=== PATIENT | female | born 1960 | race Caucasian/White ===

== ENCOUNTER 2023-04-28 13:10 | Inpatient (IN) | payer MEDICARE, OTHER, SELFPAY ==
[2023-04-28] VITALS (32 sets, daily range): BP systolic 85–122; BP diastolic 48–75; PULSE 72–93; RESP 12–19; TEMP 36.4–37.2; O2SAT 92–99; BMI 38.7
--- NOTE | ~2023-04-28 | XR_ITS ---
EXAMINATION: XR chest 1V portable DATE: 05/03/2023 15:24 INDICATION: Hypoxia. TECHNIQUE: A single frontal view of the chest was obtained. COMPARISON: Chest single view 05/01/2023, CT abdomen and pelvis 04/28/2023 FINDINGS: There is mild atelectasis in right lower lung zone and left mid and lower lung zones. No pl eural effusion or pneumothorax. The heart size is normal. There are changes of anterior fusion proced ure and disc replacement in cervical spine. A right internal jugular central venous catheter is seen with tip in the superior vena cava. IMPRESSION: 1. Mild atelectasis in right lower lung zone and left mid and lower lung zones. Reviewed, dictated and finalized at location E. ER OPERATORS SUPERVISOR
--- NOTE | ~2023-04-28 | XR_ITS ---
XR fl guide central line place Indication: Duraflow catheter placement TECHNIQUE: Fluoroscopy used during Duraflow catheter placement performed by [Anthony Peguero MD ] on 05/11/2023. 1 minute 31 seconds with 2 fluoroscopic images captured. FINDINGS: Correlate with procedure note. IMPRESSION: Fluoroscopy used during Duraflow catheter placement. Reviewed, dictated and finalized at location A.
--- NOTE | ~2023-04-28 | XR_ITS ---
EXAMINATION: XR chest 1V portable INDICATION: Central line insertion TECHNIQUE: Portable AP chest at 1525 hours COMPARISON: 04/29/2023 FINDINGS: A right internal jugular central venous catheter ends with this tip in the distal superior vena cava. No pleural effusion or pneumothorax. There are minimal airspace opacities of the lung base s, improved on the right and worsening on the left. The cardiomediastinal silhouette is normal. Surgi miles changes are noted in the lower cervical spine. IMPRESSION: 1. Right internal jugular catheter insertion, no pneumothorax. 2. Bibasilar airspace opacities, consistent with atelectasis versus pneumonia. Reviewed, dictated and finalized at location B. PHONE OPERATOR CHIEF
--- NOTE | ~2023-04-28 | XR_ITS ---
EXAMINATION: XR chest 1V portable DATE: 04/29/2023 23:11 INDICATION: Acute kidney injury. Hypotension. TECHNIQUE: A single frontal view of the chest was obtained. COMPARISON: Chest 2 views 04/28/2023 FINDINGS: There are airspace opacities in the lower lung zones. No pleural effusion or pneumothorax. The heart size is normal. There are changes of anterior fusion procedure in cervical spine. IMPRESSION: 1. Worsened airspace opacities in the lower lung zones, consistent with atelectasis versus pneumonia. Reviewed, dictated and finalized at location A. ULATION TECHNICIAN IMPRESSION: 1. Worsened airspace opacities in the lower lung zones, consistent with atelect asis versus pneumonia.
--- NOTE | ~2023-04-28 | XR_ITS ---
Portable chest x-ray Comparison: 05/04/2023 Clinical History: Hypoxia Findings: Right IJ line is in place. There is minimal bibasilar haziness, right worse than left. Ca rdiomediastinal silhouette is stable. Bones and soft tissues are unremarkable. Impression: Stable mild bibasilar hazy airspace disease. Correlate for pulmonary edema/atelectasis versus pneumon ia. Stable support line. Reviewed, dictated and finalized at location . ICAL PROFESSOR Impression: Stable mild bibasilar hazy airspace disease. Correlate for pulmonary edema/atel ectasis versus pneumonia. Stable support line.
--- NOTE | ~2023-04-28 | XR_ITS ---
Portable chest x-ray Comparison: 05/03/2023 Clinical History: Hypoxia Findings: Right-sided central venous line is in satisfactory position. There are probable mild bibas ilar pulmonary edema/atelectatic change. Cardiomediastinal silhouette is stable. Bones and soft tiss ues are unremarkable. Impression: Probable mild bibasilar pulmonary edema/atelectatic change. Correlate clinically for pneumonia. Stable right IJ line. Reviewed, dictated and finalized at location . CIATE PROFESSOR OF LITERACY Impression: Probable mild bibasilar pulmonary edema/atelectatic change. Correlate clinicall y for pneumonia. Stable right IJ line.
--- NOTE | ~2023-04-28 | US_ITS ---
EXAMINATION: US renal BI DATE: 04/30/2023 11:46 INDICATION: Acute kidney injury. TECHNIQUE: Multiple ultrasound grayscale images of the kidneys were obtained. COMPARISON: CT abdomen and pelvis 04/28/2023 FINDINGS: The right kidney measures 9.5 x 4.7 x 4.8 cm. The left kidney measures 11.1 x 6.1 x 5.7 cm. The kidne ys demonstrate normal parenchymal echogenicity. There is no hydronephrosis. The bladder is decompress ed by a Squires catheter. IMPRESSION: 1. Normal kidneys. No hydronephrosis. Reviewed, dictated and finalized at location A. ER YARD WORKER
--- NOTE | ~2023-04-28 | CT_ITS ---
EXAMINATION: CT brain wo con INDICATION: Numbness and tingling of arms and legs COMPARISON: None TECHNIQUE: Standard unenhanced head CT. The dose-length product (DLP) was 681.00 mGy-cm. The mA was a djusted according to patient size. Iterative reconstruction technique was employed. FINDINGS: No intracranial hemorrhage, acute infarction, or abnormal mass lesion. There are old lacuna r infarcts of the right basal ganglia. The ventricles are normal. No abnormal mass effect or midline shift. The dewey-white matter differentiation is normal. The basal cisterns are patent. The orbits are normal. There is mild mucosal thickening of the paranasal sinuses. IMPRESSION: 1. Areas of prior infarction without acute intracranial abnormality. Reviewed, dictated and finalized at location F. EL TURNER
--- NOTE | ~2023-04-28 | CT_ITS ---
EXAMINATION: CT abdomen pelvis wo con DATE: 04/28/2023 15:11 INDICATION: Transaminitis TECHNIQUE: Computed tomography (CT) of the abdomen and pelvis was performed without intravenous contr ast. Automated exposure control and iterative reconstruction technique were employed. The dose-length product was 1323.72 mGy-cm. COMPARISON: 02/16/2012 FINDINGS: Multiple linear bands of discoid atelectasis/scarring at the bilateral lung bases. Heart size is norm al. No pericardial or pleural effusion. Small sliding-type hiatal hernia with postoperative change of prior Jennifer-en-Y gastric bypass procedure with antecolic Jennifer limb and jejunojejunal anastomosis in t he anterior left upper quadrant. Common bile duct is mildly dilated to 12 mm which is within normal l imits post cholecystectomy with surgical clips at the gallbladder fossa. There is suggestion of mild intrahepatic ductal or ductal dilation although assessment is somewhat limited by the absence of intr avenous contrast. No evident obstructing stones or masses identified pancreas, spleen, bilateral adre nal glands and kidneys are normal. Squires catheter in the bladder. The uterus is not identified and oleary s likely been surgically resected. No free intraperitoneal gas or fluid. No pathologically enlarged a bdominal or pelvic lymphadenopathy. Severe spondylosis at the lumbosacral junction and moderate lower thoracic and intervening mild lumbar spondylosis. IMPRESSION: 1. Mild intra and extra hepatic biliary ductal dilation which could be related to prior cholecystecto my with no evident obstructing stones or masses. Cholelithiasis can however be occult on CT and if cl inically indicated could consider MRCP for further evaluation. Reviewed, dictated and finalized at location B. ER POLICE IMPRESSION: 1. Mild intra and extra hepatic biliary ductal dilation which could be related to prior cholecystectomy with no evident obstructing stones or masses. Cholelit hiasis can however be occult on CT and if clinically indicated could consider M STATION COOK for further evaluation.
--- NOTE | ~2023-04-28 | XR_ITS ---
EXAMINATION: XR chest 2V DATE: 04/28/2023 15:17 INDICATION: Weakness TECHNIQUE: AP and lateral views of the chest are obtained. COMPARISON: 04/16/2012 FINDINGS: There is mild atelectasis of the lung bases. No pleural effusion or pneumothorax. The cardi omediastinal silhouette is normal. There is moderate thoracic spondylosis. Surgical clips are noted n ear the gastroesophageal junction. There are also surgical changes in the lower cervical spine. IMPRESSION: 1. Mild atelectasis of the lung bases. Reviewed, dictated and finalized at location F. MENTAL METAL WORKER
--- NOTE | ~2023-04-28 | MR_ITS ---
EXAMINATION: MR brain/brain stem wo con DATE: 04/29/2023 07:49 INDICATION: Left hemiparesis. TECHNIQUE: Magnetic resonance imaging (MRI) of the brain and brainstem was performed without intraven ous contrast. COMPARISON: Brain MRI 12/12/2008, head CT 04/28/2023 FINDINGS: There are scattered areas of nonspecific increased T2-weighted signal intensity in the cere bral white matter and irma, which is within normal limits for the patient's age. There is an old lacu josefina infarct in the right basal ganglia. There is no intracranial hemorrhage, acute infarction, or abn ormal intracranial mass lesion. The ventricles are normal in size. There is mild mucosal thickening i n the paranasal sinuses. The orbits are normal. There is a trace right mastoid effusion. IMPRESSION: 1. Old lacunar infarct in the right basal ganglia. Reviewed, dictated and finalized at location A. COMMUNICATIONS SPECIALIST
--- NOTE | ~2023-04-28 | XR_ITS ---
EXAMINATION: XR chest port-a-cath/central DATE: 05/11/2023 15:36 INDICATION: Central line placement. TECHNIQUE: A single frontal view of the chest was obtained. COMPARISON: Chest single view 05/05/2023, CT abdomen and pelvis 04/28/2023 FINDINGS: There is mild atelectasis in the lower lung zones. No pleural effusion or pneumothorax. The heart size is normal. There are changes of anterior fusion procedure and disc replacement in cervica l spine. A right internal jugular central venous catheter is seen with tip at the superior cava a chi ld junction. IMPRESSION: 1. Central line tip at the superior cavoatrial junction. 2. Mild atelectasis in the lower lung zones. Reviewed, dictated and finalized at location A.
--- NOTE | 2023-04-28 13:45 | ECG_ITS ---
Measurements Intervals [place] Rate: 74 P: 41 ME: 141 QRS: 42 QRSD: 92 T: 59 QT: 354 QTc: 394 Interpretive Statements SINUS RHYTHM WITH SINUS ARRHYTHMIA ST-T WAVE ABNORMALITY IN ANTEROLATERAL LEADS- CONSIDER ISCHEMIA BASELINE ARTIFACT- V3-V4 ABNORMAL ECG NO PREVIOUS ECG AVAILABLE FOR COMPARISON Electronically Signed On 04-28-2023 15:13:47 CHEMICAL ETCHING PROCESSOR by Damion Beltran D.O.
--- NOTE | 2023-04-28 14:07 | ED.NEUROSD ---
HPI - Neuro Symptoms/Deficit General Chief Complaint: Neuro Symptoms/Deficit Stated Complaint: Numbness in arm, tingling in leg Time Seen by Provider: 04/28/23 13:34 History of Present Illness HPI Narrative: Patient is a 62-year-old female who presents ER with reports of numbness to legs and arm. Reports that is her left arm bilateral legs. She reports Monday night she fell asleep while sitting on a commode. When she woke up the next day at 3:00 a.m. the legs are numb in her left arm was numb. She had use a walker to try to walk around. Reports numbness and strength has improved over last couple of days but is not back to normal. No history of stroke. Reports she has not urinated in 3 days. Reports normal oral intake of food water. No fevers chills or sweats. No cough. She thinks she was leaning to the right side when she is sleeping on the commode. She reports it did have arm supports that she could have been leaning on. She also rubbed a blister into her left lateral ankle. Related Data Allergies Allergy/AdvReac Type Severity Reaction Status Date / Time vancomycin Allergy Severe RASHAUN'S Verified 04/28/23 13:52 SYNDROME MADELYN Inhibitors Allergy Unknown RASH Verified 04/28/23 13:52 BEE STINGS Allergy Unknown SWELLING, Uncoded 12/27/17 11:40 DIFFICULTY BREATHING Review of Systems Review of Systems: All systems reviewed & are unremarkable except as noted in HPI and below Constitutional: Constitutional: Denies chills, Reports fatigue and Denies fever(s) ENT: Reports system reviewed and no additional complaints, except as documented Cardiovascular: Cardiovascular: Reports no additional cardiovascular complaints Respiratory: Respiratory: Reports no additional respiratory complaints Gastrointestinal: Gastrointestinal: Reports no additional gastrointestinal complaints Genitourinary: Genitourinary: Denies nocturia, Denies dysuria and Denies urinary incontinence Neurologic: Denies dizziness, Denies syncope, Denies headache(s), Reports focal weakness and Reports numbness PMFSH Past Medical History Medical History (Updated 04/28/23 @ 20:17 by Bello Mason MD) Anxiety Depression Fibromyalgia Hyperlipidemia Hypertension Surgical History Surgical History (Updated 04/28/23 @ 16:14 by Bello Mason MD) History of cholecystectomy History of gastric bypass Family History Family History (Updated 08/27/10 @ 10:30 by DOCTOR UNKNOWN) Other Carcinoma of colon Cerebrovascular accident Diabetes mellitus Family history of cardiovascular disease Family history of lung cancer Social History Social History Smoking end date: 02/27/03 Alcohol intake: current Exam Narrative: GENERAL: Fatigued-appearing, well-nourished, and in no acute distress. HEAD: Normocephalic, atraumatic. EYES: PERRL and EOMI. ENT: Mucous membranes moist. NECK: Supple. CHEST: Clear to auscultation. No respiratory distress. HEART: Regular rate and rhythm. Normal peripheral pulses. ABDOMEN: Soft, nontender, nondistended. EXTREMITIES: Normal range of motion. No edema. SKIN: Warm, dry, no rash. NEURO: patient with drift in the right lower extremity but not the left. No upper extremity drift. Decreased pinprick to arms and legs bilaterally, upper extremities or below the elbow. No facial droop or slurred speech. Alert and oriented x3. PSYCH: Normal mood and affect. Course Course Emergency Course: While in the ER patient's blood pressure is responding to IV fluid. She has significant elevation in her transaminases as well as her renal function though there is no compared to baseline, given the history that she has not been urinating it is believed that this is acute renal failure. I have been in contact with Dr. Hull with GI at [facility] in regards to the patients labwork and abnormal CT scan. he would recommend checking a CK level as he is seen this occur and it read my lysis and should be elev
[2023-04-28 14:12] LABS: Basophils Percent Auto 0.6 % (0.2-1.2); Eosinophils Absolute Auto 0.1 K/mm3 (0-0.3); Eosinophils Percent Auto 1.1 % (0-4.4); Hemoglobin 13.2 g/dL (12.0-15.0); Immature Granulocyte Absolute 0.03 K/mm3 (0.00-0.031); Immature Granulocyte Percent A 0.5 % (0-0.5); Lymphocytes Absolute Auto 1.35 K/mm3 (0.9-3.2); Lymphocytes Percent Auto 20.5 % (18.3-44.2); Mean Corpuscular HGB Conc 32.2 g/dl (32-36); Mean Corpuscular Hemoglobin 34.6 pg (26-34); Mean Corpuscular Volume 107.3 fl (80-100); Monocytes Absolute Auto 1.1 K/mm3 (0.1-0.6); Monocytes Percent Auto 16.5 % (2.6-8.5); Neutrophils Percent Auto 60.8 % (45.5-73.1); Platelet Count Result 188 k/mm3 (150-375); Red Blood Count 3.82 M/mm3 (4.2-5.4); Red Cell Distribution Width 15.6 % (11.5-14.5); White Blood Count 6.6 K/mm3 (4.5-10.0)
[2023-04-28 14:23] LABS: Partial Thromboplastin Time 29.6 SECONDS (22.3-36.8)
[2023-04-28 14:31] LABS: Alanine Aminotransferase 310 U/L (6-35); Albumin Level 4.2 g/dL (3.5-5.1); Alkaline Phosphatase 128 U/L (38-126); Blood Urea Nitrogen 37 mg/dL (7-17); Calcium 8.7 mg/dL (8.4-10.2); Carbon Dioxide 18 mmol/L (22-30); Chloride 97 mmol/L (98-107); Estimated CRCL calculation 13 ml/min; Estimated Glomerular Filt Rate 10; Glucose 114 mg/dL (65-110)
[2023-04-28 14:32] LABS: Anion Gap 13 mmol/L (8-16); Bilirubin,Total 0.9 mg/dL (0.2-1.3); Potassium 3.8 mmol/L (3.4-5.0); Sodium 128 mmol/L (137-145)
[2023-04-28 14:37] LABS: Troponin I 0.021 ng/mL (0.000-0.034)
[2023-04-28 14:40] LABS: Aspartate Amino Transferase 1363 U/L (14-36)
[2023-04-28 14:47] LABS: Platelet Estimate Adequate (Adequate)
[2023-04-28 14:48] LABS: Burr Cells 1+ (NORMAL); Schistocytes None Seen (NORMAL)
[2023-04-28 14:49] LABS: Anisocytosis 1+ (NORMAL)
[2023-04-28 14:51] LABS: Appearance Urine Cloudy (Clear); Bacteria Urine None Seen /hpf; Bilirubin Urine Negative (Negative); Blood Urine 3+ (Negative); Color Urine Dark Yellow (Yellow); Glucose Urine UA Negative (Negative); Ketones Urine Negative (Negative); Leukocyte Esterase Ur Trace LEU/UL (Negative); Nitrate Urine Negative (Negative); Non Pathogenic Casts 0-2; Protein Urine 2+ mg/dL (Negative); RBC Urine 0-2 /hpf (0-2); Specific Grav Ur 1.012 (1.001-1.035); Squamous Epithelial Cell Urine None seen /hpf (Few); Urobilinogen Urine 0.2 mg/dL (<2.0); WBC Urine 0-5 /hpf; pH Urine 5.5 (5.0-9.0)
[2023-04-28] MEDS: SODIUM CHLORIDE 0.9% IV 1,000 ML 999 ML IV CONT ×2 (14:52→17:54)
[2023-04-28 14:59] LABS: Lipase 142 U/L (23-300)
[2023-04-28 15:00] LABS: Add Urine Microscopic? YES
--- NOTE | 2023-04-28 19:04 | PC.NURSE ---
this rn assumed care of patient. this rn took patient report from HONORIO Quiroz.
[2023-04-28 19:15] LABS: Creatine Kinase > 16000 U/L (30-135)
[2023-04-28 21:42] LABS: Folic Acid > 20.0 ng/mL (2.76->20); Vitamin B12 > 1000.0 pg/mL (239-931)
--- NOTE | 2023-04-28 22:18 | ADMGEN ---
This patient, Shoshana Tierney, was admitted to Medical Room 252-. Patient/family oriented to hospital policies and general routines including ID bracelet, bed and alarms, visiting hours, pain management, procedures, bathroom and other care routines, personal items, smoking policy, room service/diet, and visiting hours. Information on how to activate the Rapid Response Team has been discussed. Patient/Family are encouraged to report perceived risks to care and to ask questions if they do not understand what they are told or what they should do.
[2023-04-28] MEDS: SODIUM CHLORIDE 0.9% IV 1,000 ML 200 ML IV CONT (22:27)
--- NOTE | 2023-04-28 22:58 | PM.IMHP ---
H&P: HPI History of Present Illness Date/Time: 04/28/23 22:58 Chief Complaint: Not urinating for 4 days, weakness Narrative: 62-year-old female with a past medical history of seizures, hypertension, hyperlipidemia, obstructive sleep apnea among other comorbidities who presented to the ER after she had not had any urine output for 4 days. Patient reports she fell asleep on the commode on the proximally around 22:00 and did not wake up into the next day at 05:00. She reports that she did not feel any preceding symptoms and does not think that she passed out. When she woke up her legs were numb and her left arm was numb. She reports that the commode had arm rest on it she thinks that her arm may have been pressed against the arm rest. She had to use a walker to get up and walk around. Her strength has improved but is not quite back to normal. She has not been able to urinate since later that day. She has only been able to produce a few drops of urine. She usually does have some stress urinary incontinence so not being able to urinated all has been a significant change. She denies any abdominal pain. She was only able to walk a couple of feet with maximal effort and the assistance of her walker and her . She denies any chest pain, shortness breast or palpitations. She has not had any fevers or chills. She does not have any new medications. She is supposed to start Cimzia for her ankylosing spondylolysis next week. She states she had a history of obstructive sleep apnea but it resolved after she had a weight loss surgery. But since she had surgery she has gained about half of her weight back. She has not had a repeat polysomnogram. She does still have chronic insomnia. She denies any recent NSAID use. She has been compliant with her other meds. The patient's called nursing staff to report that the patient usually drinks a bottle of wine a night. The patient tells me that she only drinks 2 glasses of wine a night and that she has not had any wine in 2 weeks. 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 She communicates by lip reading. Surprisingly, this did not limit the history taking process. Source of information majority of information came from patient who is a good historian. Other information obtained from ER records and archived medical records. Review of Systems Review of Systems: 12 systems were reviewed with pertinent positives and negatives per HPI. Except as documented in the HPI, all other systems were reviewed and are negative. [facility] Past Medical History Medical History (Updated 04/29/23 @ 00:56 by Kalina Ríos DO) Anxiety B12 deficiency CHF (congestive heart failure) Chronic lower back pain Depression Fibromyalgia Hemorrhoids Hyperlipidemia Hypertension Hypothyroidism Irritable bowel syndrome Obesity (BMI 30.0-34.9) Obstructive sleep apnea Seizure Surgical History Surgical History (Updated 04/29/23 @ 00:56 by Kalina Ríos DO) H/O cervical spine surgery X3 History of arthroscopy of both knees History of cholecystectomy History of gastric bypass (2003) History of tonsillectomy and adenoidectomy History of total hysterectomy with bilateral salpingo-oophorectomy (BSO) Family History Family History (Updated 04/29/23 @ 00:44 by Kalina Ríos DO) Mother Lung cancer, Onset Age: 66 Father Ruptured abdominal aortic aneurysm (AAA), Onset Age: 76 Other Carcinoma of colon Cerebrovascular accident Diabetes mellitus Social History Social History (Updated 04/29/23 @ 00:50 by Kalina Ríos DO) Social History: Patient lives with her current they have been together since approximately 2011. She raised 3 children she lost 1 child at due to in his twin transfusion. She drinks up to 1 bottle of wine a day. She briefly smoked cigarettes for a few months in the 1970s. She kitty
--- NOTE | 2023-04-28 23:13 | PC.NURSE ---
PT LIED ABOUT ALCOHOL CONSUMPTION DURING ADMISSION. CAME UP TO NURSES STATION BEFORE LEAVING AND INFORMED ME THAT HIS IS AN ALCOHOLIC AND HAS BEEN FOR YEARS. STATES SHE DRINKS AT LEAST 1 BOTTLE OF WINE A DAY AND WHEN SHE DOES NOT TO THAT SHE AT LEAST DRINKS A BEER TO CURB THE URGE . PT CURRENTLY SHOWING NO SIGNS OF ALCOHOL WITHDRAW.
[2023-04-29] VITALS (13 sets, daily range): BP systolic 80–114; BP diastolic 42–76; PULSE 71–110; RESP 14–16; TEMP 36.4–36.9; O2SAT 91–96
[2023-04-29] MEDS: rOPINIRole HCL 0.25 MG TABLET PO ×2 (00:15→20:22)
[2023-04-29] MEDS: GABAPENTIN 300 MG CAPSULE PO ×2 (00:15→20:22)
[2023-04-29] MEDS: TIZANIDINE HCL 4 MG TABLET PO ×2 (00:15→20:22)
[2023-04-29] MEDS: SODIUM CHLORIDE 0.9% IV 1,000 ML 200 ML IV CONT (03:42)
[2023-04-29 05:16] LABS: Basophils Percent Auto 0.4 % (0.2-1.2); Eosinophils Absolute Auto 0.1 K/mm3 (0-0.3); Hematocrit 33.9 % (37.0-47.0); Hemoglobin 10.9 g/dL (12.0-15.0); Immature Granulocyte Absolute 0.04 K/mm3 (0.00-0.031); Immature Granulocyte Percent A 0.6 % (0-0.5); Lymphocytes Absolute Auto 1.21 K/mm3 (0.9-3.2); Lymphocytes Percent Auto 17.1 % (18.3-44.2); Mean Corpuscular HGB Conc 32.2 g/dl (32-36); Mean Corpuscular Hemoglobin 34.6 pg (26-34); Mean Corpuscular Volume 107.6 fl (80-100); Mean Platelet Volume 11.4 fl (7.4-10.4); Monocytes Absolute Auto 1.2 K/mm3 (0.1-0.6); Monocytes Percent Auto 16.3 % (2.6-8.5); Neutrophils Absolute Auto 4.6 K/mm3 (1.3-6.7); Neutrophils Percent Auto 64.6 % (45.5-73.1); Platelet Count Result 150 k/mm3 (150-375); Red Blood Count 3.15 M/mm3 (4.2-5.4); Red Cell Distribution Width 15.1 % (11.5-14.5); White Blood Count 7.1 K/mm3 (4.5-10.0)
[2023-04-29 05:34] LABS: Alanine Aminotransferase 188 U/L (6-35); Albumin Level 3.1 g/dL (3.5-5.1); Alkaline Phosphatase 101 U/L (38-126); Anion Gap 9 mmol/L (8-16); Aspartate Amino Transferase 648 U/L (14-36); Bilirubin,Total 0.6 mg/dL (0.2-1.3); Blood Urea Nitrogen 40 mg/dL (7-17); Calcium 7.7 mg/dL (8.4-10.2); Carbon Dioxide 16 mmol/L (22-30); Chloride 102 mmol/L (98-107); Estimated CRCL calculation 11 ml/min; Estimated Glomerular Filt Rate 8; Glucose 109 mg/dL (65-110); Magnesium 2.2 mg/dL (1.6-2.3); Phosphorus 7.8 mg/dL (2.5-4.5); Potassium 4.2 mmol/L (3.4-5.0); Sodium 127 mmol/L (137-145)
[2023-04-29 06:06] LABS: Creatine Kinase > 1600 U/L (30-135)
[2023-04-29] MEDS: EZETIMIBE 10 MG TABLET PO (10:01)
[2023-04-29] MEDS: MONTELUKAST SODIUM 10 MG TABLET PO (10:01)
[2023-04-29] MEDS: HEPARIN SODIUM 5,000 UNITS/ML VIAL 5000 UNITS SUB-Q ×2 (10:01→20:59)
[2023-04-29] MEDS: FOLIC ACID 1 MG TABLET PO (10:01)
[2023-04-29] MEDS: PARoxetine 10 MG TABLET PO (10:01)
[2023-04-29] MEDS: dilTIAZem HCL CD 180 MG CAP.24HR PO (10:07)
--- NOTE | 2023-04-29 11:45 | PM.CNNEP ---
Assessment and Plan Assessment and plan (1) BREE (acute kidney injury): Code(s): N17.9 - Acute kidney failure, unspecified Status: Acute Assessment and Plan: unclear what baseline creatinine is but patient reports a GFR that runs somewhere between CKD stage 2 - stage 3 etiology of BREE/ARF multifactorial: #2 (CPK quite elevated) prerenal factors continued use of statin (crestor) DECONTAMINATOR ongoing use of HCTZ and ARB DECONTAMINATOR other evaluation to date: CT of abdomen without obstruction CPK > 16,000 (follow trend) UA with blood and protein will check urine studies and renal ultrasound hold ARB, HCTZ, statin, and methothrexate continue IVF resuscitation force diuresis if run into issues with fluid retention/volume overload consider switching to bicarb fluids for urine alkalinization given rhabdo follow repeat labs and UOP (2) Rhabdomyolysis: Qualifiers: Rhabdomyolysis type: non-traumatic Qualified Code(s): M62.82 - Rhabdomyolysis Code(s): M62.82 - Rhabdomyolysis Status: Acute Assessment and Plan: as noted by admission CPK presumably due to prolonged immobilization when on commode follow trend of CPK levels on IVFs (3) Metabolic acidosis: Code(s): E87.20 - Acidosis, unspecified Status: Acute Assessment and Plan: secondary to BREE/ARF follow trend of CO2 levels consider sodium bicarbonate (oral versus IV) depending on trend (4) Hyponatremia: Code(s): E87.1 - Hypo-osmolality and hyponatremia Status: Acute Assessment and Plan: due to BREE/ARF follow trend (5) Transaminitis: Code(s): R74.01 - Elevation of levels of liver transaminase levels Status: Acute Assessment and Plan: presumably secondary to rhabdomyolysis follow trend of LFTs Discussed case with JEAN PIERRE Olmedo. Long extensive discussion (> 20 minutes) with the patient regarding her severe renal dysfunction at this time in association with rhabdomyolysis, metabolic acidosis, and mild hyponatremia. I discussed my concerns with the patient that if her renal function continues to deteriorate or she runs into issues with worsening metabolic acidosis, critical electrolyte abnormalities (hyperkalemia, hypocalcemia, hyperphosphatemia...etc), or volume overload unresponsive to medical therapy, she may need renal replacement therapy/dialysis -- she appeared to voice understanding. I will continue follow the patient with you while she remains hospitalized and make further recommendations as deemed necessary. Thank you for allowing me to participate in the care of this patient. History of Present Illness Reason for Consult Consult date: 04/29/23 Reason for consult: acute renal failure and Other (rhabdomyolysis) Chief Complaint Chief complaint: Rhabdomyolysis,Transaminitis,Leg Weakness,BREE History of Present Illness Narrative: The patient is a 62-year-old female with a past medical history as outlined below who presented to [facility] Emergency Room after reportedly not having urine output for last 3-4 days. The patient reports that several days ago she fell asleep on the commode and apparently stayed there for almost 7 hours... she remembered sitting on the commode on 04/25 at around 10:00 p.m. and did not wake up till the next day and around 5:00 a.m. She does not report any symptoms prior to falling asleep and does not feel that she passed out or had a syncopal episode. When she woke up, she noticed that her legs were quite numb as was her left arm. She reports that the commode has an arm rest and she thinks that her left arm was pressed up against this during this time frame. Eventually, with the assistance of a walker she was able to get up and walk around and her strength slowly improved but it did not really improve back to its normal baseline. Since this occurrence, she reports that she is not urinated. She reports fe
--- NOTE | 2023-04-29 11:45 | P.CONNP_ITS ---
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 * ongoing use of HCTZ and ARB GLEASON OPERATOR * other * evaluation to date: * CT of abdomen without obstruction * CPK > 16,000 (follow trend) * UA with blood and protein * will check urine studies and renal ultrasound * hold ARB, HCTZ, statin, and methothrexate * continue IVF resuscitation * force diuresis if run into issues with fluid retention/volume overload * consider switching to bicarb fluids for urine alkalinization given rhabdo * follow repeat labs and UOP (2) Rhabdomyolysis: Qualifiers: Rhabdomyolysis type: non-traumatic Qualified Code(s): M62.82 - Rhabdomyolysis Code(s): M62.82 - Rhabdomyolysis Status: Acute Assessment and Plan: * as noted by admission CPK * presumably due to prolonged immobilization when on commode * follow trend of CPK levels * on IVFs (3) Metabolic acidosis: Code(s): E87.20 - Acidosis, unspecified Status: Acute Assessment and Plan: * secondary to BREE/ARF * follow trend of CO2 levels * consider sodium bicarbonate (oral versus IV) depending on trend (4) Hyponatremia: Code(s): E87.1 - Hypo-osmolality and hyponatremia Status: Acute Assessment and Plan: * due to BREE/ARF * follow trend (5) Transaminitis: Code(s): R74.01 - Elevation of levels of liver transaminase levels Status: Acute Assessment and Plan: * presumably secondary to rhabdomyolysis * follow trend of LFTs Discussed case with JEAN PIERRE Olmedo. Long extensive discussion (> 20 minutes) with the patient regarding her severe renal dysfunction at this time in association with rhabdomyolysis, metabolic acidosis, and mild hyponatremia. I discussed my concerns with the patient that if her renal function continues to deteriorate or she runs into issues with worsening metabolic acidosis, critical electrolyte abnormalities (hyperkalemia, hypocalcemia, hyperphosphatemia...etc), or volume overload unresponsive to medical therapy, she may need renal replacement therapy/dialysis -- she appeared to voice understanding. I will continue follow the patient with you while she remains hospitalized and make further recommendations as deemed necessary. Thank you for allowing me to participate in the care of this patient. History of Present Illness Reason for Consult Consult date: 04/29/23 Reason for consult: acute renal failure and Other (rhabdomyolysis) Chief Complaint Chief complaint: Rhabdomyolysis,Transaminitis,Leg Weakness,BREE History of Present Illness Narrative: The patient is a 62-year-old female with a past medical history as outlined below who presented to [facility] Emergency Room after reportedly not having urine output for last 3-4 days. The patient reports that several days ago she fell asleep on the commode and apparently stayed there for almost 7 hours... she remembered sitting on the commode on 04/25 at around 10:00 p.m. and did not wake up till the next day and around 5:00 a.m. She does not report any symptoms prior to falling asleep and does not feel that she passed out or had a syncopal episode. When she woke up, she noticed that her leg
[2023-04-29] MEDS: FUROSEMIDE INJ 40 MG/4 ML VIAL IV PUSH (13:55)
[2023-04-29] MEDS: SODIUM CHLORIDE 0.9% IV 1,000 ML 150 ML IV CONT ×2 (13:56→20:23)
--- NOTE | 2023-04-29 14:52 | PM.IMPN ---
Progress Note: A&P Assessment and Plan (1) Rhabdomyolysis: Qualifiers: Rhabdomyolysis type: non-traumatic Qualified Code(s): M62.82 - Rhabdomyolysis Code(s): M62.82 - Rhabdomyolysis Status: Acute Assessment and Plan: Patient has rhabdomyolysis likely from prolonged time on the commode several days ago. This is resulted in acute kidney injury, metabolic acidosis and transaminitis. Patient received 2 L of normal saline in the ER. She has been continued on aggressive IV fluid hydration at 200 mL an hour. Will need to watch patient's fluid status closely. Will monitor strict I&O's and daily weights. Fluid rate decreased to 150 cc/hr due to worsened kidney function. Patient states that she does have history of CKD but not sure what stage. No prior records at our facility Will hold the patient's home hydrochlorothiazide and losartan given setting of acute kidney injury. Will also hold methotrexate, sulfasalazine and statin. CK >16,000. Continue to trend. (2) BREE (acute kidney injury): Code(s): N17.9 - Acute kidney failure, unspecified Status: Acute Assessment and Plan: Acute on chronic kidney failure. (3) Transaminitis: Code(s): R74.01 - Elevation of levels of liver transaminase levels Status: Acute Assessment and Plan: Continue to trend. Likely due to rhabdomyolysis. (4) Metabolic acidosis: Code(s): E87.20 - Acidosis, unspecified Status: Acute Assessment and Plan: Due to rhabdomyolysis and acute on chronic kidney failure. (5) Acute hyponatremia: Code(s): E87.1 - Hypo-osmolality and hyponatremia Status: Acute Assessment and Plan: Likely due to kidney dysfunction. Nephrology consulted. (6) Obstructive sleep apnea: Code(s): G47.33 - Obstructive sleep apnea (adult) (pediatric) Status: Acute Assessment and Plan: Patient does have a distant history obstructive sleep apnea but does not uses CPAP at home anymore. Will check ApneaLink. (7) Left-sided weakness: Code(s): R53.1 - Weakness Status: Acute Assessment and Plan: Patient is having left-sided weakness along with paresthesias of the left arm and bilateral lower extremities. Bilateral lower extremity paresthesias could be due to her prolonged episode of sitting on toilet. MRI showed old lacunar infarct in the right basal ganglia. Weakness and paresthesias likely due to rhabdomyolysis and prolong sitting. (8) Alcohol abuse: Code(s): F10.10 - Alcohol abuse, uncomplicated Status: Acute Assessment and Plan: Patient's does report the patient has history of heavy alcohol use. Patient is not demonstrating symptoms of withdrawal and states she has not drink alcohol in 2 weeks. Will not or CIWA scores at this time but will keep this in mind and monitor the case the patient may be providing misleading information. Plan Will continue the patient's other antihypertensive medications, Neurontin, lorazepam, long-acting opiate and tramadol. Will continue Requip for patient's restless leg. Patient has been admitted as observation status. Subjective Date/time seen: 04/29/23 14:52 Interval history: Patient continues to have paresthesias. She also states that her bottom is sore from sitting on the commode for so long. Discussed her case with Nephrology. Continue IV fluids due to rhabdomyolysis. There is a chance that patient may need dialysis at some point. Patient denies chest pain, shortness a breath nausea vomiting. She does have history of CKD but is not sure what stage she is in. Her nephrotoxic medications have been held. Exam Narrative: GENERAL: Comfortable, no acute distress HENMT: moist mucous membranes EYES: EOM intact b/l NECK: no lymphadenopathy RESPIRATORY: clear to auscultation CARDIO:
[2023-04-29 17:43] LABS: Alanine Aminotransferase 165 U/L (6-35); Albumin Level 3.3 g/dL (3.5-5.1); Alkaline Phosphatase 99 U/L (38-126); Anion Gap 9 mmol/L (8-16); Aspartate Amino Transferase 598 U/L (14-36); Bilirubin,Total 0.6 mg/dL (0.2-1.3); Blood Urea Nitrogen 43 mg/dL (7-17); Calcium 7.5 mg/dL (8.4-10.2); Carbon Dioxide 15 mmol/L (22-30); Chloride 99 mmol/L (98-107); Estimated CRCL calculation 10 ml/min; Estimated Glomerular Filt Rate 7; Glucose 122 mg/dL (65-110); Potassium 4.2 mmol/L (3.4-5.0); Sodium 123 mmol/L (137-145)
[2023-04-29 18:53] LABS: Creatinine Urine 60.2 mg/dL; Total Protein Urine Random 100 mg/dL; Ur Ttl Prot Creatinine Ratio 1.66 mg/mg (0-0.20); Urea Random Urine 76 MG/DL
[2023-04-29 18:55] LABS: Eosinophil Urine None Seen % (None Seen); Urine Eos QC 2nd Tech Confirmed
[2023-04-29 19:02] LABS: Sodium Urine Random 69 meq/L
[2023-04-29] MEDS: MORPHINE SULFATE (*CRX) 15 MG TABCR PO (20:22)
[2023-04-29] MEDS: AMITRIPTYLINE HCL 25 MG TABLET PO (20:22)
[2023-04-29 21:49] LABS: Glucose Point of Care 98 mg/dl (65-105)
--- NOTE | 2023-04-29 21:56 | PM.EVENT ---
Event Note Event Note Event Note: Cross Coverage: Patient here with rhabdomyolysis. Patient fell asleep on toilet and remained there from 22:00-05:00. Unable to urinate since. Associated paresthesias. Currently undergoing aggressive IV hydration, current rate at 150 mL/hr. At 9:37 p.m., bedside RN reached out to covering provider, reporting increased somnolence and hypotension. Multiple manual blood pressures taken and pressure 80/50, MAP 66. POC glucose 98. Minimal urine output this evening. No bradypnea on exam. A/Ox4 and PERRLA @2-3 mm bilat. Awakens to voice, but quickly goes back to sleep once verbal or physical stimulation ceases. Review of I&Os shows current output as 500 mL with 4770 input. Reaching out to Nephrology for further recommendations. Reviewed labs: CK: >09856 -> >1600. Creatinine: 4.5 -> 5.5 -> 6.1. Calcium 7.5, however when corrected for hypoalbuminemia (3.3), calcium is 8.2. Ordered ABG, albumin 25 G q.6 x4, and calcium gluconate 1 g IVP. Recheck CMP 1-2 hours post-calcium admin. Start bicarb gtt if calcium (corrected) greater than 8.4. Recommended rate for gtt: 150 mEq in 1L of water or dextrose at initial rate of 200 mL/hr. Adjust rate based off urine pH, goal is >6.5. Plan communicated to bedside RN. Timed UA and CMP ordered. ABG results: pH 7.280, pCO2 29.0, pO2 81.4, HCO3 13.3, O2 sat 94.9% Critical Care Time: I personally spent 60 minutes of direct patient care including (but not limited to) the physical examination, decision-making, bedside evaluation, review of medical records, review of labs and imaging, discussion with nursing staff and other providers for collaborative, critical care management of this patient.
[2023-04-29 22:25] LABS: Alveolar/Arterial O2 Gradient 33.6 mmHg; Base Excess ABG -12.1 mEq/l (+/-2.0); Fractional Inspired Oxygen 21 %; HCO3 ABG 13.3 mEq/l (22.0-26.0); Oxygen Content ABG 13.6 %vol (16.0-22.0); Oxygen Saturation ABG 94.9 % (95.0-100.0); PO2 ABG 81.4 mmHg (80.0-100.0); PO2 FiO2 Ratio Arterial Blood 3.88 %; Total Hemoglobin 10.4 g/dL (12.0-18.0)
[2023-04-29 22:30] LABS: Device ROOM AIR; Modified Allen's Test Pass; Site Drawn RIGHT RADIAL
[2023-04-29] MEDS: CALCIUM GLUCONATE 1,000 MG/10 ML VIAL 1000 MG IV PUSH (23:11)
[2023-04-29] MEDS: ALBUMIN HUMAN 25% 25 GM/100 ML 100 ML IVPB (23:16)
[2023-04-30] VITALS (13 sets, daily range): BP systolic 82–141; BP diastolic 47–70; PULSE 60–96; RESP 12–18; TEMP 36.5–36.9; O2SAT 88–99
[2023-04-30 01:06] LABS: Alanine Aminotransferase 123 U/L (6-35); Albumin Level 2.9 g/dL (3.5-5.1); Alkaline Phosphatase 77 U/L (38-126); Anion Gap 10 mmol/L (8-16); Aspartate Amino Transferase 363 U/L (14-36); Bilirubin,Total 0.4 mg/dL (0.2-1.3); Blood Urea Nitrogen 46 mg/dL (7-17); Calcium 7.6 mg/dL (8.4-10.2); Carbon Dioxide 13 mmol/L (22-30); Chloride 99 mmol/L (98-107); Estimated CRCL calculation 10 ml/min; Estimated Glomerular Filt Rate 7; Glucose 104 mg/dL (65-110); Potassium 4.3 mmol/L (3.4-5.0); Sodium 122 mmol/L (137-145)
[2023-04-30] MEDS: SODIUM BICARBONATE 8.4% 100 MEQ in DEXTROSE 5% 1,000 ML 1,000 ML 50 MEQ IV CONT (01:38)
[2023-04-30 05:10] LABS: Hemoglobin 9.6 g/dL (12.0-15.0); Immature Platelet Fraction Pct 7.8 % (0.9-11.2); Mean Corpuscular Hemoglobin 33.9 pg (26-34); Platelet Count Result 142 k/mm3 (150-375); Red Blood Count 2.83 M/mm3 (4.2-5.4); Red Cell Distribution Width 14.8 % (11.5-14.5); White Blood Count 6.3 K/mm3 (4.5-10.0)
[2023-04-30 05:42] LABS: Anion Gap 11 mmol/L (8-16); Blood Urea Nitrogen 47 mg/dL (7-17); Carbon Dioxide 13 mmol/L (22-30); Chloride 99 mmol/L (98-107); Potassium 4.3 mmol/L (3.4-5.0); Sodium 123 mmol/L (137-145)
[2023-04-30 05:43] LABS: Alanine Aminotransferase 105 U/L (6-35); Albumin Level 2.8 g/dL (3.5-5.1); Alkaline Phosphatase 76 U/L (38-126); Aspartate Amino Transferase 329 U/L (14-36); Bilirubin,Total 0.4 mg/dL (0.2-1.3); Calcium 7.7 mg/dL (8.4-10.2); Creatine Kinase 14862 U/L (30-135); Estimated CRCL calculation 9 ml/min; Estimated Glomerular Filt Rate 6; Glucose 98 mg/dL (65-110)
[2023-04-30] MEDS: ALBUMIN HUMAN 25% 25 GM/100 ML 100 ML IVPB ×3 (05:50→16:53)
[2023-04-30 07:44] LABS: Appearance Urine Turbid (Clear); Bacteria Urine None Seen /hpf; Bilirubin Urine Negative (Negative); Blood Urine 3+ (Negative); Color Urine Yellow (Yellow); Glucose Urine UA Negative (Negative); Ketones Urine Negative (Negative); Leukocyte Esterase Ur 1+ LEU/UL (NEGATIVE); Need Manual Microscopic Reviewed; Nitrate Urine Negative (Negative); Non Pathogenic Casts 0-2; Protein Urine 2+ mg/dL (Negative); RBC Urine >100 /hpf (0-2); Specific Grav Ur 1.009 (1.001-1.035); Squamous Epithelial Cell Urine Occasional /hpf (Few); Urobilinogen Urine 0.2 mg/dL (<2.0)
[2023-04-30 07:46] LABS: Add Urine Microscopic? YES
[2023-04-30 07:50] LABS: Iron 30 ug/dL (37-170)
[2023-04-30 07:51] LABS: Lactate Dehydrogenase 422 U/L (120-246)
[2023-04-30 07:58] LABS: Transferrin 166 mg/dL (206-381)
[2023-04-30 08:00] LABS: Percent Iron Saturation 14 % (20-50)
[2023-04-30] MEDS: PARoxetine 10 MG TABLET PO (08:12)
[2023-04-30] MEDS: dilTIAZem HCL CD 180 MG CAP.24HR PO (08:12)
[2023-04-30] MEDS: HEPARIN SODIUM 5,000 UNITS/ML VIAL 5000 UNITS SUB-Q ×2 (08:12→20:31)
[2023-04-30] MEDS: FOLIC ACID 1 MG TABLET PO (08:12)
[2023-04-30] MEDS: MORPHINE SULFATE (*CRX) 15 MG TABCR PO ×2 (08:12→20:31)
[2023-04-30] MEDS: FERROUS GLUCONATE 324 MG TABLET PO (08:12)
[2023-04-30] MEDS: MONTELUKAST SODIUM 10 MG TABLET PO (08:12)
[2023-04-30] MEDS: EZETIMIBE 10 MG TABLET PO (08:12)
[2023-04-30] MEDS: CALCIUM GLUC 2,000 MG/NS 100ML 2,000 MG/100 ML BAG 100 MG IVPB (10:04)
[2023-04-30] MEDS: BUMETANIDE INJ 2.5 MG/10 ML VIAL 1.5 MG IV PUSH (10:04)
[2023-04-30] MEDS: SODIUM BICARBONATE 8.4% 150 MEQ in DEXTROSE 5% 1,000 ML 950 ML 65 MEQ IV CONT (10:04)
--- NOTE | 2023-04-30 10:38 | P.PNNP_ITS ---
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 * ongoing use of HCTZ and ARB OPERATIONS PROFESSIONAL * other * evaluation to date: * CT of abdomen without obstruction * CPK > 16,000 (follow trend) * UA with blood and protein * renal ultrasound pending * urine electrolytes non-prerenal (by FeNa) but prerenal by FeUrea * urine eosinophils negative * moderate proteinuria * hold ARB, HCTZ, statin, and methothrexate * continue IVF resuscitation * force diuresis if run into issues with fluid retention/volume overload (but limited response noted -- will try again today) * switched to bicarb fluids for urine alkalinization given rhabdo * follow repeat labs and UOP (2) Rhabdomyolysis: Qualifiers: Rhabdomyolysis type: non-traumatic Qualified Code(s): M62.82 - Rha bdomyolysis Code(s): M62.82 - Rhabdomyolysis Status: Acute Assessment and Plan: * as noted by admission CPK * presumably due to prolonged immobilization when on commode * follow trend of CPK levels * on IVFs (bicarb fluids) (3) Metabolic acidosis: Code(s): E87.20 - Acidosis, unspecified Status: Acute Assessment and Plan: * secondary to BREE/ARF * follow trend of CO2 levels * on bicarb fluids and added oral bicarbonate as well (4) Hyponatremia: Code(s): E87.1 - Hypo-osmolality and hyponatremia Status: Acute Assessment and Plan: * due to BREE/ARF * follow trend (5) Transaminitis: Code(s): R74.01 - Elevation of levels of liver transaminase levels Status: Acute Assessment and Plan: * presumably secondary to rhabdomyolysis * follow trend of LFTs Discussed case with JEAN PIERRE Olmedo. Long extensive discussion (> 20 minutes) with the patient once again regarding her severe renal dysfunction at this time in association with rhabdomyolysis, metabolic acidosis, and hyponatremia. She remains at significant risk for renal replacement therapy/dialysis although, surprisingly, she appears to be doing reasonably well at this time. Will continue to follow. Subjective Date/time seen: 04/30/23 10:38 Interval history: Follow-up for acute kidney injury/acute renal failure and rhabdomyolysis. Events noted overnight -- worsening urine output despite use of IV diuretics in association with hypotension; BP doing better s/p IV albumin and given worsening acidosis, started on bicarb gtt as well; bicarb gtt rate increased and oral sodium bicarbonate added as well; despite deteriorating renal function in association with hyponatremia and metabolic acidosis, the patient feels reaso nably well. Exam Narrative: General: WD/WN female in NAD Heart: normal S1 and S2; no rub Lungs: clear to auscultation Abdomen: soft, nontender, nondistended, positive bowel sounds Extremities: no cyanosis or clubbing; 1+ edema Skin: warm and dry Objective Data Vital Signs Vital Signs: Vital Signs Temp Pulse Resp BP Pulse Ox O2 Del Method O2 Flow Rate 04/30/23 10:13 76 1
--- NOTE | 2023-04-30 10:38 | PM.PNNEP ---
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 and ARB PLUG STITCHER other evaluation to date: CT of abdomen without obstruction CPK > 16,000 (follow trend) UA with blood and protein renal ultrasound pending urine electrolytes non-prerenal (by FeNa) but prerenal by FeUrea urine eosinophils negative moderate proteinuria hold ARB, HCTZ, statin, and methothrexate continue IVF resuscitation force diuresis if run into issues with fluid retention/volume overload (but limited response noted -- will try again today) switched to bicarb fluids for urine alkalinization given rhabdo follow repeat labs and UOP (2) Rhabdomyolysis: Qualifiers: Rhabdomyolysis type: non-traumatic Qualified Code(s): M62.82 - Rhabdomyolysis Code(s): M62.82 - Rhabdomyolysis Status: Acute Assessment and Plan: as noted by admission CPK presumably due to prolonged immobilization when on commode follow trend of CPK levels on IVFs (bicarb fluids) (3) Metabolic acidosis: Code(s): E87.20 - Acidosis, unspecified Status: Acute Assessment and Plan: secondary to BREE/ARF follow trend of CO2 levels on bicarb fluids and added oral bicarbonate as well (4) Hyponatremia: Code(s): E87.1 - Hypo-osmolality and hyponatremia Status: Acute Assessment and Plan: due to BREE/ARF follow trend (5) Transaminitis: Code(s): R74.01 - Elevation of levels of liver transaminase levels Status: Acute Assessment and Plan: presumably secondary to rhabdomyolysis follow trend of LFTs Discussed case with JEAN PIERRE Olmedo. Long extensive discussion (> 20 minutes) with the patient once again regarding her severe renal dysfunction at this time in association with rhabdomyolysis, metabolic acidosis, and hyponatremia. She remains at significant risk for renal replacement therapy/dialysis although, surprisingly, she appears to be doing reasonably well at this time. Will continue to follow. Subjective Date/time seen: 04/30/23 10:38 Interval history: Follow-up for acute kidney injury/acute renal failure and rhabdomyolysis. Events noted overnight -- worsening urine output despite use of IV diuretics in association with hypotension; BP doing better s/p IV albumin and given worsening acidosis, started on bicarb gtt as well; bicarb gtt rate increased and oral sodium bicarbonate added as well; despite deteriorating renal function in association with hyponatremia and metabolic acidosis, the patient feels reasonably well. Exam Narrative: General: WD/WN female in NAD Heart: normal S1 and S2; no rub Lungs: clear to auscultation Abdomen: soft, nontender, nondistended, positive bowel sounds Extremities: no cyanosis or clubbing; 1+ edema Skin: warm and dry Objective Data Vital Signs Vital Signs: Vital Signs Temp Pulse Resp BP Pulse Ox O2 Del Method O2 Flow Rate 04/30/23 10:13 76 115/55 L 04/30/23 08:00 97 Nasal Cannula 2 04/30/23 08:00 75 04/30/23 07:07 98.5 F 74 16 120/70 99 04/30/23 04:03 67 04/30/23 00:11 97.7 F 60 16 82/64 L 97 04/30/23 00:01 62 04/29/23 20:03 82 04/29/23 22:35 95 Nasal Cannula 2 04/29/23 21:28 97.6 F 71 16 80/60 L 93 04/29/23 20:30 93 14 96 Room Air Intake/Output Intake/Output: Intake & Output 04/27/23 04/28/23 04/29/23 04/30/23 23:59 23:59 23:59 23:59 Intake Total 1999 2032 1130 Output Total 0 500 50 Balance 1999 4579 8174 Meds/Results Medica
[2023-04-30] MEDS: SODIUM BICARBONATE TAB 650 MG TABLET 1300 MG PO ×3 (10:58→16:53)
--- NOTE | 2023-04-30 13:38 | P.PNIM_ITS ---
Progress Note: A&P Assessment and Plan (1) Rhabdomyolysis: Qualifiers: Rhabdomyolysis type: non-traumatic Qualified Code(s): M62.82 - Rhabdomyolysis Code(s): M62.82 - Rhabdomyolysis Status: Acute Assessment and Plan: Patient has rhabdomyolysis likely from prolonged time on the commode several day s ago. This is resulted in acute kidney injury, metabolic acidosis and transaminitis. Patient received 2 L of normal saline in the ER. * She has been continued on aggressive IV fluid hydration at 200 mL an hour. * Will need to watch patient's fluid status closely. Will monitor strict I&O's and daily weights. * Fluid rate decreased to 150 cc/hr due to worsened kidney function. * Patient states that she does have history of CKD but not sure what stage. No prior records at our facility * Will hold the patient's home hydrochlorothiazide and losartan given setting of acute kidney injury. Will also hold methotrexate, sulfasalazine and statin. * CK >16,000; 14,862 (2) BREE (acute kidney injury): Code(s): N17.9 - Acute kidney failure, unspecified Status: Acute Assessment and Plan: Acute on chronic kidney failure. * Nephrology consulted. * 3/1 BUN and creatinine of 37/4.5 * 3/2 BUN and creatinine of 40/5.5 * 3/3 BUN and creatinine of 47/6.9 * Patient will likely need dialysis. * Discussed with Nephrology today any states that he will try to get surgery to place line tomorrow. (3) Transaminitis: Code(s): R74.01 - Elevation of levels of liver transaminase levels Status: Acute Assessment and Plan: * Continue to trend. * Likely due to rhabdomyolysis. * LFTs trending down. (4) Metabolic acidosis: Code(s): E87.20 - Acidosis, unspecified Status: Acute Assessment and Plan: Due to rhabdomyolysis and acute on chronic kidney failure. * Patient's carbon dioxide level decreased from 18 to 13 in 2 days. * ABG on 04/29/2023 with a pH of 7.28, pCO2 29, bicarb 13.3 * Sodium bicarb in dextrose IV fluids at 70 mL/hour * Sodium bicarb tabs 1300 mg t.i.d. (5) Acute hyponatremia: Code(s): E87.1 - Hypo-osmolality and hyponatremia Status: Acute Assessment and Plan: * Likely due to kidney dysfunction. * Nephrology consulted. (6) Obstructive sleep apnea: Code(s): G47.33 - Obstructive sleep apnea (adult) (pediatric) Status: Acute Assessment and Plan: * Patient does have a distant history obstructive sleep apnea but does not uses CPAP at home anymore. (7) Left-sided weakness: Code(s): R53.1 - Weakness Status: Acute Assessment and Plan: Patient is having left-sided weakness along with paresthesias of the left arm and bilateral lower extremities. Bilateral lower extremity paresthesias could be due to her prolonged episode of sitting on toilet. * MRI showed old lacunar infarct in the right basal ganglia. * Weakness and paresthesias likely due to rhabdomyolysis and prolong sitting. (8) Alcohol abuse: Code(s): F10.10 - Alcohol abuse, uncomplicated Status: Acute Assessment and Plan: Patient's does report the patient has history of heavy alcohol use. Patient is not demonstrating symptoms of withdrawal and states she has not drink alcohol in 2 weeks. Will not or CIWA scores at this time but will keep this in mind and monitor the case the patient may be providing misleading inform
--- NOTE | 2023-04-30 13:38 | PM.IMPN ---
Progress Note: A&P Assessment and Plan (1) Rhabdomyolysis: Qualifiers: Rhabdomyolysis type: non-traumatic Qualified Code(s): M62.82 - Rhabdomyolysis Code(s): M62.82 - Rhabdomyolysis Status: Acute Assessment and Plan: Patient has rhabdomyolysis likely from prolonged time on the commode several days ago. This is resulted in acute kidney injury, metabolic acidosis and transaminitis. Patient received 2 L of normal saline in the ER. She has been continued on aggressive IV fluid hydration at 200 mL an hour. Will need to watch patient's fluid status closely. Will monitor strict I&O's and daily weights. Fluid rate decreased to 150 cc/hr due to worsened kidney function. Patient states that she does have history of CKD but not sure what stage. No prior records at our facility Will hold the patient's home hydrochlorothiazide and losartan given setting of acute kidney injury. Will also hold methotrexate, sulfasalazine and statin. CK >16,000; 14,862 (2) BREE (acute kidney injury): Code(s): N17.9 - Acute kidney failure, unspecified Status: Acute Assessment and Plan: Acute on chronic kidney failure. Nephrology consulted. 3/1 BUN and creatinine of 37/4.5 3/2 BUN and creatinine of 40/5.5 3/3 BUN and creatinine of 47/6.9 Patient will likely need dialysis. Discussed with Nephrology today any states that he will try to get surgery to place line tomorrow. (3) Transaminitis: Code(s): R74.01 - Elevation of levels of liver transaminase levels Status: Acute Assessment and Plan: Continue to trend. Likely due to rhabdomyolysis. LFTs trending down. (4) Metabolic acidosis: Code(s): E87.20 - Acidosis, unspecified Status: Acute Assessment and Plan: Due to rhabdomyolysis and acute on chronic kidney failure. Patient's carbon dioxide level decreased from 18 to 13 in 2 days. ABG on 04/29/2023 with a pH of 7.28, pCO2 29, bicarb 13.3 Sodium bicarb in dextrose IV fluids at 70 mL/hour Sodium bicarb tabs 1300 mg t.i.d. (5) Acute hyponatremia: Code(s): E87.1 - Hypo-osmolality and hyponatremia Status: Acute Assessment and Plan: Likely due to kidney dysfunction. Nephrology consulted. (6) Obstructive sleep apnea: Code(s): G47.33 - Obstructive sleep apnea (adult) (pediatric) Status: Acute Assessment and Plan: Patient does have a distant history obstructive sleep apnea but does not uses CPAP at home anymore. (7) Left-sided weakness: Code(s): R53.1 - Weakness Status: Acute Assessment and Plan: Patient is having left-sided weakness along with paresthesias of the left arm and bilateral lower extremities. Bilateral lower extremity paresthesias could be due to her prolonged episode of sitting on toilet. MRI showed old lacunar infarct in the right basal ganglia. Weakness and paresthesias likely due to rhabdomyolysis and prolong sitting. (8) Alcohol abuse: Code(s): F10.10 - Alcohol abuse, uncomplicated Status: Acute Assessment and Plan: Patient's does report the patient has history of heavy alcohol use. Patient is not demonstrating symptoms of withdrawal and states she has not drink alcohol in 2 weeks. Will not or CIWA scores at this time but will keep this in mind and monitor the case the patient may be providing misleading information. Subjective Date/time seen: 04/30/23 13:38 Interval history: Patient alert and oriented. at bedside. Patient still having some discomfort in the back of her legs and her bottom. She does not appear to be in any acute distress. Patient's hemoglobin has dropped from 13.2-9.6 in 2 days. This was discussed with Nephrology and he believes is due to patient being dry on initial presentation. Will continue to monitor this. Also discussed with Nephrolog
[2023-04-30 17:41] LABS: Hematocrit 33.1 % (37.0-47.0); Hemoglobin 10.5 g/dL (12.0-15.0); Mean Corpuscular HGB Conc 31.7 g/dl (32-36); Mean Corpuscular Hemoglobin 33.7 pg (26-34); Mean Corpuscular Volume 106.1 fl (80-100); Mean Platelet Volume 11.2 fl (7.4-10.4); Platelet Count Result 174 k/mm3 (150-375); Red Blood Count 3.12 M/mm3 (4.2-5.4); Red Cell Distribution Width 14.7 % (11.5-14.5); White Blood Count 6.8 K/mm3 (4.5-10.0)
[2023-04-30 17:58] LABS: Alanine Aminotransferase 103 U/L (6-35); Albumin Level 3.6 g/dL (3.5-5.1); Alkaline Phosphatase 72 U/L (38-126); Anion Gap 12 mmol/L (8-16); Aspartate Amino Transferase 240 U/L (14-36); Bilirubin,Total 0.6 mg/dL (0.2-1.3); Blood Urea Nitrogen 49 mg/dL (7-17); Calcium 8.1 mg/dL (8.4-10.2); Carbon Dioxide 16 mmol/L (22-30); Chloride 92 mmol/L (98-107); Estimated CRCL calculation 8 ml/min; Estimated Glomerular Filt Rate 6; Glucose 105 mg/dL (65-110); Potassium 4.5 mmol/L (3.4-5.0); Sodium 120 mmol/L (137-145)
[2023-04-30] MEDS: SODIUM CHLORIDE 1 GM TABLET PO (19:06)
[2023-04-30] MEDS: SODIUM CHLORIDE 500 MG TABLET PO (19:06)
[2023-04-30] MEDS: BUMETANIDE INJ 1 MG/4 ML VIAL 2 MG IV PUSH (19:06)
[2023-04-30] MEDS: GABAPENTIN 300 MG CAPSULE PO (20:31)
[2023-04-30] MEDS: rOPINIRole HCL 0.25 MG TABLET PO (20:31)
[2023-04-30] MEDS: TIZANIDINE HCL 4 MG TABLET PO (20:31)
[2023-04-30] MEDS: AMITRIPTYLINE HCL 25 MG TABLET PO (20:31)
--- NOTE | 2023-04-30 22:16 | PCRCNOTE ---
Patient refused apnea link stating she has been diagnosed with sleep apnea in which she has a cpap at home that does not get used.
[2023-05-01] VITALS (20 sets, daily range): BP systolic 96–129; BP diastolic 39–66; PULSE 77–122; RESP 18–20; TEMP 36.5–37.4; O2SAT 93–94; BMI 38.7
[2023-05-01 06:00] LABS: Alanine Aminotransferase 75 U/L (6-35); Albumin Level 3.3 g/dL (3.5-5.1); Alkaline Phosphatase 70 U/L (38-126); Anion Gap 13 mmol/L (8-16); Aspartate Amino Transferase 168 U/L (14-36); Bilirubin,Total 0.6 mg/dL (0.2-1.3); Blood Urea Nitrogen 57 mg/dL (7-17); Carbon Dioxide 14 mmol/L (22-30); Chloride 93 mmol/L (98-107); Estimated CRCL calculation 8 ml/min; Estimated Glomerular Filt Rate 5; Glucose 92 mg/dL (65-110); Potassium 4.4 mmol/L (3.4-5.0); Sodium 120 mmol/L (137-145)
[2023-05-01 06:56] LABS: Hepatitis B Surface Antigen Negative (Negative)
[2023-05-01 07:01] LABS: Creatine Kinase 7051 U/L (30-135)
[2023-05-01 07:16] LABS: Hepatitis B Surface Anti Res Positive
--- NOTE | 2023-05-01 11:57 | PM.IMPN ---
Progress Note: A&P Assessment and Plan (1) Rhabdomyolysis: Qualifiers: Rhabdomyolysis type: non-traumatic Qualified Code(s): M62.82 - Rhabdomyolysis Code(s): M62.82 - Rhabdomyolysis Status: Acute Assessment and Plan: Patient has rhabdomyolysis likely from prolonged time on the commode several days ago. This is resulted in acute kidney injury, metabolic acidosis and transaminitis. Patient received 2 L of normal saline in the ER. She has been continued on aggressive IV fluid hydration at 200 mL an hour. Will need to watch patient's fluid status closely. Will monitor strict I&O's and daily weights. Fluid rate decreased to 150 cc/hr due to worsened kidney function. Patient states that she does have history of CKD but not sure what stage. No prior records at our facility Will hold the patient's home hydrochlorothiazide and losartan given setting of acute kidney injury. Will also hold methotrexate, sulfasalazine and statin. CK >16,000; 14,862; 7,051 (2) BREE (acute kidney injury): Code(s): N17.9 - Acute kidney failure, unspecified Status: Acute Assessment and Plan: Acute on chronic kidney failure. Nephrology consulted. 3/1 BUN and creatinine of 37/4.5 3/2 BUN and creatinine of 40/5.5 3/3 BUN and creatinine of 47/6.9 3/4 BUN and creatinine of 57/ 7.8 Catheter being placed today by General surgery for dialysis (3) Transaminitis: Code(s): R74.01 - Elevation of levels of liver transaminase levels Status: Acute Assessment and Plan: Continue to trend. Likely due to rhabdomyolysis. LFTs trending down. (4) Metabolic acidosis: Code(s): E87.20 - Acidosis, unspecified Status: Acute Assessment and Plan: Due to rhabdomyolysis and acute on chronic kidney failure. Patient's carbon dioxide level decreased from 18 to 13 in 2 days. ABG on 04/29/2023 with a pH of 7.28, pCO2 29, bicarb 13.3 Sodium bicarb in dextrose IV fluids at 70 mL/hour Sodium bicarb tabs 1300 mg t.i.d. 3/4 CO2 14 today (5) Acute hyponatremia: Code(s): E87.1 - Hypo-osmolality and hyponatremia Status: Acute Assessment and Plan: Likely due to kidney dysfunction. Nephrology consulted. 3/ Sodium dropped from 128 to 124 (6) Obstructive sleep apnea: Code(s): G47.33 - Obstructive sleep apnea (adult) (pediatric) Status: Acute Assessment and Plan: Patient does have a distant history obstructive sleep apnea but does not uses CPAP at home anymore. (7) Left-sided weakness: Code(s): R53.1 - Weakness Status: Acute Assessment and Plan: Patient is having left-sided weakness along with paresthesias of the left arm and bilateral lower extremities. Bilateral lower extremity paresthesias could be due to her prolonged episode of sitting on toilet. MRI showed old lacunar infarct in the right basal ganglia. Weakness and paresthesias likely due to rhabdomyolysis and prolong sitting. (8) Alcohol abuse: Code(s): F10.10 - Alcohol abuse, uncomplicated Status: Acute Assessment and Plan: Patient's does report the patient has history of heavy alcohol use. Patient is not demonstrating symptoms of withdrawal and states she has not drink alcohol in 2 weeks. Will not or CIWA scores at this time but will keep this in mind and monitor the case the patient may be providing misleading information. Subjective Date/time seen: 05/01/23 11:57 Interval history: Patient with increased stress in his today. Plan to get it catheter placed by General surgery and possible dialysis today, if not today then tomorrow. Patient's kidney function continues to worsen as well as her electrolytes. She continues to work with PT and OT. I suspect the patient will need placement at discharge. This was discussed with care coordination team. Exam
--- NOTE | 2023-05-01 11:57 | P.PNIM_ITS ---
Progress Note: A&P Assessment and Plan (1) Rhabdomyolysis: Qualifiers: Rhabdomyolysis type: non-traumatic Qualified Code(s): M62.82 - Rhabdomyolysis Code(s): M62.82 - Rhabdomyolysis Status: Acute Assessment and Plan: Patient has rhabdomyolysis likely from prolonged time on the commode several day s ago. This is resulted in acute kidney injury, metabolic acidosis and transaminitis. Patient received 2 L of normal saline in the ER. * She has been continued on aggressive IV fluid hydration at 200 mL an hour. * Will need to watch patient's fluid status closely. Will monitor strict I&O's and daily weights. * Fluid rate decreased to 150 cc/hr due to worsened kidney function. * Patient states that she does have history of CKD but not sure what stage. No prior records at our facility * Will hold the patient's home hydrochlorothiazide and losartan given setting of acute kidney injury. Will also hold methotrexate, sulfasalazine and statin. * CK >16,000; 14,862; 7,051 (2) BREE (acute kidney injury): Code(s): N17.9 - Acute kidney failure, unspecified Status: Acute Assessment and Plan: Acute on chronic kidney failure. * Nephrology consulted. * 3/1 BUN and creatinine of 37/4.5 * 3/2 BUN and creatinine of 40/5.5 * 3/3 BUN and creatinine of 47/6.9 * 3/4 BUN and creatinine of 57/ 7.8 * Catheter being placed today by General surgery for dialysis (3) Transaminitis: Code(s): R74.01 - Elevation of levels of liver transaminase levels Status: Acute Assessment and Plan: * Continue to trend. * Likely due to rhabdomyolysis. * LFTs trending down. (4) Metabolic acidosis: Code(s): E87.20 - Acidosis, unspecified Status: Acute Assessment and Plan: Due to rhabdomyolysis and acute on chronic kidney failure. * Patient's carbon dioxide level decreased from 18 to 13 in 2 days. * ABG on 04/29/2023 with a pH of 7.28, pCO2 29, bicarb 13.3 * Sodium bicarb in dextrose IV fluids at 70 mL/hour * Sodium bicarb tabs 1300 mg t.i.d. * 3/4 CO2 14 today (5) Acute hyponatremia: Code(s): E87.1 - Hypo-osmolality and hyponatremia Status: Acute Assessment and Plan: * Likely due to kidney dysfunction. * Nephrology consulted. * 3/4 Sodium dropped from 128 to 124 (6) Obstructive sleep apnea: Code(s): G47.33 - Obstructive sleep apnea (adult) (pediatric) Status: Acute Assessment and Plan: * Patient does have a distant history obstructive sleep apnea but does not uses CPAP at home anymore. (7) Left-sided weakness: Code(s): R53.1 - Weakness Status: Acute Assessment and Plan: Patient is having left-sided weakness along with paresthesias of the left arm and bilateral lower extremities. Bilateral lower extremity paresthesias could be due to her prolonged episode of sitting on toilet. * MRI showed old lacunar infarct in the right basal ganglia. * Weakness and paresthesias likely due to rhabdomyolysis and prolong sitting. (8) Alcohol abuse: Code(s): F10.10 - Alcohol abuse, uncomplicated Status: Acute Assessment and Plan: Patient's does report the patient has history of heavy alcohol use. Patient is not demonstrating symptoms of withdrawal and states she has not drink alcohol in 2 weeks. Will not or CIWA scores at this time but will keep this in mind and monitor the case the patient may be p
--- NOTE | 2023-05-01 14:14 | PM.CNGS ---
Assessment and Plan Assessment and plan (1) BREE (acute kidney injury): Code(s): N17.9 - Acute kidney failure, unspecified Status: Acute Assessment and Plan: Patient presented with BREE and rhabdomyolysis. She continues to have deterioration of her renal function and Nephrology has requested placement of a temporary hemodialysis catheter. Description of the procedure, risks, benefits, alternatives, and expected outcomes were discussed with the patient in detail. She agrees to proceed. Dr. Peguero will plan to place the temporary hemodialysis catheter at the bedside today. Okay to resume her diet. (2) Rhabdomyolysis: Qualifiers: Rhabdomyolysis type: non-traumatic Qualified Code(s): M62.82 - Rhabdomyolysis Code(s): M62.82 - Rhabdomyolysis Status: Acute (3) Acute hyponatremia: Code(s): E87.1 - Hypo-osmolality and hyponatremia Status: Acute (4) Metabolic acidosis: Code(s): E87.20 - Acidosis, unspecified Status: Acute (5) Obstructive sleep apnea: Code(s): G47.33 - Obstructive sleep apnea (adult) (pediatric) Status: Acute (6) Transaminitis: Code(s): R74.01 - Elevation of levels of liver transaminase levels Status: Acute Plan I have discussed the patient's case and plan of care with Dr. Peguero. History of Present Illness Consult details Consult date: 05/01/23 Reason for consult: other (Temporary dialysis catheter) Requesting physician: Brisa Abreu MD Narrative: This is a 62-year-old woman with past medical history of seizures, hypertension, hyperlipidemia, obstructive sleep apnea, chronic severe hearing loss, and other comorbidities, who we have been asked to see in surgical consultation for placement of a temporary dialysis catheter. She presented to the ER three days ago after she had not had any urine output for a few days.?She apparently fell asleep on the commode on the and did not wake up for over 5 hours. When she woke up her legs were numb and her left arm was numb. She had to use a walker to get up and walk around.?She presented to the ER on 04/28/23. She was admitted for rhabdomyolysis, acute kidney injury, metabolic acidosis, and transaminitis. Nephrology was consulted and has been managing the patient. She is still making some urine, but urine output is low. BUN has gone from 37 up to 57 and creatinine from 4.5 up to 7.8 since admission. Nephrology is now requesting placement of a temporary dialysis catheter to initiate hemodialysis. Review of Systems Review of Systems: All systems reviewed & are unremarkable except as noted in HPI and below PMFSH Past Medical History Medical History Anxiety B12 deficiency CHF (congestive heart failure) Chronic lower back pain Depression Fibromyalgia Hemorrhoids Hyperlipidemia Hypertension Hypothyroidism Irritable bowel syndrome Obesity (BMI 30.0-34.9) Obstructive sleep apnea Seizure Surgical History Surgical History H/O cervical spine surgery X3 History of arthroscopy of both knees History of cholecystectomy History of gastric bypass (2003) History of tonsillectomy and adenoidectomy History of total hysterectomy with bilateral salpingo-oophorectomy (BSO) Family History Family History Mother Lung cancer, Onset Age: 66 Father Ruptured abdominal aortic aneurysm (AAA), Onset Age: 76 Other Carcinoma of colon Cerebrovascular accident Diabetes mellitus Social History Social History Social History: Patient lives with her current they have been together since approximately 2011. She raised 3 children she lost 1 child at due to in his twin transfusion. She drinks up to 1 bottle of wine a day. She briefly smoked cigar
--- NOTE | 2023-05-01 15:14 | P.OP_ITS ---
Procedure Note - Detailed Date of Procedure 05/01/23 Pre-op Diagnosis Acute kidney injury, rhabdomyolysis Post-op Diagnosis Same Procedure Performed Placement under ultrasound guidance right internal jugular central venous catheter for dialysis Surgeon Anthony Peguero MD Security Flex Officer Elli HEADLEY Anesthesia Local (1% xylocaine plain) Indications Patient has acute kidney injury and rhabdomyolysis. Her quarter seamer would like her to proceed with dialysis and we were asked to place a temporary central venous catheter for this purpose. Findings Ultrasound showed right internal jugular placement of the needle. Portable chest x-ray is pending. Description of Procedure Patient was in her hospital bed for the procedure. We gradually reduced her elevated head of bed to nearly supine without her becoming dyspneic. Full sterile precautions were taken. The right neck was prepped with ChloraPrep and adequate time allowed for this to dry. Full draping and sterile precautions were then used for placement. We had an ultrasound available and the sterile sleeve was carefully placed over the probe. The right neck was then reviewed with ultrasound. The internal jugular vein was fairly collapsed especially in a case where the patient will be needing dialysis. I was able to place the probe over the area where the internal jugular vein was most dilated. This was a little higher in the neck than is usual. Local anesthetic was infiltrated above this point. Needle puncture was then performed and the ultrasound probe was moved distally on the neck to keep track of the end of the needle. Eventually we did puncture the internal jugular vein and had good aspiration of venous blood. The guidewire passed easily. Additional local was infiltrated at the entry point of the guidewire. The skin opening was made larger with a scalpel. I was then able to pass serial dilators over the guidewire into the superior vena cava. The 16 cm dual lumen central venous catheter was 1st flushed with saline. I then passed the catheter over the guidewire and positioned it fully into the distal SVC. The catheter was placed down to its hub, it could not be positioned any further distal in the SVC. Once positioned, the side arm and both of the dialysis ports were checked. Both dialysis ports flushed easily and were able to rapidly aspirate blood. This appeared to be adequate for the needs of dialysis. The side port was able to aspirate blood and flush with saline as well. Caps were placed on all 3 of the ports once they were adequately flushed. Additional local was placed where the catheter was to be sutured to the skin. 3-0 nylon suture was then used to secure the catheter to the skin. A sterile sandwich type dressing was then placed over the catheter. Patient tolerated this procedure well. No complications were noted. Estimated Blood Loss -2 Drains No Packing No Pathology None sent Complications No immediate complications Condition Stable Disposition No change [facility] Billing Surgery - Charge Forward: Surgery Billing (Ultrasound-guided placement right internal jugular central venous catheter for dialysis.)
[2023-05-01] MEDS: LIDOCAINE HCL 1% LOCAL INJ 10 ML VIAL (15:30)
[2023-05-01] MEDS: SODIUM BICARBONATE TAB 650 MG TABLET 1300 MG PO (15:39)
[2023-05-01] MEDS: traMADol HCL (*CRX) 50 MG TABLET PO (15:39)
--- NOTE | 2023-05-01 17:03 | PM.PNNEP ---
Progress Note: A&P Assessment and Plan (1) BREE (acute kidney injury): Code(s): N17.9 - Acute kidney failure, unspecified Status: Acute Assessment and Plan: unclear what baseline creatinine is but patient reports a GFR that runs somewhere between CKD stage 2 - stage 3 etiology of BREE/ARF multifactorial: #2 (CPK quite elevated) prerenal factors continued use of statin (crestor) SURVEY AND MAPPING TECHNICIAN ongoing use of HCTZ and ARB SURVEY AND MAPPING TECHNICIAN other evaluation to date: CT of abdomen without obstruction CPK > 16,000 (follow trend) UA with blood and protein renal ultrasound pending urine electrolytes non-prerenal (by FeNa) but prerenal by FeUrea urine eosinophils negative moderate proteinuria holding ARB, HCTZ, statin, and methothrexate due worsening labs/electrolytes, initiated on hemodialysis today likely plan HD tomorrow as well follow repeat labs and UOP for potential renal recovery (2) Rhabdomyolysis: Qualifiers: Rhabdomyolysis type: non-traumatic Qualified Code(s): M62.82 - Rhabdomyolysis Code(s): M62.82 - Rhabdomyolysis Status: Acute Assessment and Plan: as noted by admission CPK presumably due to prolonged immobilization when on commode follow trend of CPK levels (which are downtrending) (3) Metabolic acidosis: Code(s): E87.20 - Acidosis, unspecified Status: Acute Assessment and Plan: secondary to BREE/ARF follow trend of CO2 levels dialysis should help compensate (4) Hyponatremia: Code(s): E87.1 - Hypo-osmolality and hyponatremia Status: Acute Assessment and Plan: due to BREE/ARF follow trend should improve with dialysis (5) Transaminitis: Code(s): R74.01 - Elevation of levels of liver transaminase levels Status: Acute Assessment and Plan: presumably secondary to rhabdomyolysis follow trend of LFTs Will continue to follow. Subjective Date/time seen: 05/01/23 17:03 Interval history: Follow-up for acute kidney injury/acute renal failure and rhabdomyolysis. Tolerating dialysis treatment at the time of my visit (see on HD at 4:48PM); s/p temporary HD catheter placement earlier this afternoon and tolerated this procedure reasonably well; no apparent distress noted; no acute issues/events overnight or earlier this morning. Exam Narrative: General: WD/WN female in NAD Heart: normal S1 and S2; no rub Lungs: clear to auscultation Abdomen: soft, nontender, nondistended, positive bowel sounds Extremities: no cyanosis or clubbing; 1+ edema Skin: warm and intact Objective Data Vital Signs Vital Signs: Vital Signs Temp Pulse Resp BP Pulse Ox O2 Del Method O2 Flow Rate 05/01/23 16:10 0 05/01/23 12:00 122 H 05/01/23 08:10 94 Nasal Cannula 2 05/01/23 08:10 91 05/01/23 08:17 94 Nasal Cannula 2 05/01/23 06:00 98.0 F 84 20 104/48 L 93 05/01/23 04:00 83 05/01/23 00:00 86 04/30/23 20:30 92 Nasal Cannula 2 04/30/23 20:00 96 04/30/23 20:07 98.4 F 95 18 106/47 L 88 L Intake/Output Intake/Output: Intake & Output 04/28/23 04/29/23 04/30/23 05/01/23 23:59 23:59 23:59 23:59 Intake Total 1999 4770 1250 550 Output Total 0 500 250 100 Balance 1999 4270 1000 450 Meds/Results Medications: Active Medications Generic Name Dose Route Start Last Admin Trade Name Freq PRN Reason Stop Dose Admin Amitriptyline HCl 25 mg 04/29/23 21:00 04/30/23 20:31 Amitriptyline Hcl 25 Mg Tablet PO 25 mg HS CORA Administration Diltiazem HCl 180 mg 04/29/23 09:00 05/01/23 13:04 Diltiazem Hcl Cd 180 Mg Cap.24hr PO Not Given DAILY [facility] Ezetimibe 10 mg 04/29/23 09:00 05/01/23 13:04 Ezetimibe 10 Mg Tablet PO Not Given DAILY [facility] Ferrous Gluconate 324 mg 04/30/23 08:05 05/01/23 13:04 Ferrous Gluconate 324 Mg Tablet PO Not Given DAILY@0800 [facility] Folic
--- NOTE | 2023-05-01 17:03 | P.PNNP_ITS ---
Progress Note: A&P Assessment and Plan (1) BREE (acute kidney injury): Code(s): N17.9 - Acute kidney failure, unspecified Status: Acute Assessment and Plan: * unclear what baseline creatinine is but patient reports a GFR that runs somewhere between CKD stage 2 - stage 3 * etiology of BREE/ARF multifactorial: * #2 (CPK quite elevated) * prerenal factors * continued use of statin (crestor) ESTHETICS INSTRUCTOR * ongoing use of HCTZ and ARB ESTHETICS INSTRUCTOR * other * evaluation to date: * CT of abdomen without obstruction * CPK > 16,000 (follow trend) * UA with blood and protein * renal ultrasound pending * urine electrolytes non-prerenal (by FeNa) but prerenal by FeUrea * urine eosinophils negative * moderate proteinuria * holding ARB, HCTZ, statin, and methothrexate * due worsening labs/electrolytes, initiated on hemodialysis today * likely plan HD tomorrow as well * follow repeat labs and UOP for potential renal recovery (2) Rhabdomyolysis: Qualifiers: Rhabdomyolysis type: non-traumatic Qualified Code(s): M62.82 - Rhabdomyolysis Code(s): M62.82 - Rhabdomyolysis Status: Acute Assessment and Plan: * as noted by admission CPK * presumably due to prolonged immobilization when on commode * follow trend of CPK levels (which are downtrending) (3) Metabolic acidosis: Code(s): E87.20 - Acidosis, unspecified Status: Acute Assessment and Plan: * secondary to BREE/ARF * follow trend of CO2 levels * dialysis should help compensate (4) Hyponatremia: Code(s): E87.1 - Hypo-osmolality and hyponatremia Status: Acute Assessment and Plan: * due to BREE/ARF * follow trend * should improve with dialysis (5) Transaminitis: Code(s): R74.01 - Elevation of levels of liver transaminase levels Status: Acute Assessment and Plan: * presumably secondary to rhabdomyolysis * follow trend of LFTs Will continue to follow. Subjective Date/time seen: 05/01/23 17:03 Interval history: Follow-up for acute kidney injury/acute renal failure and rhabdomyolysis. Tolerating dialysis treatment at the time of my visit (see on HD at 4:48PM); s/p temporary HD catheter placement earlier this afternoon and tolerated this procedure reasonably well; no apparent distress noted; no acute issues/events overnight or earlier this morning. Exam Narrative: General: WD/WN female in NAD Heart: normal S1 and S2; no rub Lungs: clear to auscultation Abdomen: soft, nontender, nondistended, positive bowel sounds Extremities: no cyanosis or clubbing; 1+ edema Skin: warm and intact Objective Data Vital Signs Vital Signs: Vital Signs Temp Pulse Resp BP Pulse Ox O2 Del Method O2 Flow Rate 05/01/23 16:10 0 05/01/23 12:00 122 H 05/01/23 08:10 94 Nasal Cannula 2 05/01/23 08:10 91 05/01/23 08:17 94 Nasal Cannula 2 05/01/23 06:00 98.0 F 84 20 104/48 L 93 05/01/23 04:00 83 05/01/23 00:00 86 04/30/23 20:30 92 Nasal Cannula 2 04/30/23 20:00 96 04/30/23 20:07 98.4 F 95 18 106/47 L 88 L Intake/Output Intake/Output: Intake & Output 04/28/23 04/29/23 04/30/23 05/01/23
[2023-05-01] MEDS: HEPARIN SODIUM 5,000 UNITS/ML VIAL 5000 UNITS SUB-Q (20:41)
[2023-05-01] MEDS: GABAPENTIN 300 MG CAPSULE PO (20:41)
[2023-05-01] MEDS: MORPHINE SULFATE (*CRX) 15 MG TABCR PO (20:41)
[2023-05-01] MEDS: rOPINIRole HCL 0.25 MG TABLET PO (20:41)
[2023-05-01] MEDS: AMITRIPTYLINE HCL 25 MG TABLET PO (20:41)
[2023-05-01] MEDS: TIZANIDINE HCL 4 MG TABLET PO (20:41)
[2023-05-02] VITALS (27 sets, daily range): BP systolic 92–148; BP diastolic 43–77; PULSE 65–150; RESP 16–20; TEMP 36.4–37; O2SAT 93–98
--- NOTE | 2023-05-02 | ECHO_ITS ---
Patient Info Name: Shoshana Tierney Age: 62 years : 1960 Gender: Female Ht: 64 in Wt: 215 lbs BSA: 2.14 m2 HR: 91 bpm BP: 132 / 62 mmHg Heart Rhythm: Indeterminant Technical Quality: Poor Exam Date: 05/02/2023 1:48 PM Exam Location: Echo Lab Patient Status: Inpatient Admit Date: 04/28/2023 Staff Ordering Physician: Meli Villatoro PA-C Vocational Education Teacher: Laci Guerrero RDCS Attending Provider: Kalina Ríos DO Referring Physician: Irving SCHOFIELD; Exam Type: CA echo dop color flow w con Study Info Indications - new a fib Complete two-dimensional, color flow and Doppler transthoracic echocardiogram is performed with contrast to opacify the left ventricle and to improve the deliniation of the left ventricle endocardial borders. Contrast/Agitated Saline Contrast/Ag. Saline: Definity Amount: 3.00 ml Reason for Poor Study: poor echocardiographic windows Summary 1. Left ventricular chamber dimension is normal. 2. Left ventricular systolic function is normal, estimated at 65-70%. 3. There is mildly increased left ventricular wall thickness. 4. The left ventricular diastolic function is grade I diastolic dysfunction. 5. Left atrial chamber dimension is mildly enlarged. 6. The mitral valve annulus is mildly calcified. 7. There is mild tricuspid valve regurgitation. 8. Mild pulmonary hypertension, estimated pulmonary arterial systolic pressure is 38 mmHg. Left Ventricle Left ventricular chamber dimension is normal. Left ventricular systolic function is normal, estimated at 65-70%. There is mildly increased left ventricular wall thickness. The left ventricular diastolic function is grade I diastolic dysfunction. Right Ventricle Right ventricular chamber dimension is normal. Right ventricular systolic function is normal. Left Atria Left atrial chamber dimension is mildly enlarged. Right Atria Right atrial chamber dimension is normal. Atrial Septum Intact interatrial septum visualized by color flow imaging. Aortic Valve The aortic valve is trileaflet. There is mild aortic valve sclerosis. There is no aortic valve stenosis. There is trace aortic valve regurgitation. Pulmonic Valve The pulmonic valve is normal. There is no pulmonic valve stenosis. There is trace pulmonic regurgitation. Mitral Valve There is no mitral valve stenosis. There is trace mitral valve regurgitation. The mitral valve annulus is mildly calcified. Tricuspid Valve The tricuspid valve leaflets are normal. There is no significant tricuspid valve stenosis. There is mild tricuspid valve regurgitation. Mild pulmonary hypertension, estimated pulmonary arterial systolic pressure is 38 mmHg. Pericardium/Pleural The pericardium appears normal. There is trivial pericardial effusion. Inferior Vena Cava Normal inferior vena cava with >50% collapse upon inspiration consistent with normal right atrial pressure, 10 mmHg. Aorta The aortic root size at the sinus of Valsalva is normal. Left Ventricular Outflow Tract Name Value Normal LVOT 2D LVOT Diameter 1.87 cm LVOT Doppler LVOT Peak Gradient 8 mmHg LVOT Mean Gradient
--- NOTE | 2023-05-02 04:18 | ECG_ITS ---
Measurements Intervals [place] Rate: 145 P: MS: 0 QRS: 37 QRSD: 91 T: 221 QT: 271 QTc: 421 Interpretive Statements ATRIAL FIBRILLATION WITH RAPID VENTRICULAR RESPONSE ST-T WAVE ABNORMALITY IN DIFFUSE LEADS- CONSIDER ISCHEMIA BASELINE ARTIFACT- I, II, III, AVR, AVL, AVF ABNORMAL ECG COMPARED TO ECG 04/28/2023 14:32:49 ATRIAL FIBRILLATION NOW PRESENT Electronically Signed On 05-02-2023 6:50:59 PARTS BACK COUNTER MAN by Damion Beltran D.O.
--- NOTE | 2023-05-02 04:58 | PM.EVENT ---
Event Note Event Note Event Note: Approximately 4:00 a.m. notified by nurse the patient had tachycardia to 140s. Patient blood pressure is 92/60 although she has been running low nearly this entire admission. The patient asymptomatic. EKG obtained demonstrating new onset atrial fibrillation with rapid ventricular response. Shortly thereafter patient spontaneous convert to normal sinus rhythm. Will defer further management to morning team.
--- NOTE | 2023-05-02 05:01 | ECG_ITS ---
Measurements Intervals [place] Rate: 85 P: 45 [place]: 145 QRS: 27 QRSD: 95 T: 53 QT: 351 QTc: 419 Interpretive Statements SINUS RHYTHM POSSIBLE LEFT ATRIAL ENLARGEMENT NONSPECIFIC ST-T WAVE ABNORMALITY- ANTEROLAT/HIGH LAT LEADS BORDERLINE ECG COMPARED TO ECG 05/02/2023 04:33:52 SINUS RHYTHM NOW PRESENT Electronically Signed On 05-02-2023 6:54:12 [employer] by Damion Beltran D.O.
[2023-05-02 06:05] LABS: Hematocrit 30.1 % (37.0-47.0); Hemoglobin 9.9 g/dL (12.0-15.0); Mean Corpuscular HGB Conc 32.9 g/dl (32-36); Mean Corpuscular Volume 103.4 fl (80-100); Mean Platelet Volume 10.8 fl (7.4-10.4); Platelet Count Result 197 k/mm3 (150-375); Red Blood Count 2.91 M/mm3 (4.2-5.4); Red Cell Distribution Width 14.4 % (11.5-14.5); White Blood Count 5.6 K/mm3 (4.5-10.0)
[2023-05-02 06:31] LABS: Alanine Aminotransferase 61 U/L (6-35); Albumin Level 2.9 g/dL (3.5-5.1); Alkaline Phosphatase 71 U/L (38-126); Anion Gap 11 mmol/L (8-16); Aspartate Amino Transferase 129 U/L (14-36); Bilirubin,Total 0.6 mg/dL (0.2-1.3); Blood Urea Nitrogen 48 mg/dL (7-17); Calcium 8.1 mg/dL (8.4-10.2); Carbon Dioxide 20 mmol/L (22-30); Chloride 90 mmol/L (98-107); Estimated CRCL calculation 8 ml/min; Estimated Glomerular Filt Rate 5; Glucose 106 mg/dL (65-110); Potassium 4.3 mmol/L (3.4-5.0); Sodium 121 mmol/L (137-145)
[2023-05-02 06:37] LABS: Phosphorus 8.5 mg/dL (2.5-4.5)
[2023-05-02 07:00] LABS: Creatine Kinase 4386 U/L (30-135)
[2023-05-02] MEDS: PARoxetine 10 MG TABLET PO (09:32)
[2023-05-02] MEDS: dilTIAZem HCL CD 180 MG CAP.24HR PO (09:32)
[2023-05-02] MEDS: EZETIMIBE 10 MG TABLET PO (09:32)
[2023-05-02] MEDS: FOLIC ACID 1 MG TABLET PO (09:32)
[2023-05-02] MEDS: MORPHINE SULFATE (*CRX) 15 MG TABCR PO ×2 (09:33→23:50)
[2023-05-02] MEDS: MONTELUKAST SODIUM 10 MG TABLET PO (09:33)
[2023-05-02] MEDS: FERROUS GLUCONATE 324 MG TABLET PO (09:33)
[2023-05-02] MEDS: HEPARIN SODIUM 5,000 UNITS/ML VIAL 5000 UNITS SUB-Q ×2 (09:34→23:50)
--- NOTE | 2023-05-02 10:26 | P.PNNP_ITS ---
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 (crestor) ACCESS TECH * ongoing use of HCTZ and ARB ACCESS TECH * other * evaluation to date: * CT of abdomen without obstruction * CPK > 16,000 (follow trend) * UA with blood and protein * renal ultrasound pending * urine electrolytes non-prerenal (by FeNa) but prerenal by FeUrea * urine eosinophils negative * moderate proteinuria * holding ARB, HCTZ, statin, and methothrexate * due worsening labs/electrolytes, initiated on hemodialysis on 05/01/23 * HD today * follow repeat labs and UOP for potential renal recovery (2) Rhabdomyolysis: Qualifiers: Rhabdomyolysis type: non-traumatic Qualified Code(s): M62.82 - Rhabdomyolysis Code(s): M62.82 - Rhabdomyolysis Status: Acute Assessment and Plan: * as noted by admission CPK * presumably due to prolonged immobilization when on commode * follow trend of CPK levels (which are downtrending) (3) Metabolic acidosis: Code(s): E87.20 - Acidosis, unspecified Status: Acute Assessment and Plan: * secondary to BREE/ARF * follow trend of CO2 levels * dialysis should help compensate (4) Hyponatremia: Code(s): E87.1 - Hypo-osmolality and hyponatremia Status: Acute Assessment and Plan: * presumably due to BREE/ARF * however, she reports issues with this in the past * follow trend * should improve with dialysis (with use of sodium bath) (5) Anemia: Code(s): D64.9 - Anemia, unspecified Status: Acute Assessment and Plan: * likely due to BREE/ARF and acute illness * Epogen with HD * follow trend of H/H (6) Transaminitis: Code(s): R74.01 - Elevation of levels of liver transaminase levels Status: Acute Assessment and Plan: * presumably secondary to rhabdomyolysis * follow trend of LFTs Will continue to follow. Subjective Date/time seen: 05/02/23 10:26 Interval history: Follow-up for acute kidney injury/acute renal failure and rhabdomyolysis. Tolerated dialysis treatment yesterday and states she feels a bit better following this intervention; still not making much urine at this time; plan another dialysis treatment today for further clearance and optimization of electrolytes and metabolic acidosis; noted afib with RVR overnight. Exam Narrative: General: WD/WN female in NAD Heart: normal S1 and S2; no rub Lungs: clear to auscultation Abdomen: soft, nontender, nondistended, positive bowel sounds Extremities: no cyanosis or clubbing; 1+ edema Skin: no rash Objective Data Vital Signs Vital Signs: Vital Signs Temp Pulse Resp BP Pulse Ox O2 Del Method O2 Flow Rate 05/02/23 10:00 113 H 05/02/23 08:00 88 05/02/23 09:30 98 Nasal Cannula 2 05/02/23 09:30 91 132/62 98 05/02/23 09:08 97 Room Air 05/02/23 04:00 75 05/02/23 04:21 98.1 F 150 H 16 92/60 L 93
--- NOTE | 2023-05-02 10:26 | PM.PNNEP ---
Progress Note: A&P Assessment and Plan (1) BREE (acute kidney injury): Code(s): N17.9 - Acute kidney failure, unspecified Status: Acute Assessment and Plan: unclear what baseline creatinine is but patient reports a GFR that runs somewhere between CKD stage 2 - stage 3 records have been requested etiology of BREE/ARF multifactorial: #2 (CPK quite elevated) prerenal factors continued use of statin (crestor) [employer] ongoing use of HCTZ and ARB [employer] other evaluation to date: CT of abdomen without obstruction CPK > 16,000 (follow trend) UA with blood and protein renal ultrasound pending urine electrolytes non-prerenal (by FeNa) but prerenal by FeUrea urine eosinophils negative moderate proteinuria holding ARB, HCTZ, statin, and methothrexate due worsening labs/electrolytes, initiated on hemodialysis on 05/01/23 HD today follow repeat labs and UOP for potential renal recovery (2) Rhabdomyolysis: Qualifiers: Rhabdomyolysis type: non-traumatic Qualified Code(s): M62.82 - Rhabdomyolysis Code(s): M62.82 - Rhabdomyolysis Status: Acute Assessment and Plan: as noted by admission CPK presumably due to prolonged immobilization when on commode follow trend of CPK levels (which are downtrending) (3) Metabolic acidosis: Code(s): E87.20 - Acidosis, unspecified Status: Acute Assessment and Plan: secondary to BREE/ARF follow trend of CO2 levels dialysis should help compensate (4) Hyponatremia: Code(s): E87.1 - Hypo-osmolality and hyponatremia Status: Acute Assessment and Plan: presumably due to BREE/ARF however, she reports issues with this in the past follow trend should improve with dialysis (with use of sodium bath) (5) Anemia: Code(s): D64.9 - Anemia, unspecified Status: Acute Assessment and Plan: likely due to BREE/ARF and acute illness Epogen with HD follow trend of H/H (6) Transaminitis: Code(s): R74.01 - Elevation of levels of liver transaminase levels Status: Acute Assessment and Plan: presumably secondary to rhabdomyolysis follow trend of LFTs Will continue to follow. Subjective Date/time seen: 05/02/23 10:26 Interval history: Follow-up for acute kidney injury/acute renal failure and rhabdomyolysis. Tolerated dialysis treatment yesterday and states she feels a bit better following this intervention; still not making much urine at this time; plan another dialysis treatment today for further clearance and optimization of electrolytes and metabolic acidosis; noted afib with RVR overnight. Exam Narrative: General: WD/WN female in NAD Heart: normal S1 and S2; no rub Lungs: clear to auscultation Abdomen: soft, nontender, nondistended, positive bowel sounds Extremities: no cyanosis or clubbing; 1+ edema Skin: no rash Objective Data Vital Signs Vital Signs: Vital Signs Temp Pulse Resp BP Pulse Ox O2 Del Method O2 Flow Rate 05/02/23 10:00 113 H 05/02/23 08:00 88 05/02/23 09:30 98 Nasal Cannula 2 05/02/23 09:30 91 132/62 98 05/02/23 09:08 97 Room Air 05/02/23 04:00 75 05/02/23 04:21 98.1 F 150 H 16 92/60 L 93 05/02/23 00:00 72 05/01/23 20:00 101 H 05/01/23 19:49 98.1 F 98 20 96/52 L 93 05/01/23 18:34 90 115/56 L Intake/Output Intake/Output: Intake & Output 04/29/23 04/30/23 05/01/23 05/02/23 23:59 23:59 23:59 23:59 Intake Total 4770 1882 008 2454 Output Total 982 047 9400 400 Balance 4270 1000 -522 1810 Meds/Results Medications: Active Medications Generic Name Dose Route Start Last Admin Trade Name Freq PRN Reason Stop Dose Admin Amitriptyline HCl 25 mg 04/29/23 21:00 05/01/23 20:41 Amitriptyline Hcl 25 Mg Tablet PO 25 mg HS CORA Administration Diltiazem HCl 180 mg 04/29/23 09:00 05/02/23 09
--- NOTE | 2023-05-02 11:21 | P.PNIM_ITS ---
Progress Note: A&P Assessment and Plan (1) Rhabdomyolysis: Qualifiers: Rhabdomyolysis type: non-traumatic Qualified Code(s): M62.82 - Rhabdomyolysis Code(s): M62.82 - Rhabdomyolysis Status: Acute Assessment and Plan: Patient has rhabdomyolysis likely from prolonged time on the commode several day s ago. This is resulted in acute kidney injury, metabolic acidosis and transaminitis. Patient received 2 L of normal saline in the ER. * She has been continued on aggressive IV fluid hydration at 200 mL an hour. * Will need to watch patient's fluid status closely. Will monitor strict I&O's and daily weights. * Patient states that she does have history of CKD but not sure what stage. No prior records at our facility * Will hold the patient's home hydrochlorothiazide and losartan given setting of acute kidney injury. Will also hold methotrexate, sulfasalazine and statin. * Fluids have been discontinue due to worsening kidney function * CK >16,000; 14,862; 7,051; 4,386 (2) BREE (acute kidney injury): Code(s): N17.9 - Acute kidney failure, unspecified Status: Acute Assessment and Plan: Acute on chronic kidney failure. * Nephrology consulted. * 3/1 BUN and creatinine of 37/4.5 * 3/2 BUN and creatinine of 40/5.5 * 3/3 BUN and creatinine of 47/6.9 * 3/4 BUN and creatinine of 57/7.8 * Catheter being placed by General surgery for dialysis. * Dialysis completed with success on 3/ * 3/5 BUN and creatinine of 48/7.5 (3) Transaminitis: Code(s): R74.01 - Elevation of levels of liver transaminase levels Status: Acute Assessment and Plan: * Continue to trend. * Likely due to rhabdomyolysis. * LFTs trending down. (4) Metabolic acidosis: Code(s): E87.20 - Acidosis, unspecified Status: Acute Assessment and Plan: Due to rhabdomyolysis and acute on chronic kidney failure. * Patient's carbon dioxide level decreased from 18 to 13 in 2 days. * ABG on 04/29/2023 with a pH of 7.28, pCO2 29, bicarb 13.3 * 3/4 CO2 14 today * 3/5 CO2 improved post dialysis to 20 * Sodium bicarb tabs and sodium bicarb IV discontinued (5) Paroxysmal A-fib: Code(s): I48.0 - Paroxysmal atrial fibrillation Status: Acute Assessment and Plan: 05/02/23 overnight patient had was noticed to have AFib/ a flutter. Patient does not have any history of AFib. Patient converted on her own and did not require injury any intervention. * Thomas Vasc score of 4 which is moderate to high risk and recommendation was for anticoagulation. * Consult care coordination for Eliquis. * Echocardiogram ordered * Continue telemetry monitoring * Transition from heparin to Eliquis at discharge. (6) Alcohol abuse: Code(s): F10.10 - Alcohol abuse, uncomplicated Status: Acute Assessment and Plan: Patient's does report the patient has history of heavy alcohol use. Patient is not demonstrating symptoms of withdrawal and states she has not drink alcohol in 2 weeks. Will not or CIWA scores at this time but will keep this in mind and monitor the case the patient may be providing misleading information. (7) Acute hyponatremia: Code(s): E87.1 - Hypo-osmolality and hyponatremia Status: Acute Assessment and Plan: * Likely due to kidney dysfunction. * Nephrology consulted. * On admission pt sodium of 128. Today sodium is 120. * Nephrology be
--- NOTE | 2023-05-02 11:21 | PM.IMPN ---
Progress Note: A&P Assessment and Plan (1) Rhabdomyolysis: Qualifiers: Rhabdomyolysis type: non-traumatic Qualified Code(s): M62.82 - Rhabdomyolysis Code(s): M62.82 - Rhabdomyolysis Status: Acute Assessment and Plan: Patient has rhabdomyolysis likely from prolonged time on the commode several days ago. This is resulted in acute kidney injury, metabolic acidosis and transaminitis. Patient received 2 L of normal saline in the ER. She has been continued on aggressive IV fluid hydration at 200 mL an hour. Will need to watch patient's fluid status closely. Will monitor strict I&O's and daily weights. Patient states that she does have history of CKD but not sure what stage. No prior records at our facility Will hold the patient's home hydrochlorothiazide and losartan given setting of acute kidney injury. Will also hold methotrexate, sulfasalazine and statin. Fluids have been discontinue due to worsening kidney function CK >16,000; 14,862; 7,051; 4,386 (2) BREE (acute kidney injury): Code(s): N17.9 - Acute kidney failure, unspecified Status: Acute Assessment and Plan: Acute on chronic kidney failure. Nephrology consulted. 3/1 BUN and creatinine of 37/4.5 3/2 BUN and creatinine of 40/5.5 3/3 BUN and creatinine of 47/6.9 3/4 BUN and creatinine of 57/7.8 Catheter being placed by General surgery for dialysis. Dialysis completed with success on 04/30 3/ BUN and creatinine of 48/7.5 (3) Transaminitis: Code(s): R74.01 - Elevation of levels of liver transaminase levels Status: Acute Assessment and Plan: Continue to trend. Likely due to rhabdomyolysis. LFTs trending down. (4) Metabolic acidosis: Code(s): E87.20 - Acidosis, unspecified Status: Acute Assessment and Plan: Due to rhabdomyolysis and acute on chronic kidney failure. Patient's carbon dioxide level decreased from 18 to 13 in 2 days. ABG on 04/29/2023 with a pH of 7.28, pCO2 29, bicarb 13.3 3/4 CO2 14 today 3/5 CO2 improved post dialysis to 20 Sodium bicarb tabs and sodium bicarb IV discontinued (5) Paroxysmal A-fib: Code(s): I48.0 - Paroxysmal atrial fibrillation Status: Acute Assessment and Plan: 05/02/23 overnight patient had was noticed to have AFib/ a flutter. Patient does not have any history of AFib. Patient converted on her own and did not require injury any intervention. Thomas Vasc score of 4 which is moderate to high risk and recommendation was for anticoagulation. Consult care coordination for Eliquis. Echocardiogram ordered Continue telemetry monitoring Transition from heparin to Eliquis at discharge. (6) Alcohol abuse: Code(s): F10.10 - Alcohol abuse, uncomplicated Status: Acute Assessment and Plan: Patient's does report the patient has history of heavy alcohol use. Patient is not demonstrating symptoms of withdrawal and states she has not drink alcohol in 2 weeks. Will not or CIWA scores at this time but will keep this in mind and monitor the case the patient may be providing misleading information. (7) Acute hyponatremia: Code(s): E87.1 - Hypo-osmolality and hyponatremia Status: Acute Assessment and Plan: Likely due to kidney dysfunction. Nephrology consulted. On admission pt sodium of 128. Today sodium is 120. Nephrology believes sodium with resolved with dialysis treatments. (8) Obstructive sleep apnea: Code(s): G47.33 - Obstructive sleep apnea (adult) (pediatric) Status: Chronic Assessment and Plan: Patient does have a distant history obstructive sleep apnea but does not uses CPAP at home anymore. (9) Left-sided weakness: Code(s): R53.1 - Weakness Status: Resolved Assessment and Plan: Patient is having left-sided weakness along with parest
[2023-05-02] MEDS: PERFLUTREN LIPID MICROSPHERES 1.5 ML VIAL DILUTED TO 10 ML TOTAL VOLUME IV PUSH (14:45)
--- NOTE | 2023-05-02 15:43 | IVDEFINITY ---
Prior to administration of IV Definity the patient was educated on the risks and benefits of the imaging enhancing agent including potential adverse side effects. The patient verbalized understanding. Allergies were verified. No exclusion criteria were identified and at least one of the following inclusion criteria were met: 1) physician request, 2) patient technically difficult to image (per the [place] [employer] guidelines of two or more segments not discernable within the apical view), or 3) questionable left ventricular function. ?
[2023-05-02] MEDS: SODIUM CHLORIDE 0.9% IV 1,000 ML 999 ML IV CONT (20:00)
[2023-05-02] MEDS: TIZANIDINE HCL 4 MG TABLET PO (23:50)
[2023-05-02] MEDS: GABAPENTIN 300 MG CAPSULE PO (23:50)
[2023-05-02] MEDS: guaiFENesin 600 MG/DEXTROMETHORPHAN 30 MG SR TAB 12 HR 1 TAB PO (23:50)
[2023-05-02] MEDS: AMITRIPTYLINE HCL 25 MG TABLET PO (23:50)
[2023-05-02] MEDS: rOPINIRole HCL 0.25 MG TABLET PO (23:50)
[2023-05-03] VITALS (27 sets, daily range): BP systolic 80–150; BP diastolic 39–71; PULSE 75–126; RESP 12–18; TEMP 36.4–37.5; O2SAT 91–95
[2023-05-03 03:42] LABS: Glucose Point of Care 115 mg/dl (65-105)
[2023-05-03] MEDS: SODIUM CHLORIDE 0.9% IV 1,000 ML 999 ML IV CONT ×2 (04:20→11:11)
[2023-05-03 05:20] LABS: Alanine Aminotransferase 53 U/L (6-35); Albumin Level 2.6 g/dL (3.5-5.1); Alkaline Phosphatase 64 U/L (38-126); Anion Gap 5 mmol/L (8-16); Aspartate Amino Transferase 102 U/L (14-36); Bilirubin,Total 0.6 mg/dL (0.2-1.3); Blood Urea Nitrogen 35 mg/dL (7-17); Calcium 7.4 mg/dL (8.4-10.2); Carbon Dioxide 25 mmol/L (22-30); Chloride 89 mmol/L (98-107); Creatine Kinase > 1600 U/L (30-135); Estimated CRCL calculation 12 ml/min; Estimated Glomerular Filt Rate 8; Glucose 105 mg/dL (65-110); Potassium 3.9 mmol/L (3.4-5.0); Sodium 119 mmol/L (137-145)
[2023-05-03 07:07] LABS: Anion Gap 7 mmol/L (8-16); Blood Urea Nitrogen 36 mg/dL (7-17); Calcium 7.5 mg/dL (8.4-10.2); Carbon Dioxide 24 mmol/L (22-30); Chloride 90 mmol/L (98-107); Estimated CRCL calculation 11 ml/min; Estimated Glomerular Filt Rate 7; Glucose 98 mg/dL (65-110); Sodium 121 mmol/L (137-145)
[2023-05-03 08:33] LABS: Hematocrit 26.9 % (37.0-47.0); Mean Corpuscular HGB Conc 33.5 g/dl (32-36); Mean Corpuscular Hemoglobin 33.8 pg (26-34); Mean Corpuscular Volume 101.1 fl (80-100); Platelet Count Result 206 k/mm3 (150-375); Red Blood Count 2.66 M/mm3 (4.2-5.4); Red Cell Distribution Width 14.3 % (11.5-14.5); White Blood Count 4.8 K/mm3 (4.5-10.0)
[2023-05-03 09:13] LABS: Magnesium 1.8 mg/dL (1.6-2.3)
[2023-05-03 09:27] LABS: Phosphorus 6.3 mg/dL (2.5-4.5)
[2023-05-03 09:38] LABS: Albumin Level 2.7 g/dL (3.5-5.1)
[2023-05-03 09:49] LABS: Anion Gap 7 mmol/L (8-16); Blood Urea Nitrogen 34 mg/dL (7-17); Calcium 6.9 mg/dL (8.4-10.2); Carbon Dioxide 21 mmol/L (22-30); Chloride 93 mmol/L (98-107); Estimated CRCL calculation 12 ml/min; Estimated Glomerular Filt Rate 8; Glucose 121 mg/dL (65-110); Potassium 3.5 mmol/L (3.4-5.0); Sodium 121 mmol/L (137-145)
--- NOTE | 2023-05-03 10:48 | PCPTNOTE ---
attempted PT treatment, pt is at at dialysis and per RN pt has low BP today (80/40)
[2023-05-03] MEDS: EPOETIN ALFA-EPBX 10,000 UNITS/ML VIAL 10000 UNITS IV PUSH (11:10)
--- NOTE | 2023-05-03 11:11 | P.PNNP_ITS ---
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 (crestor) [employer] * ongoing use of HCTZ and ARB [employer] * other * evaluation to date: * CT of abdomen without obstruction * CPK > 16,000 (follow trend) * UA with blood and protein * renal ultrasound pending * urine electrolytes non-prerenal (by FeNa) but prerenal by FeUrea * urine eosinophils negative * moderate proteinuria * holding ARB, HCTZ, statin, and methothrexate * due worsening labs/electrolytes, initiated on hemodialysis on 05/01/23 * HD today * follow repeat labs and UOP for potential renal recovery (2) Rhabdomyolysis: Qualifiers: Rhabdomyolysis type: non-traumatic Qualified Code(s): M62.82 - Rhabdomyolysis Code(s): M62.82 - Rhabdomyolysis Status: Acute Assessment and Plan: * as noted by admission CPK * presumably due to prolonged immobilization when on commode * follow trend of CPK levels (which are downtrending) (3) Metabolic acidosis: Code(s): E87.20 - Acidosis, unspecified Status: Acute Assessment and Plan: * secondary to BREE/ARF * follow trend of CO2 levels * dialysis should help compensate (4) Hyponatremia: Code(s): E87.1 - Hypo-osmolality and hyponatremia Status: Acute Assessment and Plan: * presumably due to BREE/ARF * however, she reports issues with this in the past * would have expected some improvement with dialysis (sine dialysis has a sodium bath) but this has been limited * will recheck TSH and check cortisol as well as SPEP/UPEP * will try to adjust sodium bath with HD to further compensate today (5) Anemia: Code(s): D64.9 - Anemia, unspecified Status: Acute Assessment and Plan: * likely due to BREE/ARF and acute illness * Epogen with HD * follow trend of H/H (6) Transaminitis: Code(s): R74.01 - Elevation of levels of liver transaminase levels Status: Acute Assessment and Plan: * presumably secondary to rhabdomyolysis * follow trend of LFTs Will continue to follow. Subjective Date/time seen: 05/03/23 11:11 Interval history: Follow-up for acute kidney injury/acute renal failure and rhabdomyolysis. Tolerated dialysis treatment yesterday evening without any issue or problems; BUN, creatinine, and acidosis slowly improving yet sodium still remains low despite dialytic intervention to date; tolerating dialysis session at the time of my visit (seen on HD at 11:00AM); no apparent distress voiced; no new issues overnight or earlier today. Exam Narrative: General: WD/WN female in NAD Heart: normal S1 and S2; no rub Lungs: clear to auscultation Abdomen: soft, nontender, nondistended, positive bowel sounds Extremities: no cyanosis or clubbing; trace edema Skin: no nodules Objective Data Vital Signs Vital Signs: Vital Signs Temp Pulse Resp BP Pulse Ox O2 Del Method O2 Flow Rate 05/03/23 11:00 77 05/03/23 09:06 98.8 F 80 16
--- NOTE | 2023-05-03 11:11 | PM.PNNEP ---
Progress Note: A&P Assessment and Plan (1) BREE (acute kidney injury): Code(s): N17.9 - Acute kidney failure, unspecified Status: Acute Assessment and Plan: unclear what baseline creatinine is but patient reports a GFR that runs somewhere between CKD stage 2 - stage 3 records have been requested etiology of BREE/ARF multifactorial: #2 (CPK quite elevated) prerenal factors continued use of statin (crestor) [employer] ongoing use of HCTZ and ARB [employer] other evaluation to date: CT of abdomen without obstruction CPK > 16,000 (follow trend) UA with blood and protein renal ultrasound pending urine electrolytes non-prerenal (by FeNa) but prerenal by FeUrea urine eosinophils negative moderate proteinuria holding ARB, HCTZ, statin, and methothrexate due worsening labs/electrolytes, initiated on hemodialysis on 05/01/23 HD today follow repeat labs and UOP for potential renal recovery (2) Rhabdomyolysis: Qualifiers: Rhabdomyolysis type: non-traumatic Qualified Code(s): M62.82 - Rhabdomyolysis Code(s): M62.82 - Rhabdomyolysis Status: Acute Assessment and Plan: as noted by admission CPK presumably due to prolonged immobilization when on commode follow trend of CPK levels (which are downtrending) (3) Metabolic acidosis: Code(s): E87.20 - Acidosis, unspecified Status: Acute Assessment and Plan: secondary to BREE/ARF follow trend of CO2 levels dialysis should help compensate (4) Hyponatremia: Code(s): E87.1 - Hypo-osmolality and hyponatremia Status: Acute Assessment and Plan: presumably due to BREE/ARF however, she reports issues with this in the past would have expected some improvement with dialysis (sine dialysis has a sodium bath) but this has been limited will recheck TSH and check cortisol as well as SPEP/UPEP will try to adjust sodium bath with HD to further compensate today (5) Anemia: Code(s): D64.9 - Anemia, unspecified Status: Acute Assessment and Plan: likely due to BREE/ARF and acute illness Epogen with HD follow trend of H/H (6) Transaminitis: Code(s): R74.01 - Elevation of levels of liver transaminase levels Status: Acute Assessment and Plan: presumably secondary to rhabdomyolysis follow trend of LFTs Will continue to follow. Subjective Date/time seen: 05/03/23 11:11 Interval history: Follow-up for acute kidney injury/acute renal failure and rhabdomyolysis. Tolerated dialysis treatment yesterday evening without any issue or problems; BUN, creatinine, and acidosis slowly improving yet sodium still remains low despite dialytic intervention to date; tolerating dialysis session at the time of my visit (seen on HD at 11:00AM); no apparent distress voiced; no new issues overnight or earlier today. Exam Narrative: General: WD/WN female in NAD Heart: normal S1 and S2; no rub Lungs: clear to auscultation Abdomen: soft, nontender, nondistended, positive bowel sounds Extremities: no cyanosis or clubbing; trace edema Skin: no nodules Objective Data Vital Signs Vital Signs: Vital Signs Temp Pulse Resp BP Pulse Ox O2 Del Method O2 Flow Rate 05/03/23 11:00 77 05/03/23 09:06 98.8 F 80 16 116/63 91 05/03/23 09:06 2 05/03/23 07:56 98.4 F 79 12 87/48 L 95 05/03/23 05:20 79 80/44 L 05/03/23 04:00 84 05/03/23 00:00 102 H 05/02/23 20:00 104 H 05/03/23 03:15 97.6 F 83 18 82/44 L 93 05/02/23 23:15 77 125/43 L 05/02/23 23:00 101 H 132/68 05/02/23 23:20 98.2 F 95 18 120/56 L 05/02/23 22:45 65 105/65 05/02/23 22:30 90 111/60 05/02/23 22:15 94 146/72 H 05/02/23 22:00 100 123/72 05/02/23 21:45 86 139/73 05/02/23 21:30 87 133/62 05/02/23 21:15 87 135/74 05/02/23 21:00 87 146
[2023-05-03] MEDS: dilTIAZem HCL CD 180 MG CAP.24HR PO (13:38)
[2023-05-03] MEDS: FOLIC ACID 1 MG TABLET PO (13:38)
[2023-05-03] MEDS: PARoxetine 10 MG TABLET PO (13:38)
[2023-05-03] MEDS: FERROUS GLUCONATE 324 MG TABLET PO (13:38)
[2023-05-03] MEDS: EZETIMIBE 10 MG TABLET PO (13:38)
[2023-05-03] MEDS: PANTOPRAZOLE 40 MG TABLET PO (13:39)
[2023-05-03] MEDS: MONTELUKAST SODIUM 10 MG TABLET PO (13:39)
--- NOTE | 2023-05-03 16:05 | P.PNIM_ITS ---
Progress Note: A&P Assessment and Plan (1) Rhabdomyolysis: Qualifiers: Rhabdomyolysis type: non-traumatic Qualified Code(s): M62.82 - Rhabdomyolysis Code(s): M62.82 - Rhabdomyolysis Status: Acute Assessment and Plan: Patient has rhabdomyolysis likely from prolonged time on the commode several da ys ago. This is resulted in acute kidney injury, metabolic acidosis and transaminitis. Patient received 2 L of normal saline in the ER. * She has been continued on aggressive IV fluid hydration at 200 mL an hour. * Will need to watch patient's fluid status closely. Will monitor strict I&O's and daily weights. * Patient states that she does have history of CKD but not sure what stage. No prior records at our facility * Will hold the patient's home hydrochlorothiazide and losartan given setting of acute kidney injury. Will also hold methotrexate, sulfasalazine and statin. * Fluids have been discontinue due to worsening kidney function/Fluid restriction * CK >16,000; 14,862; 7,051; 4,386, >1600 * Temporary HD (2) BREE (acute kidney injury): Code(s): N17.9 - Acute kidney failure, unspecified Status: Acute Assessment and Plan: Acute on chronic renal failure-Slowly improving * Previous stage 3 * Nephrology following * Secondary to rhabdo/dehydration * CR 7.8 trending down slowly * Fluid restriction * temporary HD catheter right IJ * temporary HD * Avoid nephrotoxic drugs. * Monitor antihypertensive drug therapy. (BP Soft) * Avoid NSAIDs. * Routine CMP monitoring GFR. * Monitor electrolytes especially potassium. * Routine follow-up with Nephrology as an outpatient. (3) Transaminitis: Code(s): R74.01 - Elevation of levels of liver transaminase levels Status: Acute Assessment and Plan: * Improving * Continue to trend. * Likely due to rhabdomyolysis. * LFTs trending down. (4) Metabolic acidosis: Code(s): E87.20 - Acidosis, unspecified Status: Acute Assessment and Plan: Due to rhabdomyolysis and acute on chronic kidney failure. Trending flat in the 20's * Patient's carbon dioxide level decreased from 18 to 13 in 2 days. * ABG on 04/29/2023 with a pH of 7.28, pCO2 29, bicarb 13.3 * 3/4 CO2 14 today * 3/5 CO2 improved post dialysis to 20 * Sodium bicarb tabs and sodium bicarb IV discontinued (5) Paroxysmal A-fib: Code(s): I48.0 - Paroxysmal atrial fibrillation Status: Acute Assessment and Plan: 05/02/23 overnight patient had was noticed to have AFib/ a flutter. Patient does not have any history of AFib. Patient converted on her own and did not require any intervention. * Thomas Vasc score of 4 which is moderate to high risk and recommendation was for anticoagulation. * Consult care coordination for Eliquis. * Echocardiogram ordered * Continue telemetry monitoring * Transition from heparin to Eliquis at discharge. (6) Alcohol abuse: Code(s): F10.10 - Alcohol abuse, uncomplicated Status: Acute Assessment and Plan: Patient's does report the patient has history of heavy alcohol use. Patient is not demonstrating symptoms of withdrawal and states she has not drink alcohol in 2 weeks. Will not or CIWA scores at this time but will keep this in mind and monitor the case the patient may be providing misleading information. * Could also be secondary cause of patient hyponatremia
--- NOTE | 2023-05-03 16:05 | PM.IMPN ---
Progress Note: A&P Assessment and Plan (1) Rhabdomyolysis: Qualifiers: Rhabdomyolysis type: non-traumatic Qualified Code(s): M62.82 - Rhabdomyolysis Code(s): M62.82 - Rhabdomyolysis Status: Acute Assessment and Plan: Patient has rhabdomyolysis likely from prolonged time on the commode several days ago. This is resulted in acute kidney injury, metabolic acidosis and transaminitis. Patient received 2 L of normal saline in the ER. She has been continued on aggressive IV fluid hydration at 200 mL an hour. Will need to watch patient's fluid status closely. Will monitor strict I&O's and daily weights. Patient states that she does have history of CKD but not sure what stage. No prior records at our facility Will hold the patient's home hydrochlorothiazide and losartan given setting of acute kidney injury. Will also hold methotrexate, sulfasalazine and statin. Fluids have been discontinue due to worsening kidney function/Fluid restriction CK >16,000; 14,862; 7,051; 4,386, >1600 Temporary HD (2) BREE (acute kidney injury): Code(s): N17.9 - Acute kidney failure, unspecified Status: Acute Assessment and Plan: Acute on chronic renal failure-Slowly improving Previous stage 3 Nephrology following Secondary to rhabdo/dehydration CR 7.8 trending down slowly Fluid restriction temporary HD catheter right IJ temporary HD Avoid nephrotoxic drugs. Monitor antihypertensive drug therapy. (BP Soft) Avoid NSAIDs. Routine CMP monitoring GFR. Monitor electrolytes especially potassium. Routine follow-up with Nephrology as an outpatient. (3) Transaminitis: Code(s): R74.01 - Elevation of levels of liver transaminase levels Status: Acute Assessment and Plan: Improving Continue to trend. Likely due to rhabdomyolysis. LFTs trending down. (4) Metabolic acidosis: Code(s): E87.20 - Acidosis, unspecified Status: Acute Assessment and Plan: Due to rhabdomyolysis and acute on chronic kidney failure. Trending flat in the 's Patient's carbon dioxide level decreased from 18 to 13 in 2 days. ABG on 04/29/2023 with a pH of 7.28, pCO2 29, bicarb 13.3 3/4 CO2 14 today 3/5 CO2 improved post dialysis to 20 Sodium bicarb tabs and sodium bicarb IV discontinued (5) Paroxysmal A-fib: Code(s): I48.0 - Paroxysmal atrial fibrillation Status: Acute Assessment and Plan: 05/02/23 overnight patient had was noticed to have AFib/ a flutter. Patient does not have any history of AFib. Patient converted on her own and did not require any intervention. Thomas Vasc score of 4 which is moderate to high risk and recommendation was for anticoagulation. Consult care coordination for Eliquis. Echocardiogram ordered Continue telemetry monitoring Transition from heparin to Eliquis at discharge. (6) Alcohol abuse: Code(s): F10.10 - Alcohol abuse, uncomplicated Status: Acute Assessment and Plan: Patient's does report the patient has history of heavy alcohol use. Patient is not demonstrating symptoms of withdrawal and states she has not drink alcohol in 2 weeks. Will not or CIWA scores at this time but will keep this in mind and monitor the case the patient may be providing misleading information. Could also be secondary cause of patient hyponatremia (7) Acute hyponatremia: Code(s): E87.1 - Hypo-osmolality and hyponatremia Status: Acute Assessment and Plan: Likely due to kidney dysfunction. Nephrology consulted. On admission pt sodium of 128. Today sodium is 120. Nephrology believes sodium with resolved with dialysis treatments. NA still 121 PER Nephrology presumably due to BREE/ARF however, she reports issues with this in the past would have expected some improvement with dialysis (sine dialysis oleary
[2023-05-03] MEDS: MORPHINE SULFATE (*CRX) 15 MG TABCR PO (20:39)
[2023-05-03] MEDS: guaiFENesin 600 MG/DEXTROMETHORPHAN 30 MG SR TAB 12 HR 1 TAB PO (20:39)
[2023-05-03] MEDS: rOPINIRole HCL 0.25 MG TABLET PO (20:39)
[2023-05-03] MEDS: TIZANIDINE HCL 4 MG TABLET PO (20:39)
[2023-05-03] MEDS: AMITRIPTYLINE HCL 25 MG TABLET PO (20:39)
[2023-05-03] MEDS: HEPARIN SODIUM 5,000 UNITS/ML VIAL 5000 UNITS SUB-Q (20:44)
[2023-05-04] VITALS (33 sets, daily range): BP systolic 92–144; BP diastolic 48–72; PULSE 69–160; RESP 12–18; TEMP 36.4–37.6; O2SAT 93–97
[2023-05-04 03:27] LABS: Hepatitis B Core Ab Total Nonreactive (Nonreactive)
[2023-05-04 05:53] LABS: Hematocrit 27.8 % (37.0-47.0); Hemoglobin 8.9 g/dL (12.0-15.0); Mean Corpuscular Hemoglobin 33.3 pg (26-34); Mean Corpuscular Volume 104.1 fl (80-100); Mean Platelet Volume 10.2 fl (7.4-10.4); Platelet Count Result 229 k/mm3 (150-375); Red Blood Count 2.67 M/mm3 (4.2-5.4); White Blood Count 4.8 K/mm3 (4.5-10.0)
[2023-05-04 06:04] LABS: Alanine Aminotransferase 47 U/L (6-35); Albumin Level 2.6 g/dL (3.5-5.1); Alkaline Phosphatase 61 U/L (38-126); Anion Gap 3 mmol/L (8-16); Aspartate Amino Transferase 88 U/L (14-36); Bilirubin,Total 0.6 mg/dL (0.2-1.3); Blood Urea Nitrogen 26 mg/dL (7-17); Carbon Dioxide 27 mmol/L (22-30); Chloride 94 mmol/L (98-107); Creatine Kinase 1299 U/L (30-135); Estimated CRCL calculation 15 ml/min; Estimated Glomerular Filt Rate 10; Glucose 93 mg/dL (65-110); Magnesium 1.9 mg/dL (1.6-2.3); Potassium 3.9 mmol/L (3.4-5.0); Sodium 124 mmol/L (137-145)
[2023-05-04 06:34] LABS: Cortisol Random 4.32 ug/dL
--- NOTE | 2023-05-04 07:28 | P.PNIM_ITS ---
Progress Note: A&P Assessment and Plan (1) Rhabdomyolysis: Qualifiers: Rhabdomyolysis type: non-traumatic Qualified Code(s): M62.82 - Rhabdomyolysis Code(s): M62.82 - Rhabdomyolysis Status: Acute Assessment and Plan: Patient has rhabdomyolysis likely from prolonged time on the commode several da ys ago. This is resulted in acute kidney injury, metabolic acidosis and transaminitis. Patient received 2 L of normal saline in the ER. * She has been continued on aggressive IV fluid hydration at 200 mL an hour. * Will need to watch patient's fluid status closely. Will monitor strict I&O's and daily weights. * Patient states that she does have history of CKD but not sure what stage. No prior records at our facility * Will hold the patient's home hydrochlorothiazide and losartan given setting of acute kidney injury. Will also hold methotrexate, sulfasalazine and statin. * Fluid restriction post IV hydration on admit * CK >16,000; 14,862; 7,051; 4,386, >1600, 1299 * Temporary HD (2) BREE (acute kidney injury): Code(s): N17.9 - Acute kidney failure, unspecified Status: Acute Assessment and Plan: Acute on chronic renal failure-Slowly improving * Previous stage 3 * Nephrology following * Secondary to rhabdo/dehydration * CR 7.8 trending down slowly 4.4 05/03 * Fluid restriction * temporary HD catheter right IJ * temporary HD * Avoid nephrotoxic drugs. * Monitor antihypertensive drug therapy. (BP Soft) * Avoid NSAIDs. * Routine CMP monitoring GFR. * Monitor electrolytes especially potassium. * Routine follow-up with Nephrology as an outpatient. (3) Transaminitis: Code(s): R74.01 - Elevation of levels of liver transaminase levels Status: Acute Assessment and Plan: * Improving * Continue to trend. * Likely due to rhabdomyolysis. * LFTs trending down. (4) Metabolic acidosis: Code(s): E87.20 - Acidosis, unspecified Status: Acute Assessment and Plan: Due to rhabdomyolysis and acute on chronic kidney failure. Trending flat in the 20's/RESOLVED * Patient's carbon dioxide level decreased from 18 to 13 in 2 days. * ABG on 04/29/2023 with a pH of 7.28, pCO2 29, bicarb 13.3 * 3/4 CO2 14 today * 3/5 CO2 improved post dialysis to 20 * Sodium bicarb tabs and sodium bicarb IV discontinued (5) Paroxysmal A-fib: Code(s): I48.0 - Paroxysmal atrial fibrillation Status: Acute Assessment and Plan: 05/02/23 overnight patient had was noticed to have AFib/ a flutter. Patient does not have any history of AFib. Patient converted on her own and did not require any intervention. * Thomas Vasc score of 4 which is moderate to high risk and recommendation was for anticoagulation. * Consult care coordination for Eliquis. * Echocardiogram ordered * Continue telemetry monitoring * Transition from heparin to Eliquis at discharge. (6) Alcohol abuse: Code(s): F10.10 - Alcohol abuse, uncomplicated Status: Acute Assessment and Plan: Patient's does report the patient has history of heavy alcohol use. Patient is not demonstrating symptoms of withdrawal and states she has not drink alcohol in 2 weeks. Will not or CIWA scores at this time but will keep this in mind and monitor the case the patient may be providing misleading information. * Could also be secondary cause of patient hyponatremia
--- NOTE | 2023-05-04 07:28 | PM.IMPN ---
Progress Note: A&P Assessment and Plan (1) Rhabdomyolysis: Qualifiers: Rhabdomyolysis type: non-traumatic Qualified Code(s): M62.82 - Rhabdomyolysis Code(s): M62.82 - Rhabdomyolysis Status: Acute Assessment and Plan: Patient has rhabdomyolysis likely from prolonged time on the commode several days ago. This is resulted in acute kidney injury, metabolic acidosis and transaminitis. Patient received 2 L of normal saline in the ER. She has been continued on aggressive IV fluid hydration at 200 mL an hour. Will need to watch patient's fluid status closely. Will monitor strict I&O's and daily weights. Patient states that she does have history of CKD but not sure what stage. No prior records at our facility Will hold the patient's home hydrochlorothiazide and losartan given setting of acute kidney injury. Will also hold methotrexate, sulfasalazine and statin. Fluid restriction post IV hydration on admit CK >16,000; 14,862; 7,051; 4,386, >1600, 1299 Temporary HD (2) BREE (acute kidney injury): Code(s): N17.9 - Acute kidney failure, unspecified Status: Acute Assessment and Plan: Acute on chronic renal failure-Slowly improving Previous stage 3 Nephrology following Secondary to rhabdo/dehydration CR 7.8 trending down slowly 4.4 3/7 Fluid restriction temporary HD catheter right IJ temporary HD Avoid nephrotoxic drugs. Monitor antihypertensive drug therapy. (BP Soft) Avoid NSAIDs. Routine CMP monitoring GFR. Monitor electrolytes especially potassium. Routine follow-up with Nephrology as an outpatient. (3) Transaminitis: Code(s): R74.01 - Elevation of levels of liver transaminase levels Status: Acute Assessment and Plan: Improving Continue to trend. Likely due to rhabdomyolysis. LFTs trending down. (4) Metabolic acidosis: Code(s): E87.20 - Acidosis, unspecified Status: Acute Assessment and Plan: Due to rhabdomyolysis and acute on chronic kidney failure. Trending flat in the 20's/RESOLVED Patient's carbon dioxide level decreased from 18 to 13 in 2 days. ABG on 04/29/2023 with a pH of 7.28, pCO2 29, bicarb 13.3 3/4 CO2 14 today 3/5 CO2 improved post dialysis to 20 Sodium bicarb tabs and sodium bicarb IV discontinued (5) Paroxysmal A-fib: Code(s): I48.0 - Paroxysmal atrial fibrillation Status: Acute Assessment and Plan: 05/02/23 overnight patient had was noticed to have AFib/ a flutter. Patient does not have any history of AFib. Patient converted on her own and did not require any intervention. Thomas Vasc score of 4 which is moderate to high risk and recommendation was for anticoagulation. Consult care coordination for Eliquis. Echocardiogram ordered Continue telemetry monitoring Transition from heparin to Eliquis at discharge. (6) Alcohol abuse: Code(s): F10.10 - Alcohol abuse, uncomplicated Status: Acute Assessment and Plan: Patient's does report the patient has history of heavy alcohol use. Patient is not demonstrating symptoms of withdrawal and states she has not drink alcohol in 2 weeks. Will not or CIWA scores at this time but will keep this in mind and monitor the case the patient may be providing misleading information. Could also be secondary cause of patient hyponatremia (7) Acute hyponatremia: Code(s): E87.1 - Hypo-osmolality and hyponatremia Status: Acute Assessment and Plan: Likely due to kidney dysfunction. Nephrology consulted. On admission pt sodium of 128. Today sodium is 120. Nephrology believes sodium with resolved with dialysis treatments. NA still 121 PER Nephrology presumably due to BREE/ARF however, she reports issues with this in the past would have expected some improvement with dialysis (sine dialysis has a sodium b
[2023-05-04 07:48] LABS: Free T4 Free Thyroxine Reflex 0.95 ng/dL (0.78-2.19)
[2023-05-04 08:36] LABS: Total Triiodothyronine (T3) 0.73 NG/ML (0.97-1.69)
[2023-05-04] MEDS: guaiFENesin 600 MG/DEXTROMETHORPHAN 30 MG SR TAB 12 HR 1 TAB PO ×2 (08:37→21:24)
[2023-05-04] MEDS: PARoxetine 10 MG TABLET PO (08:37)
[2023-05-04] MEDS: MONTELUKAST SODIUM 10 MG TABLET PO (08:37)
[2023-05-04] MEDS: MORPHINE SULFATE (*CRX) 15 MG TABCR PO ×2 (08:37→21:24)
[2023-05-04] MEDS: PANTOPRAZOLE 40 MG TABLET PO (08:37)
[2023-05-04] MEDS: FOLIC ACID 1 MG TABLET PO (08:38)
[2023-05-04] MEDS: FERROUS GLUCONATE 324 MG TABLET PO (08:38)
[2023-05-04] MEDS: EZETIMIBE 10 MG TABLET PO (08:38)
--- NOTE | 2023-05-04 08:39 | PC.NURSE ---
Report called to [facility] [employer] RN.
--- NOTE | 2023-05-04 09:00 | PC.NURSE ---
To Dialysis via bed.
[2023-05-04] MEDS: SODIUM CHLORIDE 0.9% IV 1,000 ML 999 ML IV CONT (09:07)
--- NOTE | 2023-05-04 09:30 | P.PNNP_ITS ---
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 (crestor) COMPLIANCE TESTER * ongoing use of HCTZ and ARB COMPLIANCE TESTER * other * evaluation to date: * CT of abdomen without obstruction * CPK > 16,000 but now downtrending * UA with blood and protein * renal ultrasound pending * urine electrolytes non-prerenal (by FeNa) but prerenal by FeUrea * urine eosinophils negative * moderate proteinuria * holding ARB, HCTZ, statin, and methothrexate * due worsening labs/electrolytes, initiated on hemodialysis on 05/01/23 * HD today and likely tomorrow * follow repeat labs and UOP for potential renal recovery (2) Rhabdomyolysis: Qualifiers: Rhabdomyolysis type: non-traumatic Qualified Code(s): M62.82 - Rhabdomyolysis Code(s): M62.82 - Rhabdomyolysis Status: Acute Assessment and Plan: * as noted by admission CPK * presumably due to prolonged immobilization when on commode * follow trend of CPK levels (which are downtrending) (3) Metabolic acidosis: Code(s): E87.20 - Acidosis, unspecified Status: Acute Assessment and Plan: * secondary to BREE/ARF * follow trend of CO2 levels * dialysis should help compensate (4) Hyponatremia: Code(s): E87.1 - Hypo-osmolality and hyponatremia Status: Acute Assessment and Plan: * presumably due to BREE/ARF * however, she reports issues with this in the past * would have expected more improvement with dialysis (sine dialysis has a sodium bath) but this has been limited * TSH elevated and T3 low * cortisol on the lower side as well - check stim test * follow trend (5) Anemia: Code(s): D64.9 - Anemia, unspecified Status: Acute Assessment and Plan: * likely due to BREE/ARF and acute illness * Epogen with HD * follow trend of H/H (6) Transaminitis: Code(s): R74.01 - Elevation of levels of liver transaminase levels Status: Acute Assessment and Plan: * presumably secondary to rhabdomyolysis * follow trend of LFTs Will continue to follow. Subjective Date/time seen: 05/04/23 09:30 Interval history: Follow-up for acute kidney injury/acute renal failure and rhabdomyolysis. Tolerating dialysis treatment today at the time of my visit (seen on HD at 9: 20AM); no apparent distress voiced; breathing/respiratory status stable; CPK trending down; making some urine (in comparison to anuria on admission); no other issues/events to report. Exam Narrative: General: WD/WN female in NAD Heart: normal S1 and S2; no rub Lungs: clear to auscultation Abdomen: soft, nontender, nondistended, positive bowel sounds Extremities: no cyanosis or clubbing; trace edema Skin: no nodules Objective Data Vital Signs Vital Signs: Vital Signs Temp Pulse Resp BP Pulse Ox O2 Del Method O2 Flow Rate 05/04/23 09:30 78 108/53 L 05/04/23 09:16 81 113/55 L 05/04/23 09:07 97.9 F 83 18 108/56 L 03/0
--- NOTE | 2023-05-04 09:30 | PM.PNNEP ---
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 other evaluation to date: CT of abdomen without obstruction CPK > 16,000 but now downtrending UA with blood and protein renal ultrasound pending urine electrolytes non-prerenal (by FeNa) but prerenal by FeUrea urine eosinophils negative moderate proteinuria holding ARB, HCTZ, statin, and methothrexate due worsening labs/electrolytes, initiated on hemodialysis on 05/01/23 HD today and likely tomorrow follow repeat labs and UOP for potential renal recovery (2) Rhabdomyolysis: Qualifiers: Rhabdomyolysis type: non-traumatic Qualified Code(s): M62.82 - Rhabdomyolysis Code(s): M62.82 - Rhabdomyolysis Status: Acute Assessment and Plan: as noted by admission CPK presumably due to prolonged immobilization when on commode follow trend of CPK levels (which are downtrending) (3) Metabolic acidosis: Code(s): E87.20 - Acidosis, unspecified Status: Acute Assessment and Plan: secondary to BREE/ARF follow trend of CO2 levels dialysis should help compensate (4) Hyponatremia: Code(s): E87.1 - Hypo-osmolality and hyponatremia Status: Acute Assessment and Plan: presumably due to BREE/ARF however, she reports issues with this in the past would have expected more improvement with dialysis (sine dialysis has a sodium bath) but this has been limited TSH elevated and T3 low cortisol on the lower side as well - check stim test follow trend (5) Anemia: Code(s): D64.9 - Anemia, unspecified Status: Acute Assessment and Plan: likely due to BREE/ARF and acute illness Epogen with HD follow trend of H/H (6) Transaminitis: Code(s): R74.01 - Elevation of levels of liver transaminase levels Status: Acute Assessment and Plan: presumably secondary to rhabdomyolysis follow trend of LFTs Will continue to follow. Subjective Date/time seen: 05/04/23 09:30 Interval history: Follow-up for acute kidney injury/acute renal failure and rhabdomyolysis. Tolerating dialysis treatment today at the time of my visit (seen on HD at 9:20AM); no apparent distress voiced; breathing/respiratory status stable; CPK trending down; making some urine (in comparison to anuria on admission); no other issues/events to report. Exam Narrative: General: WD/WN female in NAD Heart: normal S1 and S2; no rub Lungs: clear to auscultation Abdomen: soft, nontender, nondistended, positive bowel sounds Extremities: no cyanosis or clubbing; trace edema Skin: no nodules Objective Data Vital Signs Vital Signs: Vital Signs Temp Pulse Resp BP Pulse Ox O2 Del Method O2 Flow Rate 05/04/23 09:30 78 108/53 L 05/04/23 09:16 81 113/55 L 05/04/23 09:07 97.9 F 83 18 108/56 L 05/04/23 09:07 2 05/04/23 06:00 97.5 F L 71 18 92/48 L 95 05/04/23 04:00 71 05/04/23 00:00 72 05/03/23 20:00 126 H 05/03/23 20:00 95 Nasal Cannula 2 05/03/23 20:37 99.4 F 100 18 92/39 L 95 05/03/23 16:00 119 H 05/03/23 13:03 92 150/65 H 05/03/23 12:45 85 136/71 05/03/23 12:30 90 133/59 L 05/03/23 12:15 84 140/68 05/03/23 12:00 87 143/63 H 05/03/23 11:45 81 138/68 05/03/23 11:30 81 119/60 05/03/23 11:15 76 122/63 05/03/23 11:00 78 120/55 L 05/03/23 10:45 75 105/52 L 05/03/23 10:30 75 109/54 L
[2023-05-04] MEDS: EPOETIN ALFA-EPBX 10,000 UNITS/ML VIAL 10000 UNITS IV PUSH (11:24)
--- NOTE | 2023-05-04 11:35 | PCPTNOTE ---
Attempted to see patient for PT, however patient was out of the room for dialysis.
[2023-05-04] MEDS: HEPARIN SODIUM 1,000 UNITS/ML VIAL 3000 UNITS (13:18)
--- NOTE | 2023-05-04 14:00 | PC.NURSE ---
Return from dialysis via bed.
[2023-05-04] MEDS: dilTIAZem HCL CD 180 MG CAP.24HR PO (14:06)
[2023-05-04 14:59] LABS: IFOB Positive Control Positive; Immunochemical Fecal Occult Bl Negative (N)
[2023-05-04] MEDS: HEPARIN SODIUM 5,000 UNITS/ML VIAL 5000 UNITS SUB-Q (21:24)
[2023-05-04] MEDS: rOPINIRole HCL 0.25 MG TABLET PO (21:24)
[2023-05-04] MEDS: AMITRIPTYLINE HCL 25 MG TABLET PO (21:24)
[2023-05-04] MEDS: TIZANIDINE HCL 4 MG TABLET PO (21:24)
[2023-05-05] VITALS (25 sets, daily range): BP systolic 99–151; BP diastolic 42–76; PULSE 68–120; RESP 14–18; TEMP 36.4–37.4; O2SAT 92–96
[2023-05-05 05:28] LABS: Hematocrit 28.2 % (37.0-47.0); Hemoglobin 9.1 g/dL (12.0-15.0); Mean Corpuscular HGB Conc 32.3 g/dl (32-36); Mean Corpuscular Hemoglobin 33.7 pg (26-34); Mean Corpuscular Volume 104.4 fl (80-100); Mean Platelet Volume 10.2 fl (7.4-10.4); Platelet Count Result 250 k/mm3 (150-375); Red Cell Distribution Width 14.3 % (11.5-14.5); White Blood Count 6.2 K/mm3 (4.5-10.0)
[2023-05-05 05:35] LABS: Alanine Aminotransferase 44 U/L (6-35); Albumin Level 2.5 g/dL (3.5-5.1); Alkaline Phosphatase 63 U/L (38-126); Anion Gap 4 mmol/L (8-16); Aspartate Amino Transferase 79 U/L (14-36); Bilirubin,Total 0.7 mg/dL (0.2-1.3); Blood Urea Nitrogen 17 mg/dL (7-17); Calcium 8.1 mg/dL (8.4-10.2); Carbon Dioxide 29 mmol/L (22-30); Chloride 97 mmol/L (98-107); Creatine Kinase 893 U/L (30-135); Estimated CRCL calculation 18 ml/min; Estimated Glomerular Filt Rate 12; Glucose 88 mg/dL (65-110); Magnesium 1.9 mg/dL (1.6-2.3); Potassium 3.4 mmol/L (3.4-5.0); Sodium 130 mmol/L (137-145)
--- NOTE | 2023-05-05 07:21 | P.PNIM_ITS ---
Progress Note: A&P Assessment and Plan (1) Rhabdomyolysis: Qualifiers: Rhabdomyolysis type: non-traumatic Qualified Code(s): M62.82 - Rhabdomyolysis Code(s): M62.82 - Rhabdomyolysis Status: Acute Assessment and Plan: Patient has rhabdomyolysis likely from prolonged time on the commode several da ys ago. This is resulted in acute kidney injury, metabolic acidosis and transaminitis. Patient received 2 L of normal saline in the ER. * She has been continued on aggressive IV fluid hydration at 200 mL an hour. * Will need to watch patient's fluid status closely. Will monitor strict I&O's and daily weights. * Patient states that she does have history of CKD but not sure what stage. No prior records at our facility * Will hold the patient's home hydrochlorothiazide and losartan given setting of acute kidney injury. Will also hold methotrexate, sulfasalazine and statin. * Fluid restriction post IV hydration on admit * CK >16,000; 14,862; 7,051; 4,386, >1600, 1299, 893 * Temporary HD (2) BREE (acute kidney injury): Code(s): N17.9 - Acute kidney failure, unspecified Status: Acute Assessment and Plan: Acute on chronic renal failure-Slowly improving * Previous stage 3 * Nephrology following * Secondary to rhabdo/dehydration * CR 7.8 trending down slowly 4.4 7/3.7 (05/04) * Fluid restriction * temporary HD catheter right IJ * temporary HD * Avoid nephrotoxic drugs. * Monitor antihypertensive drug therapy. (BP Soft) * Avoid NSAIDs. * Routine CMP monitoring GFR. * Monitor electrolytes especially potassium. * Routine follow-up with Nephrology as an outpatient. (3) Transaminitis: Code(s): R74.01 - Elevation of levels of liver transaminase levels Status: Acute Assessment and Plan: * Improving * Continue to trend. * Likely due to rhabdomyolysis. * LFTs trending down. (4) Metabolic acidosis: Code(s): E87.20 - Acidosis, unspecified Status: Resolved Assessment and Plan: Due to rhabdomyolysis and acute on chronic kidney failure. RESOLVED * Patient's carbon dioxide level decreased from 18 to 13 in 2 days. * ABG on 04/29/2023 with a pH of 7.28, pCO2 29, bicarb 13.3 * 3/ CO2 14 today * 3/ CO2 improved post dialysis to 20 * Sodium bicarb tabs and sodium bicarb IV discontinued (5) Paroxysmal A-fib: Code(s): I48.0 - Paroxysmal atrial fibrillation Status: Acute Assessment and Plan: 05/02/23 overnight patient had was noticed to have AFib/ a flutter. Patient does not have any history of AFib. Patient converted on her own and did not require any intervention. * Thomas Vasc score of 4 which is moderate to high risk and recommendation was for anticoagulation. * Consult care coordination for Eliquis. * Echocardiogram ordered * Continue telemetry monitoring * No further episodes at this time will hold off on AC (6) Alcohol abuse: Code(s): F10.10 - Alcohol abuse, uncomplicated Status: Acute Assessment and Plan: Patient's does report the patient has history of heavy alcohol use. Patient is not demonstrating symptoms of withdrawal and states she has not drink alcohol in 2 weeks. Will not or CIWA scores at this time but will keep this in mind and monitor the case the patient may be providing misleading information. * Could also be secondary cause of patient hyponatremia
--- NOTE | 2023-05-05 07:21 | PM.IMPN ---
Progress Note: A&P Assessment and Plan (1) Rhabdomyolysis: Qualifiers: Rhabdomyolysis type: non-traumatic Qualified Code(s): M62.82 - Rhabdomyolysis Code(s): M62.82 - Rhabdomyolysis Status: Acute Assessment and Plan: Patient has rhabdomyolysis likely from prolonged time on the commode several days ago. This is resulted in acute kidney injury, metabolic acidosis and transaminitis. Patient received 2 L of normal saline in the ER. She has been continued on aggressive IV fluid hydration at 200 mL an hour. Will need to watch patient's fluid status closely. Will monitor strict I&O's and daily weights. Patient states that she does have history of CKD but not sure what stage. No prior records at our facility Will hold the patient's home hydrochlorothiazide and losartan given setting of acute kidney injury. Will also hold methotrexate, sulfasalazine and statin. Fluid restriction post IV hydration on admit CK >16,000; 14,862; 7,051; 4,386, >1600, 1299, 893 Temporary HD (2) BREE (acute kidney injury): Code(s): N17.9 - Acute kidney failure, unspecified Status: Acute Assessment and Plan: Acute on chronic renal failure-Slowly improving Previous stage 3 Nephrology following Secondary to rhabdo/dehydration CR 7.8 trending down slowly 4.4 3/7/3.7 (3) Fluid restriction temporary HD catheter right IJ temporary HD Avoid nephrotoxic drugs. Monitor antihypertensive drug therapy. (BP Soft) Avoid NSAIDs. Routine CMP monitoring GFR. Monitor electrolytes especially potassium. Routine follow-up with Nephrology as an outpatient. (3) Transaminitis: Code(s): R74.01 - Elevation of levels of liver transaminase levels Status: Acute Assessment and Plan: Improving Continue to trend. Likely due to rhabdomyolysis. LFTs trending down. (4) Metabolic acidosis: Code(s): E87.20 - Acidosis, unspecified Status: Resolved Assessment and Plan: Due to rhabdomyolysis and acute on chronic kidney failure. RESOLVED Patient's carbon dioxide level decreased from 18 to 13 in 2 days. ABG on 04/29/2023 with a pH of 7.28, pCO2 29, bicarb 13.3 3/4 CO2 14 today 3/5 CO2 improved post dialysis to 20 Sodium bicarb tabs and sodium bicarb IV discontinued (5) Paroxysmal A-fib: Code(s): I48.0 - Paroxysmal atrial fibrillation Status: Acute Assessment and Plan: 05/02/23 overnight patient had was noticed to have AFib/ a flutter. Patient does not have any history of AFib. Patient converted on her own and did not require any intervention. Thmoas Vasc score of 4 which is moderate to high risk and recommendation was for anticoagulation. Consult care coordination for Eliquis. Echocardiogram ordered Continue telemetry monitoring No further episodes at this time will hold off on AC (6) Alcohol abuse: Code(s): F10.10 - Alcohol abuse, uncomplicated Status: Acute Assessment and Plan: Patient's does report the patient has history of heavy alcohol use. Patient is not demonstrating symptoms of withdrawal and states she has not drink alcohol in 2 weeks. Will not or CIWA scores at this time but will keep this in mind and monitor the case the patient may be providing misleading information. Could also be secondary cause of patient hyponatremia (7) Acute hyponatremia: Code(s): E87.1 - Hypo-osmolality and hyponatremia Status: Acute Assessment and Plan: Likely due to kidney dysfunction. Nephrology consulted. On admission pt sodium of 128. Nephrology believes sodium with resolved with dialysis treatments. NA still 121 PER Nephrology presumably due to BREE/ARF however, she reports issues with this in the past would have expected some improvement with dialysis (sine dialysis has a sodium bath) but this has bee
--- NOTE | 2023-05-05 08:10 | PCPTNOTE ---
Attempted to see patient for PT, however patient was out of the room.
--- NOTE | 2023-05-05 08:15 | PC.NURSE ---
Patient off unit via bed to dialysis.
--- NOTE | 2023-05-05 09:50 | P.PNNP_ITS ---
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 * ongoing use of HCTZ and ARB GRINDER SET UP OPERATOR SURFACE * other * evaluation to date: * CT of abdomen without obstruction * CPK > 16,000 but now downtrending * UA with blood and protein * renal ultrasound normal * urine electrolytes non-prerenal (by FeNa) but prerenal by FeUrea * urine eosinophils negative * moderate proteinuria * holding ARB, HCTZ, statin, and methotrexate * due worsening labs/electrolytes, initiated on hemodialysis on 05/01/23 * HD today * plan to hold HD over the weekend for now * follow repeat labs and UOP for potential renal recovery (2) Stage 3a chronic kidney disease: Code(s): N18.31 - Chronic kidney disease, stage 3a Status: Chronic Assessment and Plan: * creatinine 1.29mg/dl in Mar 2023 * presumably due to HTN and age-related change * however, medication effect is also possible since she is normally on methotrexate (3) Rhabdomyolysis: Qualifiers: Rhabdomyolysis type: non-traumatic Qualified Code(s): M62.82 - Rhabdomyolysis Code(s): M62.82 - Rhabdomyolysis Status: Acute Assessment and Plan: * as noted by admission CPK * presumably due to prolonged immobilization when on commode * follow trend of CPK levels (which are downtrending) (4) Metabolic acidosis: Code(s): E87.20 - Acidosis, unspecified Status: Resolved Assessment and Plan: * secondary to BREE/ARF * corrected with dialysis (5) Hyponatremia: Code(s): E87.1 - Hypo-osmolality and hyponatremia Status: Acute Assessment and Plan: * presumably due to BREE/ARF * however, she reports issues with this in the past * would have expected more improvement with dialysis (sine dialysis has a sodium bath) but this has been limited * TSH elevated and T3 low * cortisol on the lower side as well - check stim test * follow trend (6) Anemia: Code(s): D64.9 - Anemia, unspecified Status: Acute Assessment and Plan: * likely due to BREE/ARF and acute illness * Epogen with HD * follow trend of H/H (7) Transaminitis: Code(s): R74.01 - Elevation of levels of liver transaminase levels Status: Acute Assessment and Plan: * presumably secondary to rhabdomyolysis * follow trend of LFTs Will continue to follow. Subjective Date/time seen: 05/05/23 09:50 Interval history: Follow-up for acute kidney injury/acute renal failure and rhabdomyolysis. Tolerated dialysis yesterday and at this time without any issue or problems; no apparent distress noted; tired of being in the hospital; feels reasonably well; some urine output noted in the last 24 - 48 hours. Exam Narrative: General: WD/WN female in NAD Heart: normal S1 and S2; no rub Lungs: clear to auscultation Abdomen: soft, nontender, nondistended, positive bowel sounds Extremities: no cyanosis or clubbing; trace edema Skin: warm and dry Objective Data Vital Signs Vital Signs:
--- NOTE | 2023-05-05 09:50 | PM.PNNEP ---
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 other evaluation to date: CT of abdomen without obstruction CPK > 16,000 but now downtrending UA with blood and protein renal ultrasound normal urine electrolytes non-prerenal (by FeNa) but prerenal by FeUrea urine eosinophils negative moderate proteinuria holding ARB, HCTZ, statin, and methotrexate due worsening labs/electrolytes, initiated on hemodialysis on 05/01/23 HD today plan to hold HD over the weekend for now follow repeat labs and UOP for potential renal recovery (2) Stage 3a chronic kidney disease: Code(s): N18.31 - Chronic kidney disease, stage 3a Status: Chronic Assessment and Plan: creatinine 1.29mg/dl in Mar 2023 presumably due to HTN and age-related change however, medication effect is also possible since she is normally on methotrexate (3) Rhabdomyolysis: Qualifiers: Rhabdomyolysis type: non-traumatic Qualified Code(s): M62.82 - Rhabdomyolysis Code(s): M62.82 - Rhabdomyolysis Status: Acute Assessment and Plan: as noted by admission CPK presumably due to prolonged immobilization when on commode follow trend of CPK levels (which are downtrending) (4) Metabolic acidosis: Code(s): E87.20 - Acidosis, unspecified Status: Resolved Assessment and Plan: secondary to BREE/ARF corrected with dialysis (5) Hyponatremia: Code(s): E87.1 - Hypo-osmolality and hyponatremia Status: Acute Assessment and Plan: presumably due to BREE/ARF however, she reports issues with this in the past would have expected more improvement with dialysis (sine dialysis has a sodium bath) but this has been limited TSH elevated and T3 low cortisol on the lower side as well - check stim test follow trend (6) Anemia: Code(s): D64.9 - Anemia, unspecified Status: Acute Assessment and Plan: likely due to BREE/ARF and acute illness Epogen with HD follow trend of H/H (7) Transaminitis: Code(s): R74.01 - Elevation of levels of liver transaminase levels Status: Acute Assessment and Plan: presumably secondary to rhabdomyolysis follow trend of LFTs Will continue to follow. Subjective Date/time seen: 05/05/23 09:50 Interval history: Follow-up for acute kidney injury/acute renal failure and rhabdomyolysis. Tolerated dialysis yesterday and at this time without any issue or problems; no apparent distress noted; tired of being in the hospital; feels reasonably well; some urine output noted in the last 24 - 48 hours. Exam Narrative: General: WD/WN female in NAD Heart: normal S1 and S2; no rub Lungs: clear to auscultation Abdomen: soft, nontender, nondistended, positive bowel sounds Extremities: no cyanosis or clubbing; trace edema Skin: warm and dry Objective Data Vital Signs Vital Signs: Vital Signs Temp Pulse Resp BP Pulse Ox O2 Del Method O2 Flow Rate 05/05/23 09:45 74 128/64 05/05/23 09:30 76 135/76 05/05/23 09:15 75 118/68 05/05/23 09:00 77 138/70 05/05/23 08:45 74 133/74 05/05/23 08:30 69 124/68 05/05/23 08:20 68 130/68 05/05/23 08:12 97.7 F 73 16 134/70 05/05/23 06:00 98.6 F 74 18 99/48 L 92 05/04/23 23:58 93 Room Air 05/05/23 04:00 74 05/05/23 00:00 80 05/04/23 20:00 95 05/04/23 20:07 98.5 F 84 18 117/56 L 94 05/04/23 16:00 96 05/04/23
--- NOTE | 2023-05-05 11:56 | PC.NURSE ---
Patient returned from dialysis via bed.
[2023-05-05] MEDS: dilTIAZem HCL CD 180 MG CAP.24HR PO (12:18)
[2023-05-05] MEDS: PANTOPRAZOLE 40 MG TABLET PO (12:18)
[2023-05-05] MEDS: guaiFENesin 600 MG/DEXTROMETHORPHAN 30 MG SR TAB 12 HR 1 TAB PO ×2 (12:18→20:14)
[2023-05-05] MEDS: FOLIC ACID 1 MG TABLET PO (12:18)
[2023-05-05] MEDS: MORPHINE SULFATE (*CRX) 15 MG TABCR PO ×2 (12:18→20:14)
[2023-05-05] MEDS: EZETIMIBE 10 MG TABLET PO (12:19)
[2023-05-05] MEDS: PARoxetine 10 MG TABLET PO (12:19)
[2023-05-05] MEDS: FERROUS GLUCONATE 324 MG TABLET PO (12:19)
[2023-05-05] MEDS: MONTELUKAST SODIUM 10 MG TABLET PO (12:19)
--- NOTE | 2023-05-05 14:10 | PCOTNOTE ---
Patient refused to participate in therapy services this afternoon. Patient states she is supposed to be discharged and just waiting to get her discharge papers.
[2023-05-05] MEDS: TIZANIDINE HCL 4 MG TABLET PO (20:14)
[2023-05-05] MEDS: rOPINIRole HCL 0.25 MG TABLET PO (20:14)
[2023-05-05] MEDS: AMITRIPTYLINE HCL 25 MG TABLET PO (20:14)
[2023-05-05] MEDS: HEPARIN SODIUM 5,000 UNITS/ML VIAL 5000 UNITS SUB-Q (20:18)
[2023-05-06] VITALS (9 sets, daily range): BP systolic 105–110; BP diastolic 45–50; PULSE 76–105; RESP 12–18; TEMP 36.8–37.6; O2SAT 93–95
[2023-05-06 05:32] LABS: Hematocrit 28.7 % (37.0-47.0); Hemoglobin 9.3 g/dL (12.0-15.0); Mean Corpuscular HGB Conc 32.4 g/dl (32-36); Mean Corpuscular Hemoglobin 34.4 pg (26-34); Mean Corpuscular Volume 106.3 fl (80-100); Mean Platelet Volume 10.1 fl (7.4-10.4); Platelet Count Result 260 k/mm3 (150-375); Red Cell Distribution Width 14.7 % (11.5-14.5); White Blood Count 7.6 K/mm3 (4.5-10.0)
[2023-05-06 05:41] LABS: Alanine Aminotransferase 40 U/L (6-35); Albumin Level 2.5 g/dL (3.5-5.1); Alkaline Phosphatase 54 U/L (38-126); Anion Gap 3 mmol/L (8-16); Aspartate Amino Transferase 72 U/L (14-36); Bilirubin,Total 0.9 mg/dL (0.2-1.3); Blood Urea Nitrogen 14 mg/dL (7-17); Carbon Dioxide 30 mmol/L (22-30); Chloride 98 mmol/L (98-107); Creatine Kinase 536 U/L (30-135); Estimated CRCL calculation 19 ml/min; Estimated Glomerular Filt Rate 14; Glucose 91 mg/dL (65-110); Magnesium 1.9 mg/dL (1.6-2.3); Potassium 3.9 mmol/L (3.4-5.0); Sodium 131 mmol/L (137-145)
[2023-05-06] MEDS: MONTELUKAST SODIUM 10 MG TABLET PO (08:31)
[2023-05-06] MEDS: dilTIAZem HCL CD 180 MG CAP.24HR PO (08:31)
[2023-05-06] MEDS: guaiFENesin 600 MG/DEXTROMETHORPHAN 30 MG SR TAB 12 HR 1 TAB PO ×2 (08:31→22:21)
[2023-05-06] MEDS: HEPARIN SODIUM 5,000 UNITS/ML VIAL 5000 UNITS SUB-Q (08:31)
[2023-05-06] MEDS: PANTOPRAZOLE 40 MG TABLET PO (08:32)
[2023-05-06] MEDS: EZETIMIBE 10 MG TABLET PO (08:32)
[2023-05-06] MEDS: FERROUS GLUCONATE 324 MG TABLET PO (08:32)
[2023-05-06] MEDS: FOLIC ACID 1 MG TABLET PO (08:32)
[2023-05-06] MEDS: PARoxetine 10 MG TABLET PO (08:32)
--- NOTE | 2023-05-06 09:56 | P.PNNP_ITS ---
Progress Note: A&P Assessment and Plan (1) BREE (acute kidney injury): Code(s): N17.9 - Acute kidney failure, unspecified Status: Acute Assessment and Plan: * unclear what baseline creatinine is. * Her creatinine was 1.0 a few years ago. * Creatinine was 1.29 earlier this year. 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 * No acute indication for hemodialysis today. * Will follow numbers over the weekend. * follow repeat labs and UOP for potential renal recovery (2) Stage 3a chronic kidney disease: Code(s): N18.31 - Chronic kidney disease, stage 3a Status: Chronic Assessment and Plan: * creatinine 1.29mg/dl in Mar 2023 * presumably due to HTN and age-related change * however, medication effect is also possible since she is normally on methotrexate (3) Rhabdomyolysis: Qualifiers: Rhabdomyolysis type: non-traumatic Qualified Code(s): M62.82 - Rhabdomyolysis Code(s): M62.82 - Rhabdomyolysis Status: Acute Assessment and Plan: * as noted by admission CPK * presumably due to prolonged immobilization when on commode * CK now down to 536. (4) Metabolic acidosis: Code(s): E87.20 - Acidosis, unspecified Status: Resolved Assessment and Plan: * Resolved * she is not getting sodium bicarbonate tablets. (5) Hyponatremia: Code(s): E87.1 - Hypo-osmolality and hyponatremia Status: Acute Assessment and Plan: * presumably due to BREE/ARF * however, she reports issues with this in the past * would have expected more improvement with dialysis (sine dialysis has a sodium bath) but this has been limited * TSH elevated and T3 low * cortisol on the lower side as well * Check Cortrosyn stim test * sodium level is gradually improving (6) Anemia: Code(s): D64.9 - Anemia, unspecified Status: Acute Assessment and Plan: * likely due to BREE/ARF and acute illness * Epogen with HD * hemoglobin is ranging around 9. * TSAT only 14. * Will stop ferrous gluconate and use IV iron (7) Transaminitis: Code(s): R74.01 - Elevation of levels of liver transaminase levels Status: Acute Assessment and Plan: * presumably secondary to rhabdomyolysis * improved Will continue to follow. Subjective Date/time seen: 05/06/23 09:56 Interval history: Patient is feeling better. No chest pain or shortness of breath. Exam Narrative: General: WD/WN female in NAD Heart: normal S1 and S2; no rub or gallop Lungs: clear to auscultation Abdomen: soft, nontender, nondistended, positive bowel sounds Extremities: no cyanosis or clubbing; trace edema Skin: no rash Objective Data Vital Signs Vital Signs: Vital Signs - 24 hr 05/05/23 10:0
--- NOTE | 2023-05-06 09:56 | PM.PNNEP ---
Progress Note: A&P Assessment and Plan (1) BREE (acute kidney injury): Code(s): N17.9 - Acute kidney failure, unspecified Status: Acute Assessment and Plan: unclear what baseline creatinine is. Her creatinine was 1.0 a few years ago. Creatinine was 1.29 earlier this year. 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 No acute indication for hemodialysis today. Will follow numbers over the weekend. follow repeat labs and UOP for potential renal recovery (2) Stage 3a chronic kidney disease: Code(s): N18.31 - Chronic kidney disease, stage 3a Status: Chronic Assessment and Plan: creatinine 1.29mg/dl in Mar 2023 presumably due to HTN and age-related change however, medication effect is also possible since she is normally on methotrexate (3) Rhabdomyolysis: Qualifiers: Rhabdomyolysis type: non-traumatic Qualified Code(s): M62.82 - Rhabdomyolysis Code(s): M62.82 - Rhabdomyolysis Status: Acute Assessment and Plan: as noted by admission CPK presumably due to prolonged immobilization when on commode CK now down to 536. (4) Metabolic acidosis: Code(s): E87.20 - Acidosis, unspecified Status: Resolved Assessment and Plan: Resolved she is not getting sodium bicarbonate tablets. (5) Hyponatremia: Code(s): E87.1 - Hypo-osmolality and hyponatremia Status: Acute Assessment and Plan: presumably due to BREE/ARF however, she reports issues with this in the past would have expected more improvement with dialysis (sine dialysis has a sodium bath) but this has been limited TSH elevated and T3 low cortisol on the lower side as well Check Cortrosyn stim test sodium level is gradually improving (6) Anemia: Code(s): D64.9 - Anemia, unspecified Status: Acute Assessment and Plan: likely due to BREE/ARF and acute illness Epogen with HD hemoglobin is ranging around 9. TSAT only 14. Will stop ferrous gluconate and use IV iron (7) Transaminitis: Code(s): R74.01 - Elevation of levels of liver transaminase levels Status: Acute Assessment and Plan: presumably secondary to rhabdomyolysis improved Will continue to follow. Subjective Date/time seen: 05/06/23 09:56 Interval history: Patient is feeling better. No chest pain or shortness of breath. Exam Narrative: General: WD/WN female in NAD Heart: normal S1 and S2; no rub or gallop Lungs: clear to auscultation Abdomen: soft, nontender, nondistended, positive bowel sounds Extremities: no cyanosis or clubbing; trace edema Skin: no rash Objective Data Vital Signs Vital Signs: Vital Signs - 24 hr 05/05/23 10:00 05/05/23 10:15 05/05/23 10:45 Temperature Pulse Rate 73 75 72 Respiratory Rate Blood Pressure 120/71 151/76 H 131/74 Pulse Oximetry Oxygen Delivery 05/05/23 10:30 05/05/23 11:00 05/05/23 11:25 Temperature 97.7 F Pulse Rate 76 76 78 Respiratory Rate 18 Blood Pressure 133/72 119/42 L 132/66 Pulse Oximetry Oxygen Delivery 05/05/23 11:15 05/05/23 11:20 05/05/23 12:00 Temperature Pulse Rate 79 76 87 Respiratory Rate Blood Pressure 134/72 141/73 H Pulse Oximetry Oxygen Delivery 05/05/23 14:55 05/05/23 16:00 05/05/23 20:11 Temperature 98.3 F 99.3 F Pulse Rat
[2023-05-06] MEDS: COSYNTROPIN 0.25 MG/ML VIAL IV PUSH (10:35)
--- NOTE | 2023-05-06 11:41 | P.PNIM_ITS ---
Progress Note: A&P Assessment and Plan (1) Rhabdomyolysis: Qualifiers: Rhabdomyolysis type: non-traumatic Qualified Code(s): M62.82 - Rhabdomyolysis Code(s): M62.82 - Rhabdomyolysis Status: Acute Assessment and Plan: Patient has rhabdomyolysis likely from prolonged time on the commode several da ys ago. This is resulted in acute kidney injury, metabolic acidosis and transaminitis. Patient received 2 L of normal saline in the ER. * She has been continued on aggressive IV fluid hydration at 200 mL an hour. * Will need to watch patient's fluid status closely. Will monitor strict I&O's and daily weights. * Patient states that she does have history of CKD but not sure what stage. No prior records at our facility * Will hold the patient's home hydrochlorothiazide and losartan given setting of acute kidney injury. Will also hold methotrexate, sulfasalazine and statin. * Fluid restriction post IV hydration on admit * CK >16,000; 14,862; 7,051; 4,386, >1600, 1299, 893, 536 * Temporary HD (2) BREE (acute kidney injury): Code(s): N17.9 - Acute kidney failure, unspecified Status: Acute Assessment and Plan: Acute on chronic renal failure-Slowly improving * Previous stage 3 * Nephrology following * Secondary to rhabdo/dehydration * CR 7.8 trending down slowly 4.4 05/03/3.7 (05/04)/3.4 (05/05) * Fluid restriction * temporary HD catheter right IJ * temporary HD * Avoid nephrotoxic drugs. * Monitor antihypertensive drug therapy. (BP Soft) * Avoid NSAIDs. * Routine CMP monitoring GFR. * Monitor electrolytes especially potassium. * Routine follow-up with Nephrology as an outpatient. 05/05: * Holding HD x days * monitor renal function and electrolytes (3) Transaminitis: Code(s): R74.01 - Elevation of levels of liver transaminase levels Status: Acute Assessment and Plan: * Improving * Continue to trend. * Likely due to rhabdomyolysis. * LFTs trending down. (4) Metabolic acidosis: Code(s): E87.20 - Acidosis, unspecified Status: Resolved Assessment and Plan: Due to rhabdomyolysis and acute on chronic kidney failure. RESOLVED * Patient's carbon dioxide level decreased from 18 to 13 in 2 days. * ABG on 04/29/2023 with a pH of 7.28, pCO2 29, bicarb 13.3 * 3/4 CO2 14 today * 3/5 CO2 improved post dialysis to 20 * Sodium bicarb tabs and sodium bicarb IV discontinued (5) Paroxysmal A-fib: Code(s): I48.0 - Paroxysmal atrial fibrillation Status: Acute Assessment and Plan: 05/02/23 overnight patient had was noticed to have AFib/ a flutter. Patient does not have any history of AFib. Patient converted on her own and did not require any intervention. * Thomas Vasc score of 4 which is moderate to high risk and recommendation was for anticoagulation. * Consult care coordination for Eliquis. * Echocardiogram ordered * Continue telemetry monitoring * No further episodes at this time will hold off on AC (6) Alcohol abuse: Code(s): F10.10 - Alcohol abuse, uncomplicated Status: Acute Assessment and Plan: Patient's does report the patient has history of heavy alcohol use. Patient is not demonstrating symptoms of withdrawal and states she has not drink alcohol in 2 weeks. Will not or CIWA scores at this time but will keep this in mind and monitor the case the patient may be providing misleading inf
--- NOTE | 2023-05-06 11:41 | PM.IMPN ---
Progress Note: A&P Assessment and Plan (1) Rhabdomyolysis: Qualifiers: Rhabdomyolysis type: non-traumatic Qualified Code(s): M62.82 - Rhabdomyolysis Code(s): M62.82 - Rhabdomyolysis Status: Acute Assessment and Plan: Patient has rhabdomyolysis likely from prolonged time on the commode several days ago. This is resulted in acute kidney injury, metabolic acidosis and transaminitis. Patient received 2 L of normal saline in the ER. She has been continued on aggressive IV fluid hydration at 200 mL an hour. Will need to watch patient's fluid status closely. Will monitor strict I&O's and daily weights. Patient states that she does have history of CKD but not sure what stage. No prior records at our facility Will hold the patient's home hydrochlorothiazide and losartan given setting of acute kidney injury. Will also hold methotrexate, sulfasalazine and statin. Fluid restriction post IV hydration on admit CK >16,000; 14,862; 7,051; 4,386, >1600, 1299, 893, 536 Temporary HD (2) BREE (acute kidney injury): Code(s): N17.9 - Acute kidney failure, unspecified Status: Acute Assessment and Plan: Acute on chronic renal failure-Slowly improving Previous stage 3 Nephrology following Secondary to rhabdo/dehydration CR 7.8 trending down slowly 4.4 05/03/3.7 (05/04)/3.4 (05/05) Fluid restriction temporary HD catheter right IJ temporary HD Avoid nephrotoxic drugs. Monitor antihypertensive drug therapy. (BP Soft) Avoid NSAIDs. Routine CMP monitoring GFR. Monitor electrolytes especially potassium. Routine follow-up with Nephrology as an outpatient. 05/05: Holding HD x days monitor renal function and electrolytes (3) Transaminitis: Code(s): R74.01 - Elevation of levels of liver transaminase levels Status: Acute Assessment and Plan: Improving Continue to trend. Likely due to rhabdomyolysis. LFTs trending down. (4) Metabolic acidosis: Code(s): E87.20 - Acidosis, unspecified Status: Resolved Assessment and Plan: Due to rhabdomyolysis and acute on chronic kidney failure. RESOLVED Patient's carbon dioxide level decreased from 18 to 13 in 2 days. ABG on 04/29/2023 with a pH of 7.28, pCO2 29, bicarb 13.3 3/4 CO2 14 today 3/5 CO2 improved post dialysis to 20 Sodium bicarb tabs and sodium bicarb IV discontinued (5) Paroxysmal A-fib: Code(s): I48.0 - Paroxysmal atrial fibrillation Status: Acute Assessment and Plan: 05/02/23 overnight patient had was noticed to have AFib/ a flutter. Patient does not have any history of AFib. Patient converted on her own and did not require any intervention. Thomas Vasc score of 4 which is moderate to high risk and recommendation was for anticoagulation. Consult care coordination for Eliquis. Echocardiogram ordered Continue telemetry monitoring No further episodes at this time will hold off on AC (6) Alcohol abuse: Code(s): F10.10 - Alcohol abuse, uncomplicated Status: Acute Assessment and Plan: Patient's does report the patient has history of heavy alcohol use. Patient is not demonstrating symptoms of withdrawal and states she has not drink alcohol in 2 weeks. Will not or CIWA scores at this time but will keep this in mind and monitor the case the patient may be providing misleading information. Could also be secondary cause of patient hyponatremia (7) Acute hyponatremia: Code(s): E87.1 - Hypo-osmolality and hyponatremia Status: Acute Assessment and Plan: Likely due to kidney dysfunction. Nephrology consulted. On admission pt sodium of 128. Nephrology believes sodium with resolved with dialysis treatments. NA still 121 PER Nephrology presumably due to BREE/ARF however, she reports issues with this in the past would have expecte
--- NOTE | 2023-05-06 15:18 | PC.NURSE ---
Patient resting in bed. [employer] but very cooperative. Trio rounds with MD. Patient able to walk very well with therapy. Creatinine trending down. No HD over the weekend, monitor labs.
[2023-05-06] MEDS: TIZANIDINE HCL 4 MG TABLET PO (22:21)
[2023-05-06] MEDS: MORPHINE SULFATE (*CRX) 15 MG TABCR PO (22:21)
[2023-05-06] MEDS: rOPINIRole HCL 0.25 MG TABLET PO (22:21)
[2023-05-06] MEDS: AMITRIPTYLINE HCL 25 MG TABLET PO (22:21)
[2023-05-07] VITALS: PULSE 76
--- NOTE | 2023-05-07 03:06 | PC.NURSE ---
Daylight Savings Time For Daylight Savings Time Ending in the Fall - Clocks are moved back. For Daylight Savings Time Beginning in the Spring - Clocks are moved ahead. For [facility], the time of change occurs at 0200 hrs. Time is taken from the dining room server. This entry on the patient's chart recognizes the change in time reflected during documentation. Example: 2 entries for vital signs may be charted for 0200 hrs.
[2023-05-07 04:00] VITALS: PULSE 69
[2023-05-07 04:06] VITALS: BP 110/52; PULSE 66; RESP 18; TEMP 36.9; O2SAT 91
[2023-05-07 05:10] LABS: Hematocrit 26.9 % (37.0-47.0); Hemoglobin 8.6 g/dL (12.0-15.0); Mean Corpuscular Hemoglobin 33.9 pg (26-34); Mean Corpuscular Volume 105.9 fl (80-100); Mean Platelet Volume 10.1 fl (7.4-10.4); Platelet Count Result 258 k/mm3 (150-375); Red Blood Count 2.54 M/mm3 (4.2-5.4); Red Cell Distribution Width 14.8 % (11.5-14.5); White Blood Count 8.7 K/mm3 (4.5-10.0)
[2023-05-07 05:15] LABS: Alanine Aminotransferase 34 U/L (6-35); Albumin Level 2.4 g/dL (3.5-5.1); Alkaline Phosphatase 58 U/L (38-126); Anion Gap 1 mmol/L (8-16); Aspartate Amino Transferase 54 U/L (14-36); Bilirubin,Total 0.9 mg/dL (0.2-1.3); Blood Urea Nitrogen 17 mg/dL (7-17); Carbon Dioxide 29 mmol/L (22-30); Chloride 99 mmol/L (98-107); Creatine Kinase 388 U/L (30-135); Estimated CRCL calculation 14 ml/min; Estimated Glomerular Filt Rate 9; Glucose 93 mg/dL (65-110); Magnesium 1.9 mg/dL (1.6-2.3); Potassium 3.4 mmol/L (3.4-5.0); Sodium 129 mmol/L (137-145)
--- NOTE | 2023-05-07 08:01 | P.PNIM_ITS ---
Progress Note: A&P Assessment and Plan (1) Rhabdomyolysis: Qualifiers: Rhabdomyolysis type: non-traumatic Qualified Code(s): M62.82 - Rhabdomyolysis Code(s): M62.82 - Rhabdomyolysis Status: Acute Assessment and Plan: Patient has rhabdomyolysis likely from prolonged time on the commode several da ys ago. This is resulted in acute kidney injury, metabolic acidosis and transaminitis. Patient received 2 L of normal saline in the ER. IMPROVING * She has been continued on aggressive IV fluid hydration at 200 mL an hour. * Will need to watch patient's fluid status closely. Will monitor strict I&O's and daily weights. * Patient states that she does have history of CKD but not sure what stage. No prior records at our facility * Will hold the patient's home hydrochlorothiazide and losartan given setting of acute kidney injury. Will also hold methotrexate, sulfasalazine and statin. * Fluid restriction post IV hydration on admit * CK >16,000; 14,862; 7,051; 4,386, >1600, 1299, 893, 536 * Temporary HD (2) BREE (acute kidney injury): Code(s): N17.9 - Acute kidney failure, unspecified Status: Acute Assessment and Plan: Acute on chronic renal failure- * Previous stage 3 * Nephrology following * Secondary to rhabdo/dehydration * CR 7.8 trending down slowly 4.4 05/03/3.7 (05/04)/3.4 (05/05) * Fluid restriction * temporary HD catheter right IJ * temporary HD * Avoid nephrotoxic drugs. * Monitor antihypertensive drug therapy. (BP Soft) * Avoid NSAIDs. * Routine CMP monitoring GFR. * Monitor electrolytes especially potassium. * Routine follow-up with Nephrology as an outpatient. 05/05: * Holding HD x days * monitor renal function and electrolytes 05/06: * Cr upward trend to 4.7 without HD yesterday * likely HD Monday * Nephrology checking Cortrosyn stim test (3) Transaminitis: Code(s): R74.01 - Elevation of levels of liver transaminase levels Status: Acute Assessment and Plan: * Improving * Continue to trend. * Likely due to rhabdomyolysis. * LFTs trending down. (4) Metabolic acidosis: Code(s): E87.20 - Acidosis, unspecified Status: Resolved Assessment and Plan: Due to rhabdomyolysis and acute on chronic kidney failure. RESOLVED * Patient's carbon dioxide level decreased from 18 to 13 in 2 days. * ABG on 04/29/2023 with a pH of 7.28, pCO2 29, bicarb 13.3 * 3/4 CO2 14 today * / CO2 improved post dialysis to 20 * Sodium bicarb tabs and sodium bicarb IV discontinued (5) Paroxysmal A-fib: Code(s): I48.0 - Paroxysmal atrial fibrillation Status: Acute Assessment and Plan: 05/02/23 overnight patient had was noticed to have AFib/ a flutter. Patient does not have any history of AFib. Patient converted on her own and did not require any intervention. RESOLVED * Thomas Vasc score of 4 which is moderate to high risk and recommendation was for anticoagulation. * Consult care coordination for Eliquis. * Echocardiogram ordered * Continue telemetry monitoring * No further episodes at this time will hold off on AC (6) Alcohol abuse: Code(s): F10.10 - Alcohol abuse, uncomplicated Status: Acute Assessment and Plan: Patient's does report the patient has history of heavy alcohol use. Patient is not demonstrating symptoms of withdrawal and states she has not drink alcohol in 2 weeks
--- NOTE | 2023-05-07 08:01 | PM.IMPN ---
Progress Note: A&P Assessment and Plan (1) Rhabdomyolysis: Qualifiers: Rhabdomyolysis type: non-traumatic Qualified Code(s): M62.82 - Rhabdomyolysis Code(s): M62.82 - Rhabdomyolysis Status: Acute Assessment and Plan: Patient has rhabdomyolysis likely from prolonged time on the commode several days ago. This is resulted in acute kidney injury, metabolic acidosis and transaminitis. Patient received 2 L of normal saline in the ER. IMPROVING She has been continued on aggressive IV fluid hydration at 200 mL an hour. Will need to watch patient's fluid status closely. Will monitor strict I&O's and daily weights. Patient states that she does have history of CKD but not sure what stage. No prior records at our facility Will hold the patient's home hydrochlorothiazide and losartan given setting of acute kidney injury. Will also hold methotrexate, sulfasalazine and statin. Fluid restriction post IV hydration on admit CK >16,000; 14,862; 7,051; 4,386, >1600, 1299, 893, 536 Temporary HD (2) BREE (acute kidney injury): Code(s): N17.9 - Acute kidney failure, unspecified Status: Acute Assessment and Plan: Acute on chronic renal failure- Previous stage 3 Nephrology following Secondary to rhabdo/dehydration CR 7.8 trending down slowly 4.4 05/03/3.7 (05/04)/3.4 (05/05) Fluid restriction temporary HD catheter right IJ temporary HD Avoid nephrotoxic drugs. Monitor antihypertensive drug therapy. (BP Soft) Avoid NSAIDs. Routine CMP monitoring GFR. Monitor electrolytes especially potassium. Routine follow-up with Nephrology as an outpatient. 05/05: Holding HD x days monitor renal function and electrolytes 05/06: Cr upward trend to 4.7 without HD yesterday likely HD Monday Nephrology checking Cortrosyn stim test (3) Transaminitis: Code(s): R74.01 - Elevation of levels of liver transaminase levels Status: Acute Assessment and Plan: Improving Continue to trend. Likely due to rhabdomyolysis. LFTs trending down. (4) Metabolic acidosis: Code(s): E87.20 - Acidosis, unspecified Status: Resolved Assessment and Plan: Due to rhabdomyolysis and acute on chronic kidney failure. RESOLVED Patient's carbon dioxide level decreased from 18 to 13 in 2 days. ABG on 04/29/2023 with a pH of 7.28, pCO2 29, bicarb 13.3 04/30 CO2 14 today 05/01 CO2 improved post dialysis to 20 Sodium bicarb tabs and sodium bicarb IV discontinued (5) Paroxysmal A-fib: Code(s): I48.0 - Paroxysmal atrial fibrillation Status: Acute Assessment and Plan: 05/02/23 overnight patient had was noticed to have AFib/ a flutter. Patient does not have any history of AFib. Patient converted on her own and did not require any intervention. RESOLVED Thomas Vasc score of 4 which is moderate to high risk and recommendation was for anticoagulation. Consult care coordination for Eliquis. Echocardiogram ordered Continue telemetry monitoring No further episodes at this time will hold off on AC (6) Alcohol abuse: Code(s): F10.10 - Alcohol abuse, uncomplicated Status: Acute Assessment and Plan: Patient's does report the patient has history of heavy alcohol use. Patient is not demonstrating symptoms of withdrawal and states she has not drink alcohol in 2 weeks. Will not or CIWA scores at this time but will keep this in mind and monitor the case the patient may be providing misleading information. Could also be secondary cause of patient hyponatremia (7) Acute hyponatremia: Code(s): E87.1 - Hypo-osmolality and hyponatremia Status: Acute Assessment and Plan: Likely due to kidney dysfunction. Nephrology consulted. On admission pt sodium of 128. Nephrology believes sodium with resolved with dialysis treatments. NA still 121
--- NOTE | 2023-05-07 08:10 | P.PNNP_ITS ---
Progress Note: A&P Assessment and Plan (1) BREE (acute kidney injury): Code(s): N17.9 - Acute kidney failure, unspecified Status: Acute Assessment and Plan: * The patient has acute kidney injury. * Creatinine was 1.0 a few years ago and 1.29 earlier this year. * etiology of BREE/ARF multifactorial: * due to rhabdomyolysis * prerenal factors * continued use of statin (crestor) ZIGZAG STITCHER * ongoing use of HCTZ and ARB ZIGZAG STITCHER * other * evaluation to date: * CT of abdomen without obstruction * CPK > 16,000 but now almost normal * UA with blood and protein * renal ultrasound normal * urine electrolytes non-prerenal (by FeNa and on diuretics on admission) but prerenal by FeUrea * urine eosinophils negative * moderate proteinuria * holding ARB, HCTZ, statin, and methotrexate * the patient had dialysis on Monday. * She is making urine but her creatinine kishore between yesterday and today. If this happens again tomorrow we will do another treatment. (2) Stage 3a chronic kidney disease: Code(s): N18.31 - Chronic kidney disease, stage 3a Status: Chronic Assessment and Plan: * creatinine 1.29mg/dl in Mar 2023 * presumably due to HTN and age-related change * however, medication effect is also possible since she is normally on methotrexate (3) Rhabdomyolysis: Qualifiers: Rhabdomyolysis type: non-traumatic Qualified Code(s): M62.82 - Rhabdomyolysis Code(s): M62.82 - Rhabdomyolysis Status: Acute Assessment and Plan: * as noted by admission CPK * presumably due to prolonged immobilization when on commode * CK now down to 388 (4) Metabolic acidosis: Code(s): E87.20 - Acidosis, unspecified Status: Resolved Assessment and Plan: * Resolved (5) Hyponatremia: Code(s): E87.1 - Hypo-osmolality and hyponatremia Status: Acute Assessment and Plan: * presumably due to BREE/ARF * however, she reports issues with this in the past * would have expected more improvement with dialysis (sine dialysis has a sodium bath) but this has been limited * TSH mildly elevated elevated and T3 low * Cortrosyn stim test was normal * sodium level is gradually improving (6) Anemia: Code(s): D64.9 - Anemia, unspecified Status: Acute Assessment and Plan: * likely due to BREE/ARF and acute illness * Epogen with HD * hemoglobin is ranging around 9. * TSAT only 14. * on venofer (7) Transaminitis: Code(s): R74.01 - Elevation of levels of liver transaminase levels Status: Acute Assessment and Plan: * presumably secondary to rhabdomyolysis * improved and almost normal Subjective Date/time seen: 05/07/23 08:10 Interval history: Patient feels okay. No chest pain or shortness of breath patient made 600cc of urine yesterday. Exam Narrative: General: WD/WN female in NAD Heart: normal S1 and S2; no rub or gallop Lungs: clear to auscultation Abdomen: soft, nontender, nondistended, positive bowel sounds Extremities: no cyanosis or clubbing; trace edema Skin: no rash Objective Data Vital Signs Vital Signs: Vital Signs - 24 hr 05/06/23 08:31 05/06/23 13:57 05/06/23 12:00 Temperature 99.6 F Pulse Rate 81 80 90 Respiratory Rate 12 Blood
--- NOTE | 2023-05-07 08:10 | PM.PNNEP ---
Progress Note: A&P Assessment and Plan (1) BREE (acute kidney injury): Code(s): N17.9 - Acute kidney failure, unspecified Status: Acute Assessment and Plan: The patient has acute kidney injury. Creatinine was 1.0 a few years ago and 1.29 earlier this year. etiology of BREE/ARF multifactorial: due to rhabdomyolysis prerenal factors continued use of statin (crestor) DWARF TREE GROWER ongoing use of HCTZ and ARB DWARF TREE GROWER other evaluation to date: CT of abdomen without obstruction CPK > 16,000 but now almost normal UA with blood and protein renal ultrasound normal urine electrolytes non-prerenal (by FeNa and on diuretics on admission) but prerenal by FeUrea urine eosinophils negative moderate proteinuria holding ARB, HCTZ, statin, and methotrexate the patient had dialysis on Monday. She is making urine but her creatinine kishore between yesterday and today. If this happens again tomorrow we will do another treatment. (2) Stage 3a chronic kidney disease: Code(s): N18.31 - Chronic kidney disease, stage 3a Status: Chronic Assessment and Plan: creatinine 1.29mg/dl in Mar 2023 presumably due to HTN and age-related change however, medication effect is also possible since she is normally on methotrexate (3) Rhabdomyolysis: Qualifiers: Rhabdomyolysis type: non-traumatic Qualified Code(s): M62.82 - Rhabdomyolysis Code(s): M62.82 - Rhabdomyolysis Status: Acute Assessment and Plan: as noted by admission CPK presumably due to prolonged immobilization when on commode CK now down to 388 (4) Metabolic acidosis: Code(s): E87.20 - Acidosis, unspecified Status: Resolved Assessment and Plan: Resolved (5) Hyponatremia: Code(s): E87.1 - Hypo-osmolality and hyponatremia Status: Acute Assessment and Plan: presumably due to BREE/ARF however, she reports issues with this in the past would have expected more improvement with dialysis (sine dialysis has a sodium bath) but this has been limited TSH mildly elevated elevated and T3 low Cortrosyn stim test was normal sodium level is gradually improving (6) Anemia: Code(s): D64.9 - Anemia, unspecified Status: Acute Assessment and Plan: likely due to BREE/ARF and acute illness Epogen with HD hemoglobin is ranging around 9. TSAT only 14. on venofer (7) Transaminitis: Code(s): R74.01 - Elevation of levels of liver transaminase levels Status: Acute Assessment and Plan: presumably secondary to rhabdomyolysis improved and almost normal Subjective Date/time seen: 05/07/23 08:10 Interval history: Patient feels okay. No chest pain or shortness of breath patient made 600cc of urine yesterday. Exam Narrative: General: WD/WN female in NAD Heart: normal S1 and S2; no rub or gallop Lungs: clear to auscultation Abdomen: soft, nontender, nondistended, positive bowel sounds Extremities: no cyanosis or clubbing; trace edema Skin: no rash Objective Data Vital Signs Vital Signs: Vital Signs - 24 hr 05/06/23 08:31 05/06/23 13:57 05/06/23 12:00 Temperature 99.6 F Pulse Rate 81 80 90 Respiratory Rate 12 Blood Pressure 110/47 L Pulse Oximetry 95 Oxygen Delivery 05/06/23 16:00 05/06/23 19:29 05/06/23 20:00 Temperature 99.6 F Pulse Rate 82 79 84 Respiratory Rate 16 Blood Pressure 108/50 L Pulse Oximetry 93 Oxygen Delivery 05/06/23 20:00 05/07/23 00:00 05/07/23 04:06 Temperature 98.5 F Pulse Rate 76 66 Respiratory Rate 18 Blood Pressure 110/52 L Pulse Oximetry 91 Oxygen Delivery Room Air 05/07/23 04:00 Temperature Pulse Rate 69 Respiratory Rate Blood Pressure Pulse Oximetry Oxygen Delivery Intake/Output Intake/Output: Intake & Output 05/04/23 05/05/23 05/06/23 05/08/23 23:59 23:59 23:
[2023-05-07] MEDS: dilTIAZem HCL CD 180 MG CAP.24HR PO (09:13)
[2023-05-07] MEDS: guaiFENesin 600 MG/DEXTROMETHORPHAN 30 MG SR TAB 12 HR 1 TAB PO ×2 (09:13→21:07)
[2023-05-07] MEDS: HEPARIN SODIUM 5,000 UNITS/ML VIAL 5000 UNITS SUB-Q ×2 (09:13→21:07)
[2023-05-07] MEDS: MONTELUKAST SODIUM 10 MG TABLET PO (09:13)
[2023-05-07] MEDS: PANTOPRAZOLE 40 MG TABLET PO (09:13)
[2023-05-07] MEDS: EZETIMIBE 10 MG TABLET PO (09:13)
[2023-05-07] MEDS: FOLIC ACID 1 MG TABLET PO (09:13)
[2023-05-07] MEDS: PARoxetine 10 MG TABLET PO (09:13)
[2023-05-07] MEDS: MORPHINE SULFATE (*CRX) 15 MG TABCR PO ×2 (09:13→21:07)
[2023-05-07] MEDS: IRON SUCROSE COMPLEX 200 MG in SODIUM CHLORIDE 0.9% IV 100 ML 220 MG IVPB (10:40)
[2023-05-07] MEDS: CENTRAL LINE FLUSH 10 ML IV PUSH ×2 (13:44→21:07)
[2023-05-07 14:00] VITALS: BP 119/58; PULSE 75; RESP 18; TEMP 36.2; O2SAT 90
[2023-05-07 14:13] LABS: Albumin 2.3 g/dL (3.8-4.8); Alpha 1 Globulin 0.4 g/dL (0.2-0.3); Alpha 2 Globulin 0.6 g/dL (0.5-0.9); Beta 1 Globulin 0.3 g/dL (0.4-0.6); Gamma Globulin 0.3 g/dL (0.8-1.7); Protein, Total 4.2 g/dL (6.1-8.1)
[2023-05-07 16:00] VITALS: PULSE 75
[2023-05-07 20:45] VITALS: BP 120/58; PULSE 79; RESP 18; TEMP 36.7; O2SAT 91
[2023-05-07] MEDS: TIZANIDINE HCL 4 MG TABLET PO (21:07)
[2023-05-07] MEDS: rOPINIRole HCL 0.25 MG TABLET PO (21:07)
[2023-05-07] MEDS: AMITRIPTYLINE HCL 25 MG TABLET PO (21:07)
[2023-05-08] VITALS (23 sets, daily range): BP systolic 116–171; BP diastolic 40–87; PULSE 69–105; RESP 16–20; TEMP 36.1–37; O2SAT 93–94
[2023-05-08 05:18] LABS: Hematocrit 29.2 % (37.0-47.0); Hemoglobin 9.3 g/dL (12.0-15.0); Mean Corpuscular HGB Conc 31.8 g/dl (32-36); Mean Corpuscular Hemoglobin 33.8 pg (26-34); Mean Corpuscular Volume 106.2 fl (80-100); Mean Platelet Volume 10.2 fl (7.4-10.4); Platelet Count Result 278 k/mm3 (150-375); Red Blood Count 2.75 M/mm3 (4.2-5.4); Red Cell Distribution Width 15.4 % (11.5-14.5); White Blood Count 9.6 K/mm3 (4.5-10.0)
[2023-05-08 05:32] LABS: Alanine Aminotransferase 32 U/L (6-35); Albumin Level 2.7 g/dL (3.5-5.1); Alkaline Phosphatase 64 U/L (38-126); Anion Gap 5 mmol/L (8-16); Aspartate Amino Transferase 44 U/L (14-36); Blood Urea Nitrogen 23 mg/dL (7-17); Calcium 8.2 mg/dL (8.4-10.2); Carbon Dioxide 27 mmol/L (22-30); Chloride 98 mmol/L (98-107); Creatine Kinase 295 U/L (30-135); Estimated CRCL calculation 11 ml/min; Estimated Glomerular Filt Rate 7; Glucose 89 mg/dL (65-110); Potassium 3.2 mmol/L (3.4-5.0); Sodium 130 mmol/L (137-145)
[2023-05-08] MEDS: CENTRAL LINE FLUSH 10 ML IV PUSH ×3 (06:52→20:22)
--- NOTE | 2023-05-08 10:11 | PCPTNOTE ---
The patient treatment was not able to be completed on 05/08/2023 due to patient out of the room for dialysis. Will plan to continue treatment per plan of care.
--- NOTE | 2023-05-08 10:44 | P.PNNP_ITS ---
Progress Note: A&P Assessment and Plan (1) BREE (acute kidney injury): Code(s): N17.9 - Acute kidney failure, unspecified Status: Acute Assessment and Plan: * The patient has acute kidney injury. * Creatinine was 1.0 a few years ago and 1.29 earlier this year. * etiology of BREE/ARF multifactorial: * due to rhabdomyolysis * prerenal factors * continued use of statin (crestor) [employer] * ongoing use of HCTZ and ARB [employer] * other * evaluation to date: * CT of abdomen without obstruction * CPK > 16,000 but now almost normal * UA with blood and protein * renal ultrasound normal * urine electrolytes non-prerenal (by FeNa and on diuretics on admission) but prerenal by FeUrea * urine eosinophils negative * moderate proteinuria * holding ARB, HCTZ, statin, and methotrexate * HD again today as the creatinine has been rising * still making urine. * follow creatinine values. hopefully will improve soon (2) Stage 3a chronic kidney disease: Code(s): N18.31 - Chronic kidney disease, stage 3a Status: Chronic Assessment and Plan: * creatinine 1.29mg/dl in Mar 2023 * presumably due to HTN and age-related change * however, medication effect is also possible since she is normally on methotrexate (3) Rhabdomyolysis: Qualifiers: Rhabdomyolysis type: non-traumatic Qualified Code(s): M62.82 - Rhabdomyolysis Code(s): M62.82 - Rhabdomyolysis Status: Acute Assessment and Plan: * as noted by admission CPK * presumably due to prolonged immobilization when on commode * CK now down to 295 (4) Metabolic acidosis: Code(s): E87.20 - Acidosis, unspecified Status: Resolved Assessment and Plan: * Resolved (5) Hyponatremia: Code(s): E87.1 - Hypo-osmolality and hyponatremia Status: Acute Assessment and Plan: * presumably due to BREE/ARF * however, she reports issues with this in the past * sodium stable around 130 (6) Anemia: Code(s): D64.9 - Anemia, unspecified Status: Acute Assessment and Plan: * likely due to BREE/ARF and acute illness * on venofer daily and gets Epogen with HD * hemoglobin is ranging around 9. (7) Transaminitis: Code(s): R74.01 - Elevation of levels of liver transaminase levels Status: Acute Assessment and Plan: * presumably secondary to rhabdomyolysis * improved and almost normal Subjective Date/time seen: 05/08/23 10:44 Interval history: alert. feels okay On HD mono it well. bp is good. 2L being removed. seen at 9:15am Exam Narrative: General: WD/WN female in NAD Heart: normal S1 and S2; no rub or gallop Lungs: clear to auscultation Abdomen: BS+ nontender Extremities: 1+ edema Skin: no rash or sq nodules Objective Data Vital Signs Vital Signs: Vital Signs - 24 hr 05/07/23 14:00 05/07/23 16:00 05/07/23 20:45 Temperature 97.1 F L 98.1 F Pulse Rate 75 75 79 Respiratory Rate 18 18 Blood Pressure 119/58 L 120/58 L Pulse Oximetry 90 91 Oxygen Delivery 05/07/23 20:00 05/08/23 03:59 Temperature 97.6 F Pulse Rate 71 Respiratory Rate 18 Blood Pressure 116/59 L Pulse Oximetry 93 Oxygen Delivery Room Air
--- NOTE | 2023-05-08 10:44 | PM.PNNEP ---
Progress Note: A&P Assessment and Plan (1) BREE (acute kidney injury): Code(s): N17.9 - Acute kidney failure, unspecified Status: Acute Assessment and Plan: The patient has acute kidney injury. Creatinine was 1.0 a few years ago and 1.29 earlier this year. 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 follow creatinine values. hopefully will improve soon (2) Stage 3a chronic kidney disease: Code(s): N18.31 - Chronic kidney disease, stage 3a Status: Chronic Assessment and Plan: creatinine 1.29mg/dl in Mar 2023 presumably due to HTN and age-related change however, medication effect is also possible since she is normally on methotrexate (3) Rhabdomyolysis: Qualifiers: Rhabdomyolysis type: non-traumatic Qualified Code(s): M62.82 - Rhabdomyolysis Code(s): M62.82 - Rhabdomyolysis Status: Acute Assessment and Plan: as noted by admission CPK presumably due to prolonged immobilization when on commode CK now down to 295 (4) Metabolic acidosis: Code(s): E87.20 - Acidosis, unspecified Status: Resolved Assessment and Plan: Resolved (5) Hyponatremia: Code(s): E87.1 - Hypo-osmolality and hyponatremia Status: Acute Assessment and Plan: presumably due to BREE/ARF however, she reports issues with this in the past sodium stable around 130 (6) Anemia: Code(s): D64.9 - Anemia, unspecified Status: Acute Assessment and Plan: likely due to BREE/ARF and acute illness on venofer daily and gets Epogen with HD hemoglobin is ranging around 9. (7) Transaminitis: Code(s): R74.01 - Elevation of levels of liver transaminase levels Status: Acute Assessment and Plan: presumably secondary to rhabdomyolysis improved and almost normal Subjective Date/time seen: 05/08/23 10:44 Interval history: alert. feels okay On HD mono it well. bp is good. 2L being removed. seen at 9:15am Exam Narrative: General: WD/WN female in NAD Heart: normal S1 and S2; no rub or gallop Lungs: clear to auscultation Abdomen: BS+ nontender Extremities: 1+ edema Skin: no rash or sq nodules Objective Data Vital Signs Vital Signs: Vital Signs - 24 hr 05/07/23 14:00 05/07/23 16:00 05/07/23 20:45 Temperature 97.1 F L 98.1 F Pulse Rate 75 75 79 Respiratory Rate 18 18 Blood Pressure 119/58 L 120/58 L Pulse Oximetry 90 91 Oxygen Delivery 05/07/23 20:00 05/08/23 03:59 Temperature 97.6 F Pulse Rate 71 Respiratory Rate 18 Blood Pressure 116/59 L Pulse Oximetry 93 Oxygen Delivery Room Air Intake/Output Intake/Output: Intake & Output 05/05/23 05/06/23 05/07/23 05/08/23 22:59 22:59 23:59 23:59 Intake Total 390 Output Total 650 Balance -260 Meds/Results Medications: Active Medications Generic Name Dose Route Start Last Admin Trade Name Freq PRN Reason Stop Dose Admin Amitriptyline HCl 25 mg 04/29/23 21:00 05/07/23 21:07 Amitriptyline Hcl 25 Mg Tablet PO 25 mg HS CORA Administration Diltiazem HCl 180 mg 04/29/23 09:00 05/07/23 09:13 Diltiazem Hcl Cd 180 Mg Cap.24hr PO 180 mg DAILY CORA Administration Ezetimibe 10 mg 04/29/23 09:00 05/07/23 09:13 Ezetimibe 10 Mg Tablet PO 10 mg DAILY CORA Administration Folic Acid 1 mg 04/29/23 09:00 05/07/23 09
--- NOTE | 2023-05-08 11:09 | PCNFU ---
Nutrition Follow-Up Complete: Potential for inadequate oral intake related to chronic loss of appetite as evidenced by MST 2 goal: Adequate PO intake at least 75% meals and supplements Patient is progressing towards goal. No new goal. Pt current nutrition is Renal/Dialysis with 1500 ml Fluid Restriction. Last recorded weight is 114.9 kg, up from 102.3 kg on admit. Dialysis patient. Bowel Motility:+BM reported / Labs Reviewed:Cr 5.8,BUN 23, GFR 7, NA 130, Alb 2.7,Hct 29.2,Hgb 9.3 Meds Noted: Protonix, Heparin, Folic Acid Skin: WNL Additional Notes: Patient has advanced to a renal dialysis diet with 1500 ml Fluid Restriction. Tolerating meals. Patient in dialysis today, removing 2L of fluid. Diet supplements have been ordered of Nepro BID providing an additional 420 kcals and 19 gms protein. Agree with diet orders. Monitoring intakes, weights, labs, plan of care Follow up in 7 days
[2023-05-08] MEDS: EPOETIN ALFA-EPBX 10,000 UNITS/ML VIAL 10000 UNITS IV PUSH (11:15)
[2023-05-08] MEDS: HEPARIN SODIUM 1,000 UNITS/ML VIAL 1000 UNITS IV PUSH (11:16)
--- NOTE | 2023-05-08 11:30 | P.PNIM_ITS ---
Progress Note: A&P Assessment and Plan (1) Rhabdomyolysis: Qualifiers: Rhabdomyolysis type: non-traumatic Qualified Code(s): M62.82 - Rhabdomyolysis Code(s): M62.82 - Rhabdomyolysis Status: Acute Assessment and Plan: Patient has rhabdomyolysis likely from prolonged time on the commode several da ys ago. This is resulted in acute kidney injury, metabolic acidosis and transaminitis. Patient received 2 L of normal saline in the ER. IMPROVING * She has been continued on aggressive IV fluid hydration at 200 mL an hour. * Will need to watch patient's fluid status closely. Will monitor strict I&O's and daily weights. * Patient states that she does have history of CKD but not sure what stage. No prior records at our facility * Will hold the patient's home hydrochlorothiazide and losartan given setting of acute kidney injury. Will also hold methotrexate, sulfasalazine and statin. * Fluid restriction post IV hydration on admit * CK >16,000; 14,862; 7,051; 4,386, >1600, 1299, 893, 536 * Temporary HD (2) BREE (acute kidney injury): Code(s): N17.9 - Acute kidney failure, unspecified Status: Acute Assessment and Plan: Acute on chronic renal failure- * Previous stage 3 * Nephrology following * Secondary to rhabdo/dehydration * CR 7.8 trending down slowly 4.4 05/03/3.7 (05/04)/3.4 (05/05) * Fluid restriction * temporary HD catheter right IJ * temporary HD * Avoid nephrotoxic drugs. * Monitor antihypertensive drug therapy. (BP Soft) * Avoid NSAIDs. * Routine CMP monitoring GFR. * Monitor electrolytes especially potassium. * Routine follow-up with Nephrology as an outpatient. 05/05: * Holding HD x days * monitor renal function and electrolytes 05/06: * Cr upward trend to 4.7 without HD yesterday * likely HD Monday * Nephrology checking Cortrosyn stim test 05/07 * Cr worsened with no HD 5.8 * HD today * awaiting on renal improvement (3) Transaminitis: Code(s): R74.01 - Elevation of levels of liver transaminase levels Status: Acute Assessment and Plan: * Improving * Continue to trend. * Likely due to rhabdomyolysis. * LFTs trending down. (4) Metabolic acidosis: Code(s): E87.20 - Acidosis, unspecified Status: Resolved Assessment and Plan: Due to rhabdomyolysis and acute on chronic kidney failure. RESOLVED * Patient's carbon dioxide level decreased from 18 to 13 in 2 days. * ABG on 04/29/2023 with a pH of 7.28, pCO2 29, bicarb 13.3 * 3/4 CO2 14 today * 3/5 CO2 improved post dialysis to 20 * Sodium bicarb tabs and sodium bicarb IV discontinued (5) Paroxysmal A-fib: Code(s): I48.0 - Paroxysmal atrial fibrillation Status: Acute Assessment and Plan: 05/02/23 overnight patient had was noticed to have AFib/ a flutter. Patient does not have any history of AFib. Patient converted on her own and did not require any intervention. RESOLVED * Thomas Vasc score of 4 which is moderate to high risk and recommendation was for anticoagulation. * Consult care coordination for Eliquis. * Echocardiogram ordered * Continue telemetry monitoring * No further episodes at this time will hold off on AC (6) Alcohol abuse: Code(s): F10.10 - Alcohol abuse, uncomplicated Status: Acute Assessment and Plan: Patient's does report the patient has history of heavy alcohol use. Pat
--- NOTE | 2023-05-08 11:30 | PM.IMPN ---
Progress Note: A&P Assessment and Plan (1) Rhabdomyolysis: Qualifiers: Rhabdomyolysis type: non-traumatic Qualified Code(s): M62.82 - Rhabdomyolysis Code(s): M62.82 - Rhabdomyolysis Status: Acute Assessment and Plan: Patient has rhabdomyolysis likely from prolonged time on the commode several days ago. This is resulted in acute kidney injury, metabolic acidosis and transaminitis. Patient received 2 L of normal saline in the ER. IMPROVING She has been continued on aggressive IV fluid hydration at 200 mL an hour. Will need to watch patient's fluid status closely. Will monitor strict I&O's and daily weights. Patient states that she does have history of CKD but not sure what stage. No prior records at our facility Will hold the patient's home hydrochlorothiazide and losartan given setting of acute kidney injury. Will also hold methotrexate, sulfasalazine and statin. Fluid restriction post IV hydration on admit CK >16,000; 14,862; 7,051; 4,386, >1600, 1299, 893, 536 Temporary HD (2) BREE (acute kidney injury): Code(s): N17.9 - Acute kidney failure, unspecified Status: Acute Assessment and Plan: Acute on chronic renal failure- Previous stage 3 Nephrology following Secondary to rhabdo/dehydration CR 7.8 trending down slowly 4.4 05/03/3.7 (05/04)/3.4 (05/05) Fluid restriction temporary HD catheter right IJ temporary HD Avoid nephrotoxic drugs. Monitor antihypertensive drug therapy. (BP Soft) Avoid NSAIDs. Routine CMP monitoring GFR. Monitor electrolytes especially potassium. Routine follow-up with Nephrology as an outpatient. 05/05: Holding HD x days monitor renal function and electrolytes 05/06: Cr upward trend to 4.7 without HD yesterday likely HD Monday Nephrology checking Cortrosyn stim test 05/07 Cr worsened with no HD 5.8 HD today awaiting on renal improvement (3) Transaminitis: Code(s): R74.01 - Elevation of levels of liver transaminase levels Status: Acute Assessment and Plan: Improving Continue to trend. Likely due to rhabdomyolysis. LFTs trending down. (4) Metabolic acidosis: Code(s): E87.20 - Acidosis, unspecified Status: Resolved Assessment and Plan: Due to rhabdomyolysis and acute on chronic kidney failure. RESOLVED Patient's carbon dioxide level decreased from 18 to 13 in 2 days. ABG on 04/29/2023 with a pH of 7.28, pCO2 29, bicarb 13.3 3/ CO2 14 today 05/01 CO2 improved post dialysis to 20 Sodium bicarb tabs and sodium bicarb IV discontinued (5) Paroxysmal A-fib: Code(s): I48.0 - Paroxysmal atrial fibrillation Status: Acute Assessment and Plan: 05/02/23 overnight patient had was noticed to have AFib/ a flutter. Patient does not have any history of AFib. Patient converted on her own and did not require any intervention. RESOLVED Thomas Vasc score of 4 which is moderate to high risk and recommendation was for anticoagulation. Consult care coordination for Eliquis. Echocardiogram ordered Continue telemetry monitoring No further episodes at this time will hold off on AC (6) Alcohol abuse: Code(s): F10.10 - Alcohol abuse, uncomplicated Status: Acute Assessment and Plan: Patient's does report the patient has history of heavy alcohol use. Patient is not demonstrating symptoms of withdrawal and states she has not drink alcohol in 2 weeks. Will not or CIWA scores at this time but will keep this in mind and monitor the case the patient may be providing misleading information. Could also be secondary cause of patient hyponatremia (7) Acute hyponatremia: Code(s): E87.1 - Hypo-osmolality and hyponatremia Status: Acute Assessment and Plan: Likely due to kidney dysfunction. Nephrology consulted. On admission pt sodium of 128. Neph
[2023-05-08] MEDS: HEPARIN SODIUM 1,000 UNITS/ML VIAL 500 UNITS IV PUSH (12:36)
--- NOTE | 2023-05-08 13:55 | PCOTNOTE ---
Patient out of the room at this time. Patient is off the floor at dialysis this P.M. per RN.
[2023-05-08] MEDS: PARoxetine 10 MG TABLET PO (14:48)
[2023-05-08] MEDS: MONTELUKAST SODIUM 10 MG TABLET PO (14:48)
[2023-05-08] MEDS: EZETIMIBE 10 MG TABLET PO (14:49)
[2023-05-08] MEDS: guaiFENesin 600 MG/DEXTROMETHORPHAN 30 MG SR TAB 12 HR 1 TAB PO ×2 (14:49→20:22)
[2023-05-08] MEDS: dilTIAZem HCL CD 180 MG CAP.24HR PO (14:49)
[2023-05-08] MEDS: FOLIC ACID 1 MG TABLET PO (14:49)
[2023-05-08] MEDS: PANTOPRAZOLE 40 MG TABLET PO (14:50)
[2023-05-08] MEDS: IRON SUCROSE COMPLEX 200 MG in SODIUM CHLORIDE 0.9% IV 100 ML 220 MG IVPB (14:51)
[2023-05-08 15:23] LABS: Albumin 2.4 g/dL (3.8-4.8); Alpha 1 Globulin 0.4 g/dL (0.2-0.3); Alpha 2 Globulin 0.6 g/dL (0.5-0.9); Beta 1 Globulin 0.3 g/dL (0.4-0.6); Gamma Globulin 0.4 g/dL (0.8-1.7); Protein, Total 4.4 g/dL (6.1-8.1)
[2023-05-08] MEDS: HEPARIN SODIUM 5,000 UNITS/ML VIAL 5000 UNITS SUB-Q (20:21)
[2023-05-08] MEDS: MORPHINE SULFATE (*CRX) 15 MG TABCR PO (20:22)
[2023-05-08] MEDS: TIZANIDINE HCL 4 MG TABLET PO (20:22)
[2023-05-08] MEDS: AMITRIPTYLINE HCL 25 MG TABLET PO (20:22)
[2023-05-08] MEDS: BISACODYL 10 MG SUPPOSITORY RECTAL (20:22)
[2023-05-08] MEDS: rOPINIRole HCL 0.25 MG TABLET PO (20:22)
[2023-05-09] VITALS (11 sets, daily range): BP systolic 105–150; BP diastolic 50–69; PULSE 65–92; RESP 16–20; TEMP 36.1–36.6; O2SAT 92–98
[2023-05-09 05:34] LABS: Hematocrit 28.6 % (37.0-47.0); Hemoglobin 9.1 g/dL (12.0-15.0); Mean Corpuscular HGB Conc 31.8 g/dl (32-36); Mean Corpuscular Hemoglobin 34.3 pg (26-34); Mean Corpuscular Volume 107.9 fl (80-100); Mean Platelet Volume 10.6 fl (7.4-10.4); Platelet Count Result 233 k/mm3 (150-375); Red Blood Count 2.65 M/mm3 (4.2-5.4); Red Cell Distribution Width 15.7 % (11.5-14.5); White Blood Count 9.7 K/mm3 (4.5-10.0)
[2023-05-09 05:47] LABS: Alanine Aminotransferase 27 U/L (6-35); Albumin Level 2.6 g/dL (3.5-5.1); Alkaline Phosphatase 59 U/L (38-126); Anion Gap 6 mmol/L (8-16); Aspartate Amino Transferase 34 U/L (14-36); Bilirubin,Total 0.9 mg/dL (0.2-1.3); Blood Urea Nitrogen 17 mg/dL (7-17); Calcium 7.9 mg/dL (8.4-10.2); Carbon Dioxide 25 mmol/L (22-30); Chloride 101 mmol/L (98-107); Creatine Kinase 178 U/L (30-135); Estimated CRCL calculation 15 ml/min; Estimated Glomerular Filt Rate 10; Glucose 88 mg/dL (65-110); Phosphorus 3.6 mg/dL (2.5-4.5); Potassium 3.6 mmol/L (3.4-5.0); Sodium 132 mmol/L (137-145)
[2023-05-09] MEDS: CENTRAL LINE FLUSH 10 ML IV PUSH ×3 (06:09→20:49)
[2023-05-09] MEDS: MONTELUKAST SODIUM 10 MG TABLET PO (08:57)
[2023-05-09] MEDS: guaiFENesin 600 MG/DEXTROMETHORPHAN 30 MG SR TAB 12 HR 1 TAB PO ×2 (08:57→20:48)
[2023-05-09] MEDS: PANTOPRAZOLE 40 MG TABLET PO (08:57)
[2023-05-09] MEDS: dilTIAZem HCL CD 180 MG CAP.24HR PO (08:57)
[2023-05-09] MEDS: EZETIMIBE 10 MG TABLET PO (08:57)
[2023-05-09] MEDS: PARoxetine 10 MG TABLET PO (08:57)
[2023-05-09] MEDS: FOLIC ACID 1 MG TABLET PO (08:57)
[2023-05-09] MEDS: HEPARIN SODIUM 5,000 UNITS/ML VIAL 5000 UNITS SUB-Q ×2 (09:28→20:48)
[2023-05-09] MEDS: IRON SUCROSE COMPLEX 200 MG in SODIUM CHLORIDE 0.9% IV 100 ML 220 MG IVPB (09:28)
--- NOTE | 2023-05-09 11:57 | P.PNIM_ITS ---
Progress Note: A&P Assessment and Plan (1) BREE (acute kidney injury): Code(s): N17.9 - Acute kidney failure, unspecified Status: Acute Assessment and Plan: Acute on chronic renal failure- * Previous stage 3 * Nephrology following * Secondary to rhabdo/dehydration * CR 7.8 trending down slowly 4.4 05/03/3.7 (05/04)/3.4 (05/05) * Fluid restriction * temporary HD catheter right IJ * temporary HD * Avoid nephrotoxic drugs. * Monitor antihypertensive drug therapy. (BP Soft) * Avoid NSAIDs. * Routine CMP monitoring GFR. * Monitor electrolytes especially potassium. * Routine follow-up with Nephrology as an outpatient. 05/05: * Holding HD x days * monitor renal function and electrolytes 05/06: * Cr upward trend to 4.7 without HD yesterday * likely HD Monday * Nephrology checking Cortrosyn stim test 05/07 * Cr worsened with no HD 5.8 * HD today * awaiting on renal improvement 05/08 * Likely going to need O/P dialysis CC consulted for referral (2) Transaminitis: Code(s): R74.01 - Elevation of levels of liver transaminase levels Status: Acute Assessment and Plan: * Improving * Continue to trend. * Likely due to rhabdomyolysis. * LFTs trending down. (3) Metabolic acidosis: Code(s): E87.20 - Acidosis, unspecified Status: Resolved Assessment and Plan: Due to rhabdomyolysis and acute on chronic kidney failure. RESOLVED * Patient's carbon dioxide level decreased from 18 to 13 in 2 days. * ABG on 04/29/2023 with a pH of 7.28, pCO2 29, bicarb 13.3 * 3/4 CO2 14 today * 3/5 CO2 improved post dialysis to 20 * Sodium bicarb tabs and sodium bicarb IV discontinued (4) Paroxysmal A-fib: Code(s): I48.0 - Paroxysmal atrial fibrillation Status: Acute Assessment and Plan: 05/02/23 overnight patient had was noticed to have AFib/ a flutter. Patient does not have any history of AFib. Patient converted on her own and did not require any intervention. RESOLVED * Thomas Vasc score of 4 which is moderate to high risk and recommendation was for anticoagulation. * Consult care coordination for Eliquis. * Echocardiogram ordered * Continue telemetry monitoring * No further episodes at this time will hold off on AC (5) Alcohol abuse: Code(s): F10.10 - Alcohol abuse, uncomplicated Status: Acute Assessment and Plan: Patient's does report the patient has history of heavy alcohol use. Patient is not demonstrating symptoms of withdrawal and states she has not drink alcohol in 2 weeks. Will not or CIWA scores at this time but will keep this in mind and monitor the case the patient may be providing misleading information. * Could also be secondary cause of patient hyponatremia (6) Acute hyponatremia: Code(s): E87.1 - Hypo-osmolality and hyponatremia Status: Acute Assessment and Plan: * Likely due to kidney dysfunction. * Nephrology consulted. * On admission pt sodium of 128. * Nephrology believes sodium with resolved with dialysis treatments. * NA still 121 PER Nephrology * presumably due to BREE/ARF * however, she reports issues with this in the past * would have expected some improvement with dialysis (sine dialysis has a sodium bath) but this has been limited * will recheck TSH and check cortisol as well as SPEP/UPEP * will try to adjust sodium bath with HD to further compensate toda
--- NOTE | 2023-05-09 11:57 | PM.IMPN ---
Progress Note: A&P Assessment and Plan (1) BREE (acute kidney injury): Code(s): N17.9 - Acute kidney failure, unspecified Status: Acute Assessment and Plan: Acute on chronic renal failure- Previous stage 3 Nephrology following Secondary to rhabdo/dehydration CR 7.8 trending down slowly 4.4 05/03/3.7 (05/04)/3.4 (05/05) Fluid restriction temporary HD catheter right IJ temporary HD Avoid nephrotoxic drugs. Monitor antihypertensive drug therapy. (BP Soft) Avoid NSAIDs. Routine CMP monitoring GFR. Monitor electrolytes especially potassium. Routine follow-up with Nephrology as an outpatient. 05/05: Holding HD x days monitor renal function and electrolytes 05/06: Cr upward trend to 4.7 without HD yesterday likely HD Monday Nephrology checking Cortrosyn stim test 05/07 Cr worsened with no HD 5.8 HD today awaiting on renal improvement 05/08 Likely going to need O/P dialysis CC consulted for referral (2) Transaminitis: Code(s): R74.01 - Elevation of levels of liver transaminase levels Status: Acute Assessment and Plan: Improving Continue to trend. Likely due to rhabdomyolysis. LFTs trending down. (3) Metabolic acidosis: Code(s): E87.20 - Acidosis, unspecified Status: Resolved Assessment and Plan: Due to rhabdomyolysis and acute on chronic kidney failure. RESOLVED Patient's carbon dioxide level decreased from 18 to 13 in 2 days. ABG on 04/29/2023 with a pH of 7.28, pCO2 29, bicarb 13.3 / CO2 14 today 05/01 CO2 improved post dialysis to 20 Sodium bicarb tabs and sodium bicarb IV discontinued (4) Paroxysmal A-fib: Code(s): I48.0 - Paroxysmal atrial fibrillation Status: Acute Assessment and Plan: 05/02/23 overnight patient had was noticed to have AFib/ a flutter. Patient does not have any history of AFib. Patient converted on her own and did not require any intervention. RESOLVED Thomas Vasc score of 4 which is moderate to high risk and recommendation was for anticoagulation. Consult care coordination for Eliquis. Echocardiogram ordered Continue telemetry monitoring No further episodes at this time will hold off on AC (5) Alcohol abuse: Code(s): F10.10 - Alcohol abuse, uncomplicated Status: Acute Assessment and Plan: Patient's does report the patient has history of heavy alcohol use. Patient is not demonstrating symptoms of withdrawal and states she has not drink alcohol in 2 weeks. Will not or CIWA scores at this time but will keep this in mind and monitor the case the patient may be providing misleading information. Could also be secondary cause of patient hyponatremia (6) Acute hyponatremia: Code(s): E87.1 - Hypo-osmolality and hyponatremia Status: Acute Assessment and Plan: Likely due to kidney dysfunction. Nephrology consulted. On admission pt sodium of 128. Nephrology believes sodium with resolved with dialysis treatments. NA still 121 PER Nephrology presumably due to BREE/ARF however, she reports issues with this in the past would have expected some improvement with dialysis (sine dialysis has a sodium bath) but this has been limited will recheck TSH and check cortisol as well as SPEP/UPEP will try to adjust sodium bath with HD to further compensate today 05/04: NA 130 continue with HD and Fluid restriction 05/05: NA 131 HD on hold x 2 days 05/06 NA 129 continue fluid restriction (7) Obstructive sleep apnea: Code(s): G47.33 - Obstructive sleep apnea (adult) (pediatric) Status: Chronic Assessment and Plan: Patient does have a distant history obstructive sleep apnea but does not uses CPAP at home anymore. Oxygen PRN (8) Left-sided weakness: Code(s): R53.1 - Weakness Status: Resolved Assessment and P
[2023-05-09] MEDS: MORPHINE SULFATE (*CRX) 15 MG TABCR PO ×2 (12:34→20:48)
--- NOTE | 2023-05-09 13:19 | P.PNNP_ITS ---
Progress Note: A&P Assessment and Plan (1) BREE (acute kidney injury): Code(s): N17.9 - Acute kidney failure, unspecified Status: Acute Assessment and Plan: * The patient has acute kidney injury. * Creatinine was 1.0 a few years ago and 1.29 earlier this year. * etiology of BREE/ARF multifactorial: * due to rhabdomyolysis * prerenal factors * continued use of statin (crestor) DISPOSAL MAN * ongoing use of HCTZ and ARB DISPOSAL MAN * other * evaluation to date: * CT of abdomen without obstruction * CPK > 16,000 but now almost normal * UA with blood and protein * renal ultrasound normal * urine electrolytes non-prerenal (by FeNa and on diuretics on admission) but prerenal by FeUrea * urine eosinophils negative * moderate proteinuria * holding ARB, HCTZ, statin, and methotrexate * HD went well yesterday. * Still making urine. She made 11 * Will check another creatinine tomorrow. * follow creatinine values. hopefully will improve soon * We discussed at length. It may take a while longer for renal function to imp rove enough to get off of dialysis. Will go ahead and arrange for outpatient dialysis. I will ask surgery to place a tunneled dialysis catheter as well. Discussed at length with patient and with bottle caser. (2) Stage 3a chronic kidney disease: Code(s): N18.31 - Chronic kidney disease, stage 3a Status: Chronic Assessment and Plan: * creatinine 1.29mg/dl in Mar 2023 * presumably due to HTN and age-related change * however, medication effect is also possible since she is normally on methotrexate (3) Rhabdomyolysis: Qualifiers: Rhabdomyolysis type: non-traumatic Qualified Code(s): M62.82 - Rhabdomyolysis Code(s): M62.82 - Rhabdomyolysis Status: Acute Assessment and Plan: * as noted by admission CPK * presumably due to prolonged immobilization when on commode * CK now down to 178 (4) Metabolic acidosis: Code(s): E87.20 - Acidosis, unspecified Status: Resolved Assessment and Plan: * Resolved (5) Hyponatremia: Code(s): E87.1 - Hypo-osmolality and hyponatremia Status: Acute Assessment and Plan: * presumably due to BREE/ARF * however, she reports issues with this in the past * sodium up to 132 (6) Anemia: Code(s): D64.9 - Anemia, unspecified Status: Acute Assessment and Plan: * likely due to BREE/ARF and acute illness * on venofer daily and gets Epogen with HD * hemoglobin is ranging around 9. (7) Transaminitis: Code(s): R74.01 - Elevation of levels of liver transaminase levels Status: Acute Assessment and Plan: * presumably secondary to rhabdomyolysis * improved and almost normal Subjective Date/time seen: 05/09/23 13:19 Interval history: Patient is alert. No chest pain or shortness of breath Still made lots of urine yesterday and also over 1L last night. Creatinine still rises between treatments. Exam Narrative: General: WD/WN female in NAD Heart: normal S1 and S2; no rub or gallop Lungs: clear Abdomen: BS+ soft and nontender Extremities: 1+ edema Skin: no rash Objective Data Vital Signs Vital Signs: Vital Signs - 24 hr 05/08/23 13:28 05/08/23 14:15 05/08/23 16:00 Temperature 97 F L 97.7 F Pulse Ra
--- NOTE | 2023-05-09 13:19 | PM.PNNEP ---
Progress Note: A&P Assessment and Plan (1) BREE (acute kidney injury): Code(s): N17.9 - Acute kidney failure, unspecified Status: Acute Assessment and Plan: The patient has acute kidney injury. Creatinine was 1.0 a few years ago and 1.29 earlier this year. 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 Still making urine. She made Will check another creatinine tomorrow. follow creatinine values. hopefully will improve soon We discussed at length. It may take a while longer for renal function to improve enough to get off of dialysis. Will go ahead and arrange for outpatient dialysis. I will ask surgery to place a tunneled dialysis catheter as well. Discussed at length with patient and with case assembler. (2) Stage 3a chronic kidney disease: Code(s): N18.31 - Chronic kidney disease, stage 3a Status: Chronic Assessment and Plan: creatinine 1.29mg/dl in Mar 2023 presumably due to HTN and age-related change however, medication effect is also possible since she is normally on methotrexate (3) Rhabdomyolysis: Qualifiers: Rhabdomyolysis type: non-traumatic Qualified Code(s): M62.82 - Rhabdomyolysis Code(s): M62.82 - Rhabdomyolysis Status: Acute Assessment and Plan: as noted by admission CPK presumably due to prolonged immobilization when on commode CK now down to 178 (4) Metabolic acidosis: Code(s): E87.20 - Acidosis, unspecified Status: Resolved Assessment and Plan: Resolved (5) Hyponatremia: Code(s): E87.1 - Hypo-osmolality and hyponatremia Status: Acute Assessment and Plan: presumably due to BREE/ARF however, she reports issues with this in the past sodium up to 132 (6) Anemia: Code(s): D64.9 - Anemia, unspecified Status: Acute Assessment and Plan: likely due to BREE/ARF and acute illness on venofer daily and gets Epogen with HD hemoglobin is ranging around 9. (7) Transaminitis: Code(s): R74.01 - Elevation of levels of liver transaminase levels Status: Acute Assessment and Plan: presumably secondary to rhabdomyolysis improved and almost normal Subjective Date/time seen: 05/09/23 13:19 Interval history: Patient is alert. No chest pain or shortness of breath Still made lots of urine yesterday and also over 1L last night. Creatinine still rises between treatments. Exam Narrative: General: WD/WN female in NAD Heart: normal S1 and S2; no rub or gallop Lungs: clear Abdomen: BS+ soft and nontender Extremities: 1+ edema Skin: no rash Objective Data Vital Signs Vital Signs: Vital Signs - 24 hr 05/08/23 13:28 05/08/23 14:15 05/08/23 16:00 Temperature 97 F L 97.7 F Pulse Rate 78 74 105 H Respiratory Rate 16 18 Blood Pressure 126/58 L 118/60 Pulse Oximetry 94 94 Oxygen Delivery 05/08/23 20:02 05/08/23 20:00 05/09/23 03:36 Temperature 98.5 F 97.3 F L Pulse Rate 81 68 Respiratory Rate 20 20 Blood Pressure 117/62 150/59 H Pulse Oximetry 93 93 Oxygen Delivery Room Air 05/09/23 03:33 05/08/23 20:00 05/09/23 00:00 Temperature 97.3 F L Pulse Rate 68 84 68 Respiratory Rate 20 Blood Pressure 105/59 L Pulse Oximetry 93 Oxygen Delivery 05/09/23 04:00 05/09/23 08:00 05/09/23 07:39 Temperature 97.7 F Pulse Rate 73 88 83 Respiratory Rate 17 Blood Pressure 1
--- NOTE | 2023-05-09 14:25 | PM.PNGS ---
Progress Note: A&P Assessment and Plan (1) Encounter for insertion of tunneled central venous catheter (CVC) with port: Code(s): Z45.2 - Encounter for adjustment and management of vascular access device Status: Acute Assessment and Plan: Planned to proceed with placement tunneled dura flow central venous catheter using ultrasound and under fluoroscopy in the operating room on April, at 2:30 p.m.. (2) BREE (acute kidney injury): Code(s): N17.9 - Acute kidney failure, unspecified Status: Acute Assessment and Plan: Not responding as quickly as hoped. Subjective Subjective Date/Time Seen: 05/09/23 14:25 Patient reports: other (Needs tunneled central venous catheter for longer-term dialysis including outpatient) Interval history: Patient is a 62-year-old woman who fell asleep on the commode for about 7 hours. She suffered acute on chronic renal failure due to hypovolemia but also rhabdomyolysis. On 05/01/2023, I placed a temporary, non tunneled, central venous catheter for dialysis. This has worked well but her renal function is not improving as well as hoped. I was asked at this time to proceed with placement of a tunneled central venous catheter so that the patient can be discharged and proceed with outpatient hemodialysis. Review of Systems Review of Systems: All systems reviewed & are unremarkable except as noted in HPI and below (HPI) Exam Const: General: comfortable, alert and awake Neck: Neck: no lymphadenopathy, trachea midline, supple and other (Right internal jugular central venous catheter) Thyroid: thyroid normal Chest: Chest palpation & inspection: normal inspection of the chest, no crepitus, no masses and No rash Objective Data Vital Signs Vital Signs: Vital Signs - 24 hr 05/08/23 16:00 05/08/23 20:02 05/08/23 20:00 Temperature 36.9 C Pulse Rate 105 H 81 Respiratory Rate 20 Blood Pressure 117/62 Pulse Oximetry 93 Oxygen Delivery Room Air 05/09/23 03:36 05/09/23 03:33 05/08/23 20:00 Temperature 36.3 C L 36.3 C L Pulse Rate 68 68 84 Respiratory Rate 20 20 Blood Pressure 150/59 H 105/59 L Pulse Oximetry 93 93 Oxygen Delivery 05/09/23 00:00 05/09/23 04:00 05/09/23 08:00 Temperature Pulse Rate 68 73 88 Respiratory Rate Blood Pressure Pulse Oximetry Oxygen Delivery 05/09/23 07:39 05/09/23 08:55 05/09/23 11:47 Temperature 36.5 C 36.6 C Pulse Rate 83 92 Respiratory Rate 17 20 Blood Pressure 128/69 138/64 Pulse Oximetry 92 97 Oxygen Delivery Room Air 05/09/23 14:12 Temperature 36.1 C L Pulse Rate 77 Respiratory Rate 18 Blood Pressure 115/59 L Pulse Oximetry 96 Oxygen Delivery Intake/Output Intake/Output: Intake & Output 05/06/23 05/07/23 05/08/23 05/09/23 22:59 23:59 23:59 23:59 Intake Total 918 570 Output Total 3653 0040 Balance -5672 -627 Meds/Results Medications: Active Medications Generic Name Dose Route Start Last Admin Trade Name Freq PRN Reason Stop Dose Admin Amitriptyline HCl 25 mg 04/29/23 21:00 05/08/23 20:22 Amitriptyline Hcl 25 Mg Tablet PO 25 mg HS CORA Administration Diltiazem HCl 180 mg 04/29/23 09:00 05/09/23 08:57 Diltiazem Hcl Cd 180 Mg Cap.24hr PO 180 mg DAILY CORA Administration Ezetimibe 10 mg 04/29/23 09:00 05/09/23 08:57 Ezetimibe 10 Mg Tablet PO 10 mg DAILY CORA Administration Epoetin Jimbo-epbx 10,000 units 05/10/23 09:00 Epoetin Jimbo-Epbx 10,000 Units/Ml Vial IV PUSH MOWEFR@09 [facility] Folic Acid 1 mg 04/29/23 09:00 05/09/23 08:57 Folic Acid 1 Mg Tablet PO 1 mg DAILY CORA Administration Guaifenesin/Dextromethorphan 1 tab 05/02/23 21:00 05/09/23 08:57 Guaifenesin 600 Mg/Dextromethorphan 30 Mg Sr Tab 12 Hr PO 1 tab Q12HR CORA Administration Heparin Sodium (Porcine) 5,000 units 04/29/23 09:00 05/09/23 09:28 Heparin Sodium 5,000 Units/Ml Vial SUB-Q 5,000 units
[2023-05-09] MEDS: TIZANIDINE HCL 4 MG TABLET PO (20:48)
[2023-05-09] MEDS: rOPINIRole HCL 0.25 MG TABLET PO (20:48)
[2023-05-09] MEDS: AMITRIPTYLINE HCL 25 MG TABLET PO (20:48)
[2023-05-09] MEDS: MELATONIN 5 MG TABLET PO (20:49)
[2023-05-09 21:23] LABS: Creatinine, Random Urine 48 mg/dL (20-275); Total Protein/Creatinine Ratio 1604 mg/g creat (24-184)
[2023-05-10] VITALS (22 sets, daily range): BP systolic 113–160; BP diastolic 58–84; PULSE 62–764; RESP 16–18; TEMP 36.2–37.5; O2SAT 93–97
[2023-05-10] MEDS: CENTRAL LINE FLUSH 10 ML IV PUSH ×2 (06:25→14:24)
[2023-05-10 06:33] LABS: Mean Corpuscular Hemoglobin 33.7 pg (26-34); Mean Corpuscular Volume 108.6 fl (80-100); Mean Platelet Volume 10.6 fl (7.4-10.4); Platelet Count Result 262 k/mm3 (150-375); Red Blood Count 2.67 M/mm3 (4.2-5.4); Red Cell Distribution Width 16.2 % (11.5-14.5); White Blood Count 9.1 K/mm3 (4.5-10.0)
[2023-05-10 06:41] LABS: Alanine Aminotransferase 23 U/L (6-35); Albumin Level 2.5 g/dL (3.5-5.1); Alkaline Phosphatase 63 U/L (38-126); Anion Gap 5 mmol/L (8-16); Aspartate Amino Transferase 29 U/L (14-36); Bilirubin,Total 0.9 mg/dL (0.2-1.3); Blood Urea Nitrogen 20 mg/dL (7-17); Carbon Dioxide 28 mmol/L (22-30); Chloride 102 mmol/L (98-107); Creatine Kinase 118 U/L (30-135); Estimated CRCL calculation 12 ml/min; Estimated Glomerular Filt Rate 8; Glucose 88 mg/dL (65-110); Potassium 3.4 mmol/L (3.4-5.0); Sodium 135 mmol/L (137-145)
--- NOTE | 2023-05-10 08:15 | PC.NURSE ---
Patient off floor to dialysis unit via bed.
--- NOTE | 2023-05-10 08:50 | PCPTNOTE ---
Attempted to see patient for PT, however patient was out of the room for dialysis.
[2023-05-10] MEDS: EPOETIN ALFA-EPBX 10,000 UNITS/ML VIAL 10000 UNITS IV PUSH (10:35)
[2023-05-10] MEDS: SODIUM CHLORIDE 0.9% IV 1,000 ML 999 ML IV CONT (11:08)
[2023-05-10] MEDS: HEPARIN SODIUM 1,000 UNITS/ML VIAL 4000 UNITS (11:09)
--- NOTE | 2023-05-10 11:16 | PCOTNOTE ---
The patient treatment was not able to be completed. Patient was out of the room. Will plan to continue treatment per plan of care.
--- NOTE | 2023-05-10 11:40 | PC.NURSE ---
Patient returned to floor via bed.
--- NOTE | 2023-05-10 11:40 | PC.NURSE ---
Patient returned to room 253 from dialysis via bed.
[2023-05-10] MEDS: PANTOPRAZOLE 40 MG TABLET PO (11:41)
[2023-05-10] MEDS: guaiFENesin 600 MG/DEXTROMETHORPHAN 30 MG SR TAB 12 HR 1 TAB PO ×2 (11:41→20:39)
[2023-05-10] MEDS: MORPHINE SULFATE (*CRX) 15 MG TABCR PO ×2 (11:41→20:39)
[2023-05-10] MEDS: MONTELUKAST SODIUM 10 MG TABLET PO (11:41)
[2023-05-10] MEDS: PARoxetine 10 MG TABLET PO (11:41)
[2023-05-10] MEDS: FOLIC ACID 1 MG TABLET PO (11:42)
[2023-05-10] MEDS: EZETIMIBE 10 MG TABLET PO (11:42)
[2023-05-10] MEDS: IRON SUCROSE COMPLEX 200 MG in SODIUM CHLORIDE 0.9% IV 100 ML 220 MG IVPB (11:42)
[2023-05-10] MEDS: dilTIAZem HCL CD 180 MG CAP.24HR PO (11:42)
[2023-05-10] MEDS: HEPARIN SODIUM 5,000 UNITS/ML VIAL 5000 UNITS SUB-Q ×2 (11:42→20:44)
--- NOTE | 2023-05-10 13:25 | P.PNNP_ITS ---
Progress Note: A&P Assessment and Plan (1) BREE (acute kidney injury): Code(s): N17.9 - Acute kidney failure, unspecified Status: Acute Assessment and Plan: * The patient has acute kidney injury. * Creatinine was 1.0 a few years ago and 1.29 earlier this year. 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 * Still making urine. She made 1150 yesterday * creatinine today was a little higher. * Tunneled cath tomorrow * HD monday either here or as an outpt if all set up (2) Stage 3a chronic kidney disease: Code(s): N18.31 - Chronic kidney disease, stage 3a Status: Chronic Assessment and Plan: * creatinine 1.29mg/dl in Mar 2023 * presumably due to HTN and age-related change * however, medication effect is also possible since she is normally on methotrexate (3) Rhabdomyolysis: Qualifiers: Rhabdomyolysis type: non-traumatic Qualified Code(s): M62.82 - Rhabdomyolysis Code(s): M62.82 - Rhabdomyolysis Status: Acute Assessment and Plan: * as noted by admission CPK * presumably due to prolonged immobilization when on commode * CK improved (4) Metabolic acidosis: Code(s): E87.20 - Acidosis, unspecified Status: Resolved Assessment and Plan: * Resolved (5) Hyponatremia: Code(s): E87.1 - Hypo-osmolality and hyponatremia Status: Acute Assessment and Plan: * presumably due to BREE/ARF * however, she reports issues with this in the past * sodium up to 135 today (6) Anemia: Code(s): D64.9 - Anemia, unspecified Status: Acute Assessment and Plan: * likely due to BREE/ARF and acute illness * on venofer daily and gets Epogen with HD * hemoglobin is ranging around 9. (7) Transaminitis: Code(s): R74.01 - Elevation of levels of liver transaminase levels Status: Acute Assessment and Plan: * presumably secondary to rhabdomyolysis * improved and almost normal Subjective Date/time seen: 05/10/23 13:25 Interval history: pt is just finishing dialysis. no cp or sob. still making some urine Exam Narrative: General: WD/WN female in NAD Heart: normal S1 and S2; no rub or gallop Lungs: clear bilaterally Abdomen: BS+ soft and nontender Extremities: 1+ edema Skin: no rash or sq nodules Objective Data Vital Signs Vital Signs: Vital Signs - 24 hr 05/09/23 14:12 05/09/23 16:00 05/09/23 20:00 Temperature 96.9 F L Pulse Rate 77 75 78 Respiratory Rate 18 18 Blood Pressure 115/59 L Pulse Oximetry 96 94 Oxygen Delivery Room Air Fraction of Inspired Oxygen 0 05/09/23 22:34 05/09/23 20:00 05/10/23 00:00 Temperature 97.8 F Pulse Rate 65 84 62 Re
--- NOTE | 2023-05-10 13:25 | PM.PNNEP ---
Progress Note: A&P Assessment and Plan (1) BREE (acute kidney injury): Code(s): N17.9 - Acute kidney failure, unspecified Status: Acute Assessment and Plan: The patient has acute kidney injury. Creatinine was 1.0 a few years ago and 1.29 earlier this year. 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 Still making urine. She made 1150 yesterday creatinine today was a little higher. Tunneled cath tomorrow HD monday either here or as an outpt if all set up (2) Stage 3a chronic kidney disease: Code(s): N18.31 - Chronic kidney disease, stage 3a Status: Chronic Assessment and Plan: creatinine 1.29mg/dl in Mar 2023 presumably due to HTN and age-related change however, medication effect is also possible since she is normally on methotrexate (3) Rhabdomyolysis: Qualifiers: Rhabdomyolysis type: non-traumatic Qualified Code(s): M62.82 - Rhabdomyolysis Code(s): M62.82 - Rhabdomyolysis Status: Acute Assessment and Plan: as noted by admission CPK presumably due to prolonged immobilization when on commode CK improved (4) Metabolic acidosis: Code(s): E87.20 - Acidosis, unspecified Status: Resolved Assessment and Plan: Resolved (5) Hyponatremia: Code(s): E87.1 - Hypo-osmolality and hyponatremia Status: Acute Assessment and Plan: presumably due to BREE/ARF however, she reports issues with this in the past sodium up to 135 today (6) Anemia: Code(s): D64.9 - Anemia, unspecified Status: Acute Assessment and Plan: likely due to BREE/ARF and acute illness on venofer daily and gets Epogen with HD hemoglobin is ranging around 9. (7) Transaminitis: Code(s): R74.01 - Elevation of levels of liver transaminase levels Status: Acute Assessment and Plan: presumably secondary to rhabdomyolysis improved and almost normal Subjective Date/time seen: 05/10/23 13:25 Interval history: pt is just finishing dialysis. no cp or sob. still making some urine Exam Narrative: General: WD/WN female in NAD Heart: normal S1 and S2; no rub or gallop Lungs: clear bilaterally Abdomen: BS+ soft and nontender Extremities: 1+ edema Skin: no rash or sq nodules Objective Data Vital Signs Vital Signs: Vital Signs - 24 hr 05/09/23 14:12 05/09/23 16:00 05/09/23 20:00 Temperature 96.9 F L Pulse Rate 77 75 78 Respiratory Rate 18 18 Blood Pressure 115/59 L Pulse Oximetry 96 94 Oxygen Delivery Room Air Fraction of Inspired Oxygen 0 05/09/23 22:34 05/09/23 20:00 05/10/23 00:00 Temperature 97.8 F Pulse Rate 65 84 62 Respiratory Rate 16 Blood Pressure 108/50 L Pulse Oximetry 98 Oxygen Delivery Fraction of Inspired Oxygen 05/10/23 04:00 05/10/23 06:00 05/10/23 08:14 Temperature 97.8 F 97.7 F Pulse Rate 70 75 75 Respiratory Rate 16 18 Blood Pressure 114/58 L 115/62 Pulse Oximetry 97 Oxygen Delivery Fraction of Inspired Oxygen 05/10/23 08:21 05/10/23 08:30 05/10/23 08:45 Temperature Pulse Rate 70 85 73 Respiratory Rate Blood Pressure 126/68 134/84 145/76 H Pulse Oximetry Oxygen Delivery Fraction of Inspired Oxygen 05/10/23 09:00 05/10/23 09:15 05/10/23 09:30 Temperature Pulse Rate 75 764 H 72 Respiratory Rate Blood Pressure 160/82 H 146/81 H 133/75 Pulse Oximetry Oxygen
--- NOTE | 2023-05-10 13:27 | PCPTNOTE ---
Attempted to see patient for PT, however patient declined due to wanting to rest at this time from dialysis.
[2023-05-10] MEDS: MAGNESIUM HYDROXIDE SUSP 30 ML UDC PO (14:24)
--- NOTE | 2023-05-10 14:58 | P.PNIM_ITS ---
Progress Note: A&P Assessment and Plan (1) BREE (acute kidney injury): Code(s): N17.9 - Acute kidney failure, unspecified Status: Acute Assessment and Plan: Acute on chronic renal failure- * Previous stage 3 * Nephrology following * Secondary to rhabdo/dehydration * CR today 5.5 * Fluid restriction of 1500 mL * Avoid nephrotoxic drugs. * Monitor antihypertensive drug therapy * Avoid NSAIDs. * Routine CMP monitoring GFR. * Monitor electrolytes especially potassium. * Routine follow-up with Nephrology as an outpatient. * temporary HD catheter right IJ * 05/09 plan for tunnel cath tomorrow. * CC consulted for outpatient HD referral (2) Transaminitis: Code(s): R74.01 - Elevation of levels of liver transaminase levels Status: Acute Assessment and Plan: * Continue to trend. * Likely due to rhabdomyolysis. Resolved (3) Metabolic acidosis: Code(s): E87.20 - Acidosis, unspecified Status: Resolved Assessment and Plan: Due to rhabdomyolysis and acute on chronic kidney failure. * Patient's carbon dioxide level decreased from 18 to 13 in 2 days. * ABG on 04/29/2023 with a pH of 7.28, pCO2 29, bicarb 13.3 * 3/4 CO2 14 * 3/5 CO2 improved post dialysis to 20 * Sodium bicarb tabs discontinued. RESOLVED (4) Paroxysmal A-fib: Code(s): I48.0 - Paroxysmal atrial fibrillation Status: Acute Assessment and Plan: 05/02/23 overnight patient had was noticed to have AFib/ a flutter. Patient does not have any history of AFib. Patient converted on her own and did not require any intervention. * Thomas Vasc score of 4 which is moderate to high risk and recommendation was for anticoagulation. * Consult care coordination for Eliquis. * Echocardiogram with an EF of 65 70%, grade 1 diastolic dysfunction and mild pulmonary hypertension at 38 mm Hg * Continue telemetry monitoring * No further episodes at this time will hold off on AC RESOLVED (5) Alcohol abuse: Code(s): F10.10 - Alcohol abuse, uncomplicated Status: Acute Assessment and Plan: Patient's does report the patient has history of heavy alcohol use. Patient is not demonstrating symptoms of withdrawal and states she has not drink alcohol in 2 weeks. Will not or CIWA scores at this time but will keep this in mind and monitor the case the patient may be providing misleading information. * Could also be secondary cause of patient hyponatremia (6) Acute hyponatremia: Code(s): E87.1 - Hypo-osmolality and hyponatremia Status: Acute Assessment and Plan: * Likely due to kidney dysfunction. * Nephrology consulted. * On admission pt sodium of 128. * Nephrology believes sodium with resolved with dialysis treatments. * NA today 135 * continue fluid restriction Resolved. (7) Obstructive sleep apnea: Code(s): G47.33 - Obstructive sleep apnea (adult) (pediatric) Status: Chronic Assessment and Plan: * Patient does have a distant history obstructive sleep apnea but does not uses CPAP at home anymore. * Oxygen PRN (8) Left-sided weakness: Code(s): R53.1 - Weakness Status: Resolved Assessment and Plan: Patient is having left-sided weakness along with paresthesias of the left arm and bilateral lower extremities. Bilateral lower extremity paresthesias could
--- NOTE | 2023-05-10 14:58 | PM.IMPN ---
Progress Note: A&P Assessment and Plan (1) BREE (acute kidney injury): Code(s): N17.9 - Acute kidney failure, unspecified Status: Acute Assessment and Plan: Acute on chronic renal failure- Previous stage 3 Nephrology following Secondary to rhabdo/dehydration CR today 5.5 Fluid restriction of 1500 mL Avoid nephrotoxic drugs. Monitor antihypertensive drug therapy Avoid NSAIDs. Routine CMP monitoring GFR. Monitor electrolytes especially potassium. Routine follow-up with Nephrology as an outpatient. temporary HD catheter right IJ 05/09 plan for tunnel cath tomorrow. CC consulted for outpatient HD referral (2) Transaminitis: Code(s): R74.01 - Elevation of levels of liver transaminase levels Status: Acute Assessment and Plan: Continue to trend. Likely due to rhabdomyolysis. Resolved (3) Metabolic acidosis: Code(s): E87.20 - Acidosis, unspecified Status: Resolved Assessment and Plan: Due to rhabdomyolysis and acute on chronic kidney failure. Patient's carbon dioxide level decreased from 18 to 13 in 2 days. ABG on 04/29/2023 with a pH of 7.28, pCO2 29, bicarb 13.3 3/ CO2 14 3/5 CO2 improved post dialysis to 20 Sodium bicarb tabs discontinued. RESOLVED (4) Paroxysmal A-fib: Code(s): I48.0 - Paroxysmal atrial fibrillation Status: Acute Assessment and Plan: 05/02/23 overnight patient had was noticed to have AFib/ a flutter. Patient does not have any history of AFib. Patient converted on her own and did not require any intervention. Thomas Vasc score of 4 which is moderate to high risk and recommendation was for anticoagulation. Consult care coordination for Darrell. Echocardiogram with an EF of 65 70%, grade 1 diastolic dysfunction and mild pulmonary hypertension at 38 mm Hg Continue telemetry monitoring No further episodes at this time will hold off on AC RESOLVED (5) Alcohol abuse: Code(s): F10.10 - Alcohol abuse, uncomplicated Status: Acute Assessment and Plan: Patient's does report the patient has history of heavy alcohol use. Patient is not demonstrating symptoms of withdrawal and states she has not drink alcohol in 2 weeks. Will not or CIWA scores at this time but will keep this in mind and monitor the case the patient may be providing misleading information. Could also be secondary cause of patient hyponatremia (6) Acute hyponatremia: Code(s): E87.1 - Hypo-osmolality and hyponatremia Status: Acute Assessment and Plan: Likely due to kidney dysfunction. Nephrology consulted. On admission pt sodium of 128. Nephrology believes sodium with resolved with dialysis treatments. NA today 135 continue fluid restriction Resolved. (7) Obstructive sleep apnea: Code(s): G47.33 - Obstructive sleep apnea (adult) (pediatric) Status: Chronic Assessment and Plan: Patient does have a distant history obstructive sleep apnea but does not uses CPAP at home anymore. Oxygen PRN (8) Left-sided weakness: Code(s): R53.1 - Weakness Status: Resolved Assessment and Plan: Patient is having left-sided weakness along with paresthesias of the left arm and bilateral lower extremities. Bilateral lower extremity paresthesias could be due to her prolonged episode of sitting on toilet. MRI showed old lacunar infarct in the right basal ganglia. Weakness and paresthesias likely due to rhabdomyolysis and prolong sitting. 05/04: Overall improved and is ambulating on own (9) Anemia: Code(s): D64.9 - Anemia, unspecified Status: Acute Assessment and Plan: secondary to BREE/LAURI epogen with HD Trend H&H transfuse PRBC <7.0 HGB Subjective Date/time seen: 05/10/23 14:58 Interval history: patient doing well today with no new complaints
--- NOTE | 2023-05-10 15:01 | PCPTNOTE ---
Patient refused treatment this session due to wanting to rest at this time. Patient reported she was worn out from dialysis earlier this morning.
[2023-05-10] MEDS: AMITRIPTYLINE HCL 25 MG TABLET PO (20:38)
[2023-05-10] MEDS: TIZANIDINE HCL 4 MG TABLET PO (20:39)
[2023-05-10] MEDS: rOPINIRole HCL 0.25 MG TABLET PO (20:39)
[2023-05-10] MEDS: MELATONIN 5 MG TABLET PO (20:39)
[2023-05-11] VITALS (17 sets, daily range): BP systolic 115–133; BP diastolic 54–63; PULSE 53–91; RESP 12–19; TEMP 36.3–37.1; O2SAT 90–100
[2023-05-11] MEDS: CENTRAL LINE FLUSH 10 ML IV PUSH ×2 (01:03→05:42)
[2023-05-11 06:05] LABS: Alanine Aminotransferase 22 U/L (6-35); Albumin Level 2.6 g/dL (3.5-5.1); Alkaline Phosphatase 70 U/L (38-126); Anion Gap 1 mmol/L (8-16); Aspartate Amino Transferase 27 U/L (14-36); Blood Urea Nitrogen 16 mg/dL (7-17); Carbon Dioxide 31 mmol/L (22-30); Chloride 103 mmol/L (98-107); Estimated CRCL calculation 14 ml/min; Estimated Glomerular Filt Rate 10; Glucose 90 mg/dL (65-110); Potassium 3.3 mmol/L (3.4-5.0); Sodium 135 mmol/L (137-145)
--- NOTE | 2023-05-11 10:47 | PCPTNOTE ---
Attempted to see patient for PT, however patient refused. Patient reported she plans on walking more once she gets home later this afternoon. Patient reported she is planning on discharging home today.
[2023-05-11] MEDS: IRON SUCROSE COMPLEX 200 MG in SODIUM CHLORIDE 0.9% IV 100 ML 220 MG IVPB (11:27)
--- NOTE | 2023-05-11 11:45 | WPDHPUPDATE1 ---
History and Physical Update Update Date/Time: 05/11/23 11:45 History and Physical has been reviewed, including an updated exam of the patient. There are NO changes in the patient's condition. Risks, benefits, and alternatives have been discussed and questions answered. Patient agrees to proceed with procedure.
--- NOTE | 2023-05-11 13:31 | PC.NURSE ---
Patient off floor to OR for procedure.
[2023-05-11] MEDS: SODIUM CHLORIDE 0.9% IV 500 ML 30 ML IV CONT (13:35)
--- NOTE | 2023-05-11 13:39 | P.PNNP_ITS ---
Progress Note: A&P Assessment and Plan (1) BREE (acute kidney injury): Code(s): N17.9 - Acute kidney failure, unspecified Status: Acute Assessment and Plan: * The patient has acute kidney injury. * Creatinine was 1.0 a few years ago and 1.29 earlier this year. 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 * check labs in am * will get another tx tomorrow. (2) Stage 3a chronic kidney disease: Code(s): N18.31 - Chronic kidney disease, stage 3a Status: Chronic Assessment and Plan: * creatinine 1.29mg/dl in Mar 2023 * presumably due to HTN and age-related change * however, medication effect is also possible since she is normally on methotrexate (3) Rhabdomyolysis: Qualifiers: Rhabdomyolysis type: non-traumatic Qualified Code(s): M62.82 - Rhabdomyolysis Code(s): M62.82 - Rhabdomyolysis Status: Acute Assessment and Plan: * as noted by admission CPK * presumably due to prolonged immobilization when on commode * CK improved (4) Metabolic acidosis: Code(s): E87.20 - Acidosis, unspecified Status: Resolved Assessment and Plan: * Resolved (5) Hyponatremia: Code(s): E87.1 - Hypo-osmolality and hyponatremia Status: Acute Assessment and Plan: * presumably due to BERE/ARF * however, she reports issues with this in the past * sodium up to 135 today (6) Anemia: Code(s): D64.9 - Anemia, unspecified Status: Acute Assessment and Plan: * likely due to BREE/ARF and acute illness * on venofer daily and gets Epogen with HD * hemoglobin is ranging around 9. (7) Transaminitis: Code(s): R74.01 - Elevation of levels of liver transaminase levels Status: Acute Assessment and Plan: * presumably secondary to rhabdomyolysis * improved and almost normal Subjective Date/time seen: 05/11/23 13:39 Interval history: feels okay. n o complaints. Exam Narrative: General: WD/WN female in NAD Heart: normal S1 and S2; no rub or gallop Lungs: clear Abdomen: BS+ soft and nontender Extremities: 1+ edema and no cyanosis Skin: no rash or sq nodules Objective Data Vital Signs Vital Signs: Vital Signs - 24 hr 05/10/23 14:49 05/10/23 16:00 05/10/23 21:18 Temperature 98.4 F 99.5 F Pulse Rate 86 74 69 Respiratory Rate 16 18 Blood Pressure 113/66 114/59 L Pulse Oximetry 94 93 Oxygen Delivery 05/10/23 20:00 05/11/23 00:00 05/11/23 04:00 Temperature Pulse Rate 73 61 71 Respiratory Rate Blood Pressure Pulse Oximetry Oxygen Delivery 05/11/23 05:49 05/11/23 08:33 05/11/23 08:00 Temperature 98.7 F
--- NOTE | 2023-05-11 13:39 | PM.PNNEP ---
Progress Note: A&P Assessment and Plan (1) BREE (acute kidney injury): Code(s): N17.9 - Acute kidney failure, unspecified Status: Acute Assessment and Plan: The patient has acute kidney injury. Creatinine was 1.0 a few years ago and 1.29 earlier this year. 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 check labs in am will get another tx tomorrow. (2) Stage 3a chronic kidney disease: Code(s): N18.31 - Chronic kidney disease, stage 3a Status: Chronic Assessment and Plan: creatinine 1.29mg/dl in Mar 2023 presumably due to HTN and age-related change however, medication effect is also possible since she is normally on methotrexate (3) Rhabdomyolysis: Qualifiers: Rhabdomyolysis type: non-traumatic Qualified Code(s): M62.82 - Rhabdomyolysis Code(s): M62.82 - Rhabdomyolysis Status: Acute Assessment and Plan: as noted by admission CPK presumably due to prolonged immobilization when on commode CK improved (4) Metabolic acidosis: Code(s): E87.20 - Acidosis, unspecified Status: Resolved Assessment and Plan: Resolved (5) Hyponatremia: Code(s): E87.1 - Hypo-osmolality and hyponatremia Status: Acute Assessment and Plan: presumably due to BREE/ARF however, she reports issues with this in the past sodium up to 135 today (6) Anemia: Code(s): D64.9 - Anemia, unspecified Status: Acute Assessment and Plan: likely due to BREE/ARF and acute illness on venofer daily and gets Epogen with HD hemoglobin is ranging around 9. (7) Transaminitis: Code(s): R74.01 - Elevation of levels of liver transaminase levels Status: Acute Assessment and Plan: presumably secondary to rhabdomyolysis improved and almost normal Subjective Date/time seen: 05/11/23 13:39 Interval history: feels okay. n o complaints. Exam Narrative: General: WD/WN female in NAD Heart: normal S1 and S2; no rub or gallop Lungs: clear Abdomen: BS+ soft and nontender Extremities: 1+ edema and no cyanosis Skin: no rash or sq nodules Objective Data Vital Signs Vital Signs: Vital Signs - 24 hr 05/10/23 14:49 05/10/23 16:00 05/10/23 21:18 Temperature 98.4 F 99.5 F Pulse Rate 86 74 69 Respiratory Rate 16 18 Blood Pressure 113/66 114/59 L Pulse Oximetry 94 93 Oxygen Delivery 05/10/23 20:00 05/11/23 00:00 05/11/23 04:00 Temperature Pulse Rate 73 61 71 Respiratory Rate Blood Pressure Pulse Oximetry Oxygen Delivery 05/11/23 05:49 05/11/23 08:33 05/11/23 08:00 Temperature 98.7 F Pulse Rate 82 77 Respiratory Rate 19 Blood Pressure 117/58 L Pulse Oximetry 90 Oxygen Delivery Room Air 05/11/23 12:00 Temperature Pulse Rate 71 Respiratory Rate Blood Pressure Pulse Oximetry Oxygen Delivery Intake/Output Intake/Output: Intake & Output 05/08/23 05/09/23 05/10/23 05/11/23 23:59 23:59 23:59 23:59 Intake Total 918 1280 1570 Output Total 3650 1150 4590 1200 [facility] -6095 130 -2700 -1200 Meds/Results Medications: Active Medications Generic Name Dose Route Start Last Admin Trade Name Freq PRN Reason Stop Dose Admin Amitriptyline HCl 25 mg 04/29/23 21:00 05/10/23 20:38 Amitriptyline Hcl 25 Mg Tablet PO 25 mg HS CORA Administration Diltiazem HCl 180 mg 04/29/23 09:00 05/11/23 11:13 Diltiazem H
--- NOTE | 2023-05-11 13:49 | WPDANESEPPF ---
Anes - Initial Pre Proc Eval Procedure: Operation Date: 05/11/23 14:30 Proposed Procedures p Placement Tunnelled Duraflow Catheter Under Fluoroscopy - Anthony Peguero MD Date/Time: 05/11/23 13:49 Surgeon: Kalina Ríos DO Pre Op Diagnosis: Rhabdomyolysis,Transaminitis,Leg Weakness,BREE Patient Data Age: 62 Gender: F Height: 1.63 m Weight: 110.1 kg Last Vital Signs Temp 37.1 C 05/11/23 05:49 Pulse 71 05/11/23 12:00 Resp 19 05/11/23 05:49 BP 117/58 L 05/11/23 05:49 Pulse Ox 90 05/11/23 05:49 O2 Del Method Room Air 05/11/23 08:33 O2 Flow Rate 0 05/08/23 09:25 FiO2 0 05/09/23 20:00 Allergies Allergy/AdvReac Type Severity Reaction Status Date / Time bee venom protein (honey bee) Allergy Severe Difficulty Verified 05/11/23 14:00 Breathing, SWELLING MADELYN Inhibitors Allergy Unknown RASH Verified 04/28/23 13:52 vancomycin AdvReac Severe RASHAUN'S Verified 05/06/23 10:06 SYNDROME Home Medications Medication Instructions Recorded Confirmed Type amitriptyline 25 mg tablet 25 mg PO HS 04/28/23 04/28/23 History diltiazem HCl 180 mg 180 mg PO DAILY 04/28/23 04/28/23 History tablet,extended release 24 hr eszopiclone 3 mg tablet (Lunesta) 10 mg PO HS 04/28/23 04/28/23 History ezetimibe 10 mg tablet 10 mg PO DAILY 04/28/23 04/28/23 History folic acid 1 mg tablet 1 mg PO DAILY 04/28/23 04/28/23 History gabapentin 300 mg capsule 300 mg PO HS 04/28/23 04/28/23 History hydrochlorothiazide 12.5 mg tablet 12.5 mg PO DAILY 04/28/23 04/28/23 History lorazepam 1 mg tablet 1 mg PO HS PRN Anxiety 04/28/23 04/28/23 History losartan 100 mg tablet 100 mg PO DAILY 04/28/23 04/28/23 History methotrexate sodium 2.5 mg tablet 12.5 mg PO WEEKLY 04/28/23 04/28/23 History montelukast 10 mg tablet 10 mg PO DAILY 04/28/23 04/28/23 History (Singulair) morphine 15 mg tablet,extended 15 mg PO BID 04/28/23 04/28/23 History release paroxetine HCl 20 mg tablet (Paxil) 10 mg PO DAILY 04/28/23 04/28/23 History ropinirole 0.25 mg tablet 0.25 mg PO HS 04/28/23 04/28/23 History rosuvastatin 5 mg tablet 5 mg PO DAILY 04/28/23 04/30/23 History sulfasalazine 500 mg 500 mg PO BID 04/28/23 04/28/23 History tablet,delayed release tizanidine 4 mg tablet 4 mg PO HS 04/28/23 04/28/23 History tramadol 50 mg tablet 50 mg PO Q8H PRN Breakthrough Pain 04/28/23 04/28/23 History Laboratory Tests 05/11/23 05:44 Sodium 135 L mmol/L (137-145) Potassium 3.3 L mmol/L (3.4-5.0) Chloride 103 mmol/L (98-107) Carbon Dioxide 31 H mmol/L (22-30) Anion Gap 1 L mmol/L (8-16) BUN 16 mg/dL (7-17) Creatinine 4.60 H mg/dL (0.7-1.0) Estim Creat Clear Calc 14 ml/min Estimated GFR 10 L (59 - ) Glucose 90 mg/dL (65-110) Calcium 8.0 L mg/dL (8.4-10.2) Total Bilirubin 1.0 mg/dL (0.2-1.3) AST 27 U/L (14-36) ALT 22 U/L (6-35) Alkaline Phosphatase 70 U/L (38-126) Total Protein 5.0 L g/dL (6.3-8.2) Albumin 2.6 L g/dL (3.5-5.1) Patient hx anesthesia problems: none Family hx anesthesia problems: none Results Review: All pre-operative results and documents have been reviewed as part of the pre-operative evaluation. [facility] Past Medical History Medical History (Updated 05/09/23 @ 14:31 by Anthony Peguero MD) Anxiety B12 deficiency CHF (congestive heart failure) Chronic lower back pain Depression Fibromyalgia Hemorrhoids Hyperlipidemia Hypertension Hypothyroidism Irritable bowel syndrome Obesity (BMI 30.0-34.9) Obstructive sleep apnea Seizure Surgical History Surgical History H/O cervical spine surgery X3 History of arthroscopy of both knees History of cholecystectomy History of gastric bypass (2003) History of tonsillectomy and adenoidectomy History of total hysterectomy with bilateral salpingo-oophorectomy (BSO) Family History Family History (R
--- NOTE | 2023-05-11 14:29 | P.PNIM_ITS ---
Progress Note: A&P Assessment and Plan (1) BREE (acute kidney injury): Code(s): N17.9 - Acute kidney failure, unspecified Status: Acute Assessment and Plan: * Previous stage 3 * Nephrology consulted and appreciate recommendations * Secondary to rhabdo/dehydration * CR today 4.6 * Fluid restriction of 1500 mL * Avoid nephrotoxic drugs. * Monitor antihypertensive drug therapy * Avoid NSAIDs. * Routine CMP monitoring GFR. * Monitor electrolytes especially potassium. * Routine follow-up with Nephrology as an outpatient. * temporary HD catheter right IJ * tunnel cath placed 05/11/23. * CC consulted for outpatient HD referral. (2) Transaminitis: Code(s): R74.01 - Elevation of levels of liver transaminase levels Status: Acute Assessment and Plan: * Continue to trend. * Likely due to rhabdomyolysis. Resolved (3) Metabolic acidosis: Code(s): E87.20 - Acidosis, unspecified Status: Resolved Assessment and Plan: Due to rhabdomyolysis and acute on chronic kidney failure. * Patient's carbon dioxide level decreased from 18 to 13 in 2 days. * ABG on 04/29/2023 with a pH of 7.28, pCO2 29, bicarb 13.3 * 3/4 CO2 14 * 3/5 CO2 improved post dialysis to 20 * Sodium bicarb tabs discontinued. RESOLVED (4) Paroxysmal A-fib: Code(s): I48.0 - Paroxysmal atrial fibrillation Status: Resolved Assessment and Plan: 05/02/23 overnight patient had was noticed to have AFib/ a flutter. Patient does not have any history of AFib. Patient converted on her own and did not require any intervention. * Thomas Vasc score of 4 which is moderate to high risk and recommendation was for anticoagulation. * Consult care coordination for Eliquis. * Echocardiogram with an EF of 65 70%, grade 1 diastolic dysfunction and mild pulmonary hypertension at 38 mm Hg * Continue telemetry monitoring * No further episodes at this time will hold off on AC RESOLVED (5) Alcohol abuse: Code(s): F10.10 - Alcohol abuse, uncomplicated Status: Chronic Assessment and Plan: Patient's does report the patient has history of heavy alcohol use. Patient is not demonstrating symptoms of withdrawal and states she has not drink alcohol in 2 weeks. Will not or CIWA scores at this time but will keep this in mind and monitor the case the patient may be providing misleading information. * Could also be secondary cause of patient hyponatremia (6) Acute hyponatremia: Code(s): E87.1 - Hypo-osmolality and hyponatremia Status: Resolved Assessment and Plan: * Likely due to kidney dysfunction. * Nephrology consulted. * On admission pt sodium of 128. * Nephrology believes sodium with resolved with dialysis treatments. * NA today 135 * continue fluid restriction Resolved. (7) Obstructive sleep apnea: Code(s): G47.33 - Obstructive sleep apnea (adult) (pediatric) Status: Chronic Assessment and Plan: * Patient does have a distant history obstructive sleep apnea but does not uses CPAP at home anymore. * Oxygen PRN (8) Left-sided weakness: Code(s): R53.1 - Weakness Status: Resolved Assessment and Plan: Patient is having left-sided weakness along with paresthesias of the left arm and bilateral lower extremities. Bilateral lower extremity paresthesias could be due to her pro
--- NOTE | 2023-05-11 14:29 | PM.IMPN ---
Progress Note: A&P Assessment and Plan (1) BREE (acute kidney injury): Code(s): N17.9 - Acute kidney failure, unspecified Status: Acute Assessment and Plan: Previous stage 3 Nephrology consulted and appreciate recommendations Secondary to rhabdo/dehydration CR today 4.6 Fluid restriction of 1500 mL Avoid nephrotoxic drugs. Monitor antihypertensive drug therapy Avoid NSAIDs. Routine CMP monitoring GFR. Monitor electrolytes especially potassium. Routine follow-up with Nephrology as an outpatient. temporary HD catheter right IJ tunnel cath placed 05/11/23. CC consulted for outpatient HD referral. (2) Transaminitis: Code(s): R74.01 - Elevation of levels of liver transaminase levels Status: Acute Assessment and Plan: Continue to trend. Likely due to rhabdomyolysis. Resolved (3) Metabolic acidosis: Code(s): E87.20 - Acidosis, unspecified Status: Resolved Assessment and Plan: Due to rhabdomyolysis and acute on chronic kidney failure. Patient's carbon dioxide level decreased from 18 to 13 in 2 days. ABG on 04/29/2023 with a pH of 7.28, pCO2 29, bicarb 13.3 3/4 CO2 14 3/5 CO2 improved post dialysis to 20 Sodium bicarb tabs discontinued. RESOLVED (4) Paroxysmal A-fib: Code(s): I48.0 - Paroxysmal atrial fibrillation Status: Resolved Assessment and Plan: 05/02/23 overnight patient had was noticed to have AFib/ a flutter. Patient does not have any history of AFib. Patient converted on her own and did not require any intervention. Thomas Vasc score of 4 which is moderate to high risk and recommendation was for anticoagulation. Consult care coordination for Darrell. Echocardiogram with an EF of 65 70%, grade 1 diastolic dysfunction and mild pulmonary hypertension at 38 mm Hg Continue telemetry monitoring No further episodes at this time will hold off on AC RESOLVED (5) Alcohol abuse: Code(s): F10.10 - Alcohol abuse, uncomplicated Status: Chronic Assessment and Plan: Patient's does report the patient has history of heavy alcohol use. Patient is not demonstrating symptoms of withdrawal and states she has not drink alcohol in 2 weeks. Will not or CIWA scores at this time but will keep this in mind and monitor the case the patient may be providing misleading information. Could also be secondary cause of patient hyponatremia (6) Acute hyponatremia: Code(s): E87.1 - Hypo-osmolality and hyponatremia Status: Resolved Assessment and Plan: Likely due to kidney dysfunction. Nephrology consulted. On admission pt sodium of 128. Nephrology believes sodium with resolved with dialysis treatments. NA today 135 continue fluid restriction Resolved. (7) Obstructive sleep apnea: Code(s): G47.33 - Obstructive sleep apnea (adult) (pediatric) Status: Chronic Assessment and Plan: Patient does have a distant history obstructive sleep apnea but does not uses CPAP at home anymore. Oxygen PRN (8) Left-sided weakness: Code(s): R53.1 - Weakness Status: Resolved Assessment and Plan: Patient is having left-sided weakness along with paresthesias of the left arm and bilateral lower extremities. Bilateral lower extremity paresthesias could be due to her prolonged episode of sitting on toilet. MRI showed old lacunar infarct in the right basal ganglia. Weakness and paresthesias likely due to rhabdomyolysis and prolong sitting. With PT and OT patient weakness resolved. Resolved. (9) Anemia: Code(s): D64.9 - Anemia, unspecified Status: Acute Assessment and Plan: secondary to BREE/LAURI epogen with HD Trend H&H transfuse PRBC <7.0 HGB Subjective Date/time seen: 05/11/23 14:29 Interval history: Patient doing good today. Plan for HD tunn
[2023-05-11] MEDS: LIDO 1%/EPINEPHRINE 1:100,000 50 ML VIAL INFILTRATE (14:52)
[2023-05-11] MEDS: HEPARIN SODIUM 5,000 UNITS/ML VIAL 5000 UNITS SUB-Q (15:00)
--- NOTE | 2023-05-11 15:12 | W.PM.PROC2 ---
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 It turns out that she is going to need dialysis longer than initially expected. I was asked to place a tunneled central venous catheter for dialysis so that patient could go home and continue with outpatient hemodialysis. Findings Tip of the 32 cm tunneled dura flow catheter was in the distal SVC right atrial junction. There were no kinks in the catheter along its course. Both ports aspirated blood easily and flushed readily with heparin Description of Procedure Patient was taken to surgery and anesthesia was introduced. The head was turned slightly to the right. Sutures were removed from the previous temporary catheter and all the tape was removed. We then cleaned the catheter and sprayed that area of the neck with Betadine. The rest of the neck and upper chest were prepped with ChloraPrep. The guidewire for the dura flow tunneled catheter was then brought into the field. I removed the cap to the brown port and prepped the end of the brown port with Betadine. I then passed the guidewire the brown port and into the superior vena cava the and inferior vena cava. This was verified by C-arm fluoroscopy per. I then removed the old temporary central venous catheter leaving the guidewire in place. I again cleaned the exit site of the guidewire as well as the guidewire itself with Betadine. A 32 cm catheter was brought into the field. Using fluoroscopy I mapped out the general pathway guidewire would take such that the tip would end up in the appropriate location near the right atrium. I marked counter incisions along the path. Local was infiltrated into the counter incisions. Incision was made at each of these and the exit site of the guidewire was opened a bit further. I then tunneled the dura flow catheter retrograde from just below the right clavicle up through the various counter incisions until and ultimately came out the incision where the guidewire also exited. Again using fluoroscopy, I then passed serial dilators down the guidewire. I then used the large dilator and sheath and passed this down the guidewire into the superior vena cava under fluoroscopy. I then removed the introducer or dilator as well as the guidewire. The into the dura flow catheter was then passed through the sheath and into the distal SVC. We then carefully removed the sheath. I used fluoroscopy to fine tune the exact end of the tunneled dura flow catheter. I checked the course of the catheter and appeared to have no kinks whatsoever. I then tested each of the ports. Both were easily able to aspirate blood and flushed easily with heparin. Final flush was placed in each port and caps were placed. I sutured with the counter incisions with subcuticular 4-0 Vicryl suture to close each of these incisions including the incision associated with the exit site of the guidewire. We placed an and a microbial disc around the hub of the dura flow catheter. Local was infiltrated and the catheter was then sutured to the skin with 3-0 nylon. The counter incisions were dressed with Exofin surgical adhesive. A sterile transparent dressing was placed over the exit site of the dura flow catheter. The patient was then awakened and taken to recovery in good condition. Sponge and needle counts were correct x2. Implants 32 cm dura flow tunneled central venous catheter Estimated Blood Loss -5 Drains No Packing No Pathology None sent Complications No immedi
[2023-05-11] MEDS: ceFAZolin 2 GM/D5W 50 ML 2 GM/50 ML BAG IVPB (15:15)
[2023-05-11] MEDS: HEPARIN SODIUM, PORCINE 10,000 UNITS/10 ML VIAL 2400 UNITS IV PUSH (15:24)
--- NOTE | 2023-05-11 16:40 | PC.NURSE ---
Patient returned to floor from PACU via bed.
[2023-05-11] MEDS: POTASSIUM CHLORIDE 20 MEQ PACKET (FOR LIQUID) 40 MEQ PO (17:14)
[2023-05-11] MEDS: AMITRIPTYLINE HCL 25 MG TABLET PO (20:12)
[2023-05-11] MEDS: MELATONIN 5 MG TABLET PO (20:12)
[2023-05-11] MEDS: MORPHINE SULFATE (*CRX) 15 MG TABCR PO (20:12)
[2023-05-11] MEDS: guaiFENesin 600 MG/DEXTROMETHORPHAN 30 MG SR TAB 12 HR 1 TAB PO (20:12)
[2023-05-11] MEDS: rOPINIRole HCL 0.25 MG TABLET PO (20:12)
[2023-05-11] MEDS: TIZANIDINE HCL 4 MG TABLET PO (20:12)
[2023-05-12] VITALS (24 sets, daily range): BP systolic 118–168; BP diastolic 43–73; PULSE 64–91; RESP 16–18; TEMP 36.3–37; O2SAT 91–97
[2023-05-12] MEDS: traMADol HCL (*CRX) 50 MG TABLET PO (00:01)
[2023-05-12 06:08] LABS: Hematocrit 30.6 % (37.0-47.0); Hemoglobin 9.4 g/dL (12.0-15.0); Mean Corpuscular HGB Conc 30.7 g/dl (32-36); Mean Corpuscular Hemoglobin 33.7 pg (26-34); Mean Corpuscular Volume 109.7 fl (80-100); Mean Platelet Volume 10.5 fl (7.4-10.4); Platelet Count Result 283 k/mm3 (150-375); Red Blood Count 2.79 M/mm3 (4.2-5.4); Red Cell Distribution Width 16.3 % (11.5-14.5); White Blood Count 8.3 K/mm3 (4.5-10.0)
[2023-05-12 06:20] LABS: Anion Gap 3 mmol/L (8-16); Blood Urea Nitrogen 20 mg/dL (7-17); Calcium 8.1 mg/dL (8.4-10.2); Carbon Dioxide 31 mmol/L (22-30); Chloride 104 mmol/L (98-107); Estimated CRCL calculation 12 ml/min; Estimated Glomerular Filt Rate 8; Glucose 84 mg/dL (65-110); Potassium 3.7 mmol/L (3.4-5.0); Sodium 138 mmol/L (137-145)
--- NOTE | 2023-05-12 08:48 | PCOTNOTE ---
Patient out od the room at this time. Patient is in dialysis. Will check back at a later time.
--- NOTE | 2023-05-12 08:59 | P.PNNP_ITS ---
Progress Note: A&P Assessment and Plan (1) BREE (acute kidney injury): Code(s): N17.9 - Acute kidney failure, unspecified Status: Acute Assessment and Plan: * The patient has acute kidney injury. * Creatinine was 1.0 a few years ago and 1.29 earlier this year. * etiology of BREE/ARF multifactorial: * due to rhabdomyolysis * prerenal factors * continued use of statin (crestor) REFRIGERATION LEAD * ongoing use of HCTZ and ARB REFRIGERATION LEAD * other * evaluation to date: * CT of abdomen without obstruction * CPK > 16,000 but now almost normal * UA with blood and protein * renal ultrasound normal * urine electrolytes non-prerenal (by FeNa and on diuretics on admission) but prerenal by FeUrea * urine eosinophils negative * moderate proteinuria * holding ARB, HCTZ, statin, and methotrexate * Blood pressure still okay. Will continue holding the medicines. She is back on diltiazem. * Patient can follow-up with Rheumatology about what to do replace the methotrexate. We can not really use this in dialysis patients. * HD due today * Discharge any time okay with me she will follow-up with Dr. Andrews on go at the dialysis seen (2) Stage 3a chronic kidney disease: Code(s): N18.31 - Chronic kidney disease, stage 3a Status: Chronic Assessment and Plan: * creatinine 1.29mg/dl in Mar 2023 * presumably due to HTN and age-related change * however, medication effect is also possible since she is normally on methotrexate (3) Rhabdomyolysis: Qualifiers: Rhabdomyolysis type: non-traumatic Qualified Code(s): M62.82 - Rhabdomyolysis Code(s): M62.82 - Rhabdomyolysis Status: Acute Assessment and Plan: * as noted by admission CPK * CK improved (4) Metabolic acidosis: Code(s): E87.20 - Acidosis, unspecified Status: Resolved Assessment and Plan: * Resolved (5) Hyponatremia: Code(s): E87.1 - Hypo-osmolality and hyponatremia Status: Acute Assessment and Plan: * presumably due to BREE/ARF * however, she reports issues with this in the past * sodium up to normal now (6) Anemia: Code(s): D64.9 - Anemia, unspecified Status: Acute Assessment and Plan: * likely due to BREE/ARF and acute illness * on venofer daily and gets Epogen with HD * hemoglobin is ranging around 9. (7) Transaminitis: Code(s): R74.01 - Elevation of levels of liver transaminase levels Status: Acute Assessment and Plan: * presumably secondary to rhabdomyolysis * improved and almost normal Subjective Date/time seen: 05/12/23 08:59 Interval history: Patient feels okay. Tunneled catheter placed yesterday. Due for dialysis today Exam Narrative: General: WD/WN female in NAD Heart: normal S1 and S2; no rub or gallop Lungs: clear bilaterally Abdomen: BS+ soft and nontender Extremities: 1+ edema and no cyanosis Skin: no rash Objective Data Vital Signs Vital Signs: Vital Signs - 24 hr 05/11/23 12:00 05/11/23 13:30 05/11/23 15:15 Temperature 98.2 F 97.3 F L Pulse Rate 71 81 82 Respiratory Rate 18 18 Blood Pressure 124/55 L 115/54 L Pulse Oximetry 96 94 Oxygen Delivery Nasal Cannula Nasal Cannula Oxygen Flow Rate 2 4
--- NOTE | 2023-05-12 08:59 | PM.PNNEP ---
Progress Note: A&P Assessment and Plan (1) BREE (acute kidney injury): Code(s): N17.9 - Acute kidney failure, unspecified Status: Acute Assessment and Plan: The patient has acute kidney injury. Creatinine was 1.0 a few years ago and 1.29 earlier this year. 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 Will continue holding the medicines. She is back on diltiazem. Patient can follow-up with Rheumatology about what to do replace the methotrexate. We can not really use this in dialysis patients. HD due today Discharge any time okay with me she will follow-up with Dr. Andrews on go at the dialysis seen (2) Stage 3a chronic kidney disease: Code(s): N18.31 - Chronic kidney disease, stage 3a Status: Chronic Assessment and Plan: creatinine 1.29mg/dl in Mar 2023 presumably due to HTN and age-related change however, medication effect is also possible since she is normally on methotrexate (3) Rhabdomyolysis: Qualifiers: Rhabdomyolysis type: non-traumatic Qualified Code(s): M62.82 - Rhabdomyolysis Code(s): M62.82 - Rhabdomyolysis Status: Acute Assessment and Plan: as noted by admission CPK CK improved (4) Metabolic acidosis: Code(s): E87.20 - Acidosis, unspecified Status: Resolved Assessment and Plan: Resolved (5) Hyponatremia: Code(s): E87.1 - Hypo-osmolality and hyponatremia Status: Acute Assessment and Plan: presumably due to BREE/ARF however, she reports issues with this in the past sodium up to normal now (6) Anemia: Code(s): D64.9 - Anemia, unspecified Status: Acute Assessment and Plan: likely due to BREE/ARF and acute illness on venofer daily and gets Epogen with HD hemoglobin is ranging around 9. (7) Transaminitis: Code(s): R74.01 - Elevation of levels of liver transaminase levels Status: Acute Assessment and Plan: presumably secondary to rhabdomyolysis improved and almost normal Subjective Date/time seen: 05/12/23 08:59 Interval history: Patient feels okay. Tunneled catheter placed yesterday. Due for dialysis today Exam Narrative: General: WD/WN female in NAD Heart: normal S1 and S2; no rub or gallop Lungs: clear bilaterally Abdomen: BS+ soft and nontender Extremities: 1+ edema and no cyanosis Skin: no rash Objective Data Vital Signs Vital Signs: Vital Signs - 24 hr 05/11/23 12:00 05/11/23 13:30 05/11/23 15:15 Temperature 98.2 F 97.3 F L Pulse Rate 71 81 82 Respiratory Rate 18 18 Blood Pressure 124/55 L 115/54 L Pulse Oximetry 96 94 Oxygen Delivery Nasal Cannula Nasal Cannula Oxygen Flow Rate 2 4 05/11/23 15:30 05/11/23 15:45 05/11/23 16:00 Temperature Pulse Rate 76 74 70 Respiratory Rate 12 12 12 Blood Pressure 118/59 L 119/57 L 121/61 Pulse Oximetry 98 99 98 Oxygen Delivery Nasal Cannula Nasal Cannula Nasal Cannula Oxygen Flow Rate 4 2 2 05/11/23 16:15 05/11/23 16:50 05/11/23 17:05 Temperature 97.6 F 97.6 F Pulse Rate 74 71 66 Respiratory Rate 15 15 16 Blood Pressure 120/56 L 119/60 Pulse Oximetry 92 99 98 Oxygen Delivery Room Air Oxygen Flow Rate 05/11/23 17:35 05/11/23 18:35 05/11/23 20:00 Temperature 97.6 F 97.6 F Pulse Rate 84 82 91 Respiratory Rate 16 16 Blood Pressure 133/63 128/62 Pulse Oximetry 100 100 Oxygen Delivery Oxygen Flow Rate
--- NOTE | 2023-05-12 10:19 | PCPTNOTE ---
The patient treatment was not able to be completed this AM on 05/12/2023 due to patient out of the room for dialysis. Will plan to continue treatment per plan of care.
[2023-05-12] MEDS: EPOETIN ALFA-EPBX 10,000 UNITS/ML VIAL 10000 UNITS IV PUSH (11:22)
--- NOTE | 2023-05-12 11:41 | P.DS_ITS ---
DS: Admitting Diagnosis Discharge Date 05/12/23 Admitting Diagnosis Rhabdomyolysis, BREE on CKD DS: Discharge Diagnosis Discharge Diagnosis (1) BREE (acute kidney injury): Code(s): N17.9 - Acute kidney failure, unspecified Status: Acute Assessment and Plan: * Previous stage 3 * Nephrology consulted and appreciate recommendations * Secondary to rhabdo/dehydration * Fluid restriction of 1500 mL * Avoid nephrotoxic drugs. * Monitor antihypertensive drug therapy * Avoid NSAIDs. * Routine CMP monitoring GFR. * Monitor electrolytes especially potassium. * Routine follow-up with Nephrology as an outpatient. * tunnel cath placed 05/11/23. * CC consulted for outpatient HD referral. (2) Transaminitis: Code(s): R74.01 - Elevation of levels of liver transaminase levels Status: Acute Assessment and Plan: * Continue to trend. * Likely due to rhabdomyolysis. Resolved (3) Metabolic acidosis: Code(s): E87.20 - Acidosis, unspecified Status: Resolved Assessment and Plan: Due to rhabdomyolysis and acute on chronic kidney failure. * Patient's carbon dioxide level decreased from 18 to 13 in 2 days. * ABG on 04/29/2023 with a pH of 7.28, pCO2 29, bicarb 13.3 * 3/4 CO2 14 * 3/5 CO2 improved post dialysis to 20 * Sodium bicarb tabs discontinued. RESOLVED (4) Paroxysmal A-fib: Code(s): I48.0 - Paroxysmal atrial fibrillation Status: Resolved Assessment and Plan: 05/02/23 overnight patient had was noticed to have AFib/ a flutter. Patient does not have any history of AFib. Patient converted on her own and did not require any intervention. * Thomas Vasc score of 4 which is moderate to high risk and recommendation was for anticoagulation. * Consult care coordination for Eliquis. * Echocardiogram with an EF of 65 70%, grade 1 diastolic dysfunction and mild pulmonary hypertension at 38 mm Hg * Continue telemetry monitoring * No further episodes at this time will hold off on AC RESOLVED (5) Alcohol abuse: Code(s): F10.10 - Alcohol abuse, uncomplicated Status: Chronic Assessment and Plan: Patient's does report the patient has history of heavy alcohol use. Patient is not demonstrating symptoms of withdrawal and states she has not drink alcohol in 2 weeks. Will not or CIWA scores at this time but will keep this in mind and monitor the case the patient may be providing misleading information. * Could also be secondary cause of patient hyponatremia (6) Acute hyponatremia: Code(s): E87.1 - Hypo-osmolality and hyponatremia Status: Resolved Assessment and Plan: * Likely due to kidney dysfunction. * Nephrology consulted. * On admission pt sodium of 128. * Nephrology believes sodium with resolved with dialysis treatments. * NA today 135 * continue fluid restriction Resolved. (7) Obstructive sleep apnea: Code(s): G47.33 - Obstructive sleep apnea (adult) (pediatric) Status: Chronic Assessment and Plan: * Patient does have a distant history obstructive sleep apnea but does not uses CPAP at home anymore. * Oxygen PRN (8) Left-sided weakness: Code(s): R53.1 - Weakness Status: Resolved Assessment and Plan: Patient is having left-sided weakness along with paresthesias of the left arm and bilateral lower extrem
--- NOTE | 2023-05-12 11:41 | PM.DS ---
DS: Admitting Diagnosis Discharge Date 05/12/23 Admitting Diagnosis Rhabdomyolysis, BREE on CKD DS: Discharge Diagnosis Discharge Diagnosis (1) BREE (acute kidney injury): Code(s): N17.9 - Acute kidney failure, unspecified Status: Acute Assessment and Plan: Previous stage 3 Nephrology consulted and appreciate recommendations Secondary to rhabdo/dehydration Fluid restriction of 1500 mL Avoid nephrotoxic drugs. Monitor antihypertensive drug therapy Avoid NSAIDs. Routine CMP monitoring GFR. Monitor electrolytes especially potassium. Routine follow-up with Nephrology as an outpatient. tunnel cath placed 05/11/23. CC consulted for outpatient HD referral. (2) Transaminitis: Code(s): R74.01 - Elevation of levels of liver transaminase levels Status: Acute Assessment and Plan: Continue to trend. Likely due to rhabdomyolysis. Resolved (3) Metabolic acidosis: Code(s): E87.20 - Acidosis, unspecified Status: Resolved Assessment and Plan: Due to rhabdomyolysis and acute on chronic kidney failure. Patient's carbon dioxide level decreased from 18 to 13 in 2 days. ABG on 04/29/2023 with a pH of 7.28, pCO2 29, bicarb 13.3 3/4 CO2 14 /5 CO2 improved post dialysis to 20 Sodium bicarb tabs discontinued. RESOLVED (4) Paroxysmal A-fib: Code(s): I48.0 - Paroxysmal atrial fibrillation Status: Resolved Assessment and Plan: 05/02/23 overnight patient had was noticed to have AFib/ a flutter. Patient does not have any history of AFib. Patient converted on her own and did not require any intervention. Thomas Vasc score of 4 which is moderate to high risk and recommendation was for anticoagulation. Consult care coordination for Eliquis. Echocardiogram with an EF of 65 70%, grade 1 diastolic dysfunction and mild pulmonary hypertension at 38 mm Hg Continue telemetry monitoring No further episodes at this time will hold off on AC RESOLVED (5) Alcohol abuse: Code(s): F10.10 - Alcohol abuse, uncomplicated Status: Chronic Assessment and Plan: Patient's does report the patient has history of heavy alcohol use. Patient is not demonstrating symptoms of withdrawal and states she has not drink alcohol in 2 weeks. Will not or CIWA scores at this time but will keep this in mind and monitor the case the patient may be providing misleading information. Could also be secondary cause of patient hyponatremia (6) Acute hyponatremia: Code(s): E87.1 - Hypo-osmolality and hyponatremia Status: Resolved Assessment and Plan: Likely due to kidney dysfunction. Nephrology consulted. On admission pt sodium of 128. Nephrology believes sodium with resolved with dialysis treatments. NA today 135 continue fluid restriction Resolved. (7) Obstructive sleep apnea: Code(s): G47.33 - Obstructive sleep apnea (adult) (pediatric) Status: Chronic Assessment and Plan: Patient does have a distant history obstructive sleep apnea but does not uses CPAP at home anymore. Oxygen PRN (8) Left-sided weakness: Code(s): R53.1 - Weakness Status: Resolved Assessment and Plan: Patient is having left-sided weakness along with paresthesias of the left arm and bilateral lower extremities. Bilateral lower extremity paresthesias could be due to her prolonged episode of sitting on toilet. MRI showed old lacunar infarct in the right basal ganglia. Weakness and paresthesias likely due to rhabdomyolysis and prolong sitting. With PT and OT patient weakness resolved. Resolved. (9) Anemia: Code(s): D64.9 - Anemia, unspecified Status: Acute Assessment and Plan: secondary to BREE/LAURI epogen with HD Trend H&H transfuse PRBC <7.0 HGB DS: Summary Hospital Course Hospital Course: 62-
--- NOTE | 2023-05-12 14:26 | PCPTNOTE ---
Attempted to see patient for PT, however patient refused due to anticipated discharge.
[2023-05-12] MEDS: PANTOPRAZOLE 40 MG TABLET PO (14:56)
[2023-05-12] MEDS: EZETIMIBE 10 MG TABLET PO (14:56)
[2023-05-12] MEDS: dilTIAZem HCL CD 180 MG CAP.24HR PO (14:56)
[2023-05-12] MEDS: PARoxetine 10 MG TABLET PO (14:56)
[2023-05-12] MEDS: MONTELUKAST SODIUM 10 MG TABLET PO (14:56)
[2023-05-12] MEDS: FOLIC ACID 1 MG TABLET PO (14:56)
[2023-05-12] MEDS: CENTRAL LINE FLUSH 10 ML IV PUSH (14:57)
--- NOTE | 2023-05-15 12:26 | WPDHPUPDATE1 ---
History and Physical Update Update Date/Time: 05/11/23 14:06 History and Physical has been reviewed, including an updated exam of the patient. There are NO changes in the patient's condition. Risks, benefits, and alternatives have been discussed and questions answered. Patient agrees to proceed with procedure.
== END 2023-05-12 16:20 | disposition home or self-care (01) | DRG 674 ==
LOC: ANHED 20:17 → ANH2MED 21:27
PROVIDERS: Internal Medicine Nephrology; Nurse Practitioner Family; Student in an Organized Health Care Education/Training Program; Surgery; Admitting Provider Internal Medicine; Emergency Provider Emergency Medicine; PCP Physician Assistant; Visit Provider Internal Medicine Critical Care Medicine
PROC: 0JH63XZ Insertion of Tunneled Vascular Access Device into Chest Subcutaneous Tissue and Fascia, Percutaneous Approach (ICD-10-PCS; CPT 36908; principal; 2023-05-11 14:30)
DX: N17.9 Acute kidney failure, unspecified (principal); E87.1 Hypo-osmolality and hyponatremia; M62.82 Rhabdomyolysis; I13.0 Hypertensive heart and chronic kidney disease with heart failure and stage 1 through stage 4 chronic kidney disease, or unspecified chronic kidney disease; E87.21 Acute metabolic acidosis; I50.9 Heart failure, unspecified; N18.31 Chronic kidney disease, stage 3a; E78.5 Hyperlipidemia, unspecified; G47.33 Obstructive sleep apnea (adult) (pediatric); E86.1 Hypovolemia; E03.9 Hypothyroidism, unspecified; F10.10 Alcohol abuse, uncomplicated; G25.81 Restless legs syndrome; R32 Unspecified urinary incontinence; D64.9 Anemia, unspecified; I48.0 Paroxysmal atrial fibrillation; R00.0 Tachycardia, unspecified; Z90.49 Acquired absence of other specified parts of digestive tract; Z98.84 Bariatric surgery status; Z90.710 Acquired absence of both cervix and uterus; Z90.722 Acquired absence of ovaries, bilateral; Z87.891 Personal history of nicotine dependence; Z99.2 Dependence on renal dialysis
CPT/HCPCS: 36415; 36600; 70450; 70551; 71045; 71046; 74176; 76775; 77001; 80048; 80053; 81001; 81050; 82040; 82248; 82274; 82533; 82550; 82570; 82607; 82728; 82746; 82805; 82948; 83540; 83550; 83615; 83690; 83735; 83874; 84100; 84155; 84156; 84165; 84166; 84300; 84439; 84443; 84466; 84480; 84484; 84540; 85025; 85027; 85055; 85610; 85730; 85999; 86704; 86706; 86850; 86900; 86901; 87340; 93005; 96361; 96374; 97110; 97116; 97161; 97165; 97530; 97535; 99285; A9270; C1750; C1752; C8929; G0257; J0612; J0613; J0690; J0834; J1644; J1756; J1939; J1940; J2250; J3010; J7030; J7040; J7070; P9047; Q5105; Q9957

== ENCOUNTER 2023-05-14 23:03 | Observation (INO) | payer MEDICARE, OTHER, SELFPAY ==
--- NOTE | ~2023-05-14 | CT_ITS ---
Non-contrast Head CT History: Altered mental status COMPARISON: 04/28/2023 Technique: Axial non-contrast imaging of the brain was performed. Dose reduction technique was used on this scan by utilizing automated exposure control and iterative reconstruction technique. The dose -length product (DLP) was 681.00 mGy-cm. Findings: There is no evidence of intracranial hemorrhage, mass lesion, or acute infarct. Stable chr onic lacunar infarcts in the right basal ganglia. The ventricles and subarachnoid spaces are normal in size. The calvarium appears normal. The visualized paranasal sinuses and mastoid air cells are c lear. Impression: No acute abnormality seen. Stable chronic infarcts in the right basal ganglia. Reviewed, dictated and finalized at location . Impression: No acute abnormality seen. Stable chronic infarcts in the right basal ganglia.
--- NOTE | ~2023-05-14 | XR_ITS ---
Portable chest x-ray Comparison: 05/11/2023 Clinical History: Weakness Findings: Stable right-sided central venous line. There is mild bibasilar pulmonary edema pattern. N o pleural effusion or pneumothorax. Cardiomediastinal silhouette is stable. Bones and soft tissues a re unremarkable. Impression: Stable mild bibasilar pulmonary edema pattern. Stable support line. Reviewed, dictated and finalized at location . Impression: Stable mild bibasilar pulmonary edema pattern. Stable support line.
[2023-05-14 23:02] VITALS: BP 90/61; PULSE 57; RESP 18; TEMP 36.5; O2SAT 93
--- NOTE | 2023-05-14 23:34 | ECG_ITS ---
Measurements Intervals [place] Rate: 54 P: 30 IN: 148 QRS: 44 QRSD: 92 T: 29 QT: 436 QTc: 417 Interpretive Statements SINUS BRADYCARDIA NONSPECIFIC ST-T WAVE ABNORMALITY- ANT/INF LEADS BASELINE ARTIFACT- I, II, AVR, AVL BORDERLINE ECG COMPARED TO ECG 05/02/2023 05:13:08 SINUS BRADYCARDIA NOW PRESENT Electronically Signed On 05-15-2023 6:30:51 CDT by Damion Beltran D.O.
[2023-05-14 23:56] VITALS: BP 94/58; PULSE 54; O2SAT 93
[2023-05-15] VITALS (13 sets, daily range): BP systolic 91–145; BP diastolic 51–83; PULSE 47–115; RESP 13–26; TEMP 37–37.2; O2SAT 91–99
[2023-05-15 00:03] LABS: Alveolar/Arterial O2 Gradient 39.3 mmHg; Base Excess ABG -0.4 mEq/l (+/-2.0); Fractional Inspired Oxygen 21 %; HCO3 ABG 23.9 mEq/l (22.0-26.0); Oxygen Content ABG 12.3 %vol (16.0-22.0); Oxygen Saturation ABG 93.2 % (95.0-100.0); Oxyhemoglobin 89.6 % THb (90.0-100.0); PCO2 ABG 37.9 mmHg (35.0-45.0); Total Hemoglobin 9.7 g/dL (12.0-18.0); pH ABG 7.418 (7.350-7.450)
[2023-05-15 00:04] LABS: Device ROOM AIR; Modified Allen's Test Pass; Site Drawn RIGHT RADIAL
[2023-05-15] MEDS: SODIUM CHLORIDE 0.9% IV 250 ML BAG 500 ML IVPB (00:12)
[2023-05-15 00:18] LABS: Basophils Absolute Auto 0.1 K/mm3 (0.0-0.1); Basophils Percent Auto 1.3 % (0.2-1.2); Eosinophils Absolute Auto 0.2 K/mm3 (0-0.3); Eosinophils Percent Auto 2.4 % (0-4.4); Hematocrit 32.7 % (37.0-47.0); Hemoglobin 10.1 g/dL (12.0-15.0); Immature Granulocyte Percent A 1.2 % (0-0.5); Lymphocytes Percent Auto 24.2 % (18.3-44.2); Mean Corpuscular HGB Conc 30.9 g/dl (32-36); Mean Corpuscular Hemoglobin 33.6 pg (26-34); Mean Corpuscular Volume 108.6 fl (80-100); Mean Platelet Volume 10.3 fl (7.4-10.4); Monocytes Absolute Auto 1.1 K/mm3 (0.1-0.6); Monocytes Percent Auto 12.2 % (2.6-8.5); Neutrophils Absolute Auto 5.1 K/mm3 (1.3-6.7); Neutrophils Percent Auto 58.7 % (45.5-73.1); Platelet Count Result 318 k/mm3 (150-375); Red Blood Count 3.01 M/mm3 (4.2-5.4); Red Cell Distribution Width 15.8 % (11.5-14.5); White Blood Count 8.7 K/mm3 (4.5-10.0)
[2023-05-15 00:29] LABS: INR 1.1; Prothrombin Time 14.3 Seconds (11.1-14.7)
[2023-05-15 00:30] LABS: Partial Thromboplastin Time 35.9 Seconds (22.3-36.8)
[2023-05-15 00:30] LABS: Influenza A QL RT-PCR Negative (Negative); Influenza B QL RT-PCR Negative (Negative); RSV RNA, RT-PCR Negative (Negative); SARS-CoV-2 RNA PCR Negative (Negative)
[2023-05-15 00:31] LABS: Appearance Urine Clear (Clear); Bacteria Urine None Seen /hpf; Bilirubin Urine Negative (Negative); Blood Urine Negative (Negative); Color Urine Yellow (Yellow); Glucose Urine UA Negative (Negative); Ketones Urine Negative (Negative); Leukocyte Esterase Ur Trace LEU/UL (Negative); Nitrate Urine Negative (Negative); Non Pathogenic Casts 0-2; Protein Urine 1+ mg/dL (Negative); RBC Urine 0-2 /hpf (0-2); Specific Grav Ur 1.005 (1.001-1.035); Squamous Epithelial Cell Urine None Seen /hpf (Few); WBC Urine 0-5 /hpf (0-3)
[2023-05-15 00:32] LABS: Ethanol < 10 mg/dL (<10); Lactic Acid Reflex 1.8 mmol/L (0.7-2.0)
[2023-05-15 00:33] LABS: Alanine Aminotransferase 12 U/L (6-35); Albumin Level 3.2 g/dL (3.5-5.1); Alkaline Phosphatase 79 U/L (38-126); Anion Gap 7 mmol/L (8-16); Aspartate Amino Transferase 29 U/L (14-36); Bilirubin,Total 0.6 mg/dL (0.2-1.3); Blood Urea Nitrogen 19 mg/dL (7-17); Calcium 8.3 mg/dL (8.4-10.2); Carbon Dioxide 27 mmol/L (22-30); Chloride 102 mmol/L (98-107); Estimated CRCL calculation 15 ml/min; Estimated Glomerular Filt Rate 11; Glucose 115 mg/dL (65-110); Magnesium 2.2 mg/dL (1.6-2.3); Potassium 3.2 mmol/L (3.4-5.0); Sodium 136 mmol/L (137-145)
[2023-05-15 00:39] LABS: Anisocytosis 1+; Platelet Estimate Adequate (Adequate); Schistocytes Rare; Tear Drop Cells 1+
[2023-05-15 00:42] LABS: Add Urine Microscopic? YES
[2023-05-15 00:43] LABS: Troponin I < 0.012 ng/mL (0.000-0.034)
[2023-05-15 00:44] LABS: Amphetamine Screen Urine Negative (Negative); Barbiturate Screen Urine Negative (Negative); Benzodiazepines Screen Urine Negative (Negative); Cannabinoid Screen Urine Negative (Negative); Cocaine Screen Urine Negative (Negative); Methadone Screen Urine Negative (Negative); Opiate Screen Urine Positive (Negative); Phencyclidine Screen Urine Negative (Negative)
[2023-05-15 01:01] LABS: Procalcitonin 0.3 ng/mL
--- NOTE | 2023-05-15 01:25 | ED.GENADULT ---
HPI - General Adult General Chief complaint: Syncope Stated complaint: SYNCOPE Time Seen by Provider: 05/14/23 23:10 History of Present Illness HPI narrative: Patient 62-year-old female who presents emergency department with chief complaint of altered mental status. Patient was found sitting on the toilet for several hours asleep the patient has been prescribed multiple different medications including oral morphine today as a teen and multiple other medications that can be sedating. The patient is recently started on dialysis in the family has noticed that she is extremely drowsy. The patient denies any suicidal or homicidal ideation and awakes and is able answer some questions to vigorous stimulation Related Data Home Medications Medication Instructions Recorded Confirmed amitriptyline 25 mg tablet 25 mg PO HS 04/28/23 04/28/23 diltiazem HCl 180 mg 180 mg PO DAILY 04/28/23 04/28/23 tablet,extended release 24 hr eszopiclone 3 mg tablet (Lunesta) 10 mg PO HS 04/28/23 04/28/23 ezetimibe 10 mg tablet 10 mg PO DAILY 04/28/23 04/28/23 folic acid 1 mg tablet 1 mg PO DAILY 04/28/23 04/28/23 gabapentin 300 mg capsule 300 mg PO HS 04/28/23 04/28/23 lorazepam 1 mg tablet 1 mg PO HS PRN Anxiety 04/28/23 04/28/23 methotrexate sodium 2.5 mg tablet 12.5 mg PO WEEKLY 04/28/23 04/28/23 montelukast 10 mg tablet 10 mg PO DAILY 04/28/23 04/28/23 (Singulair) morphine 15 mg tablet,extended 15 mg PO BID 04/28/23 04/28/23 release paroxetine HCl 20 mg tablet (Paxil) 10 mg PO DAILY 04/28/23 04/28/23 ropinirole 0.25 mg tablet 0.25 mg PO HS 04/28/23 04/28/23 rosuvastatin 5 mg tablet 5 mg PO DAILY 04/28/23 04/30/23 sulfasalazine 500 mg 500 mg PO BID 04/28/23 04/28/23 tablet,delayed release tizanidine 4 mg tablet 4 mg PO HS 04/28/23 04/28/23 tramadol 50 mg tablet 50 mg PO Q8H PRN Breakthrough Pain 04/28/23 04/28/23 Allergies Allergy/AdvReac Type Severity Reaction Status Date / Time bee venom protein (honey bee) Allergy Severe Difficulty Verified 05/11/23 14:00 Breathing, SWELLING MADELYN Inhibitors Allergy Unknown RASH Verified 04/28/23 13:52 vancomycin AdvReac Severe RASHAUN'S Verified 05/06/23 10:06 SYNDROME Review of Systems Review of Systems: A 10 system review of systems was completed on the patient and is negative except for what is stated in the HPI. Nursing and ancillary documentation was reviewed. [facility] Past Medical History Medical History Anxiety B12 deficiency CHF (congestive heart failure) Chronic lower back pain Depression Fibromyalgia Hemorrhoids Hyperlipidemia Hypertension Hypothyroidism Irritable bowel syndrome Obesity (BMI 30.0-34.9) Obstructive sleep apnea Seizure Surgical History Surgical History H/O cervical spine surgery X3 History of arthroscopy of both knees History of cholecystectomy History of gastric bypass (2003) History of tonsillectomy and adenoidectomy History of total hysterectomy with bilateral salpingo-oophorectomy (BSO) Family History Family History Mother Lung cancer, Onset Age: 66 Father Ruptured abdominal aortic aneurysm (AAA), Onset Age: 76 Other Carcinoma of colon Cerebrovascular accident Diabetes mellitus Social History Social History Social History: Patient lives with her current they have been together since approximately 2011. She raised 3 children she lost 1 child at due to in his twin transfusion. She drinks up to 1 bottle of wine a day. She briefly smoked cigarettes for a few months in the 1970s. She denies any illicit substance use. She has 5 dogs at home 1 is a pit bull, 1 chihuahua and 3 miniature Demetrice. 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 [employer]
--- NOTE | 2023-05-15 01:47 | PC.NURSE ---
Pt O2 dropped to 86% while sleeping. Pt was repositioned to sit up and placed on 2L of O2. Pt is at 96% now.
[2023-05-15 03:21] LABS: Troponin I < 0.012 ng/mL (0.000-0.034)
--- NOTE | 2023-05-15 04:27 | ADMGEN ---
This patient, Shoshana Tierney, was admitted to Medical Room 349-01. Patient/family oriented to hospital policies and general routines including ID bracelet, bed and alarms, visiting hours, pain management, procedures, bathroom and other care routines, personal items, smoking policy, room service/diet, and visiting hours. Information on how to activate the Rapid Response Team has been discussed. Patient/Family are encouraged to report perceived risks to care and to ask questions if they do not understand what they are told or what they should do.
--- NOTE | 2023-05-15 08:05 | PM.IMHP ---
H&P: HPI History of Present Illness Date/Time: 05/15/23 08:05 Chief Complaint: Altered mental status, increased drowsiness, Narrative: This is a 62-year-old patient with a past medical history of seizures, hypertension, hyperlipidemia, obstructive sleep apnea among other comorbidities who presented to the ER? after being found sitting on the toilet for several hours of sleep. Patient's tried to arouse the patient multiple times and also shook her shoulders and she was too lethargic to respond. At that time he called the ambulance. While in the ED patient was extremely drowsy and had to have vigorous stimulation to get her to answer questions. The concern is patient being on multiple sedating medications with recent initiation of dialysis. She denies any suicidal or homicidal ideations. This is similar to her most recent admission in which she had a 14 day stay at [facility]. She was hospitalized due to severe rhabdomyolysis after falling asleep on the commode for 9 hours. She had a severe kidney injury resulting in dialysis initiation. She had a tunnel catheter placed on 05/11/2023 and was able to discharge and continue outpatient dialysis on Saturdays. Patient recently had echocardiogram which did not have any significant findings. Labs in the ED: CBC with a white count of 8.7 hemoglobin was 10.1 ABG was obtained which showed a pH is 7.418 pCO2 of 37.9 the patient had a PO2 of 65 and a saturation of 93.2% electrolytes showed a potassium of 3.2 creatinine was 4.1 this is around where the patient has been glucose is 115 lactate was 1.8 magnesium was 2.2 liver enzymes are normal troponin was negative Rocaltrol is 0.3 urinalysis showed no evidence UTI the patient is positive for opiates on her drug screen ETOH was negative COVID flu and RSV are negative. Chest x-ray no acute cardiopulmonary process, head CT no acute findings. COUNTS INCLUDE 234 BEDS AT THE [facility] Past Medical History Medical History Ankylosing spondylitis Anxiety B12 deficiency CHF (congestive heart failure) Chronic lower back pain Depression Fibromyalgia Hemorrhoids Hyperlipidemia Hypertension Hypothyroidism Irritable bowel syndrome Obesity (BMI 30.0-34.9) Obstructive sleep apnea Seizure Surgical History Surgical History (Updated 05/15/23 @ 08:24 by Meli Villatoro PA-C) H/O cervical spine surgery X3 History of arthroscopy of both knees History of cholecystectomy History of gastric bypass (2003) History of insertion of tunneled central venous catheter (CVC) with port History of tonsillectomy and adenoidectomy History of total hysterectomy with bilateral salpingo-oophorectomy (BSO) Family History Family History Mother Lung cancer, Onset Age: 66 Father Ruptured abdominal aortic aneurysm (AAA), Onset Age: 76 Other Carcinoma of colon Cerebrovascular accident Diabetes mellitus Social History Social History Social History: Patient lives with her current they have been together since approximately 2011. She raised 3 children she lost 1 child at due to in his twin transfusion. She drinks up to 1 bottle of wine a day. She briefly smoked cigarettes for a few months in the 1970s. She denies any illicit substance use. She has 5 dogs at home 1 is a pit bull, 1 chihuahua and 3 miniature Demetrice. 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 However patient would be willing to have central line, pressors, dialysis and noninvasive ventilator support if need. Surrogate decision maker: Smoking status: Former smoker Smoking end date: 02/27/03 Alcohol intake: former Drinks per week: 0 Substance use: never Do You Feel Safe in your Home?: Yes Lack of Transportation: No Lack of
[2023-05-15] MEDS: GABAPENTIN 300 MG CAPSULE PO ×2 (14:17→17:32)
--- NOTE | 2023-05-15 14:47 | PM.CNNEP ---
Assessment and Plan Assessment and plan (1) BREE (acute kidney injury): Code(s): N17.9 - Acute kidney failure, unspecified Status: Acute Assessment and Plan: etiology of BREE/ARF multifactorial: ?due to rhabdomyolysis prerenal factors continued use of statin (crestor) prior to last hospital admission ongoing use of HCTZ and ARB prior to last hospital admission other? evaluation noted on previous hospitalization: CT of abdomen without obstruction CPK > 16,000 on admission UA with blood and protein renal ultrasound normal urine electrolytes non-prerenal (by FeNa and on diuretics on admission) but prerenal by FeUrea urine eosinophils negative moderate proteinuria creatinine remains elevated similar to last hospitalization plan HD tomorrow and continue outpatient schedule of T/T/S continue to follow labs and UOP to assess for potential renal recovery (2) Stage 3a chronic kidney disease: Code(s): N18.31 - Chronic kidney disease, stage 3a Status: Chronic Assessment and Plan: creatinine normal a few years ago creatinine 1.29mg/dl in Mar 2023 presumably due to HTN and age-related change (3) Altered mental status: Code(s): R41.82 - Altered mental status, unspecified Status: Acute Assessment and Plan: felt to be secondary to sedating medications (requip, gabapentin, lorazepam, and tramadol) in the context of renal failure these medications have already been adjusted follow for signs of withdrawal follow mentation (4) Anemia: Code(s): D64.9 - Anemia, unspecified Status: Acute Assessment and Plan: secondary to BREE/ARF Epogen with HD follow trend of H/H (5) Hypertension: Qualifiers: Hypertension type: primary hypertension Qualified Code(s): I10 - Essential (primary) hypertension Code(s): I10 - Essential (primary) hypertension Status: Chronic Assessment and Plan: relative hypotension on admission however, more recent readings closer to baseline resume BP medications with parameters follow trend of hemodynamics I will continue to follow the patient with you while she remains hospitalized and make further recommendations as deemed necessary. Thank you for allowing me to participate in the care of this patient. 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 The patient's tried to arouse the patient multiple times but she would not really wake up as she was quite lethargic. Given this change in her status, he called 911/EMS And she was subsequently transferred to the ER for further assessment. Upon arrival to the emergency room, the patient remained quite drowsy and lethargic and required vigorous stimulation an effort to get the patient to wake up just answer simple questions. Her presentation was somewhat similar to her last hospitalization. However, that hospitalization was complicated by severe rhabdomyolysis and associated acute kidney injury that required initiation of renal replacement therapy/dialysis. Subsequent laboratory testing in the ER on this admission demonstrated relative anemia with a normal white blood cell count and a chemistry that was consistent with her known history of acute kidney injury/acute renal failure requiring dialysis. Liver function tests were normal as was her additional troponin and a urinalysis demonstrated no evidence of urinary tract infection. Her urine drug screen was positive for opioids but negative for alcohol. Viral testing wi
--- NOTE | 2023-05-15 14:47 | P.CONNP_ITS ---
Assessment and Plan Assessment and plan (1) BREE (acute kidney injury): Code(s): N17.9 - Acute kidney failure, unspecified Status: Acute Assessment and Plan: * etiology of BREE/ARF multifactorial: * ?due to rhabdomyolysis * prerenal factors * continued use of statin (crestor) prior to last hospital admission * ongoing use of HCTZ and ARB prior to last hospital admission * other? * evaluation noted on previous hospitalization: * CT of abdomen without obstruction * CPK > 16,000 on admission * UA with blood and protein * renal ultrasound normal * urine electrolytes non-prerenal (by FeNa and on diuretics on admission) but prerenal by FeUrea * urine eosinophils negative * moderate proteinuria * creatinine remains elevated similar to last hospitalization * plan HD tomorrow and continue outpatient schedule of T/T/S * continue to follow labs and UOP to assess for potential renal recovery (2) Stage 3a chronic kidney disease: Code(s): N18.31 - Chronic kidney disease, stage 3a Status: Chronic Assessment and Plan: * creatinine normal a few years ago * creatinine 1.29mg/dl in Mar 2023 * presumably due to HTN and age-related change (3) Altered mental status: Code(s): R41.82 - Altered mental status, unspecified Status: Acute Assessment and Plan: * felt to be secondary to sedating medications (requip, gabapentin, lorazepam, and tramadol) in the context of renal failure * these medications have already been adjusted * follow for signs of withdrawal * follow mentation (4) Anemia: Code(s): D64.9 - Anemia, unspecified Status: Acute Assessment and Plan: * secondary to BREE/ARF * Epogen with HD * follow trend of H/H (5) Hypertension: Qualifiers: Hypertension type: primary hypertension Qualified Code(s): I10 - Essential (primary) hypertension Code(s): I10 - Essential (primary) hypertension Status: Chronic Assessment and Plan: * relative hypotension on admission * however, more recent readings closer to baseline * resume BP medications with parameters * follow trend of hemodynamics I will continue to follow the patient with you while she remains hospitalized and make further recommendations as deemed necessary. Thank you for allowing me to participate in the care of this patient. 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 The patient's tried to arouse the patient multiple times but she would not really wake up as she was quite lethargic. Given this change in her status, he called 911/EMS And she was subsequently transferred to the ER for further assessment. Upon arrival to the emergency room, the patient remained quite drowsy and lethargic and required vigorous stimulation an effort to get the patient to wake up just answer simple questions. Her presentation was somewhat similar to her last hospitalization. However, that hospitalization was complicated by severe rhabdomyolysis and associated acute kidney injury that required initiation of renal replacement therapy/dialysis. Subsequent laboratory testing in th
[2023-05-15 15:29] LABS: MRSA (PCR) NOT DETECTED (NOT DETECTE)
[2023-05-15] MEDS: AMITRIPTYLINE HCL 25 MG TABLET PO (20:23)
[2023-05-15] MEDS: MORPHINE SULFATE (*CRX) 15 MG TABCR PO (20:23)
[2023-05-16] VITALS (20 sets, daily range): BP systolic 116–157; BP diastolic 56–86; PULSE 71–96; RESP 16–18; TEMP 36.6–37; O2SAT 91–100
[2023-05-16 06:18] LABS: Hematocrit 29.8 % (37.0-47.0); Mean Corpuscular HGB Conc 30.2 g/dl (32-36); Mean Corpuscular Hemoglobin 32.8 pg (26-34); Mean Corpuscular Volume 108.8 fl (80-100); Mean Platelet Volume 10.9 fl (7.4-10.4); Platelet Count Result 324 k/mm3 (150-375); Red Blood Count 2.74 M/mm3 (4.2-5.4); Red Cell Distribution Width 15.6 % (11.5-14.5); White Blood Count 7.7 K/mm3 (4.5-10.0)
[2023-05-16 06:31] LABS: Anion Gap 7 mmol/L (8-16); Blood Urea Nitrogen 26 mg/dL (7-17); Calcium 7.9 mg/dL (8.4-10.2); Carbon Dioxide 25 mmol/L (22-30); Chloride 110 mmol/L (98-107); Estimated CRCL calculation 16 ml/min; Estimated Glomerular Filt Rate 12; Glucose 80 mg/dL (65-110); Sodium 142 mmol/L (137-145)
--- NOTE | 2023-05-16 08:25 | PC.NURSE ---
Patient off of unit to dialysis
--- NOTE | 2023-05-16 09:45 | P.PNNP_ITS ---
Progress Note: A&P Assessment and Plan (1) BREE (acute kidney injury): Code(s): N17.9 - Acute kidney failure, unspecified Status: Acute Assessment and Plan: * etiology of BREE/ARF multifactorial: * ?due to rhabdomyolysis * prerenal factors * continued use of statin (crestor) prior to last hospital admission * ongoing use of HCTZ and ARB prior to last hospital admission * other? * evaluation noted on previous hospitalization: * CT of abdomen without obstruction * CPK > 16,000 on admission * UA with blood and protein * renal ultrasound normal * urine electrolytes non-prerenal (by FeNa and on diuretics on admission) but prerenal by FeUrea * urine eosinophils negative * moderate proteinuria * creatinine remains elevated similar to last hospitalization * HD today and continue outpatient schedule of T/T/S * continue to follow labs and UOP to assess for potential renal recovery * UOP not fully documented but creatinine improving since last HD on 05/12/23.... (2) Stage 3a chronic kidney disease: Code(s): N18.31 - Chronic kidney disease, stage 3a Status: Chronic Assessment and Plan: * creatinine normal a few years ago * creatinine 1.29mg/dl in Mar 2023 * presumably due to HTN and age-related change (3) Altered mental status: Code(s): R41.82 - Altered mental status, unspecified Status: Acute Assessment and Plan: * improving * felt to be secondary to sedating medications (requip, gabapentin, lorazepam, and tramadol) in the context of renal failure * these medications have already been adjusted * follow for signs of withdrawal * follow mentation (4) Anemia: Code(s): D64.9 - Anemia, unspecified Status: Acute Assessment and Plan: * secondary to BREE/ARF * Epogen with HD * follow trend of H/H (5) Hypertension: Qualifiers: Hypertension type: primary hypertension Qualified Code(s): I10 - Essential (primary) hypertension Code(s): I10 - Essential (primary) hypertension Status: Chronic Assessment and Plan: * reasonable control * resume BP medications with parameters * follow trend of hemodynamics Will continue to follow. 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 Tolerating dialysis treatment at the time of my visit (seen on HD at 9:35AM); HD nursing having some issues with HD catheter currently; otherwise, mentation seems to be doing better; no apparent distress noted; no issues/events overnight or earlier this morning. Exam Narrative: General: WD/WN female in NAD Heart: normal S1 and S2; no rub Lungs: clear to auscultation Abdomen: soft, nontender, nondistended, positive bowel sounds Extremities: no cyanosis or clubbing; trace edema Skin: warm and dry Objective Data Vital Signs Vital Signs: Vital Signs Temp Pulse Resp BP Pulse Ox O2 Del Method O2 Flow Rate 05/16/23 08:51 98.4 F 83 16 97 05/16/23 08:51 1 05/16/23 08:39 94 Nasal Cannula 1.5 05/16/23 08:39 72 05/16/23 05:12 97.9 F 96 18 143/61 H 91 05/16/23 04:00 83 05/16/23 00:00 81 05/15/23 22:00 98.9 F 93 18 119/51 L 91 05/15/23 2
--- NOTE | 2023-05-16 09:45 | PM.PNNEP ---
Progress Note: A&P Assessment and Plan (1) BREE (acute kidney injury): Code(s): N17.9 - Acute kidney failure, unspecified Status: Acute Assessment and Plan: etiology of BREE/ARF multifactorial: ?due to rhabdomyolysis prerenal factors continued use of statin (crestor) prior to last hospital admission ongoing use of HCTZ and ARB prior to last hospital admission other? evaluation noted on previous hospitalization: CT of abdomen without obstruction CPK > 16,000 on admission UA with blood and protein renal ultrasound normal urine electrolytes non-prerenal (by FeNa and on diuretics on admission) but prerenal by FeUrea urine eosinophils negative moderate proteinuria creatinine remains elevated similar to last hospitalization HD today and continue outpatient schedule of T/T/S continue to follow labs and UOP to assess for potential renal recovery UOP not fully documented but creatinine improving since last HD on 05/12/23.... (2) Stage 3a chronic kidney disease: Code(s): N18.31 - Chronic kidney disease, stage 3a Status: Chronic Assessment and Plan: creatinine normal a few years ago creatinine 1.29mg/dl in Mar 2023 presumably due to HTN and age-related change (3) Altered mental status: Code(s): R41.82 - Altered mental status, unspecified Status: Acute Assessment and Plan: improving felt to be secondary to sedating medications (requip, gabapentin, lorazepam, and tramadol) in the context of renal failure these medications have already been adjusted follow for signs of withdrawal follow mentation (4) Anemia: Code(s): D64.9 - Anemia, unspecified Status: Acute Assessment and Plan: secondary to BREE/ARF Epogen with HD follow trend of H/H (5) Hypertension: Qualifiers: Hypertension type: primary hypertension Qualified Code(s): I10 - Essential (primary) hypertension Code(s): I10 - Essential (primary) hypertension Status: Chronic Assessment and Plan: reasonable control resume BP medications with parameters follow trend of hemodynamics Will continue to follow. 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 Tolerating dialysis treatment at the time of my visit (seen on HD at 9:35AM); HD nursing having some issues with HD catheter currently; otherwise, mentation seems to be doing better; no apparent distress noted; no issues/events overnight or earlier this morning. Exam Narrative: General: WD/WN female in NAD Heart: normal S1 and S2; no rub Lungs: clear to auscultation Abdomen: soft, nontender, nondistended, positive bowel sounds Extremities: no cyanosis or clubbing; trace edema Skin: warm and dry Objective Data Vital Signs Vital Signs: Vital Signs Temp Pulse Resp BP Pulse Ox O2 Del Method O2 Flow Rate 05/16/23 08:51 98.4 F 83 16 97 05/16/23 08:51 1 05/16/23 08:39 94 Nasal Cannula 1.5 05/16/23 08:39 72 05/16/23 05:12 97.9 F 96 18 143/61 H 91 05/16/23 04:00 83 05/16/23 00:00 81 05/15/23 22:00 98.9 F 93 18 119/51 L 91 05/15/23 20:00 96 Nasal Cannula 2 05/15/23 20:00 94 05/15/23 16:00 94 05/15/23 14:00 98.9 F 115 H 18 145/83 H 92 Intake/Output Intake/Output: Intake & Output 05/13/23 05/14/23 05/15/23 05/16/23 23:59 23:59 23:59 23:59 Intake Total 500 2030 Output Total 0 Balance 500 2030 Meds/Results Medications: Active Medications Generic Name Dose Route Start Last Admin Trade Name Freq PRN Reason Stop Dose Admin Amitriptyline HCl 25 mg 05/15/23 21:00 05/15/23 20:23 Amitriptyline Hcl 25 Mg Tablet PO 25 mg HS CORA Administration Bisacodyl 5 mg 05/15/23 07:57 Bisacodyl 5 Mg Tablet Ec PO DAILY PRN Co
[2023-05-16] MEDS: EPOETIN ALFA-EPBX 10,000 UNITS/ML VIAL 10000 UNITS IV PUSH (10:48)
[2023-05-16] MEDS: HEPARIN SODIUM 1,000 UNITS/ML VIAL 5000 UNITS (10:51)
[2023-05-16] MEDS: SODIUM CHLORIDE 0.9% IV 1,000 ML 999 ML IV CONT (10:52)
--- NOTE | 2023-05-16 12:50 | PC.NURSE ---
Patient returned to unit from dialysis
[2023-05-16] MEDS: POTASSIUM CHLORIDE 20 MEQ PACKET (FOR LIQUID) 40 MEQ PO (13:34)
[2023-05-16] MEDS: GABAPENTIN 300 MG CAPSULE PO (13:34)
--- NOTE | 2023-05-16 14:41 | PM.DS ---
DS: Admitting Diagnosis Discharge Date 05/16/23 Admitting Diagnosis AMS DS: Discharge Diagnosis Discharge Diagnosis (1) Acute alteration in mental status: Code(s): R41.82 - Altered mental status, unspecified Status: Acute (2) ESRD on dialysis: Code(s): N18.6 - End stage renal disease; Z99.2 - Dependence on renal dialysis Status: Acute (3) Alcohol abuse: Code(s): F10.10 - Alcohol abuse, uncomplicated Status: Chronic (4) Hypertension: Qualifiers: Hypertension type: primary hypertension Qualified Code(s): I10 - Essential (primary) hypertension Code(s): I10 - Essential (primary) hypertension Status: Chronic (5) Ankylosing spondylitis: Qualifiers: Ankylosing spondylitis location: unspecified site of spine Qualified Code(s): M45.9 - Ankylosing spondylitis of unspecified sites in spine Code(s): M45.9 - Ankylosing spondylitis of unspecified sites in spine Status: Acute DS: Summary Hospital Course Hospital Course: This is a 62-year-old patient with a past medical history of seizures, hypertension, hyperlipidemia, obstructive sleep apnea among other comorbidities who presented to the ER? after being found sitting on the toilet for several hours of sleep. ? Patient's tried to arouse the patient multiple times and also shook her shoulders and she was too lethargic to respond.? At that time he called the ambulance.? While in the ED patient was extremely drowsy and had to have? vigorous stimulation to get her to answer questions. The concern is patient being on multiple sedating medications with recent initiation of dialysis.? She denies any suicidal or homicidal ideations.? This is similar to her most recent admission in which she had a 14 day stay at [facility].? She was hospitalized due to severe rhabdomyolysis after falling asleep on the commode for 9 hours.? She had a severe kidney injury resulting in dialysis initiation.? She had a tunnel catheter placed on 05/11/2023 and was able to discharge and continue outpatient dialysis on Saturdays.? Patient recently had echocardiogram which did not have any significant findings. Labs in the ED: CBC with a white count of 8.7 hemoglobin was 10.1 ABG was obtained which showed a pH is 7.418 pCO2 of 37.9 the patient had a PO2 of 65 and a saturation of 93.2% electrolytes showed a potassium of 3.2 creatinine was 4.1 this is around where the patient has been glucose is 115 lactate was 1.8 magnesium was 2.2 liver enzymes are normal troponin was negative Rocaltrol is 0.3 urinalysis showed no evidence UTI the patient is positive for opiates on her drug screen ETOH was negative COVID flu and RSV are negative.? Chest x-ray no acute cardiopulmonary process, head CT no acute findings. Patient's medication adjusted while in the hospital and she was much less drowsy afterwards. Patient's ropinirole and Lunesta were both put on hold. Gabapentin was originally 900 HS but this was then transitioned to 300 t.i.d. and patient also stated that she is slowly trying to wean off of her gabapentin. Her lorazepam was decreased from 1 mg to 0.5 mg. Her tramadol was also decreased from 50 mg q.8h to 25 mg q.8h. With this adjustment patient was much more arousable and steady on her feet. Advise that nighttime medications should be taken right before bed rather than taking them in getting up to walk around the house. She voiced her understanding of this. She received dialysis while in hospital. Her 1st appointment with dialysis will be on this week. Time Spent with Patient Time attestation: Total time spent providing and/or coordinating discharge services: Exam Narrative: GENERAL: Comfortable, no acute distress HENMT: moist mucous membranes EYES: EOM intact b/l NECK: no lymphadenopathy RESPIRATORY: clear to auscultation, no increased respiratory effort CARDIO: Regular rate and rhythm GI: soft, nontend
== END 2023-05-16 15:30 | disposition home or self-care (01) ==
LOC: ANHED 05-15 01:31 → ANH3MED 05-15 03:10
PROVIDERS: Internal Medicine Critical Care Medicine; Admitting Provider Internal Medicine; Emergency Provider Emergency Medicine; PCP Physician Assistant; Visit Provider Internal Medicine
DX: R41.82 Altered mental status, unspecified (principal); N17.9 Acute kidney failure, unspecified; M62.82 Rhabdomyolysis; I13.2 Hypertensive heart and chronic kidney disease with heart failure and with stage 5 chronic kidney disease, or end stage renal disease; I50.9 Heart failure, unspecified; N18.6 End stage renal disease; D63.1 Anemia in chronic kidney disease; M45.9 Ankylosing spondylitis of unspecified sites in spine; Z99.2 Dependence on renal dialysis; Z20.822 Contact with and (suspected) exposure to COVID-19; G89.29 Other chronic pain; M54.50 Low back pain, unspecified; F41.9 Anxiety disorder, unspecified; F32.A Depression, unspecified; E78.5 Hyperlipidemia, unspecified; E03.9 Hypothyroidism, unspecified; M79.7 Fibromyalgia; K58.9 Irritable bowel syndrome, unspecified; G47.33 Obstructive sleep apnea (adult) (pediatric); Z98.84 Bariatric surgery status; Z66 Do not resuscitate; Z86.73 Personal history of transient ischemic attack (TIA), and cerebral infarction without residual deficits; Z79.52 Long term (current) use of systemic steroids; Z79.891 Long term (current) use of opiate analgesic; Z79.899 Other long term (current) drug therapy
CPT/HCPCS: 36415; 36600; 70450; 71045; 80048; 80053; 80307; 82805; 83605; 83735; 84145; 84484; 85025; 85027; 85610; 85730; 87040; 87637; 87641; 93005; 99285; A9270; G0257; G0378; J1644; J7030; J7050; P9047; Q5105

== ENCOUNTER 2023-05-19 10:35 | Emergency (ER) | payer MEDICARE, OTHER, SELFPAY ==
--- NOTE | ~2023-05-19 | XR_ITS ---
EXAMINATION: XR foot RT min 3V DATE: 05/19/2023 12:53 INDICATION: Medial right foot pain post fall TECHNIQUE: Dorsoplantar, two oblique and lateral views of the right foot were obtained. COMPARISON: None. FINDINGS: Old postoperative change of prior bunionectomy and likely realignment osteotomy at the first metatars al. Alignment appears essentially anatomic. No fractures identified. Mild polyarticular osteoarthriti s at the first metatarsophalangeal, navicular cuneiform and several tarsal metatarsal and interphalan geal joints. Moderate-sized Achilles calcaneal spur. Mild soft tissue swelling over the dorsum of the forefoot. No ankle joint effusion., IMPRESSION: 1. Chronic degenerative and postoperative changes in the right foot. No acute osseous abnormality. Reviewed, dictated and finalized at location A. IMPRESSION: 1. Chronic degenerative and postoperative changes in the right foot. No acute o sseous abnormality.
[2023-05-19 10:36] VITALS: BP 152/86; PULSE 81; RESP 18; TEMP 36.4; O2SAT 98
--- NOTE | 2023-05-19 12:33 | ED.SKABFB ---
HPI - Skin/Abscess/Foreign Bdy General Chief complaint: Skin/Abscess/Foreign Body Stated complaint: Wound left foot Time Seen by Provider: 05/19/23 12:07 History of Present Illness HPI narrative: 62-year-old female presenting for a wound on her left foot. States that she was recently hospitalized here for an acute kidney injury that require dialysis. States that she is still on dialysis and has been compliant with treatments. She developed a wound on her left ankle sometime during her hospitalization. Wound nurses were treating it while she was admitted but she has just been taking care of it herself since being discharged. States that it has not really improved. She called her PCP today who told her just to come to the ER. She also complains of intermittent shooting pains in her right foot. No clear pattern. Has been using a lidocaine patch with some relief. No recent trauma but she states that she had a fall a week or so ago. No further complaints. Related Data Home Medications Medication Instructions Recorded Confirmed amitriptyline 25 mg tablet 25 mg PO HS 04/28/23 05/15/23 diltiazem HCl 180 mg 180 mg PO DAILY 04/28/23 05/15/23 tablet,extended release 24 hr eszopiclone 3 mg tablet (Lunesta) 3 mg PO HS 04/28/23 05/15/23 ezetimibe 10 mg tablet 10 mg PO DAILY 04/28/23 05/15/23 folic acid 1 mg tablet 1 mg PO DAILY 04/28/23 05/15/23 methotrexate sodium 2.5 mg tablet 12.5 mg PO WEEKLY 04/28/23 05/15/23 morphine 15 mg tablet,extended 15 mg PO BID 04/28/23 05/15/23 release paroxetine HCl 20 mg tablet (Paxil) 20 mg PO DAILY 04/28/23 05/15/23 ropinirole 0.25 mg tablet 0.25 mg PO HS 04/28/23 05/15/23 sulfasalazine 500 mg 1,500 mg PO BID 04/28/23 05/15/23 tablet,delayed release bisacodyl 5 mg tablet 5 mg PO DAILY PRN Constipation 05/15/23 05/15/23 lidocaine 5 % topical patch 1 patch transdermal DAILY 05/15/23 05/15/23 prednisone 5 mg tablet 5 mg PO DAILY 05/15/23 05/15/23 Allergies Allergy/AdvReac Type Severity Reaction Status Date / Time bee venom protein (honey bee) Allergy Severe Difficulty Verified 05/19/23 10:36 Breathing, SWELLING MADELYN Inhibitors Allergy Unknown RASH Verified 05/19/23 10:36 vancomycin AdvReac Severe RASHAUN'S Verified 05/19/23 10:36 SYNDROME Review of Systems Review of Systems: All systems reviewed & are unremarkable except as noted in HPI and below PMFSH Past Medical History Medical History Ankylosing spondylitis Anxiety B12 deficiency CHF (congestive heart failure) Chronic lower back pain Depression Fibromyalgia Hemorrhoids Hyperlipidemia Hypertension Hypothyroidism Irritable bowel syndrome Obesity (BMI 30.0-34.9) Obstructive sleep apnea Seizure Surgical History Surgical History H/O cervical spine surgery X3 History of arthroscopy of both knees History of cholecystectomy History of gastric bypass (2003) History of insertion of tunneled central venous catheter (CVC) with port History of tonsillectomy and adenoidectomy History of total hysterectomy with bilateral salpingo-oophorectomy (BSO) Family History Family History Mother Lung cancer, Onset Age: 66 Father Ruptured abdominal aortic aneurysm (AAA), Onset Age: 76 Other Carcinoma of colon Cerebrovascular accident Diabetes mellitus Social History Social History Social History: Patient lives with her current they have been together since approximately 2011. She raised 3 children she lost 1 child at due to in his twin transfusion. She drinks up to 1 bottle of wine a day. She briefly smoked cigarettes for a few months in the 1970s. She denies any illicit substance use. She has 5 dogs at home 1 is a pit bull, 1 chihuahua and 3 miniature D
[2023-05-19] MEDS: CEPHALEXIN 500 MG CAPSULE PO (12:40)
[2023-05-19 13:39] VITALS: BP 136/89; PULSE 78; RESP 17; O2SAT 97
== END 2023-05-19 13:42 | disposition home or self-care (01) ==
PROVIDERS: Emergency Provider Emergency Medicine; PCP Physician Assistant
DX: L98.8 Other specified disorders of the skin and subcutaneous tissue (principal); L03.115 Cellulitis of right lower limb; M79.671 Pain in right foot; I11.0 Hypertensive heart disease with heart failure; I50.9 Heart failure, unspecified; E78.5 Hyperlipidemia, unspecified; E53.8 Deficiency of other specified B group vitamins; E66.9 Obesity, unspecified; K58.9 Irritable bowel syndrome, unspecified; M79.7 Fibromyalgia; G47.33 Obstructive sleep apnea (adult) (pediatric); F32.A Depression, unspecified; F41.9 Anxiety disorder, unspecified; Z66 Do not resuscitate; Z98.84 Bariatric surgery status; Z87.891 Personal history of nicotine dependence; Z90.49 Acquired absence of other specified parts of digestive tract; Z90.710 Acquired absence of both cervix and uterus; Z90.79 Acquired absence of other genital organ(s); Z90.722 Acquired absence of ovaries, bilateral
CPT/HCPCS: 73630; 99283; A9270

== ENCOUNTER 2023-05-23 14:30 | Emergency (ER) | payer MEDICARE, OTHER, SELFPAY ==
--- NOTE | ~2023-05-23 | US_ITS ---
EXAMINATION: US venous doppler [facility] DATE: 05/23/2023 15:54 INDICATION: Lower limb pain and swelling TECHNIQUE: Grayscale ultrasound images without and with compression and Doppler ultrasound images of the bilateral lower extremity veins were obtained. COMPARISON: None. FINDINGS: The visualized portions of right common femoral vein, profunda (deep) femoral vein, femoral vein, pop liteal vein, posterior tibial veins, peroneal veins, gastrocnemius vein and greater saphenous vein ou tflow are patent. The visualized portions of left common femoral vein, profunda femoral vein, femoral vein, popliteal v ein, posterior tibial veins, peroneal veins, gastrocnemius vein and greater saphenous vein outflow ar e patent. IMPRESSION: 1. No deep venous thrombosis in either lower limb. Reviewed, dictated and finalized at location A.
--- NOTE | ~2023-05-23 | XR_ITS ---
EXAMINATION: XR tibia fibula RT 2V INDICATION: Right lower limb swelling TECHNIQUE: Two views of the right leg are obtained. COMPARISON: None available FINDINGS: Bone alignment is normal. There is no fracture. There is mild osteoarthritis of the knee an d ankle. Soft tissue swelling is noted. IMPRESSION: 1. Soft tissue swelling without acute osseous abnormality. Reviewed, dictated and finalized at location F.
[2023-05-23 14:32] VITALS: BP 188/93; PULSE 68; RESP 18; TEMP 36.4; O2SAT 100
[2023-05-23 15:19] LABS: Basophils Percent Auto 0.4 % (0.2-1.2); Hematocrit 31.8 % (37.0-47.0); Hemoglobin 9.8 g/dL (12.0-15.0); Immature Granulocyte Absolute 0.05 K/mm3 (0.00-0.031); Immature Granulocyte Percent A 0.6 % (0-0.5); Lymphocytes Absolute Auto 1.28 K/mm3 (0.9-3.2); Lymphocytes Percent Auto 16.4 % (18.3-44.2); Mean Corpuscular HGB Conc 30.8 g/dl (32-36); Mean Corpuscular Volume 103.9 fl (80-100); Mean Platelet Volume 11.4 fl (7.4-10.4); Monocytes Absolute Auto 0.4 K/mm3 (0.1-0.6); Monocytes Percent Auto 5.2 % (2.6-8.5); Neutrophils Percent Auto 77.4 % (45.5-73.1); Platelet Count Result 340 k/mm3 (150-375); Red Blood Count 3.06 M/mm3 (4.2-5.4); Red Cell Distribution Width 14.3 % (11.5-14.5); White Blood Count 7.8 K/mm3 (4.5-10.0)
--- NOTE | 2023-05-23 15:33 | ED.SKABFB ---
HPI - Skin/Abscess/Foreign Bdy General Chief complaint: Skin/Abscess/Foreign Body Stated complaint: right leg cellulitis Time Seen by Provider: 05/23/23 14:59 Source: patient Mode of arrival: wheelchair Limitations: no limitations History of Present Illness HPI narrative: This is a 62 year old female that ER for right lower extremity pain. Ongoing over the last week. Reports she was seen in the ER last week and diagnosed with cellulitis. She has been taking Keflex, but has continued to have pain. Reports edema to the bilateral lower extremities. Denies fevers, erythema. Related Data Home Medications Medication Instructions Recorded Confirmed amitriptyline 25 mg tablet 25 mg PO HS 04/28/23 05/15/23 diltiazem HCl 180 mg 180 mg PO DAILY 04/28/23 05/15/23 tablet,extended release 24 hr eszopiclone 3 mg tablet (Lunesta) 3 mg PO HS 04/28/23 05/15/23 ezetimibe 10 mg tablet 10 mg PO DAILY 04/28/23 05/15/23 folic acid 1 mg tablet 1 mg PO DAILY 04/28/23 05/15/23 methotrexate sodium 2.5 mg tablet 12.5 mg PO WEEKLY 04/28/23 05/15/23 morphine 15 mg tablet,extended 15 mg PO BID 04/28/23 05/15/23 release paroxetine HCl 20 mg tablet (Paxil) 20 mg PO DAILY 04/28/23 05/15/23 ropinirole 0.25 mg tablet 0.25 mg PO HS 04/28/23 05/15/23 sulfasalazine 500 mg 1,500 mg PO BID 04/28/23 05/15/23 tablet,delayed release bisacodyl 5 mg tablet 5 mg PO DAILY PRN Constipation 05/15/23 05/15/23 lidocaine 5 % topical patch 1 patch transdermal DAILY 05/15/23 05/15/23 prednisone 5 mg tablet 5 mg PO DAILY 05/15/23 05/15/23 Allergies Allergy/AdvReac Type Severity Reaction Status Date / Time bee venom protein (honey bee) Allergy Severe Difficulty Verified 05/19/23 10:36 Breathing, SWELLING MADELYN Inhibitors Allergy Unknown RASH Verified 05/19/23 10:36 vancomycin AdvReac Severe RASHAUN'S Verified 05/19/23 10:36 SYNDROME Review of Systems Review of Systems: CONSTITUTIONAL: Denies fever SKIN: Denies rash MUSCULOSKELETAL: Reports joint pain, and myalgia. NEUROLOGIC: Denies numbness, or weakness. All systems reviewed & are unremarkable except as noted in HPI and below PMFSH Past Medical History Medical History Ankylosing spondylitis Anxiety B12 deficiency CHF (congestive heart failure) Chronic lower back pain Depression Fibromyalgia Hemorrhoids Hyperlipidemia Hypertension Hypothyroidism Irritable bowel syndrome Obesity (BMI 30.0-34.9) Obstructive sleep apnea Seizure Surgical History Surgical History H/O cervical spine surgery X3 History of arthroscopy of both knees History of cholecystectomy History of gastric bypass (2003) History of insertion of tunneled central venous catheter (CVC) with port History of tonsillectomy and adenoidectomy History of total hysterectomy with bilateral salpingo-oophorectomy (BSO) Family History Family History Mother Lung cancer, Onset Age: 66 Father Ruptured abdominal aortic aneurysm (AAA), Onset Age: 76 Other Carcinoma of colon Cerebrovascular accident Diabetes mellitus Social History Social History Social History: Patient lives with her current they have been together since approximately 2011. She raised 3 children she lost 1 child at due to in his twin transfusion. She drinks up to 1 bottle of wine a day. She briefly smoked cigarettes for a few months in the 1970s. She denies any illicit substance use. She has 5 dogs at home 1 is a pit bull, 1 chihuahua and 3 miniature Demetrice. 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 However patient would be willing to have central line, pressors, dialysis and noninvasive ventilator support if need. Surrogate decision maker:
--- NOTE | 2023-05-23 15:50 | PC.NURSE ---
pt crying, stating that that is not going to help pt and family informed that Tylenol was ordered by provider. informed to let staff know in short period if it helped or not, this way this wroter can go back to provide and ask for additional pain medication order.
[2023-05-23] MEDS: ACETAMINOPHEN 500 MG TABLET 1000 MG PO (15:55)
[2023-05-23 15:57] LABS: Erythrocyte Sedimentation Rate 48 mm/hr (0-20)
[2023-05-23 16:15] LABS: Anion Gap 7 mmol/L (4-12); Blood Urea Nitrogen 10 mg/dL (7-17); CRP 3.3 mg/dL (<1.0); Carbon Dioxide 30 mmol/L (22-30); Chloride 104 mmol/L (98-107); Estimated CRCL calculation 49 ml/min; Estimated Glomerular Filt Rate 45; Glucose 123 mg/dL (65-110); Potassium 3.6 mmol/L (3.4-5.0); Sodium 141 mmol/L (137-145)
--- NOTE | 2023-05-23 16:22 | PC.NURSE ---
pt continues to cry, family member angry. pointing at staff when in room to assess request reason for RN to room call. staff informed family member to discontinue his behavior or he would be asked to leave. family asked for the provider to come to room, informed the pt and family I would inform the provider of their request
--- NOTE | 2023-05-23 17:08 | PC.NURSE ---
went to room, to discuss medication ordered, pt and family member not in room. provider notified, harness placer made aware
[2023-05-23 22:24] LABS: Creatine Kinase 107 U/L (30-135)
== END 2023-05-23 17:08 | disposition left against medical advice (07) ==
PROVIDERS: Emergency Provider Physician Assistant; PCP Physician Assistant
DX: M79.604 Pain in right leg (principal); F41.9 Anxiety disorder, unspecified; I11.0 Hypertensive heart disease with heart failure; I50.9 Heart failure, unspecified; M54.50 Low back pain, unspecified; G89.29 Other chronic pain; F32.A Depression, unspecified; E03.9 Hypothyroidism, unspecified; G47.30 Sleep apnea, unspecified; G40.909 Epilepsy, unspecified, not intractable, without status epilepticus
CPT/HCPCS: 36415; 73590; 80048; 82550; 85025; 85652; 86140; 93970; 99284; A9270

== ENCOUNTER 2023-06-28 01:21 | Day surgery (SDC) | payer MEDICARE, OTHER, SELFPAY ==
[2023-06-19 10:10] VITALS: BMI 34.3
--- NOTE | 2023-06-19 10:20 | PC.NURSE ---
Report to the Outpatient Waiting Room, entrance under the green pavilion located off [facility], at time 1330 on date 06/19/23. Planned Procedure Time: 1530. Time changes happen often and if your time is changed the preop area will call you the afternoon before. - You and your visitor will be asked to self-screen and do not enter if you have any COVID symptoms. - A mask is optional within the hospital at this time. Patients may have clear liquids (water, carbonated beverages, clear teas, apple juice) until 3 hours prior to surgery with a maximum of 20 ounces. - No food from midnight until time of surgery Take the following medications with a SIP of water the morning of surgery: GABAPENTIN, MORPHINE, TRAMADOL IF NEEDED DO NOT STOP ANY OF YOUR OTHER PRESCRIPTION MEDICATIONS PRIOR TO SURGERY ?EXCEPT THE FOLLOWING Medications to discontinue per physician: VITAMINS/SUPPLEMENTS Date to take last dose: NO MORE UNTIL AFTER SURGERY Please no make-up, nail afghan, hairspray, perfume, deodorant, or body powder the day of surgery. No jewelry (including any body piercings) or valuables the day of surgery, leave them at home. Please take a shower or bath the night before, or the morning of, surgery with an antibacterial soap. Wear comfortable, loose fitting clothing. - Jewelry must be removed prior to entering the operating room. Rings and piercings that are not removed may be cut off. - The hospital will not accept responsibility for valuables. - Please leave all valuables, including medications, at home the day of surgery. If you are going home after surgery, a licensed [place] driver must drive you home. - NO public transportation without another adult if you receive anesthesia. - We recommend that an adult stay with you for 24 hours following discharge. - We also recommend that you do not drive, make important decision, drink alcoholic beverages, or take any drugs that were not prescribed by your health care provider for at least 24 hours after your discharge time. Follow any additional instructions given to you from your surgeon. If you or anyone in your household have experienced Covid symptoms in the past week, please notify your surgeon or the nurse liaison at the phone number below for possible testing. Telephone instructions given to JEREMIAS MATAMOROS and asked if any additional questions and then verbalized understanding. Patient advised to call surgeon office or pre surgery nurse liaison [phone] if any additional questions.
--- NOTE | 2023-06-26 11:16 | PC.NURSE ---
Report to the Outpatient Waiting Room, entrance under the green pavilion located off [facility], at time _1200_ on date _[id number]_. Planned Procedure Time: _1400_. Time changes happen often and if your time is changed the preop area will call you the afternoon before. - You and your visitor will be asked to self-screen and do not enter if you have any COVID symptoms. - A mask is optional within the hospital at this time. Patients may have clear liquids (water, carbonated beverages, clear teas, apple juice) until 3 hours prior to surgery with a maximum of 20 ounces. - No food from midnight until time of surgery Take the following medications with a SIP of water the morning of surgery: ___Gabapentin, Morphine, Tramadol if needed. DO NOT STOP ANY OF YOUR OTHER PRESCRIPTION MEDICATIONS PRIOR TO SURGERY ?EXCEPT THE FOLLOWING Medications to discontinue per physician ____Vitamins and supplements Date to take last dose__Stop now. Please no make-up, nail serbian, hairspray, perfume, deodorant, or body powder the day of surgery. No jewelry (including any body piercings) or valuables the day of surgery, leave them at home. Please take a shower or bath the night before, or the morning of, surgery with an antibacterial soap. Wear comfortable, loose fitting clothing. - Jewelry must be removed prior to entering the operating room. Rings and piercings that are not removed may be cut off. - The hospital will not accept responsibility for valuables. - Please leave all valuables, including medications, at home the day of surgery. If you are going home after surgery, a licensed tram driver must drive you home. - NO public transportation without another adult if you receive anesthesia. - We recommend that an adult stay with you for 24 hours following discharge. - We also recommend that you do not drive, make important decision, drink alcoholic beverages, or take any drugs that were not prescribed by your health care provider for at least 24 hours after your discharge time. Follow any additional instructions given to you from your surgeon. If you or anyone in your household have experienced Covid symptoms in the past week, please notify your surgeon or the nurse liaison at the phone number below for possible testing. Telephone instructions given to _Shoshana___and asked if any additional questions and then verbalized understanding. Patient advised to call surgeon office or pre surgery nurse liaison [phone] if any additional questions.
[2023-06-28] MEDS: LACTATED RINGERS 1,000 ML 30 ML IV CONT (12:30)
--- NOTE | 2023-06-28 12:49 | WPDANESEPPF ---
Anes - Initial Pre Proc Eval Procedure: Operation Date: 06/28/23 14:00 Proposed Procedures p Removal Tunneled Dialysis Catheter - Renzo Donald DO Date/Time: 06/28/23 12:49 Surgeon: Renzo Donald DO Pre Op Diagnosis: Acute Renal Failure Patient Data Age: 62 Gender: F Height: 1.63 m Weight: 90.75 kg Allergies Allergy/AdvReac Type Severity Reaction Status Date / Time bee venom protein (honey bee) Allergy Severe Difficulty Verified 06/19/23 10:07 Breathing, SWELLING MADELYN Inhibitors Allergy Unknown RASH Verified 06/19/23 10:07 vancomycin AdvReac Severe RASHAUN'S Verified 06/19/23 10:07 SYNDROME Home Medications Medication Instructions Recorded Confirmed Type amitriptyline 25 mg tablet 25 mg PO HS 04/28/23 06/19/23 History diltiazem HCl 180 mg 180 mg PO HS 04/28/23 06/19/23 History tablet,extended release 24 hr eszopiclone 3 mg tablet (Lunesta) 3 mg PO HS 04/28/23 06/19/23 History ezetimibe 10 mg tablet 10 mg PO DAILY 04/28/23 06/19/23 History folic acid 1 mg tablet 2 mg PO DAILY 04/28/23 06/19/23 History methotrexate sodium 2.5 mg tablet 12.5 mg PO WEEKLY 04/28/23 06/19/23 History morphine 15 mg tablet,extended 15 mg PO BID 04/28/23 06/19/23 History release paroxetine HCl 20 mg tablet (Paxil) 20 mg PO HS 04/28/23 06/19/23 History ropinirole 0.25 mg tablet 0.25 mg PO HS 04/28/23 06/19/23 History sulfasalazine 500 mg 1,500 mg PO BID 04/28/23 06/19/23 History tablet,delayed release bisacodyl 5 mg tablet 5 mg PO DAILY PRN Constipation 05/15/23 06/19/23 History lidocaine 5 % topical patch 1 patch transdermal DAILY PRN Pain 05/15/23 06/19/23 History prednisone 5 mg tablet 5 mg PO HS 05/15/23 06/19/23 History gabapentin 300 mg capsule 300 mg PO TID #60 caps 05/16/23 06/19/23 Rx lorazepam 0.5 mg tablet 0.5 mg PO HS PRN Anxiety #14 tabs 05/16/23 06/19/23 Rx tizanidine 4 mg tablet 1 mg PO BID PRN Muscle Spasm #30 05/16/23 06/19/23 Rx tabs tramadol 25 mg tablet 25 mg PO Q8H PRN pain #30 tabs 05/16/23 06/19/23 Rx multivitamin 1 tablet PO DAILY 06/19/23 06/19/23 History Patient hx anesthesia problems: none Family hx anesthesia problems: none Results Review: All pre-operative results and documents have been reviewed as part of the pre-operative evaluation. [facility] Past Medical History Medical History Ankylosing spondylitis Anxiety B12 deficiency CHF (congestive heart failure) Chronic lower back pain Depression Fibromyalgia Hemorrhoids Hyperlipidemia Hypertension Hypothyroidism Irritable bowel syndrome Obesity (BMI 30.0-34.9) Obstructive sleep apnea Seizure Surgical History Surgical History H/O cervical spine surgery X3 History of arthroscopy of both knees History of cholecystectomy History of gastric bypass (2003) History of insertion of tunneled central venous catheter (CVC) with port History of tonsillectomy and adenoidectomy History of total hysterectomy with bilateral salpingo-oophorectomy (BSO) Family History Family History Mother Lung cancer, Onset Age: 66 Father Ruptured abdominal aortic aneurysm (AAA), Onset Age: 76 Other Carcinoma of colon Cerebrovascular accident Diabetes mellitus Social History Social History Social History: Patient lives with her current they have been together since approximately 2011. She raised 3 children she lost 1 child at due to in his twin transfusion. She drinks up to 1 bottle of wine a day. She briefly smoked cigarettes for a few months in the 1970s. She denies any illicit substance use. She has 5 dogs at home 1 is a pit bull, 1 chihuahua and 3 miniature Demetrice. 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 However [facility]
--- NOTE | 2023-06-28 13:05 | WPDHPUPDATE1 ---
History and Physical Update Update Date/Time: 06/28/23 13:05 History and Physical has been reviewed, including an updated exam of the patient. There are NO changes in the patient's condition. Risks, benefits, and alternatives have been discussed and questions answered. Patient agrees to proceed with procedure.
[2023-06-28 13:17] VITALS: BP 84/54; PULSE 79; RESP 16; TEMP 36.2; O2SAT 97
[2023-06-28] MEDS: ceFAZolin 2 GM/D5W 50 ML 2 GM/50 ML BAG IVPB (13:24)
[2023-06-28] MEDS: LIDO 1%/EPINEPHRINE 1:100,000 20 ML VIAL 10 ML INFILTRATE (13:39)
[2023-06-28 13:55] VITALS: BP 94/48; PULSE 73; RESP 13; O2SAT 100
--- NOTE | 2023-06-28 14:09 | W.PM.PROC2 ---
Procedure Note - Detailed Date of Procedure 06/28/23 Pre-op Diagnosis Acute Renal Failure Post-op Diagnosis Same Procedure Performed Removal of tunneled dialysis catheter Surgeon Renzo Donadl, DO Anesthesia MAC and Local (1% lidocaine with epinephrine) Indications This is a 62-year-old woman who presented with a prior history of acute renal failure requiring hemodialysis. She was still requiring some dialysis on discharge but her renal function was slowly improving. She now has recovered from the episode of acute renal failure and is no longer needing hemodialysis. Decision was made to proceed with removal of tunneled dialysis catheter. Findings Tunneled dialysis catheter scarred in place along mid clavicular region. Once the cuff was freed up from the surrounding scar tissue, catheter was able to easily slide out with tip intact. Description of Procedure Procedure as well as risks, benefits, and alternatives were discussed with the patient. Written consent was obtained and placed in chart prior to procedure. Patient was brought back to surgical suite. She was placed supine on operating table. Time-out was done to confirm patient and procedure. IV sedation was then administered by the anesthesia department. Her right neck and chest area was prepped and draped in sterile fashion using Betadine prep. 1% lidocaine with epinephrine was infiltrated locally around the palpable cuff along the midclavicular region. The sutures holding the dialysis catheter placed were carefully cut and removed. The cuff the catheter appeared well scarred place the subcutaneous tract. A 1 cm incision was made directly over the cuff using a 15 blade scalpel. Careful blunt and sharp dissection was performed around the cuff to free up the scar tissue holding it in place. Sharp dissection was carried out using curved Metzenbaum scissors. Once the cuff was completely freed up it was then able to slide the catheter tract was exiting on anterior chest. Catheter was carefully removed while holding pressure at the base of the neck at the insertion site into the right internal jugular vein. Catheter was completely removed intact and pressure was held at IJ. The skin of the incision was then reapproximated using 4-0 Monocryl subcuticular suture and then Exofin glue was applied top. A 2 x 2 gauze and Tegaderm dressing was then applied at the exit site on the chest. After holding pressure for 5 minutes, there did not appear to be any evidence bleeding or swelling base of the neck. The patient was then awakened from anesthesia and transferred to recovery. Estimated Blood Loss 2 Complications No immediate complications Condition Stable Disposition Same day [facility] Billing Surgery - Charge Forward: Surgery Billing
[2023-06-28 14:25] VITALS: BP 118/59; PULSE 79; RESP 13; O2SAT 95
== END 2023-06-28 14:50 | disposition home or self-care (01) ==
PROVIDERS: PCP Physician Assistant; Visit Provider Surgery
PROC: (CPT 49422; principal; 2023-06-28 14:00)
DX: Z49.01 Encounter for fitting and adjustment of extracorporeal dialysis catheter (principal); I11.0 Hypertensive heart disease with heart failure; I50.9 Heart failure, unspecified; E78.5 Hyperlipidemia, unspecified; E03.9 Hypothyroidism, unspecified; M79.7 Fibromyalgia; G47.33 Obstructive sleep apnea (adult) (pediatric); Z98.84 Bariatric surgery status; Z87.891 Personal history of nicotine dependence; E66.9 Obesity, unspecified; Z68.35 Body mass index [BMI] 35.0-35.9, adult; Z87.448 Personal history of other diseases of urinary system
CPT/HCPCS: 36590; J0690; J2405; J2704; J7120

== ENCOUNTER 2024-06-19 00:26 | Day surgery (SDC) | payer MEDICARE, OTHER, SELFPAY ==
[2024-06-10 13:27] VITALS: BMI 34.4
--- NOTE | 2024-06-18 14:03 | P.PNAN_ITS ---
Anes - Initial Pre Proc Eval Procedure: Operation Date: 06/19/24 09:30 Proposed Procedures p Esophagogastroduodenoscopy & Colonoscopy - Dennis Bustamante MD Date/Time: 06/18/24 14:03 Surgeon: Dennis Bustamante MD Pre Op Diagnosis: Anemia Patient Data Age: 63 Gender: F Height: 1.63 m Weight: 91 kg Allergies Allergy/AdvReac Type Severity Reaction Status Date / Time bee venom protein (honey bee) Allergy Severe Difficulty Verified 06/19/24 08:19 Breathing, SWELLING MADELYN Inhibitors Allergy Unknown RASH Verified 06/19/24 08:19 vancomycin AdvReac Severe RASHAUN'S Verified 06/19/24 08:19 SYNDROME Home Medications ?Medication ?Instructions ?Recorded ?Confirmed ?Type eszopiclone 3 mg tablet (Lunesta) 3 mg PO HS 04/28/23 06/19/24 History ezetimibe 10 mg tablet 10 mg PO DAILY 04/28/23 06/19/24 History folic acid 1 mg tablet 2 mg PO DAILY 04/28/23 06/19/24 History paroxetine HCl 20 mg tablet (Paxil) 20 mg PO HS 04/28/23 06/19/24 History ropinirole 0.25 mg tablet 0.25 mg PO HS 04/28/23 06/19/24 History lidocaine 5 % topical patch 1 patch transdermal DAILY PRN Pain 05/15/23 06/10/24 History tizanidine 4 mg tablet 1 mg (1/4 x 4 mg) PO BID PRN 05/16/23 06/10/24 Rx Muscle Spasm #30 tabs multivitamin 1 tablet PO DAILY 06/19/23 06/19/24 History ascorbic acid (vitamin C) 1,000 mg 1 g PO DAILY 05/23/24 06/19/24 History capsule cholecalciferol (vitamin D3) 125 125 mcg PO DAILY 05/23/24 06/19/24 History mcg (5,000 unit) capsule cyanocobalamin (vitamin B-12) 1,000 mcg subcut MONTHLY 05/23/24 06/19/24 History 1,000 mcg/mL injection solution diltiazem HCl 240 mg capsule,24 240 mg PO Q24H 05/23/24 06/19/24 History hr,extended release (Tiadylt ER) ferrous sulfate 325 mg (65 mg 325 mg PO DAILY 05/23/24 06/10/24 History iron) tablet (Feosol) hydrochlorothiazide 12.5 mg tablet 12.5 mg PO DAILY 05/23/24 06/19/24 History losartan 100 mg tablet 100 mg PO DAILY 05/23/24 06/19/24 History ondansetron HCl 4 mg tablet 4 mg PO Q8H PRN nausea and vomiting 05/23/24 06/10/24 History tramadol 50 mg tablet 50 mg PO Q8H PRN pain 05/23/24 06/10/24 History vitamin B comp and C no.3 15 mg-10 1 cap PO DAILY 05/23/24 06/19/24 History mg-50 mg-5 mg-300 mg capsule zinc-magnesium aspart-vit B6 10 See Rx Instructions PO .COMPLEX 05/23/24 06/19/24 History mg-150 mg-3.83 mg capsule Patient hx anesthesia problems: none Family hx anesthesia problems: none Results Review: All pre-operative results and documents have been reviewed as part of the pre- operative evaluation. [facility] Past Medical History Medical History (Updated 06/19/24 @ 09:36 by Dennis Bustamante MD) Paroxysmal A-fib Ankylosing spondylitis B12 deficiency Hypothyroidism Chronic lower back pain Irritable bowel syndrome Hemorrhoids Obstructive sleep apnea CHF (congestive heart failure) Seizure Obesity (BMI 30.0-34.9) Fibromyalgia Hyperlipidemia Hypertension Depression Anxiety Surgical History Surgical History History of insertion of tunneled central venous catheter (CVC) with port H/O cervical spine surgery X3 History of arthroscopy of both knees History of total hysterectomy with bilateral salpingo-oophorectomy (BSO) History of tonsillectomy and adenoidectomy History of gastric bypass (2003) History of cholecystectomy Family History Family History Mother Lung cancer, Onset Age: 66 Father Ruptured abdominal aortic aneurysm (AAA), Onset Age: 76 Other Carcinoma of colon Cerebrovascular accident Diabetes mellitus Social History Social History Social History: Patient lives with her current they have been together since approximately 2011. She raised 3 children she lost 1 child at due to in his twin transfusion. She drinks up to 1 bottle of wine a day. She briefly smoked cigarettes for a few months in the 1970s. She denies any illicit substance use. She has 5 dogs at home 1 is a pit bull, 1 chihuahua and 3 miniature Demetrice. 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 However patient would be willing to have central line, pressors, dialysis and noninvasive ventilator support if need. Surrogate decision maker: Years smoked: 1 Smoking status: Former smoker Tobacco type: cigarettes Smoking end date: 02/27/93 Alcohol intake: current Drinks per week: 0 Substance use: never Substance use type: does not use Do You Feel Safe in your Home?: Yes Lack of Transportation: No Lack of Food: Never True Current Housing: I Have Housing Concerned About Future Housing: No Difficulty Paying Gas/Electric Bills: No Difficulty Paying for Meds: No Currently Unemployed: No Education: Associate Degree Difficulty w/ Childcare or Family Care: No Living arrangements: with family Occupation/Education: retired Gender identity (if verbalized by the patient): Female Spiritual care concerns: No Anes - Eval Final PreProcedure Day of Procedure 06/18/24 14:03 Patient weight: obese Heart: regular rate and rhythm Lungs: clear to auscultation Airway: Mallampati scale class II Neurological: alert and oriented Last oral intake: >/= 8 hours ASA classification: III Emergent: no Anesthetic plan: proceed Anesthesia type and monitoring: general GIVS and standard monitoring Results Review: All pre-operative results and documents have been reviewed as part of the pre- operative evaluation. Informed Consent: The patient's anesthetic plan and its attendant risks and benefits were d iscussed with the patient/family/POA. Questions were solicited and answers provided to the satisfaction of the patient/family/POA.
--- OUTSIDE RECORDS SUMMARY | 2024-06-19 00:31 | XMS_ITS | Clinical Summary ---
Author Organization [address] Address [facility] [place] [address] Care Team Providers Care Library Cataloging Technician Name Role Phone Lester Batres MD Primary Care Provider Allergies Active Allergy Reactions Criticality Noted Date Comments Avni Inhibitors Rash,Unknown Medium 08/29/2013 Adhesive Redness Low 03/13/2019 Azithromycin Rash Medium 01/25/2018 Codeine Itching Low 08/21/2018 Could take if takes Benadryl first Vancomycin Rash,Unknown Medium 08/29/2013 Venom-Honey Bee Anaphylaxis,Unknown High 08/29/2013 Medications tiZANidine (ZANAFLEX) 4 mg tablet Take 4 mg by mouth 2 (two) times a day 8 Active losartan (COZAAR) 100 mg tablet Take 100 mg by mouth daily 8 Active hydroCHLOROthia zide (HYDRODIURIL) 12.5 mg tablet Take 12.5 mg by mouth daily. Active PARoxetine (PAXIL) 20 mg tablet 8 Active cyanocobalamin (Vitamin B-12) 1,000 mcg/mL injection 8 Active fluticasone (FLONASE) 50 mcg/actuation nasal spray Administer 2 sprays into each nostril daily 8 Active montelukast (SINGULAIR) 10 mg tablet Take 10 mg by mouth nightly 8 Active pravastatin (PRAVACHOL) 40 mg tablet 8 Active docusate sodium (COLACE) 100 mg capsule as needed Active calcium carbonate-vitam in D3 (CALCIUM+D) 400-133.3 mg-unit tablet daily Activ e LORazepam (ATIVAN) 1 mg tablet Take 1 mg by mouth every 6 (six) hours as needed for anxiety or sleep. Active gabapentin (NEURONTIN) 100 mg capsule Take 1 capsule (100 mg total) by mouth 2 (two) times a day. 60 capsule 8 Active acetaminophen 500 mg capsule Take 2 capsules (1,000 mg total) by mouth every 6 (six) hours. 60 tablet 8 Active Additional Information Patient taking differently:1,000 mg oralAs needed, Reported on 07/25/2018 traZODone (DESYREL) 100 mg tablet Take 100 mg by mouth nightly Active cholecalciferol (VITAMIN D-3) 2,000 unit capsule 2,000 Units daily Active PARoxetine (PAXIL) 10 mg tablet Take 10 mg by mouth every morning Active multivitamin capsule Take 1 capsule by mouth daily Active dilTIAZem CD/XR/XT (dilTIAZem CD) 120 mg 24 hr capsule diltiazem CD 120 mg capsule,extended release 24 hr Active EPINEPHrine (EPIPEN 2-JOSE ALEJANDRO) 0.3 mg/0.3 mL auto-injection syringe EpiPen 2-Jose Alejandro 0.3 mg/0.3 mL injection, auto-injector Active benzonatate (TESSALON) 200 mg capsule as needed a Active lidocaine (LIDODERM) 5 % as needed Activ e gabapentin (NEURONTIN) 300 mg capsule 1 Active methotrexate 2.5 mg tablet TAKE 5 TABLETS BY MOUTH 1 TIME WEEKLY IN THE MORNING AND IN THE EVENING 1 Active celecoxib (CeleBREX) 200 mg capsule 1 Active ezetimibe (ZETIA) 10 mg tablet ezetimibe 10 mg tablet 0 Active ferrous sulfate (FEOSOL) 220 mg (44 mg of elemental iron)/5 mL solution Take 220 mg by mouth daily Active traMADoL (ULTRAM) 50 mg tablet 0 Active Active Problems Problem Noted Date Diagnosed Date Rib pain on left side 07/25/2018 Pleural effusion on left 01/26/2018 History of rib fracture 01/26/2018 Obesity (BMI 30-39.9) 12/06/2017 Overview (12/06/2017): BMI 37.76 Opioid dependence with intoxication 12/06/2017 Fibromyalgia 12/06/2017 Alcohol dependence with acute intoxication, cont inuous 12/06/2017 Fall from ground level 12/06/2017 Benzodiazepine dependence, continuous 12/06/2017 Anemia, chronic disease 12/06/2017 Paresthesia 12/18/2012 Overview (06/03/2016): Paresthesias Surgical follow-up care 03/15/2011 Osteoarthritis of cervical spine 07/08/2010 Osteoarthritis of cervical spine with myelopathy 12/22/2009 Cervical radiculopathy 12/22/2009 Herniation of intervertebral disc of cervical re gion 12/22/2009 Acute pain due to trauma Closed fracture of three ribs of left side Painful respiration Resolved Problems Problem Noted Date Diagnosed Date Resolved Date Symptomatic bradycardia 12/06/201711/27 Surgical History Surgery Date Site/Laterality Comments GASTRIC BYPASS gastric bypass TONSILLECTOMY tonsillectomy OTHER SURGICAL HISTORY LASHANDA knee arthroscopy OTHER SURGICAL HISTORY bone deformity with repair LASHANDA feet OTHER SURGICAL HISTORY R shoulder rotator cuff OTHER SURGICAL HISTORY cervical surgery HYSTERECTOMY Hysterectomy GASTRIC BYPASS BUNIONECTOMY SHOULDER SURGERY Medical History Medical History Date Comments Depression Depression Carpal tunnel syndrome Carpal tu nnel/peripheral nerve Arthritis Arthritis Hypertension Hypertension Hyperlipidemia Hyperlipidemia Tension headache Headache, tensi on Anemia, chronic disease 12/06/2017 Benzodiazepine dependence, continuous (HCC) 11/27 Alcohol dependence with acut e intoxication, continuous (HCC) 12/06/2017 Fibromyalgia 12/06/2017 Opioid dependence with intoxication (HCC) 2017 Rib pain Anxiety Swelling of ankle Arthritis Depression Hypertension Thyroid disease Spondylosis Family History Medical History Relation Name Comments Chronic Pain Father Heart disease Father Cancer Mother Diabetes Mother Relation Name Status Comments Father Mother Social History Tobacco Use Types Packs/Day Years Used Date Smoking Tobacco: Former Cigarettes Q uit: 1996 Smokeless Tobacco: Never Comments:Smoked for about a year. 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 Gender Identity Not on file Sexual Orientation Not on file Obstetrics History Last Filed Vital Signs Vital Sign Reading Time Taken Comments Blood Pressure 117/72 06/10/2020 7:56 PM CDT Pulse 71 06/10/2020 7:56 PM CDT Temperature 37.1 C (98.8 F) 05/18/2020 3:05 PM CDT Respiratory Rate 14 08/21/2018 10:59 AM CDT Oxygen Saturation 96% 06/10/2020 7:56 PM CDT Inhaled Oxygen Concentration - - Weight 90.5 kg (199 lb 8 oz) 06/10/2020 7:56 PM CDT Height 162.6 cm (5' 4 ) 06/10/2020 7:56 PM CDT Body Mass Index 34.24 06/10/2020 7:56 PM CDT Plan of Treatment Not on file Goals Goal Patient Goal Type Associated Problems Recent Progress Patient-Stated? Author CCM Chronic Pain Care Plan Chronic Care Management Worsening( 8:59 AM CDT) No April Gonzalez, RN Note: Problem: Chronic Pain Goals: 1. Minimize further functional decline 2. Maximize quality of life 3. Control pain Strategies: - Activity/exercise program recommendation - Conservative stepwise pain medicine strategy with multi-disciplinary approach - Recommend healthy lifestyle strategies and compensatory methods as needed Insurance [employer] FOR LIFE Member Subscriber Plan / Payer (Ef fective 2017-Present) Name:Shoshana Tierney Relation to Subscriber:Self Name:Shoshana Tierney Payer ID:[id number] (NAIC) Group ID:Not on file Type:[employer] Address: [facility] [address] [place] [address] [facility] [employer] HMO REF [facility] Member Subscriber Plan / Payer (Ef fective 2017-Present) Name:Shoshana Tierney Relation to Subscriber:Spouse Name:CASJOSÉ MANUEL Demian Subscriber ID:Not on file Date of :1951 (Home) Address: [address] [place] [address] Payer ID:[id number] (NAIC) Group ID:Not on file Type:[employer] Address: [address] [place] [address] [facility] MEDICARE ADVANTAGE Advance Directives For more information, please contact: [phone] * Full Code (Latest Code Status on File) Date Activated Date Inactivated Comments 01/25/2018 1:33 PM 01/30/2018 3:12 PM * Full Code Date Activated Date Inactivated Comments 12/05/2017 10:05 PM 12/09/2017 9:16 PM Care Teams Library Cataloging Technician Relationship Specialty Start Date End Date Lester Batres MD [address] [facility] [address] [place] [address] PCP - General Internal Medicine 02/11/20
--- OUTSIDE RECORDS SUMMARY | 2024-06-19 00:31 | XMS_ITS | Clinical Summary ---
Author Organization [facility] Address [facility] [place] [address] Care Team Providers Care Tank Crewmember Name Role Phone Gustavo Altamirano MD Unavailable [phone] Lester Batres MD Primary Care Provider [phone] Allergies Active Allergy Reactions Criticality Noted Date Comments Avni Inhibitors Unknown,Rash Medium 08/29/2013 Tape Redness 03/13/2019 Azithromycin Rash Medium 01/25/2018 Bee Venom Unknown,Anaphylaxis High 08/29/2013 Levofloxacin Rash Low 08/29/2013 Vancomycin Unknown,Rash Low 08/29/2013 Medications Cholecalciferol (VITAMIN D3) 1000 units Cap Take 1 tablet by mouth daily. Active montelukast 10 MG tablet nightly at bedtime. 9 Active [place]-3 Fatty Acids (FISH OIL) 645 MG Cap Acti ve paroxetine 20 MG tablet Take 20 mg by mouth nightly. 9 Active trazodone 100 MG tablet 100 mg nightly at bedtime. 9 Active Ascorbic Acid (VITAMIN C) 100 MG tablet Take 100 mg by mouth as needed. Active ferrous sulfate 220 (44 Fe) MG/5ML liquid Take 220 mg by mouth daily. Active Acetaminophen (MAPAP) 500 MG Cap Take 1,000 mg by mouth as needed. 8 Active benzonatate 200 MG capsule Active EPINEPHrine (EPIPEN 2-JOSE ALEJANDRO) 0.3 MG/0.3ML injection EpiPen 2-Jose Alejandro 0.3 mg/0.3 mL injection, auto-injector Active fluticasone propionate 50 MCG/ACT nasal spray 2 sprays by Nasal route daily. 8 Active Multiple Vitamin (MULTIVITAMIN) capsule Take 1 capsule by mouth daily. Active cyanocobalamin 1000 MCG/ML injection 8 Active tizanidine 4 MG tablet Take 4 mg by mouth 2 (two) times daily. 8 Active lorazepam 1 MG tablet Take 1 mg by mouth as needed. 9 Active loratadine 10 MG tablet Take 10 mg by mouth as needed. Active Calcium Carb-Cholecalci ferol (CALCIUM 1000 + D OR) Take 1 tablet by mouth daily. Active hydrocodone-avni taminophen 5-325 MG tabletIndicatio ns:Acute Pain < 7 Day Supply Take 1 tablet by mouth every 6 (six) hours as needed for Pain (incisional). Indications: Acute Pain < 7 Day Supply 28 tablet 0 Active methylPREDNISol one, JOSE ALEJANDRO, 4 MG tabletIndicatio ns:H/O cervical spine surgery,Weaknes s of right upper extremity,Acute pain of right shoulder Follow package directions 1 each 0 Active dilTIAZem ER 180 MG 24 hr capsule 0 Active ezetimibe 10 MG tablet 0 Active hydrochlorothia zide 12.5 MG capsule 0 Active losartan 100 MG tablet 0 Active rosuvastatin 5 MG tablet 0 Active traMADol 50 MG tablet 0 Active Active Problems Problem Noted Date Diagnosed Date Acute pain of right shoulder 03/20/2019 Weakness of right upper extremity 03/20/2019 Foraminal stenosis of cervical region 02/28/2019 H/O cervical spine surgery 08/08/2018 Lumbar spondylosis 08/08/2018 Chronic neck pain 08/08/2018 Chronic pain of both upper extremities 9 Alcohol dependence with acut e intoxication, continuous (CMS/HCC HHS/HCC) 12/06/2017 Benzodiazepine dependence, continuous (CMS/HCC H HS/HCC) 12/06/2017 Anemia, chronic disease 12/06/2017 Fibromyalgia 12/06/2017 Obesity (BMI 30-39.9) 12/06/2017 Overview (03/15/2019): Overview: BMI 37.76 Opioid dependence with intoxication ([facility]) 12/06/2017 Anxiety 11/24/2014 Hypertension 06/09/2014 Hand pain, left 03/11/2014 Hypothyroidism 01/08/2014 Overweight 01/08/2014 Allergic rhinitis 08/29/2013 Depression 08/29/2013 Herpes zoster 08/29/2013 Hyperlipidemia 08/29/2013 Hypoglycemia 08/29/2013 Insomnia 08/29/2013 Lower back pain 08/29/2013 Vitamin D deficiency 08/29/2013 Cervical radiculopathy 12/22/2009 Resolved Problems Problem Noted Date Diagnosed Date Resolved Date Encounter for preventive health examination 08/02/2013 11/08/2019 Family History Medical History Relation Comments Heart Disease Brother 1 CA Brother 1 Multiple Sclerosis Daughter 1 AAA Father Hypertension Father Stroke Father Cancer Mother Diabetes Mother Lung Cancer Mother Diabetes Sister 1 Relation Status Comments Brother 1 Brother 2 Brother 3 Brother 4 Alive Brother 5 Alive Daughter 1 Alive Daughter 2 Alive Father Mother Sister 1 Sister 2 Sister 3 Alive Sister 4 Alive Sister 5 Alive Son Alive Social History Tobacco Use Types Packs/Day Years Used Date Smoking Tobacco: Former Smokeless Tobacco: Never Comments:smoked about 2-2.5 yrs Alcohol Use Standard Drinks/Week Comments Yes 0 (1 standard drink = 0.6 oz pur e alcohol) social AUDIT-C Answer Date Recorded Frequency of Alcohol Consumption Never 2018 Average Number of Drinks Not on file 019 Frequency of Binge Drinking Not on file 08/28 Comments No Sex and Gender Information Value Date Recorded Sex Assigned at Not on file Legal Sex Female 5:59 PM CDT Gender Identity Not on file Sexual Orientation Not on file Last Filed Vital Signs Vital Sign Reading Time Taken Comments Blood Pressure 109/71 06/29/2020 3:05 PM CDT Pulse 64 06/29/2020 3:05 PM CDT Temperature 37.9 C (100.2 F) 06/29/2020 11:38 AM CDT Respiratory Rate 18 06/29/2020 3:05 PM CDT Oxygen Saturation 96% 06/29/2020 3:05 PM CDT Inhaled Oxygen Concentration - - Weight 90.4 kg (199 lb 3.2 oz) 04/29/2019 2:46 P M AUTOMATION CONTROL TECHNICIAN Height 162.6 cm (5' 4 ) 04/29/2019 2:46 PM AUTOMATION CONTROL TECHNICIAN Body Mass Index 34.19 04/29/2019 2:46 PM AUTOMATION CONTROL TECHNICIAN Plan of Treatment Health Maintenance Due Date Last Done Comments Colorectal Cancer Screening Colonoscopy (10 Years) 1958 Hepatitis C 1976 DTaP, Tdap and Td Vaccines ( 1 - Tdap) 1977 Pneumococcal Vaccine: 50+ Ye ars (1 of 2 - PCV) 1977 Zoster Vaccines (1 of 2) 2008 Mammogram Screening 02/18/2022 02/19/2020 Dexa Scan (General) 09/25/2023 COVID-19 Vaccine (1 - 2023-2 5 season) 2023 RSV Immunization or 60+ Years (1 - 1-dose 75+ series) 2033 Meningococcal B Vaccine Aged Out No l onger eligible based on patient's age to complete this topic Meningococcal Vaccine Aged Out No guerline mindy eligible based on patient's age to complete this topic RSV Immunizations Under 20 Months Aged Out No longer eligible based on patient's age to complete this topic Medical Devices Explanted Type Area Bolt Sawyer Device Identifier Shelf Expiration Date Model / Serial / Lot Pins Johnson Skull Adult Disposable - [id number] Explanted:Qty: 3 on 03/13/2019 by Sapna Whitman APRN at [facility] Right: Scalp [employer] [place] 11/06/2020 [id number] / / [id number] Procedures Procedure Name Priority Date/Time Associated Diagnosis Comments MG SCREENING W COLETTE LASHANDA DIGI Routine 02/19/2020 9:41 AM AUTOMATION CONTROL TECHNICIAN Encounter for screening mammogram for malignant neoplasm of breast from Last 3 Months or Most Recently Relevant to Health Maintenance Results * MG SCREENING W COLETTE LASHANDA DIGI (02/19/2020 9:41 AM AUTOMATION CONTROL TECHNICIAN) Anatomical Region Laterality Modality Breast Bilateral Mammography 02/24/2020 1:35 PM AUTOMATION CONTROL TECHNICIAN Impressions 02/24/2020 1:36 PM AUTOMATION CONTROL TECHNICIAN =====IMPRESSION:===== No mammographic findings suggestive of malignancy. ASSESSMENT: ACR BI-RADS CATEGORY 2 - BENIGN FINDING(S) RECOMMENDATION: 1: Routine screening mammogram bilateral in 1 year COMMENTS: Narrative 02/24/2020 1:36 PM AUTOMATION CONTROL TECHNICIAN EXAMINATION: Digital bilateral screening mammogram with 3-D tomosynthesis EXAM DATE/TIME: 02/19/2020 9:25 AM REASON FOR EXAM: SCREENING COMPARISON: 2015, 2018 TECHNIQUE: Digital screening mammography of both breasts was performed in addition to 3-D Tomosynthesis technique. This study was read with the assistance of a computer-aided detection system. TISSUE DENSITY: The breast tissue is heterogeneously dense. FINDINGS: No suspicious masses, malignant appearing calcifications, skin thickening or other abnormalities are present. No significant change from the prior exam. Lester Batres MD MAMMO Final Resul t from Last 3 Months or Most Recently Relevant to Health Maintenance Insurance [facility] Advance Directives Documents on File Type Date Recorded Patient Meter Repairer Expl anation Legal Documents 03/20/2019 prescription meat pickler form * Full Code (Latest Code Status on File) Date Activated Date Inactivated Comments 03/13/2019 3:43 PM 03/15/2019 5:24 PM Care Teams Tank Crewmember Relationship Specialty Start Date End Date Lester Batres MD PCP - General INTERNAL MEDICINE 04/04/19 Gustavo Altamirano MD Referring Physician CARDIOVASCULAR DISEASE 03/06/19
--- OUTSIDE RECORDS SUMMARY | 2024-06-19 00:31 | XMS_ITS | CONTINUITY OF CARE DOCUMENT ---
Author Name kary preston Address Unknown Organization [facility] Address [address] [facility] [address] [place] [address] Phone [phone] Care Team Providers Care Continuous Improvement Facilitator Name Role Phone Tiffanie Lainez MD Unavailable [employer] Unavailable [phone] [employer] Unavailable INSURANCE PROVIDERS Payer name Policy type / Coverage type [employer] red alliance party ID FOR LIFE [id number] AARP MEDICARE ADVANTAGE HMO-POS HMO [id number]
--- OUTSIDE RECORDS SUMMARY | 2024-06-19 00:31 | XMS_ITS | Clinical Summary ---
Author Organization [facility] Address [address] [place] [address] Phone Care Team Providers Care Parts Classifier Name Role Phone Cierra Sheets Primary Care Provider [phone] Allergies Active Allergy Reactions Criticality Noted Date Comments Avni Inhibitors Rash Low 10/10/2018 Azithromycin Rash Low 10/10/2018 Codeine Itching Low 10/10/2018 Vancomycin Rash Low 10/10/2018 Venom-Honey Bee Anaphylaxis High 10/10/2018 Medications diltiaZEM (CARDIZEM CD) 180 mg Controlled Delivery 24 hour capsule Take 180 mg by mouth daily. Active hydroCHLOROthiaz josefina (MICROZIDE) 12.5 mg capsule Take 12.5 mg by mouth daily. Active PARoxetine HCl (PAXIL) 10 mg tablet Take 10 mg by mouth daily. Active losartan (COZAAR) 100 mg tablet Take 25 mg by mouth daily. Active tiZANidine (ZANAFLEX) 4 mg Capsule Take 4 mg by mouth. Active pravastatin (PRAVACHOL) 20 mg tablet Take 40 mg by mouth daily with supper . Active traZODone (DESYREL) 100 mg tablet Take 100 mg by mouth daily at bedtime. Active Active Problems Problem Noted Date Diagnosed Date Rib pain on left side 10/10/2018 Alcohol dependence with uncomplicated intoxicati on 10/10/2018 Fibromyalgia 10/10/2018 Social History Tobacco Use Types Packs/Day Years Used Date Smoking Tobacco: Former Cigarettes Smokeless Tobacco: Never Comments Unknown Sex and Gender Information Value Date Recorded Sex Assigned at Not on file Legal Sex Female 3:15 PM CDT Gender Identity Not on file Sexual Orientation Not on file Last Filed Vital Signs Vital Sign Reading Time Taken Comments Blood Pressure 110/60 10/10/2018 3:10 PM CDT Pulse - - Temperature - - Respiratory Rate - - Oxygen Saturation - - Inhaled Oxygen Concentration - - Weight - - Height - - Body Mass Index - - Plan of Treatment Health Maintenance Due Date Last Done Comments DTAP/TDAP/TD VACCINES (1 - Tdap) 1977 BREAST CANCER SCREENING 1998 COLORECTAL SCREENING 09/25/2003 Colorectal Cancer Screening 09/25/2003 FIT-DNA Q 3 years 09/25/2003 FIT/FOBT Q 1 year 09/25/2003 Flex Sig/CT Colonography Q 5 years 09/25/2003 PNEUMOCOCCAL VACCINE 50+ YEARS (1 of 1 - PCV) 09/25/19 09 ZOSTER VACCINE (1 of 2) 2008 OSTEOPOROSIS SCREENING 09/25/2023 INFLUENZA VACCINE (#1) 2023 RSV VACCINE (60+ or ) (1 - 1-dose 75+ series) 2033 Insurance MEDICARE PART A AND B [employer] Mobile Care Teams Parts Classifier Relationship Specialty Start Date End Date Cierra Sheets PA PCP - General Physician Software Engineering Supervisor 10/17/18
--- OUTSIDE RECORDS SUMMARY | 2024-06-19 00:31 | XMS_ITS | Data Portability ---
Author Organization [place] [facility] [employer] Main Office Address [address] [place] [address] Care Team Providers Care Gluing Machine Offbearer Name Role Phone SUMIT BYRNE Primary Care Provider [phone] SUMIT BYRNE Referring Provider [phone] Assessment Encounter Date Assessment Date Assessment LastModified by Organization Details LastModified Time 12/06/2022 12/06/2022 colonoscopy 2017, repeat 10 year lea. Not available 12/06/2022 12:29:45 06/14/2023 06/14/2023 This note is dictated and transcribed by [employer]. Orthotist variances may occur. Despite proofreading, typographical errors may occur. Occasional wrong-word or '[id number]' substitutions may have occurred due to the inherent limitations of voice recording. Read the chart carefully and recognize, using context, where substitutions have occurred. [email or web address] Not available 06/14/2023 17:19:14 Plan of Treatment Reminders Order Date Submit Date Provider Last Modified By Organization Details Last Modified Time Details Appointments None recorded. Lab lipid panel, serum [address] - Outpatient Lab, [address] [place], [address], 3 11:46:50 vitamin B12 + folate, serum or blood [address] - Outpatient Lab, [address] [place], [address], 3 11:46:49 HbA1c (hemoglobi n A1c), blood [address] - Outpatient Lab, [address] [place], [address], 11:46:50 culture, urine 2022 023 [email or web address] [facility] Outpatient Lab, [address] [place], [address], 11:15:27 urinalysis , complete [address] Outpatient Lab, [address] [place], [address], 11:46:49 TSH + free T4, serum 2022 [facility] Outpatient Lab, [address] [place], [address], 16:53:29 Referral None recorded. Procedures None recorded. Surgeries None recorded. Imaging DEXA 2022 023 [facility] (Imaging), [address] [place], [address], 13:14:34 MAMMO, screening, digital, bilateral 2022 023 [facility] (Imaging), [address] [place], [address], 12:12:40 Medication Orders None recorded. Patient TargetsNo targets recorded. Patient Instructions Encounter Date Encounter Id Patient Instructions Last Modified By Organization Details Last Modified Time 12/06/2022 [id number] multi-dimensiona l health assessment questionnaire* [email or web address] Not available 12/06/2022 12:39:33 care plan* [email or web address] Not available 11/27 12:39:24 advance directiv es: care instructions Not available 12/06/2022 12:29:58 advance care planning: care instructions Not available 12/06/2022 12:29:58 [place] Advance Directives Not available 12/06/2022 12:29:58 Personalized [facility] Plan and Screening Recommendations Advance Directives - Do you have one? No I recommend consulting with an Production Supervisor, family member, or friend to assist you. Advance Directives - Do we have your advance directive on file in your health record? Primary Prevention/Interven tion (prevents or decreases the chance of common diseases from occurring) Smoking Risk: Non Smoker Alcohol Misuse Screening: Negative Weight: Appropriate Overwei ght continue your current weight loss efforts Physical activity: Need more exercise/physical activity minimum of 10-20 minutes of activity that causes mild breathlessness/day Nutrition: Good Average Fall Risk (screened today): Low Intermediate Refer to attached handout Preventing Falls: After your Visit Recommend regular use of cane or walker Vaccines Pneumococcal: Ordered Recommended today Recommended today, but you have declined Influenza: Your next one in the fall of this year Chronic Disease Risks Stroke: Low Risk Intermediate Risk I have no recommendations Act jeramie diagnosis, Continue current treatment plan Heart Attack: Low risk Intermediate Risk I have no recommendations Act jeramie diagnosis, Continue current treatment plan Clogging of the Arteries: Low risk Intermediate Risk I have no recommendations Act jeramie diagnosis, Continue current treatment plan Diabetes: Low Risk Intermediate Risk Active diagnosis, Continue current treatment plan Secondary Prevention/Interven tion (detects treatable diseases before they may cause symptoms, disability, or ) Breast Cancer Screening with mammogram: Your next mammogram: Ordered Cervical/Uterine/Ov magi Cancer Screening: Your next PAP/pelvic in: Referral to research program manager Recomm ended today Osteoporosis Screening: Your next DEXA in: Ordered Date Screening Last Performed: Colon Cancer Screening: Colonoscopy Date Screening Last Performed: Eye Disease Screening: Ordered Recommended today Dementia Risk: Low Intermediate Depression Screening: Negative Positive Active diagnosis, Continue current treatment plan Not available 12/27/2022 22:37:12 Reason for Referral None Reported. Results Created Date Observation Date Name Description Value Unit Range Abnormal Flag Note LastModifiedBy Organization Detail LastModifiedTime 12/15/19 23 12/14/2022 MAMMO , aleah lerma, digit al, bilat eral No observ ation record ed. [facility] [address] [place], [address], 12/26/2022 00:19:35 12/15/1912/14/2022 DEXA No observ ation record ed. [facility] (Imaging) [address] [place], [address], 12/26/2022 00:19:36 12/22/19 MRI, ankle , w/o contr ast [facility] [address] [place] [address] [phone] Patien t Name: SHOSHANA GENTILE Access ion #: [id number] Sex: F : 1960 7 Dictat ed By: Sduheer ashford Attend ing Physic diaz: ZEHRA WHITEHEAD Ordermarco a ng Physic diaz: ZEHRA WHITEHEAD Exam Date: 2022 08:47 AM Exam Name: MRI ANKLE LT W/O Admitt ing Diagno sis(es ): CLINIC AL INFORM ATION: Latera l pain after injury . TECHNI QUE: Multis equenc e multip lanar MRI images of the left ankle were obtain ed withou t contra st. COMPAR MARY: Radiog raphs dated 10/29/19. FINDIN GS: BONES/ JOINTS : There is promin ent marrow edema at the latera l aspect of the body of the calcan eus extend ing to the level of the perone al tuberc le with osseou s fragme nt measur ing up to 1.1 cm adjace nt to the perone al tuberc le, may be a retrac krystal os perone um associ ated with tear of the perone us longus tendon descri bed below. Modera te adjace nt soft tissue edema. No osteoc hondra l lesion of the talus. No signif icant joint effusi on. TENDON S: Tibial is wet process operator ior, flexor digito rum longus , and flexor halluc is longus tendon s are intact . Full-t hickne ss ruptur e of the perone us longus tendon at the level of the planta r aspect of the cuboid with retrac tion of torn tendon fibers approx imatel y 3 cm to the level of the perone al tuberc le. There is a 1.1 cm osseou s fragme nt adjace nt to the proxim al torn and of the perone us longus tendon , likely an os perone um, which was retrac krystal due to the tear. The more proxim al perone us longus and brevis tendon s demons trate modera te tendin osis and mild tenosy noviti s. More distal ly, the perone us longus tendon demons trates hetero geneou s signal along its planta r course and near its insert ion, likely due to tendin osis. Tibial is anteri or, extens or halluc is longus , and extens or digito rum longus tendon s are intact . Achill es tendon is intact with no signif icant tendin osis or perite ndinit is. LIGAME NTS: Deltoi d ligame nt comple x is intact . Spring ligame nt comple x is intact . Anteri or and wet process operator ior talofi bular ligame nts are intact . Syndes motic ligame nts are intact . Mild sprain of the calcan eofibu lar ligame nt. Page 1 [facility] [address] [address] Patien t Name: SHOSHANA GENTILE [facility] ion #: [id number] Sex: F : 1960 7 Dictat ed By: Sudheer ashford Attend [facility] Physic diaz: MEAGAN SHAHID Orderi Physic diaz: ZEHRA WHITEHEAD Exam Date: 2022 08:47 AM Exam Name: MRI ANKLE LT W/O Admitt ing Diagno sis(es ): PLANTA R FASCIA : Unrema rkable . No signif icant thicke florentin or edema. SINUS TARSI: Unrema rkable . No signif icant edema. MUSCLE S: Unrema rkable . No signif icant atroph y. OTHER: No other signif icant findin gs. IMPRES EMILY: 1. Full-t hickne ss ruptur e of the perone us longus tendon as descri bed above. 2. Osseou s fragme nt associ ated with the proxim al torn end of the perone us longus tendon , likely retrac krystal os perone um. 3. Marrow edema in the perine al tuberc le and adjace nt portio ns of the latera l aspect of the calcan eus, may be due to contus ion associ ated with the perone us longus tendon ruptur e and/or reacti ve marrow edema. 4. Additi onal findin gs as detail ed above. Electr onical ly Signed by: Sudheer ashford at 2022 15:54: 37 PM Page 2 [facility] ([facility]) [address] [place], [address], 12/26/2022 00:20:47 05/16/19 24 05/02/2023 US, echoc ardio gram, trans thora cic, compl ete, w/ color flow No observ ation record ed. [facility] Not Available 2023 17:04:30 Result Notes None recorded. Problems Name Problem SNOMED Code Status Onset Date Resolution Date Notes Provider Name and Address Organization Details Recorded Time Benign hypertensi on 61535413 Active Not Available [facility] 3 18:15:20 Lesion of skin of face 271503335941 Active 2021 Not Available [facility] 3 18:15:20 Contusion of face 743762978 Active Not Available [facility] 3 18:15:20 Submandibu lar lymphadeno presley 160565048 Active 2021 Not Available [facility] 3 18:15:20 Hyperbilir ubinemia 48455978 Active Not Available [facility] 3 18:15:20 Acute sinusitis 29804036 Active Not Available [facility] 3 18:15:20 Increased frequency of urination 994826932 Active 2021 Not Available [facility] 3 18:15:20 Serum iron above reference range 434142779 Active Not Available [employer] 3 18:15:20 Gallstone 189766943 Active Not Available [facility] 3 18:15:21 Fibromyosi tis 93980516 Active Not Available [facility] 3 18:15:21 Degenerati on of lumbar interverte bral disc 93701210 Active Not Available [facility] 3 18:15:21 Mixed hyperlipid emia 877004334 Active Not Available [facility] 3 18:15:21 Ecchymosis 879926921 Active Not Available [facility] 3 18:15:21 Restless legs 28231307 Active 2021 Not Available [facility] 3 18:15:21 Change in skin lesion 288632088 Active 2021 Not Available [facility] 3 18:15:21 Osteoarthr itis 143049022 Active Not Available [facility] 3 18:15:21 Hypothyroi dism 47479370 Active Not Available [facility] 3 18:15:21 Itching of skin 223453796 Active Not Available [facility] 3 18:15:21 Dyssomnia 25776714 Active Not Available [facility] 3 18:15:21 Swelling of lower leg 492367359 Active Not Available [facility] 3 18:15:21 Anxiety 34940898 Active Not Available [facility] 3 18:15:21 Cough 27212690 Active Not Available [facility] 3 18:15:21 Cervical radiculopa thy 53523852 Active Not Available [facility] 3 18:15:21 Vitamin B12 deficiency (non anemic) 92679458 Active 2021 Not Available [facility] 3 18:15:21 Recurrent major depression 74709344 Active Not Available [facility] 3 18:15:21 Degenerati on of cervical interverte bral disc 97422553 Active Not Available [facility] 3 18:15:21 Cholelithi asis without obstructio n 01061733 Active Not Available [facility] 3 18:15:21 Obstructiv e sleep apnea syndrome 30552879 Active Not Available [facility] 3 18:15:21 Fatigue 97921305 Active Not Available [facility] 3 18:15:21 Sprain of deltoid ligament of ankle 98147429 Active 2020 Not Available [facility] 3 18:15:21 Tick bite 67427129 Active Not Available [facility] 3 18:15:21 Insomnia 579065563 Active 2022 Not Available [facility] 3 18:15:20 Benign essential hypertensi on 7458735 Active 2022 Not Available [facility] 3 18:15:20 Blood glucose outside reference range 571982469 Active 2022 Not Available [facility] 3 18:15:20 Pain of right shoulder joint 9958141357251 9100 Active 2022 Not Available [facility] 3 18:15:20 Localized swelling of left lower limb 8839548158998 9101 Active 2022 Not Available [facility] 3 18:15:20 Cellulitis of right external ear 2288652335607 103 Active 2022 Not Available [facility] 3 18:15:20 Osteoporos is 79588741 Active 2022 Not Available [facility] 3 18:15:21 Acute urinary tract infection 205333842 Active 2023 JEAN PIERRE Somers [address], [place], [address] , [facility] 4 14:43:46 Hyperglyce apul 48113515 Active 2023 JEAN PIERRE Somers [address], [address], [place], [address] , [facility] 4 08:44:05 Open wound of left ankle 9047108218195 9103 Active 2023 Chester Clark DPM [address], [place], [address] , [facility] [employer] [facility] [employer] 17:18:35 Open wound of upper limb 34175124 Active 2023 JEAN PIERRE Medrano [address], [place], [address] , [facility] [employer] [facility] [employer] 16:00:20 Notes:Some problems listed i n Document: #[id number] could not be added to this patient's chart. Please review this document and add these problems to the patient's chart manually as needed. Problem Notes None recorded. Procedures Surgical History Date Name Laterality Status Provider Name and Address Organization Details Recorded Time Wound Care-Podiatry completed JEAN PIERRE Medrano [address], [place], [address], [facility] [employer] 12/12/2023 15:32:53 024 Wound Care-Podiatry completed JEAN PIERRE Medrano [address], [place], [address], [employer] 12/05/2023 15:28:24 024 Wound Care-Podiatry completed JEAN PIERRE Medrano [address], [place], [address], [employer] [facility] 11/28/2023 15:57:48 024 Wound Care-Podiatry completed Chester Clark DPM [address], [place], [address], [facility] [employer] [facility] [employer] 06/14/2023 17:18:02 023 Medicare Wellness CPT Code, subsequent completed OSMANI [place] [employer] [facility] [employer] [facility] 12/06/2022 11:55:51 017 Date of Last Colonoscopy completed Not Available [facility] 04/27/2022 12:48:06 971 Tonsillectomy completed Not Available [facility] 04/27/2022 12:48:08 Orthopedic Surgery completed Not Available [facility] 04/27/2022 12:48:08 Gastrointestinal Surgery completed Not Available [facility] 04/27/2022 12:48:08 Orthopedic Surgery completed Not Available [facility] 04/27/2022 12:48:08 Hysterectomy completed Not Available [facility] 04/27/2022 12:48:08 Orthopedic Surgery completed Not Available [facility] 04/27/2022 12:48:08 Cholecystectomy completed Not Available [facility] 04/27/2022 12:48:08 Orthopedic Surgery completed Not Available [facility] 04/27/2022 12:48:08 Imaging Results Imaging Date Name Status LastModified by Organiz ation Details LastModified Time 12/14/2022 MAMMO, screening, digital, bilateral completed [email or web address] [facility] [address] [place], [address], 12/26/2022 00:19:35 12/14/2022 [facility] [facility] [address] [place], [address], 12/26/2022 00:19:36 12/21/2022 MRI, [facility], w/o contrast [facility] [facility] [address] [place], [address], 12/26/2022 00:20:47 05/02/2023 US, echocardiogram , transthoracic, complete, w/ color flow completed [employer] Information not available 05/16/2023 17:04:30 Procedure Notes None recorded. Medical Equipment None Reported. Allergies Allergen ID Allergen Name Allergen Category Reaction Reaction Severity Criticality Documentation Date Start Date Code Code System Note Provider Name and Address Organization Details Recorded Time 61519 vancomyci n medicatio n Not available Not available Not available 04/27/2022 61654 RxNorm Not Available [facility] 12:58:51 01819 erythromy jeferson medicatio n hives Not available Not available 04/27/2022 4053 RxNorm Not Available [facility] 12:58:51 18052 codeine medicatio n Not available Not available Not available 04/27/2022 2670 RxNorm Not Available [facility] 12:58:51 61416 azithromy jeferson medicatio n Not available Not available Not available 04/27/2022 22432 RxNorm Not Available [facility] 3 12:58:51 89164 Product containin g angiotens in-conver ting enzyme inhibitor (product) medicatio n Not available Not available Not available 04/27/2022 81145 009 SNOMED Not Available [facility] 3 12:58:51 Medications Name Sig Start Date Stop Date Status Note LastModified by Organization Details LastModified Time multivitami n tablet TAKE 1 TABLET BY MOUTH DAILY active Not Available Not Available No t Available celecoxib 200 mg capsule TAKE 1 CAPSULE BY MOUTH DAILY 10/21 completed Not Available Not Available Not Available paroxetine 10 mg tablet Take 1 tablet every day by oral route. 07/07 completed Not Available Not Available Not Available BD Insulin Syringe 1 mL 25 x 1 USE DIRECTED MONTHLY. active Not Available Not Available No t Available pravastatin 40 mg tablet Take 1 tablet every day by oral route. active Not Available Not Available No t Available tizanidine 4 mg tablet TAKE 1 TABLET BY MOUTH TWICE A DAY NEEDED active Not Available Not Available No t Available benzonatate 200 mg capsule Take 1 capsule 3 times a day by oral route. active Not Available Not Available No t Available hydrocodone 5 mg-acetamin ophen 325 mg tablet TAKE 1 TABLET BY MOUTH EVERY 6 HOURS NEEDED 12/06 completed Not Available Not Available Not Available prednisone 20 mg tablet take 3 tabs po daily x 2 days, then 2 tabs po daily x 2 days, then 1 tab po daily x 2 days, then 1/2 tab po daily x 2 days active Not Available Not Available No t Available prednisone 5 mg tablet TAKE 1 TO 2 TABLETS BY MOUTH DAILY PRN 12/05 completed Not Available Not Available Not Available sulfasalazi ne 500 mg tablet,mesha yed release TAKE 3 TABLETS BY MOUTH TWICE A DAY active Not Available Not Available No t Available penicillin V potassium 500 mg tablet TAKE 1 TABLET BY MOUTH FOUR TIMES DAILY UNTIL ALL TAKEN 10/20 completed Not Available Not Available Not Available leflunomide 10 mg tablet 10/21 completed Not Available Not Available Not Available diltiazem CD 360 mg capsule,ext ended release 24 hr TAKE 1 CAPSULE DAILY active Not Available Not Available No t Available azathioprin e 50 mg tablet TAKE 3 TABLETS BY MOUTH DAILY 12/06 completed Not Available Not Available Not Available hydrocodone 10 mg-acetamin ophen 325 mg tablet Take 1 tablet every 8 hours by oral route as needed. active Not Available Not Available No t Available tramadol 50 mg tablet TAKE 1 TABLET BY MOUTH EVERY 6 HOURS NEEDED active Not Available Not Available No t Available triamcinolo ne acetonide 0.1 % topical cream APPLY A THIN LAYER TO THE Arms BY TOPICAL ROUTE 2 TIMES PER DAY pRN active Not Available Not Available No t Available levothyroxi ne 25 mcg tablet Take 1 tablet every day by oral route. 07/07 completed Not Available Not Available Not Available meloxicam 7.5 mg tablet TAKE 1 TABLET BY MOUTH EVERY DAY NEEDED FOR PAIN 12/06 completed Not Available Not Available Not Available oxycodone-a cetaminophe n 5 mg-325 mg tablet TAKE 1-2 TABLETS BY MOUTH EVERY 4 HOURS HOURS NEEDED FOR PAIN active Not Available Not Available No t Available amitriptyli ne 25 mg tablet TAKE 1 TABLET BY MOUTH AT BEDTIME active Not Available Not Available No t Available lorazepam 0.5 mg tablet TAKE 1 TABLET BY MOUTH EVERY DAY AT BEDTIME NEEDED FOR ANXIETY active Not Available Not Available No t Available methocarbam ol 750 mg tablet Take 1 tablet twice a day by oral route as needed. active Not Available Not Available No t Available triamcinolo ne acetonide 0.1 % dental paste apply generousl y to the ulcer patches inside mouth 4 times daily active Not Available Not Available No t Available methotrexat e sodium 2.5 mg tablet TAKE 5 TABLETS BY ORAL ROUTE EVERY 7 DAYS active Not Available Not Available No t Available trazodone 100 mg tablet TAKE 1 TABLET DAILY AT BEDTIME 07/07 completed Not Available Not Available Not Available ropinirole 0.25 mg tablet TAKE 1 TABLET BY MOUTH EVERYDAY AT BEDTIME active Not Available Not Available No t Available dicyclomine 20 mg tablet TAKE 1 TABLET BY MOUTH 3 TIMES A DAY NEEDED FOR STOMACH CRAMPS active Not Available Not Available No t Available amitriptyli ne 10 mg tablet Take 1 tablet every day by oral route. 06/13 completed Not Available Not Available Not Available baclofen 10 mg tablet TAKE 1 TABLET BY MOUTH TWICE A DAY NEEDED 07/07 completed Not Available Not Available Not Available cephalexin 500 mg capsule TAKE 1 CAPSULE BY MOUTH EVERY 6 HOURS FOR 7 DAYS 06/13 completed Not Available Not Available Not Available paroxetine 20 mg tablet TAKE 1 TABLET BY MOUTH EVERY DAY active Not Available Not Available No t Available cyanocobala min (vit B-12) 1,000 mcg/mL injection solution INJECT 1ML INTO THE SKIN ONCE EVERY 2 WEEKS active Not Available Not Available No t Available lidocaine 5 % topical patch APPLY 1 PATCH ONTO THE SKIN ONCE DAILY (MAY WEAR UP TO 12 HOURS.) active Not Available Not Available No t Available hydrochloro thiazide 12.5 mg capsule TAKE 1 CAPSULE DAILY 07/07 completed Not Available Not Available Not Available Synthroid 50 mcg tablet Take 1 tablet every day by oral route. 2014 active Not Available Not Available Not Avai lable betamethaso ne, augmented 0.05 % topical ointment APPLY TO THE foot BY TOPICAL ROUTE ONCE DAILY ; DO NOT EXCEED 45 GRAMS PER WEEK. 07/07 completed Not Available Not Available Not Available gabapentin 300 mg capsule TAKE 3 CAPSULES BY MOUTH EVERY NIGHT AT BEDTIME active Not Available Not Available No t Available diclofenac sodium 75 mg tablet,mesha yed release Take 1 tablet twice a day by oral route as needed for 90 days. 12/06 completed Not Available Not Available Not Available diltiazem CD 120 mg capsule,ext ended release 24 hr Take 1 capsule every day by oral route in the evening. 07/07 completed Not Available Not Available Not Available folic acid 1 mg tablet TAKE 1 TABLET BY MOUTH EVERY DAY active Not Available Not Available No t Available montelukast 10 mg tablet Take 1 tablet every day by oral route. active Not Available Not Available No t Available morphine ER 15 mg tablet,exte nded release TAKE 1 TABLET (15 MG) BY ORAL ROUTE EVERY 12 HOURS active Not Available Not Available No t Available pravastatin 20 mg tablet Take 1 tablet every day by oral route in the evening. 07/07 completed Not Available Not Available Not Available furosemide 20 mg tablet Take 1 tablet every day by oral route. active Not Available Not Available No t Available gabapentin 100 mg capsule TAKE 1 CAPSULE BY MOUTH TWICE A DAY active Not Available Not Available No t Available insulin syringe U-100 with needle 1 mL 29 gauge x 1/2 for allergy shots. 2016 active Not Available Not Available Not Avai lable lorazepam 1 mg tablet TAKE 1 TABLET BY MOUTH 1 TO 2 TIMES DAILY NEEDED active Not Available Not Available No t Available diazepam 10 mg tablet TAKE 1 TAB FOR 1 DOSE, TAKE ON ARRIVAL TO PRE-GERA TRATION DAY OF PROCEDURE . DROWSINES S - DONT DRIVE 07/07 completed Not Available Not Available Not Available oxycodone-a cetaminophe n 7.5 mg-325 mg tablet 07/07 completed Not Available Not Available Not Available methylpredn isolone 4 mg tablets in a dose pack TAKE 6 TABLETS ON DAY 1 DIRECTED ON PACKAGE AND DECREASE BY 1 TAB EACH DAY FOR A TOTAL OF 6 DAYS active Not Available Not Available No t Available losartan 100 mg tablet TAKE 1 TABLET BY MOUTH EVERY DAY active Not Available Not Available No t Available fluticasone propionate 50 mcg/actuati on nasal spray,suspe nsion SHAKE LIQUID AND USE 2 SPRAYS IN EACH NOSTRIL DAILY active Not Available Not Available No t Available doxycycline hyclate 100 mg tablet TAKE 1 TABLET TWICE A DAY BY ORAL ROUTE WITH MEAL(S). 11/27 completed Not Available Not Available Not Available naproxen 500 mg tablet 12/06 completed Not Available Not Available Not Available amoxicillin 875 mg-potassiu m clavulanate 125 mg tablet TAKE 1 TABLET BY MOUTH EVERY 12 HOURS 11/27 completed Not Available Not Available Not Available ezetimibe 10 mg tablet TAKE 1 TABLET BY MOUTH EVERY DAY active Not Available Not Available No t Available rosuvastati n 5 mg tablet TAKE 1 TABLET BY MOUTH EVERY DAY IN THE EVENING 06/13 completed Not Available Not Available Not Available nitrofurant oin monohydrate /macrocryst als 100 mg capsule Take 1 capsule every 12 hours by oral route. 06/13 completed Not Available Not Available Not Available duloxetine 30 mg capsule,del ayed release take 1 capsule daily for 1 week, then increase to 2 tablets po daily. 07/07 completed Not Available Not Available Not Available eszopiclone 3 mg tablet TAKE 1 TABLET BY MOUTH DAILY 30 MINUTES BEFORE BEDTIME, GREATER THAN 2 HOURS APART FROM GABAPENTI N. active Not Available Not Available No t Available eszopiclone 2 mg tablet Take 1 tablet every day by oral route at bedtime. 05/23 completed Not Available Not Available Not Available Vitamin C 2021 active Not Available Not Available Not Avai lable zinc 2021 active Not Available Not Available Not Avai lable iron 10/21 completed Not Available Not Available Not Available sulfasalazi ne 2021 active Not Available Not Available Not Avai lable collagen 06/13 completed Not Available Not Available Not Available hydrochloro thiazide 12.5 mg tablet TAKE 1 TABLET BY MOUTH EVERY DAY IN THE MORNING active Not Available Not Available No t Available Cholestyram ine Light 4 gram oral powder USE 1 SCOOP IN 6 TO 8 OUNCES OF WATER DIRECTED PRN 12/06 completed Not Available Not Available Not Available oxycodone 10 mg tablet 07/07 completed Not Available Not Available Not Available Voltaren 1 % topical gel active Not Available Not Available Not Available GaviLyte-N 420 gram oral solution 07/07 completed Not Available Not Available Not Available EpiPen 2-Jose Alejandro 0.3 mg/0.3 mL injection, auto-inject or active Not Available Not Available Not Available naloxone 4 mg/actuatio n nasal spray CALL 911. SPR CONTENTS OF ONE SPRAYER (0.1ML) INTO ONE NOSTRIL. REPEAT IN 2-3 MIN IF SYMPTOMS OF OPIOID EMERGENCY PERSIST, ALTERNATE NOSTRILS active Not Available Not Available No t Available Tiadylt ER 180 mg capsule,ext ended release TAKE 1 CAPSULE BY MOUTH EVERY DAY active Not Available Not Available No t Available Wegovy 0.25 mg/0.5 mL subcutaneou s pen injector Inject 0.25 mg every week by subcutane ous route as directed. 06/13 completed Not Available Not Available Not Available Vitals Date Recorded Body height Body temperature Body mass index (BMI) Body weight Respiratory rate Oxygen saturation Oxygen saturation in Arterial blood by Pulse oximetry Heart rate Systolic blood pressure Diastolic blood pressure Provider Name and Address Organization Details Last Updated DateTime 162.56 cm 97.2 [degF] 37.6 kg/m2 00553.7 3 g 16 /min 98 % 98 % 67 /min 132 mm[Hg] 80 mm[Hg] OSMANI Key [facility] [employer] [facility] 3 12:00:38 Date Recorded Body height Body temperature Oxygen saturation Oxygen saturation in Arterial blood by Pulse oximetry Heart rate Respiratory rate Systolic blood pressure Diastolic blood pressure Provider Name and Address Organization Details Last Updated DateTime 4 162.56 cm 98.6 [degF] 98 % 98 % 72 /min 16 /min 185 mm[Hg] 92 mm[Hg] Roopa Felton RN [facility] [employer] [facility] 4 16:03:03 Date Recorded Body height Body temperature Heart rate Oxygen saturation Oxygen saturation in Arterial blood by Pulse oximetry Provider Name and Address Organization Details Last Updated DateTime 4 162.56 cm 97.7 [degF] 68 /min 97 % 97 % Karthik Willis RN [facility] [employer] [facility] 4 14:59:01 Date Recorded Body height Oxygen saturation Oxygen saturation in Arterial blood by Pulse oximetry Heart rate Respiratory rate Body temperature Systolic blood pressure Diastolic blood pressure Provider Name and Address Organization Details Last Updated DateTime 4 162.56 cm 97 % 97 % 70 /min 18 /min 98.6 [degF] 112 mm[Hg] 66 mm[Hg] Roopa Felton RN [facility] [employer] [facility] 4 15:01:41 Date Recorded Body height Oxygen saturation Oxygen saturation in Arterial blood by Pulse oximetry Heart rate Body temperature Systolic blood pressure Diastolic blood pressure Provider Name and Address Organization Details Last Updated DateTime 4 162.56 cm 97 % 97 % 67 /min 99.5 [degF] 149 mm[Hg] 78 mm[Hg] Karthik Willis RN [facility] [employer] [facility] 4 14:25:57 Social History Question Answer Notes LastModified by Organizat ion Details LastModified Time Tobacco Smoking Status Former Smoker Quit 1996 Not Available [facility] 04/27/2022 12:47:39 Do You Have An Advance Directive? No [id number].[id number] Information not available 04/27/2022 What Is Your Level Of Alcohol Consumption? Moderate 2-3 Glasses Of Wine Daily MIGRATION.14855 [id number] Information not available 04/27/2022 Do You Wear A Helmet When Biking? No MIGRATION.96119 71838 Information not available 04/27/2022 What Is Your Level Of Caffeine Consumption? Moderate Coffee, 2 Cups MIGRATION.22584 99465 Information not available 04/27/2022 How Much Tobacco Do You Chew? None MIGRATION.45515 24089 Information not available 04/27/2022 In The 14 Days Before Symptom Onset, Have You Had Close Contact With A Laboratory-confir med COVID-19 While That Case Was Ill? No MIGRATION.54867 57841 Information not available 04/27/2022 In The 14 Days Before Symptom Onset, Have You Had Close Contact With A Person Who Is Under Investigation For COVID-19 While That Person Was Ill? No MIGRATION.66777 01553 Information not available 04/27/2022 Are You Currently Employed? No [email or web address] Information not available 06/06/2022 What Type Of Diet Are You Following? REGULAR MIGRATION.79899 02394 Information not available 04/27/2022 Which Illicit Or Recreational Drugs Have You Used? None MIGRATION.53971 95968 Information not available 04/27/2022 Do You Or Have You Ever Used E-cigarettes Or Vape? Never Used Electronic Cigarettes MIGRATION.59981 90371 Information not available 04/27/2022 What Is Your Occupation? Retired MIGRATION.07386 33979 Information not available 04/27/2022 Have There Been Any Changes To Your Family Or Social Situation? No MIGRATION.20583 88203 Information not available 04/27/2022 Are There Any Guns Present In Your Home? No MIGRATION.42098 87890 Information not available 04/27/2022 Do You Use Insect Repellent Routinely? No MIGRATION.68546 66123 Information not available 04/27/2022 Advance Directive- Providers Has Reviewed Directive And Consents To Follow Them (insert Provider Name With Any Objectives In Notes Field) No MIGRATION.19798 58299 Information not available 04/27/2022 Do You Have A Medical Power Of Production Supervisor? No MIGRATION.36305 72124 Information not available 04/27/2022 Do You Have Any Pets? Yes MIGRATION.91221 04643 Information not available 04/27/2022 What Is Your Relationship Status? MIGRATION.33286 77197 Information not available 04/27/2022 Do You Use Your Seat Belt Or Car Seat Routinely? Yes MIGRATION.58406 47744 Information not available 04/27/2022 Do You Have Smoke And Carbon Monoxide Detectors In Your Home? Yes MIGRATION.73755 96892 Information not available 04/27/2022 Are You Passively Exposed To Smoke? No MIGRATION.39050 05166 Information not available 04/27/2022 Do You Or Have You Ever Used Smokeless Tobacco? Never Used Smokeless Tobacco MIGRATION.74152 55464 Information not available 04/27/2022 Are There Any Smokers In Your House? No MIGRATION.10955 42746 Information not available 04/27/2022 How Much Tobacco Do You Smoke? 1 PPW MIGRATION.94076 38223 Information not available 04/27/2022 Do You Feel Stressed (tense, Restless, Nervous, Or Anxious, Or Unable To Sleep At Night)? [id number] MIGRATION.73145 76471 Information not available 04/27/2022 Do You Use Any Illicit Or Recreational Drugs? No MIGRATION.63530 15066 Information not available 04/27/2022 Do You Use Sunscreen Routinely? Yes MIGRATION.94491 09807 Information not available 04/27/2022 Have You Recently Traveled Abroad? No MIGRATION.27608 13141 Information not available 04/27/2022 Do You Have Any Dietary Restrictions? No MIGRATION.35392 24357 Information not available 04/27/2022 Do You Or Have You Ever Used Any Other Forms Of Tobacco Or Nicotine? No MIGRATION.66979 43720 Information not available 04/27/2022 Sex: Unknown Functional Status Question Answer Note LastModified by Organizat ion Details LastModified Time What is your exercise level? Occasional [id number] Information not available 04/27/2022 Mental Status None recorded. Family History Relationship Description Onset Age of this Age Resolved Age Notes LastModified by Organization Details LastModified Time Mother Diabetes mellitus [id number].431 [id number] Not available 04/27/2022 12:48:10 Mother Malignant tumor of lung [email or web address] Not available 2023 14:15:08 Maternal Grandmother Diabetes mellitus MIGRATION.992 [id number] Not available 04/27/2022 12:48:10 Brother Diabetes mellitus MIGRATION.431 [id number] Not available 04/27/2022 12:48:10 Father Family history of stroke [email or web address] Not available 2023 14:15:09 Father Arthritis [email or web address] Not availabl e 12/12/2023 14:15:09 Father History of hypertension [email or web address] Not available 14:15:09 Father Heart disease Not available 2023 15:15:09 Medical History Condition Response SEIZURES/EPILEPSY NERVE DISEASE Y DIZZINESS Y HEARTBURN / REFLUX Y INSOMNIA Y HYPERTENSION Y HIGH CHOLESTEROL / HYPERLIPIDEMIA Y OBESITY Y ANXIETY DISORDER Y ANEMIA/BLOOD DISORDER Y BRONCHITIS Y OSTEOPOROSIS Y SLEEP DISORDER Y DEPRESSION (INCLUDING POST ) Y BACK / NECK PROBLEMS Y Gynecological History Statement/Question Response Abnormal Pap N Date of Last Mammogram 11/20/2015 Date of Last Colonoscopy 09/27/2016 Most Recent Bone Density Sexually Active? N Menses Monthly N Date of Last Pap Current Control Method Hysterectom y Obstetrics History GPAL:G 6 P 0 0 3 3 Type Value Spontaneous 3 Living 3 Total 6 Immunizations Vaccine Type Date Status Note Provider Nam e and Address Organization Details Recorded Time influenza, unspecified formulation 5 completed Not Available [facility] 02/07/2023 18:15:21 Tdap 5 completed Not Available [facility] 02/07/2023 18:15:21 influenza, unspecified formulation 4 completed Not Available [facility] 02/07/2023 18:15:21 Tdap 2 completed Not Available [facility] 02/07/2023 18:15:22 Past Encounters Encounter ID Performer Location Encounter Start Date Encounter Closed Date Diagnosis/Indication Diagnosis SNOMED-CT Code Diagnosis ICD10 Code Diagnosis Note [id number] [facility] [place] [address] [place] [address] 07/07/2020 00:00:00 07/24/2020 19:26:37 [id number] [facility] [place] [address] [place] [address] 07/22/2020 00:00:00 07/22/2020 23:44:37 [id number] [facility] [place] [address] [place] [address] 08/24/2020 00:00:00 08/24/2020 13:00:09 [id number] [facility] [place] [address] [place] [address] 12/01/2020 00:00:00 12/25/2020 00:12:53 [id number] [facility] [place] [address] [place], [place] [address] 06/01/2021 00:00:00 06/26/2021 15:13:28 [id number] [facility] [place] [address] [place], [place] [address] 06/22/2021 00:00:00 06/22/2021 23:14:53 [id number] [facility] [place] [address] [place], [place] [address] 10/21/2021 00:00:00 10/23/2021 18:26:14 [id number] [facility] [place] [address] [place], [place] [address] 12/07/2021 00:00:00 12/26/2021 15:17:22 [id number] JEAN PIERRE Somers [facility] [place] [address] [place] [address] 06/07/2022 12:33:40 06/07/2022 12:56:54 Benign essential hypertension 5749420 I10 stable on medication s Hypothyroidism 49679437 E03.9 stable on supplement . due for labs , TFts ordered Dyssomnia 86090290 G47.9 Lunesta is not too helpful but better than nothing. Mixed hyperlipidemia 267 240899 E78.2 stable on statin therapy. 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 no acute changes. chronic source of pain for the patient. Long-term drug therapy 387468927 Z79.899 routine b12, folate, CBC, LFT and BMP due Increased frequency of urination 381559330 R35.0 screening urine w/cx Blood gluc ose outside reference range 619145483 R73.09 due for updated A1c. Degenerati on of cervical intervertebral disc 90170426 M50.30 refer to P.T. for eval and tx to help with DDD cspine flare up Pain of ri ght shoulder joint 7266540444 3388248 M25.511 refer to P.T. for right shoulder modalities and improve ROM [id number] JEAN PIERRE Somers [facility] [place] [address] [place] [address] 12/06/2022 11:54:04 12/06/2022 12:36:23 Adult health examination 100279152 Z00.00 mawe completed with routine f/u appt Screening for disorder 028073725 Z13.9 Benign ess ential hypertension 8034294 I10 stable on medication s Hypothyroidism 27528585 E03.9 stable on supplement . due for labs , TFts ordered Dyssomnia 95876414 G47.9 no acute changes. stable on medication . Mixed hyperlipidemia 267 005884 E78.2 stable on statin therapy. due for lipid panel Fibromyositis 39738647 M 79.7 hx noted. no acute changes. chronic source of pain for the patient. Long-term drug therapy 436657734 Z79.899 routine b12 , folate due Increased frequency of urination 709969547 R35.0 screening urine w/cx Blood gluc ose outside reference range 853582869 R73.09 due for updated A1c. Screening mammography 24 558715 Z12.31 mammogram ordered for annual evaluation . Osteoporosis 73074210 M8 1.0 DEXA scan is due [id number] Chester Clark DPM [facility] [address] [place] [address] 06/14/2023 15:20:22 06/14/2023 17:45:41 Open wound of left ankle 4324125404 7579490 S91.002A debrided todayhealt hy in naturedail y dressingsE ndoform applied, change outer dressings with silver Hydrogelfo llow-up in 1-2 weeks [id number] JEAN PIERRE Medrano [facility] [address] [place] [address] 11/28/2023 14:23:15 11/28/2023 16:03:25 Open wound of upper limb 44598581 S51.009A Open wound of R elbow. Thick eschar covering today debrided. Betadine wet to dry dressings daily. Will f/u in one week. [id number] JEAN PIERRE Medrano [facility] [address] [place] [address] 12/05/2023 14:52:06 12/05/2023 16:02:58 Open wound of upper limb 16074682 S51.009A Open wound of R elbow. Size improved. Debridemen t today. Betadine wet to dry dressings daily. Will f/u in one week. [id number] JEAN PIERRE Medrano [facility] [address] [place] [address] 12/12/2023 14:12:00 12/12/2023 17:24:29 Open wound of upper limb 13733569 S51.009A Open wound of R elbow. Size improved. Debridemen t today. Aquacel-ag dressings daily. Will f/u in one week. Health Concerns Section Related Observation LastModified by Organization Detai ls LastModified Time None Recorded Concern Status LastModified by Organization Details LastModified Time None Recorded Advance Directives Directive N: Payers Encounter Date Sequence Insurance Name Policy Number Policy Carcamo Covered Member ID Carcamo Member ID Guarantor Name 12/06/2022 1 [facility] (MEDICARE REPLACEMENT/A DVANTAGE - HMO) [id number] Shoshana Tierney [id number] Shoshana Tierney 12/06/2022 2 [employer] (MEDICARE SUPPLEMENT) Matheus Tierney [id number] Shoshana Tierney 06/14/2023 1 [facility] (MEDICARE REPLACEMENT/A DVANTAGE - HMO) [id number] Shoshana Tierney [id number] Shoshana Tierney 06/14/2023 2 [employer] - FOR LIFE (MEDICARE SUPPLEMENT) Matheus Tierney [id number] Shoshana Tierney 11/28/2023 1 [facility] (MEDICARE REPLACEMENT/A DVANTAGE - HMO) [id number] Shoshana Tierney [id number] Shoshana Tierney 11/28/2023 2 [employer] - FOR LIFE (MEDICARE SUPPLEMENT) Matheus Tierney [id number] Shoshana Tierney 12/05/2023 1 [facility] (MEDICARE REPLACEMENT/A DVANTAGE - HMO) [id number] Shoshana Tierney [id number] Shoshana Tierney 12/05/2023 2 [employer] - FOR LIFE (MEDICARE SUPPLEMENT) Matheus Tierney [id number] Shoshana Tierney 12/12/2023 1 [facility] (MEDICARE REPLACEMENT/A DVANTAGE - HMO) [id number] Shoshana Tierney [id number] Shoshana Tierney 12/12/2023 2 [employer] - FOR LIFE (MEDICARE SUPPLEMENT) Matheus Tierney [id number] Shoshana Tierney Notes Date Note Type Note Provider Name and Address Organization Details Recorded Time 3 text/html HyperlipidemiaReported bypatient.Duration:chronic Control:usually well controlled Compliance:compliant; compliant with diet; exercises Complications:no coronary artery disease; no peripheral artery disease; no cardiovascular disease Risk Factors:hypertensionHyperte nsionReported bypatient.Duration:has noted for years Onset/Timing:better Alleviating Factors:medication Associated Symptoms:no shortness of breath; no fatigue; no decline in exercise capacity; no snoring;palpitationsHypothy roidismReported bypatient.Quality:not changing Duration:constant Onset/Timing:still present Context/Risk:normal thyroid levels; no history of head or neck radiation during childhood; no history of thyroid disease; no history of hyperthyroidism; no excess iron exposure;history of hypothyroidism;female gender Modifying Factors:medication Exercisegets exercise Associated Symptoms:no cold intolerance; no heat intolerance; no weight loss; no weight gain; no double vision; no dry eyes; no hoarseness; no difficulty swallowing; no neck masses; no deepening of the voice; no increased blood pressure; no chest pain; no chest tightess or pressure; no constipation; no diarrhea; no vomiting; no decreased appetite; no loose stools; no irregular menstrual periods; no excessive sweating; no joint pain; no numbness; no tingling of the hands or feet; no dry skin; no tremor; no nervousness; no anxiety; no depression; no fatigue; no sleep difficulties; no skin changes; no hair changes;palpitations JEAN PIERRE Somers [address] [place] [address], [place] [address], [place], [address], [place] [employer] 12/27/2022 22:37:41 4 text/html . Patient is a 62-year-old female who presents with a wound to the anterior lateral midfoot. Patient states this wound has been there since March. Patient denies knowing exactly how the wound started but states that it was a blister. Patient states that she fell off of the commode and was on the floor for several hours which ended up causing muscle injury which resulted in renal insufficiency to which she has been on dialysis. Patient is scheduled to have the port removed. Patient denies any other complaints. Patient denies any redness or drainage from the area and had has developed a eschar over the wound. Chester Clark DPM [address], [place], [address], [facility] 06/14/2023 17:19:36 4 text/html Patient presents to clinic to discuss wound of R elbow. States she noticed it about three weeks ago after one of her dogs scratched her. Sleeps with 3/10 dogs in bed. States she was treated with doxycycline and has been putting KASSIDY and a wrap bandage on daily. No fevers. No drainage. JEAN PIERRE Medrano [address], [place], [address], [facility] 11/28/2023 16:00:43 4 text/html Patient presents to clinic for f/u of wound of R elbow. Doing betadine dressings daily. Wound improving. No fevers. No drainage. JEAN PIERRE Medrano [address], [place], [address], [facility] 12/05/2023 15:29:05 4 text/html Patient presents to clinic for f/u of wound of R elbow. Doing betadine dressings daily. Wound improving. No fevers. No drainage. JEAN PIERRE Medrano [address], [place], [address], [facility] 12/12/2023 15:33:34 OBGyn Episode No OBEpisode recorded.
--- OUTSIDE RECORDS SUMMARY | 2024-06-19 00:31 | XMS_ITS | Referral Summary ---
Author Organization [address] Address [facility] [place] [address] Care Team Providers Care Team Assistant Name Role Phone Lester Batres MD Primary [...] Diagnosed Date Resolved Date Symptomatic bradycardia 12/06/201711/27 Social History Tobacco Use Types Packs/Day Years Used Date Smoking Tobacco: Former Cigarettes Q uit: 1996 Smokeless Tobacco: Never Comments:Smoked for about a year. Alcohol Use Standard Drinks/Week Comments No 0 (1 standard drink = 0.6 oz pur e alcohol) Comments No Sex and Gender Information Value Date Recorded Sex Assigned at Not on file Legal Sex Female 2:14 PM [employer] Gender Identity Not on file Sexual Orientation [...] Chronic Care Management Worsening( 8:59 AM CDT) April Banuelos, RN Note: Problem: Chronic Pain Goals: 1. Minimize further functional decline 2. Maximize quality of life 3. Control pain Strategies: - Activity/exercise program recommendation - Conservative stepwise pain medicine strategy with multi-disciplinary approach - Recommend healthy lifestyle strategies and compensatory methods as needed Insurance FOR LIFE [facility] MDCR HMO REF [facility] MEDICARE Address: [facility] [address] [place] [address] [place] [employer] LIFE [facility] MEDICARE ADVANTAGE [facility] MEDICARE Address: [address] [address] [place] [address] Advance Directives For more information, please contact: [phone] * Full Code (Latest Code Status on File) Date Activated Date Inactivated Comments 01/25/2018 1:33 PM 01/30/2018 3:12 PM * Full Code Date Activated Date Inactivated Comments 12/05/2017 10:05 PM 12/09/2017 9:16 PM Care Teams Team Assistant Relationship Specialty Start Date End Date Lester Batres MD [address] [facility] [address] [place] [address] PCP - General Internal Medicine 02/11/20
--- OUTSIDE RECORDS SUMMARY | 2024-06-19 00:31 | XMS_ITS | Clinical Summary ---
Author Organization [facility] Address [address] [place] [address] Care Team Providers Care Evaluation Engineer Name Role Phone Lester Batres MD Primary Care Provider [phone] Source Comments [facility] and Associated [facility]ician Practices is amultiple site organization consisting of ambulatory clinics and hospital sitesin [place], [place], [place] and [place]. This disclosure is being madepursuant to the Care Everywhere program and may not contain all information available regarding this patient. 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 Gender Identity Not on file Sexual Orientation Not on file Last Filed Vital Signs Vital Sign Reading Time Taken Comments Blood Pressure 110/78 01/12/2015 3:23 PM CERTIFIED MEETING PROFESSIONAL Pulse 67 01/12/2015 3:23 PM CERTIFIED MEETING PROFESSIONAL Temperature 36.8 C (98.2 F) 01/12/2015 3:23 PM CERTIFIED MEETING PROFESSIONAL Respiratory Rate 16 01/12/2015 3:23 PM CERTIFIED MEETING PROFESSIONAL Oxygen Saturation - - Inhaled Oxygen Concentration - - Weight 98 kg (216 lb) 01/12/2015 3:23 PM CERTIFIED MEETING PROFESSIONAL Height 162.6 cm (5' 4 ) 01/12/2015 3:23 PM CERTIFIED MEETING PROFESSIONAL Body Mass Index 37.08 01/12/2015 3:23 PM CERTIFIED MEETING PROFESSIONAL Plan of Treatment Health Maintenance Due Date Last Done Comments BONE DENSITY TESTING 1960 COLOGUARD (AGES 45-75) - COL ON CA SCREENING 1958 COLON MONITORING 1958 COLONOSCOPY - COLON CA SCREENING 1958 CT COLONOGRAPHY - COLON CA SCREENING 1958 Colorectal Cancer Screening 1958 FIT - COLON CA SCREENING 1958 FLEX SIG - COLON CA SCREENING 1958 LIPID TESTING 1958 MEDICARE AWV 12 MONTHS 1958 PAP SMEAR 1958 HIV SCREENING 1973 DTAP/TDAP/TD VACCINES (1 - Tdap) 1977 PNEUMOCOCCAL VACCINE 50+ (1 of 1 - PCV) 2008 ZOSTER VACCINE (1 of 2) 2008 MAMMOGRAM 02/18/2022 02/19/2020 COVID-19 VACCINE (1 - 2023-2 5 season) 2023 DEPRESSION SCREENING 02/28/2024 INFLUENZA VACCINE (Season Ended) 2024 02/27/2014, 02/27/2013 Respiratory Syncytial Virus (RSV) Vaccine Pt: or over 60 yrs (1 - 1-dose 75+ series) 2033 HEPATITIS C SCREENING Completed 11/10/2014 HEPATITIS B VACCINE Aged Out No longe r eligible based on patient's age to complete this topic HIB VACCINE Aged Out No longer eligi ble based on patient's age to complete this topic HPV VACCINE Aged Out No longer eligi ble based on patient's age to complete this topic MENINGOCOCCAL (Group B) VACCINE SHARED DECISION-MAKING Aged Out No longer eligible based on patient's age to complete this topic MENINGOCOCCAL GROUPS A/C/Y/W VACCINE Aged Out No longer eligible b ased on patient's age to complete this topic Procedures Procedure Name Priority Date/Time Associated Diagnosis Comments HEPATITIS C ANTIBODY Routine 11/10/2014 8:23 AM CDT from Last 3 Months or Most Recently Relevant to Health Maintenance Results * HEPATITIS C ANTIBODY (11/10/2014 8:23 AM CDT) Hepatitis C Antibody NON-REACTI VE NON-REACT [facility]) Signal/Cutoff 0.10 <1.00 [facility]) Comment: Test Performed at: [email or web address] [place] [id number] [address] [facility] [place] [address] DIOGENES ORTIZ DO,MPH Blood specimen (specimen) BLOOD SPECIMEN / Unknown 11/10/2014 8:23 AM CDT 11/10/2014 8:24 AM CDT Denny Vance MD LAB - CHEMISTRY ORDERABLES Edite d Result - Final [facility]) [id number] from Last 3 Months or Most Recently Relevant to Health Maintenance Insurance MEDICARE MEDICARE Care Teams Evaluation Engineer Relationship Specialty Start Date End Date Lester Batres MD [facility] [place] [address] PCP - General 06/07/19
--- OUTSIDE RECORDS SUMMARY | 2024-06-19 00:32 | XMS_ITS | Continuity of Care Document ---
Author Organization [facility] Address [address] [place] [address] [place] [address] Phone Care Team Providers Care Pathology Secretary Name Role Phone Ritchie King DO Unavailable Unavailable Advance Directives Directive Yes / No Effective Date File Name No Information Encounters Encounter Description Practice Location Reason(s) For Visit Diagnoses Date Provider Providers Copied on Encounter [facility], [id number] [place] [address] [address], [place], [place], [id number], [place] tel:[phone] [facility] [place] No Information Christine Vargas. [address] [facility], [place], [address], [place]. tel: [phone] Family History Family Member Type Diagnosis Age At Onset No Information Payers Payer name Insurance type Covered green party ID Authoriza tion(s) No Information Social History Type Description Quantity Date Captured Comments Sex Female Smoking Status No Information Chief Complaint And Reason For Visit No Information Reason For Referral Reason For Referral No Information History Of Present Illness Encounter Date Complaint History Of Prese nt Illness No Information Functional Status Date Functional Assessmen t No Information Instructions Date Instruction Additional Infor mation No Information Assessments Type Assessment Date No Information Patient Care Teams Name Effective Dates (start - stop) Status Members No Information
--- OUTSIDE RECORDS SUMMARY | 2024-06-19 00:32 | XMS_ITS | Continuity of Care Document ---
Author Name [facility] Organization [facility] Care Team Providers Care Product Demonstrator Name Role Phone [facility] Unavailable Unavailable Medications Combined list of outpatient medications from Department of Defense and Veterans Affairs facilities.Medications provided include 1) outpatient medications from the last 15 months, and 2) patient-reported medications. Medication Details Route Status Patient Instructions Prescription Expires Prescription Number Last Dispense Date Ordering Provider Order Date Order Qty Source AMITRIPTYLI NE HCL (amitriptyl ine HCl), 25 MG, TABLET, ORAL, ZYDUS PHARMACEU, 1000 ea. BOTTLE Active [id number] 4 2023 90 Pharmac y Data Transac tion Service Facilit y CEPHALEXIN (CEPHALEXIN MONOHYDRATE ), 500MG, CAPSULE, ORAL, LUPIN PHARMACEU, 500 ea. BOTTLE Active [id number] 4 2023 28 Pharmac y Data Transac tion Service Facilit y CYANOCOBALA MIN INJECTION (cyanocobal tim (vitamin B-12)), 1000MCG/ML, VIAL, INJECTION, MIKKI PHARMACEUT, 1 ml VIAL Cancele d [id number] : 2023 0 Pharmac y Data Transac tion Service Facilit y ESZOPICLONE (ESZOPICLON E), 3 MG, TABLET, ORAL, 'S LAB, 100 ea. BOTTLE Active [id number] 2023 30 Pharmac y Data Transac tion Service Facilit y FOLIC ACID (folic acid), 1 MG, TABLET, ORAL, AMNEAL PHARMACE, 1000 ea. BOTTLE Active [id number] 4 2023 90 Pharmac y Data Transac tion Service Facilit y GABAPENTIN (GABAPENTIN ), 300 MG, CAPSULE, ORAL, [facility], 500 ea. BOTTLE Active [id number] 4 2023 90 Pharmac y Data Transac tion Service Facilit y GABAPENTIN (gabapentin ), 300 MG, CAPSULE, ORAL, [employer] 500 ea. BOTTLE Active [id number] 4 2023 90 Pharmac y Data Transac tion Service Facilit y GABAPENTIN (gabapentin ), 300 MG, CAPSULE, ORAL, [employer] 500 ea. BOTTLE Active [id number] 4 2023 90 Pharmac y Data Transac tion Service Facilit y GABAPENTIN (gabapentin ), 300 MG, CAPSULE, ORAL, [employer] 500 ea. BOTTLE Active [id number] 4 2023 90 Pharmac y Data Transac tion Service Facilit y GABAPENTIN (gabapentin ), 300 MG, CAPSULE, ORAL, [employer] 500 ea. BOTTLE Active [id number] 4 2023 90 Pharmac y Data Transac tion Service Facilit y METHOTREXAT E (methotrexa te sodium), 2.5 MG, TABLET, ORAL, AMNEAL PHARMACE, 100 ea. BOTTLE Active [id number] 4 2023 60 Pharmac y Data Transac tion Service Facilit y METHOTREXAT E (methotrexa te sodium), 2.5 MG, TABLET, ORAL, SUN PHARMA GLOB, 100 ea. BOTTLE Active [id number] 4 2023 60 Pharmac y Data Transac tion Service Facilit y METHYLPREDN ISOLONE (METHYLPRED NISOLONE), 4MG, TAB DS PK, ORAL, QUALITEST, 21 ea. DOSE-PACK Active [id number] 4 2023 21 Pharmac y Data Transac tion Service Facilit y MORPHINE SULFATE ER (morphine sulfate), 15 MG, TABLET ER, ORAL, RANBAXY/SUN PHA, 100 ea. BOTTLE Active [id number] 4 2023 60 Pharmac y Data Transac tion Service Facilit y MORPHINE SULFATE ER (morphine sulfate), 15 MG, TABLET ER, ORAL, RANBAXY/SUN PHA, 100 ea. BOTTLE Cancele d [id number] : 2023 0 Pharmac y Data Transac tion Service Facilit y MORPHINE SULFATE ER (morphine sulfate), 15 MG, TABLET ER, ORAL, RANBAXY/SUN PHA, 100 ea. BOTTLE Active [id number] 4 2023 60 Pharmac y Data Transac tion Service Facilit y PAROXETINE HCL (PAROXETINE HCL), 20 MG, TABLET, ORAL, [employer]ARM, 90 ea. BOTTLE Active [id number] 4 2023 90 Pharmac y Data Transac tion Service Facilit y SULFASALAZI DARIEN SHAY (sulfasalaz ine), 500 MG, TABLET DR, ORAL, [employer] [facility] 100 ea. BOTTLE Active [id number] 2023 180 Pharmac y Data Transac tion Service Facilit y TIADYLT ER ([employer] 90 CAPSULE, EXTENDED RELEASE in 1 BOTTLE Active [id number] 2023 90 Pharmac y Data Transac tion Service Facilit y TIZANIDINE HCL (TIZANIDINE HCL), 4 MG, TABLET, ORAL, [facility], 150 ea. BOTTLE Active [id number] 2023 180 Pharmac y Data Transac tion Service Facilit y TIZANIDINE HCL (TIZANIDINE HCL), 4 MG, TABLET, ORAL, [facility], 150 ea. BOTTLE Cancele d [id number] : 2023 0 Pharmac y Data Transac tion Service Facilit y TRAMADOL HCL (tramadol HCl), 25 MG, TABLET, ORAL, [employer]EN PHARMA, 30 ea. BOTTLE Cancele d [id number] : 2023 0 Pharmac y Data Transac tion Service Facilit y TRAMADOL HCL (TRAMADOL HCL), 50MG, TABLET, ORAL, [employer], 500 ea. BOTTLE Active [id number] 2023 40 Pharmac y Data Transac tion Service Facilit y TRAMADOL HCL (TRAMADOL HCL), 50MG, TABLET, ORAL, [employer], 500 ea. BOTTLE Active [id number] 2023 40 Pharmac y Data Transac tion Service Facilit y TRAMADOL HCL (TRAMADOL HCL), 50MG, TABLET, ORAL, [employer], 500 ea. BOTTLE Active [id number] 4 2023 28 Pharmac y Data Transac tion Service Facilit y Allergies, Adverse Reactions, Alerts Combined list of allergies from Department of Defense and Veterans Affairs facilities. It does not include entries that were removed or entered in error. Substance Category Reaction Severity Reaction type Status Date Reported Comments Source No Known Allergies Drug allergy (disorder) active 07/11/2019 [employer] Immunizations Combined list of available immunizations from the Department of Defense and Veterans Affairs facilities. Immunization Series Date Given Administered By Site Reaction Lot Number CVX Code Drug Farm Equipment Operator Status Comments Source influenza, injectable, quadrivalent, preservative free 2019 ALUL, () Not Given influenza , injectabl e, quadrival ent, preservat jeramie free [facility] Social History Combined list of available smoking, tobacco, and other social history from Department of Defense and Veterans Affairs facilities. Social History Type Response Date Comment Sour e This section is an empty social history section. [employer]
--- OUTSIDE RECORDS SUMMARY | 2024-06-19 00:32 | XMS_ITS | Data Portability ---
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 Plan of Treatment Reminders Order Date Submit Date Provider Last Modified By Organization Details Last Modified Time Details Appointments ANY 15 2024 09:00A M JEAN PIERRE Somers Not available Not available Not available Lab HbA1c (hemo globi n A1c), blood 2024 025 [email or web address] [facility], [facility]3 [facility], [place], [address], 05/08/2024 10:31:19 lipid panel , serum 2024 025 [email or web address] [facility], [address] [facility], [place], [address], 05/08/2024 10:31:19 hepat ic funct ion panel , serum 2024 025 [email or web address] [facility], [address] [facility], [place], [address], 05/08/2024 10:31:19 TSH + free T4, serum 2024 025 [email or web address] [facility], [address] [facility], [place], [address], 05/08/2024 10:31:19 iron + TIBC + gloria tin, serum 2024 025 [email or web address] [facility], [address] [facility], [place], [address], 05/08/2024 10:31:19 CBC w/ auto diff 2024 025 [email or web address] [facility], [address] [facility], [place], [address], 05/08/2024 10:31:19 vitam in B12 + folat e, serum or blood 2024 025 [email or web address] [facility], [address] [facility], [place], [address], 05/08/2024 10:31:19 BMP, serum or plasm a 2024 025 [email or web address] [facility], [address] [facility], [place], [address], 05/08/2024 10:31:19 hepat ic funct ion panel , serum 2023 024 LEONILA [facility], [address] [facility], [place], [address], 02/22/2024 14:13:00 CBC w/ auto diff 2023 024 LEONILA [facility], [address] [facility], [place], [address], 02/22/2024 14:13:00 TSH + free T4, serum 2023 024 LEONILA [facility], [facility]3 [facility], [place], [address], 02/22/2024 14:12:59 lipid panel , serum 2023 024 [email or web address] [facility], [address] [facility], [place], [address], 02/22/2024 14:13:38 HbA1c (hemo globi n A1c), blood 2023 024 [email or web address] [facility], [address] [facility], [place], [address], 02/14/2024 10:20:30 iron + TIBC + gloria tin, serum 2023 024 LEONILA [facility], [address], [place], [address], 02/15/2024 00:10:33 vitam in B12 + folat e, serum or blood 2023 024 [email or web address] [facility], [address], [place], [address], 02/14/2024 10:20:30 BMP, serum or plasm a 2023 024 [email or web address] [facility], [address], [place], [address], 02/14/2024 10:20:30 urina lysis compl ete, refle x cultu re 2023 024 [email or web address] [facility], [address], [place], [address], 02/14/2024 10:20:[address] refer ral 2024 025 [email or web address] Brisa Abreu MD, [address], [facility] [address], [place], [address], 05/08/2024 14:19:[address] refer ral 2023 024 [email or web address] Brisa Abreu MD, [address], [address], [place], [address], 05/30/2024 15:22:17 wound care refer ral 2023 024 [email or web address] [facility], [address], [address], [place], [address], 07/27/2023 08:22:57 Procedures upper endos copy (EGD) with colon oscop y (PROC ) [address] [facility], [address], [address], [place], [address], 05/22/2024 16:42:34 Surgeries None recor ded. Imaging MAMMO , scree florentin, digit al, bilat eral [address] (Radiology), [address], [place], [address], 06/07/2024 15:54:31 [place], kidne y [address] (Imaging), [address], [place], [address], 06/07/2024 15:54:31 [place], kidok y [address] (Imaging), [address] [facility] [address], [place], [address], 05/30/2024 12:46:56 CT, lower extre mity, w/o contr ast 2023 024 [facility] (Radiology), [address], [place], [address], 05/24/2023 19:38:56 Medication Orders Tiady lt ER 240 mg capsu le,ex tende d relea se 2024 025 [facility]armacy #[id number], [address], [place], [address], 05/08/2024 10:40:41 doxyc yclin e hycla te 100 mg table t 2023 024 [facility] #[id number], [address], [place], [address], 02/07/2024 10:23:34 amoxi cilli n 875 mg-po tassi um clavu lanat e 125 mg table t 2023 024 [facility]/Pharmacy #[id number], [address], [place], [address], 01/31/2024 08:35:18 Tiady lt ER 180 mg capsu le,ex tende d relea se 2023 025 [facility]armacy #[id number], [address], [place], [address], 05/08/2024 10:39:57 eszop iclon e 3 mg table t 2023 024 [facility]armacy #[id number], [address], [place], [address], 06/15/2023 17:45:18 Patient TargetsNo targets recorded. 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 [email or web address] [place] [address], [place], [address], 05/07/2023 22:58:27 05/05/19 24 05/05/2023 XR, chest , 2 view No observ ation record ed. [place] [address], [place], [address], 05/07/2023 22:58:39 05/13/19 24 05/11/2023 XR, chest , 2 view No observ ation record ed. [place] [address], [place], [address], 05/29/2023 14:56:13 05/16/19 24 05/15/2023 XR, chest , 2 view No observ ation record ed. [place] [address], [place], [address], 05/29/2023 14:55:53 05/16/19 24 05/15/2023 XR, chest , 2 view No observ ation record ed. [place] [address], [place], [address], 05/29/2023 14:55:37 05/20/19 24 05/19/2023 XR, foot, 3 or more view No observ ation record ed. [place] [address], [place], [address], 05/29/2023 14:55:05 05/24/19 24 05/24/2023 CT, lower extre mity, w/o contr ast No observ ation record ed. [address] [place], [address], 05/26/2023 10:59:57 05/24/19 24 05/24/2023 CT, lower extre mity, w/o contr ast No observ ation record ed. [address] (Radiology) [address] [place], [address], 05/26/2023 10:59:57 08/30/19 24 08/30/2023 XR, facia l bones , 3 or more view No observ ation record ed. LEONILA [facility] [address] [place], [address], 08/31/2023 09:42:41 09/09/19 24 09/09/2023 CT, head, w/o contr ast No observ ation record ed. [address] [place], [address], 09/11/2023 11:05:47 11/08/19 24 12/06/2021 MAMMO , scree florentin, digit al, bilat eral No observ ation record ed. [address] [place], [address], 11/08/2023 14:02:34 Result Notes None recorded. Problems Name Problem SNOMED Code Status Onset Date Resolution Date Notes Provider Name and Address Organization Details Recorded Time Essential hypertension 73195841 Active 2023 Bianka Hooks null, [place] [facility] 4 09:34:27 Chronic insomnia 544043581 Active 2023 Bianka Hooks [place], [place] [facility] 4 09:34:44 Body mass index 30+ - obesity 300612039 Active 2023 Lynn Gómez [place] null, [place] [facility] 4 12:03:36 Ankylosing spondylitis 2013845 Active 2023 JEAN PIERRE Somers Attn: Mason munguia,[address] [place], [address], [place] - [facility] 4 12:27:12 Obesity 914419271 Active 2023 JEAN PIERRE Somers Attn: Mason munguia,[address] [place], [address], [place] [facility] 4 14:30:48 Benign essential hypertension 5465553 Active 2023 JEAN PIERRE Somers Attn: Accountin g,[address], [place], [address], [place] - [facility] 4 14:30:49 Serum creatinine above reference range 578592918 Active 2023 JEAN PIERRE Somers Attn: Accountin g,[address] [facility], [place], [address], [place] [facility] 4 10:42:08 Chronic kidney disease 382991309 Active 2023 JEAN PIERRE Somers Attn: Accountin g,[address] [facility], [place], [address], [place] [facility] 4 10:42:10 Anemia 519808829 Active 2023 JEAN PIERRE Somers Attn: Accountin g,[address] [facility], [place], [address], [place] [facility] 4 10:42:11 Blood glucose outside reference range 381527198 Active 2023 JEAN PIERRE Somers Attn: Accountin g,[address] [facility], [place], [address], [place] [facility] 4 10:42:14 Long-term drug therapy Active 2023 JEAN PIERRE Somers Attn: Accountin g,[address] [facility], [place], [address], [place] [facility] 4 10:42:16 Mixed anxiety and depressive disorder 033152680 Active 2024 JEAN PIERRE Somers Attn: Accountin g,[address] [facility], [place], [address], [place] [facility] 5 10:22:32 Cobalamin deficiency 985612683 Active 2024 JEAN PIERRE Somers Attn: Accountin g,[address] [facility], [place], [address], [place] [facility] 5 10:23:22 Problem Notes None recorded. Procedures Surgical History Date Name Laterality Status Provider Name and Address Organization Details Recorded Time 06/28/19 24 Removal tunneled cv cath completed Bianka Hooks [place] 07/14/2023 12:38:34 Tonsillectomy completed Fabi Sanchez [place] 06/15/2023 17:10:45 Gastric Bypass completed Fabi Sanchez [place] 06/15/2023 17:10:49 Cholecystectomy completed Fabi Sanchez [place] 06/15/2023 17:10:53 Total hysterectomy completed Dario Sanchez [place] 06/15/2023 17:10:57 Knee Surgery completed Fabi Sanchez [place] 06/15/2023 17:11:01 Eye Surgery completed Lynn Gómez [place] 11/08/2023 12:01:06 Imaging Results Imaging Date Name Status [facility] Details LastModified Time 05/04/2023 XR, chest, 2 view completed [address], [address], 05/07/2023 22:58:27 05/05/2023 XR, chest, 2 view completed [address], [address], 05/07/2023 22:58:39 05/11/2023 XR, chest, 2 view completed [address], [address], 05/29/2023 14:56:13 05/15/2023 XR, chest, 2 view completed [address], [address], 05/29/2023 14:55:53 05/15/2023 XR, chest, 2 view completed [address], [address], 05/29/2023 14:55:37 05/19/2023 XR, foot, 3 or more view completed [email or web address] [facility] [address], [place], [address], 05/29/2023 14:55:05 05/24/2023 CT, lower extremity, w/o contrast completed [address] [place], [address], 05/26/2023 10:59:57 05/24/2023 CT, lower extremity, w/o contrast completed [address] (Radiology) [address] [place], [address], 05/26/2023 10:59:57 08/30/2023 XR, facial bones, 3 or more view completed [facility] [address] [place], [address], 08/31/2023 09:42:41 09/09/2023 CT, head, w/o contrast completed [address] [place], [address], 09/11/2023 11:05:47 12/06/2021 MAMMO, screening, digital, bilateral completed [address] [place], [address], 11/08/2023 14:02:34 Procedure Notes None recorded. Medical Equipment None Reported. Allergies Allergen ID Allergen Name Allergen Category Reaction Reaction Severity Criticality Documentation Date Start Date Code Code System Note Provider Name and Address Organization Details Recorded Time 060953 honey bee venom medicatio n Not available Not available Not available 05/24/2023 77731 7 RxNorm Not Available Not Available Not Available [id number] azithromy jeferson medicatio n itching moderate high 02/07/2024 09611 RxNorm Not Available Not Available Not Available Medications Name Sig Start Date Stop Date Status Note LastModified by Organization Details LastModified Time doxycycline hyclate 100 mg capsule TAKE 1 CAPSULE BY MOUTH TWICE A DAY 05/01 completed Not Available Not Available Not Available albuterol sulfate 2.5 mg/3 mL (0.083 %) solution for nebulizatio n INHALE 3 ML BY NEBULIZAT ION 3 TIMES A DAY NEEDED active Not Available Not Available No t Available tizanidine 4 mg tablet TAKE 1 TABLET BY MOUTH TWICE A DAY NEEDED 2024 active Not Available Not Available Not Avai lable hydrocodone 5 mg-acetamin ophen 325 mg tablet TAKE 1 TABLET BY MOUTH EVERY 6 HOURS NEEDED 05/23 completed Not Available Not Available Not Available sulfasalazi ne 500 mg tablet,mesha yed release TAKE 3 TABLETS BY MOUTH TWICE A DAY 02/06 completed Not Available Not Available Not Available ciprofloxac in 500 mg tablet TAKE 1 TABLET BY MOUTH TWICE A DAY FOR 10 DAYS 02/06 completed Not Available Not Available Not Available tramadol 50 mg tablet TAKE 1 TABLET BY MOUTH EVERY 6 TO 8 HOURS NEEDED active Not Available Not Available No t Available meloxicam 7.5 mg tablet TAKE 1 TABLET BY MOUTH EVERY DAY NEEDED FOR PAIN 06/14 completed Not Available Not Available Not Available amitriptyli ne 25 mg tablet TAKE 1 TABLET BY MOUTH AT BEDTIME 05/01 completed Not Available Not Available Not Available lorazepam 0.5 mg tablet Take 1 tablet twice a day by oral route as needed. 05/01 completed Not Available Not Available Not Available methotrexat e sodium 2.5 mg tablet TAKE 5 TABLETS BY ORAL ROUTE EVERY 7 DAYS 11/07 completed Not Available Not Available Not Available ropinirole 0.25 mg tablet Take 1 tablet every day by oral route for 90 days. active Not Available Not Available No t Available cephalexin 500 mg capsule Take 1 capsule every 8 hours by oral route, for UTI on labwork. 03/04 completed Not Available Not Available Not Available [...] ONCE DAILY (MAY WEAR UP TO 12 HOURS) 05/01 completed Not Available Not Available Not Available gabapentin 300 mg capsule TAKE 3 CAPSULES BY MOUTH EVERY NIGHT AT BEDTIME 02/06 completed Not Available Not Available Not Available folic acid 1 mg tablet TAKE 1 TABLET BY MOUTH EVERY DAY 05/01 completed Not Available Not Available Not Available morphine ER 15 mg tablet,exte nded release TAKE 1 TABLET BY MOUTH EVERY 12 HOURS 05/01 completed Not Available Not Available Not Available lorazepam 1 mg tablet TAKE 1 TABLET BY MOUTH 1 TO 2 TIMES DAILY NEEDED 10/22 completed Not Available Not Available Not Available hydroxychlo roquine 200 mg tablet TAKE 2 TABLETS (400MG) BY MOUTH EVERY DAY 05/01 completed Not Available Not Available Not Available methylpredn isolone 4 mg tablets in a dose pack 06/14 completed Not Available Not Available Not Available ondansetron 4 mg disintegrat ing tablet PLEASE SEE ATTACHED FOR DETAILED DIRECTION S 05/01 completed Not Available Not Available Not Available losartan 100 mg tablet TAKE 1 TABLET BY MOUTH EVERY DAY 2024 active Not Available Not Available Not Avai lable doxycycline hyclate 100 mg tablet TAKE 1 TABLET TWICE A DAY BY ORAL ROUTE WITH MEAL(S). 02/06 completed Not Available Not Available Not Available amoxicillin 875 mg-potassiu m clavulanate 125 mg tablet TAKE 1 TABLET BY MOUTH EVERY 12 HOURS 01/30 completed Not Available Not Available Not Available ezetimibe 10 mg tablet TAKE 1 TABLET BY MOUTH EVERY DAY active Not Available Not Available No t Available rosuvastati n 5 mg tablet TAKE 1 TABLET BY MOUTH EVERY DAY IN THE EVENING 05/01 completed Not Available Not Available Not Available nitrofurant oin monohydrate /macrocryst als 100 mg capsule TAKE 1 CAPSULE BY MOUTH EVERY 12 HOURS 05/23 completed Not Available Not Available Not Available eszopiclone 3 mg tablet TAKE 1 TABLET BY MOUTH 30 MINUTES BEFORE BEDTIME TAKE MORE THAN 2 HOURS APART FROM GABAPENTI N active Not Available Not Available No t Available iron active otc Not Available Not Availa ble Not Available prednisone 5mg prn 05/01 completed Not Available Not Available Not Available Vitamin D3 active otc Not Available Not Av ailable Not Available multivitami n active otc Not Available Not Available Not Available vitamin B comp and C no.3 active otc Not Available Not Available Not Available hydrochloro thiazide 12.5 mg tablet TAKE 1 TABLET BY MOUTH EVERY DAY IN THE MORNING 2024 active Not Available Not Available Not Avai lable Tiadylt ER 240 mg capsule,ext ended release TAKE 1 CAPSULE BY MOUTH EVERY DAY active Not Available Not Available No t Available Tiadylt ER 180 mg capsule,ext ended release TAKE 1 CAPSULE BY MOUTH EVERY DAY 05/08 completed Not Available Not Available Not Available Vitals Date Recorded Body height Body mass index (BMI) Body weight Oxygen saturation Oxygen saturation in Arterial blood by Pulse oximetry Heart rate Respiratory rate Provider Name and Address Organization Details Last Updated DateTime 4 165.1 cm 37.1 kg/m2 743753. 1 g 95 % 95 % 104 /min 18 /min Consuelo Lomas MA [facility] 4 16:51:48 Date Recorded Heart rate Systolic blood pressure Diastolic blood pressure Systolic blood pressure Diastolic blood pressure Provider Name and Address Organization Details Last Updated DateTime 05/24/2023 87 /min 160 mm[Hg] 90 mm[Hg] 152 mm[Hg] 80 mm[Hg] JEAN PIERRE CRUM Attn: Mason munguia,[address] [place], [address], [facility] 4 11:20:32 Date Recorded Body height Body mass index (BMI) Body weight Heart rate Oxygen saturation Oxygen saturation in Arterial blood by Pulse oximetry Systolic blood pressure Diastolic blood pressure Provider Name and Address Organization Details Last Updated DateTime 4 165.1 cm 33.9 kg/m2 88230.1 3 g 98 /min 99 % 99 % 112 mm[Hg] 80 mm[Hg] Fabi Sanchez MA [facility] 4 17:14:14 Date Recorded Body height Body mass index (BMI) Body weight Respiratory rate Oxygen saturation Oxygen saturation in Arterial blood by Pulse oximetry Heart rate Systolic blood pressure Diastolic blood pressure Provider Name and Address Organization Details Last Updated DateTime 4 165.1 cm 34.4 kg/m2 47295.9 g 18 /min 96 % 96 % 77 /min 140 mm[Hg] 82 mm[Hg] Lynn Góemz MA [facility] 4 12:05:21 Date Recorded Systolic blood pressure Diastolic blood pressure Provider Name and Address Organization Details Last Updated DateTime 11/08/2023 130 mm[Hg] 80 mm[Hg] JEAN PIERRE Somers Attn: Accounting,[address] [place], [address], [facility] 11/08/2023 12:37:20 Date Recorded Body height Provider Name an d Address Organization Details Last Updated DateTime 02/07/2024 165.1 cm Lynn Gómez MA [facility] 2023 10:01:16 Date Recorded Body mass index (BMI) Body weight Heart rate Body temperature Oxygen saturation Oxygen saturation in Arterial blood by Pulse oximetry Systolic blood pressure Diastolic blood pressure Provider Name and Address Organization Details Last Updated DateTime 4 33.7 kg/m2 11398.7 4 g 84 /min 98.2 [degF] 97 % 97 % 130 mm[Hg] 80 mm[Hg] Flaca Hall LPN [facility] 4 10:05:32 Date Recorded Respiratory rate Systolic blood pressure Diastolic blood pressure Provider Name and Address Organization Details Last Updated DateTime 02/07/2024 16 /min 120 mm[Hg] 80 mm[Hg] JEAN PIERRE Somers Attn: Accounting, [address] [place], [address], [facility] 02/07/2024 10:41:58 Date Recorded Body height Body mass index (BMI) Body weight Oxygen saturation Oxygen saturation in Arterial blood by Pulse oximetry Heart rate Respiratory rate Systolic blood pressure Diastolic blood pressure Provider Name and Address Organization Details Last Updated DateTime 165.1 cm 33.4 kg/m2 59802.0 7 g 99 % 99 % 68 /min 18 /min 140 mm[Hg] 80 mm[Hg] Lynn Gómez MA [facility] 5 10:09:36 Date Recorded Systolic blood pressure Diastolic blood pressure Systolic blood pressure Diastolic blood pressure Provider Name and Address Organization Details Last Updated DateTime 05/08/2024 150 mm[Hg] 80 mm[Hg] 150 mm[Hg] 80 mm[Hg] JEAN PIERRE Somers Attn: Accounting ,[address] [place], [address] , [facility] 5 10:40:34 Social History Question Answer Notes LastModified by Organizat ion Details LastModified Time Tobacco Smoking Status Never Smoker Lynn Gómez MA [facility], [place] - [place] 11/08/2023 12:00:21 Do You Have An Advance Directive? Yes Adavaance Director, REMY Information not available 11/08/2023 What Is Your Level Of Alcohol Consumption? Occasional 1-2 Glasses Of Wine Information not available 11/08/2023 Are You Blind Or Do You Have Difficulty Seeing? No Information not available 06/15/2023 What Is Your Level Of Caffeine Consumption? Moderate Large Cup Of Coffee In The Am Information not available 11/08/2023 In The 14 Days Before Symptom Onset, Have You Had Close Contact With A Laboratory-confi rmed COVID-19 While That Case Was Ill? No Information not available 11/08/2023 In The 14 Days Before Symptom Onset, Have You Had Close Contact With A Person Who Is Under Investigation For COVID-19 While That Person Was Ill? No Information not available 11/08/2023 Have You Been To An Area Known To Be High Risk For COVID-19? No Information not available 11/08/2023 Are You Deaf Or Do You Have Serious Difficulty Hearing? Yes Information not available 06/15/2023 What Type Of Diet Are You Following? REGULAR Information not available 11/08/2023 Are There Any Guns Present In Your Home? No Information not available 11/08/2023 What Was The Date Of Your Most Recent Tobacco Screening? 05/08/2024 Information not available 05/08/2024 What Is Your Current Pack Years? 10packyears Information not available 11/08/2023 What Is Your Relationship Status? Domestic Partner Information not available 06/15/2023 Do You Use Your Seat Belt Or Car Seat Routinely? Yes Information not available 06/15/2023 Do You Have Smoke And Carbon Monoxide Detectors In Your Home? Yes Information not available 11/08/2023 How Much Tobacco Do You Smoke? No Information not available 11/08/2023 Do You Feel Stressed (tense, Restless, Nervous, Or Anxious, Or Unable To Sleep At Night)? [id number] Information not available 06/15/2023 Do You Use Any Illicit Or Recreational Drugs? No Information not available 11/08/2023 Do You Use Sunscreen Routinely? No Information not available 11/08/2023 Has Tobacco Cessation Counseling Been Provided? No Information not available 11/08/2023 Do You Or Have You Ever Used Any Other Forms Of Tobacco Or Nicotine? No Information not available 11/08/2023 Sex: Female Functional Status Question Answer Note LastModified by Organization D etails LastModified Time Are you able to care for yourself? Yes Information n ot available 06/15/2023 What is your exercise level? None Information not available 11/08/2023 Mental Status None recorded. Family History Nothing Reported. Medical History Condition Response Muscle, Joint, or Bone Problems Y Other High Blood Pressure Y Kidney or Bladder Problems Y High Cholesterol Y Gynecological History Statement/Question Response Menses Monthly N On BCP's at Conception? N Obstetrics History GPAL:G 0 P 0 0 0 0 Immunizations Vaccine Type Date Status Note Provider Nam e and Address Organization Details Recorded Time Influenza, split virus, quadrivalent, PF 12/31/2019 completed Lynn Gómez MA [facility], [place] - [place] 02/06/2024 10:52:07 Past Encounters Encounter ID Performer Location Encounter Start Date Encounter Closed Date Diagnosis/Indication Diagnosis SNOMED-CT Code Diagnosis ICD10 Code Diagnosis Note [id number] JEAN PIERRE CRUM [facility] [address] [place] [address] 05/24/2023 16:41:01 05/24/2023 17:22:55 Pain in right lower limb [id number] M79.604 x5 days, worseningw ent to ED 2x in the past week, on keflex for cellulitis per went to [place] ED yesterday, US negative for blood clots, XR nlexcrucia ting pain even with morphine and tramadolno trauma or injury since admissionP Ex- RLE without erythema or edema, pulses DP and PT 2+, exquisitel y TTP to R gastrocnem ius muscleorde red CT RLE STAT at [facility] led with US results at 6:43 PM, preliminar y read was negativeca lled pt's number and pt's 's number at 6:48 PM and 6:50 PM and left VM that CT was normalif CT normal, rec'd go to ED for pain control Ulcer of left ankle [id number] 7162476 L97.329 ulcerated, dry circular wound to L lateral malleoluss tarted as blister inpatientr equesting wound care referral Essential hypertension 67427360 I10 160/90, 152/80 attributes to painBP 130/80 this morningon HCTZ 12.5 and losartan 825 [id number] JEAN PIERRE Somers [facility] [employer] [address] [place] [address] 06/15/2023 16:56:33 06/28/2023 16:20:48 Chronic insomnia 183840223 F51.04 Rx refill for lunesta 3mg qhs. do not dose same time as gabapentin or lorazepam. Pain in ri t lower limb 970122377 M79.604 there is slight improvemen t. she has had negative venous doppler , negative xrays and negative CT scan of RLE. This all started after she passed out on the toilet and was in faxed position , flexion on toilet and the leg was in same position. Some Rhabdo occurred. she may need some P.T. if resolution does not occur. Benign ess ential hypertension 7243582 I10 refill Tiadylt ER 180mg daily. stable BP [id number] JEAN PIERRE Somers [facility] [employer] [address] [place] [address] 11/08/2023 11:49:05 11/08/2023 12:56:20 Body mass index 30+ - obesity 538511862 Z68.34 BMI is 34.4 Benign ess ential hypertension 1174407 I10 refill Tiadylt ER 180mg daily. stable BP Cellulitis of right elbow [id number] 6892127 L03.113 Start doxycyclin e 100 mg twice daily and Augmentin twice daily for 10 day course for cellulitis of the right elbow Skin eschar 969120462 R2 3.4 Patient has been referred to wound care therapy at [place] for evaluation and treatment of the right elbow eschar Obesity 816016888 E66.8 discussed healthy diet, exercise, controllin g carbohydra harpal and added sugars in the diet [id number] JEAN PIERRE Somers [facility] [place] [address] [place] [address] 02/07/2024 10:00:15 02/07/2024 12:49:21 Benign essential hypertension 2708886 I10 Blood pressure is stable on multiple agents including calcium channel price, losartan and hydrochlor othiazide Chronic insomnia 0937893 04 F51.04 Stable on Lunesta 3 mg p.o. q.h.s. but also takes amitriptyl ine low-dose Ankylosing spondylitis 9022396 M45.9 Followed by Rheumatolo gy and on long-actin g morphine. Body mass index 30+ - obesity 578383447 Z68.33 BMI is 33.7 Long-term drug therapy 324776949 Z79.891 Routine CBC, liver function and thyroid panels due Serum crea tinine above reference range 962564452 R79.89 Patient's overall creatinine level has bumped up a bit from her typical baseline. She reports she is not taking any anti-infla mmatory and she is drinking water routinely. We will repeat a urinalysis with reflex culture and a BMP and send her for an ultrasound of kidneys Cholesterol screening 27 2191067 Z13.220 Fasting lipid panel is due Blood gluc ose outside reference range 784318076 R73.09 Repeat A1c level is due for history of slightly elevated glucose Anemia 301695981 D64.9 History of anemia earlier in the year. Due for updated iron studies, B12, folate and she is also in need of upper endoscopy screening and colonoscop y Chronic ki dney disease 855303785 N18.9 Refer to nephrologi to establish care with underlying chronic kidney disease Obesity 679344949 E66.9 discussed healthy diet, exercise, controllin g carbohydra harpal and added sugars in the diet Mixed anxi ety and depressive disorder 086502236 F41.8 Patient is currently stable on paroxetine 20 mg daily and lorazepam only on a p.r.n. basis [id number] JEAN PIERRE Somers [facility] [place] [address] [place] [address] 05/08/2024 10:01:27 05/08/2024 14:19:47 Body mass index 30+ - obesity 805069548 Z68.33 BMI is 33.4 Obesity 305902082 E66.9 discussed healthy diet, exercise, controllin g carbohydra harpal and added sugars in the diet Benign ess ential hypertension 4231728 I10 Blood pressure on multiple agents including calcium channel price, losartan and hydrochlor othiazide. Boost to Tiadylt ER 240mg daily to better control BP. Elevated consistent ly today. Chronic insomnia 7412702 04 F51.04 Stable on Lunesta 3 mg p.o. q.h.s. but also takes amitriptyl ine low-dose Serum crea tinine above reference range 831993154 R79.89 still to get renal u/s and see nephrology . her creatinine had improved to 1.32 on Jan labs. Chronic ki dney disease 446925369 N18.9 still to Refer to nephrologi to establish care with underlying chronic kidney disease Anemia 313381841 D64.9 Iron studies were normal in January. upper endoscopy screening and colonoscop y planned for next month. Ankylosing spondylitis 6228717 M45.9 Followed by Rheumatolo gy and on long-actin g morphine. Mixed anxi ety and depressive disorder 464926371 F41.8 Patient is currently stable on paroxetine 20 mg daily and lorazepam only on a p.r.n. 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, DNR Payers Encounter Date Sequence Insurance Name Policy Number Policy Carcamo Covered Member ID Carcamo Member ID Guarantor Name 05/24/2023 2 [employer] - FOR LIFE (MEDICARE SUPPLEMENT) Shoshana Kelsy [id number] Shoshana Martelhugo 05/24/2023 1 [facility] (MEDICARE REPLACEMENT/ ADVANTAGE - HMO) [id number] Shoshana Galaviz Tahminaeland [id number] Shoshana Marteleland 06/15/2023 2 [employer] - FOR LIFE (MEDICARE SUPPLEMENT) Shoshana Tahminaeland [id number] Shoshana Martelhugo 06/15/2023 1 [facility] (MEDICARE REPLACEMENT/ ADVANTAGE - HMO) [id number] Shoshana Galaviz [place]min[place]and [id number] Shoshana Martelhugo 11/08/2023 2 [employer] - FOR LIFE (MEDICARE SUPPLEMENT) Shosahna Kelsy [id number] Shoshana Martelhugo 11/08/2023 1 [facility] (MEDICARE REPLACEMENT/ ADVANTAGE - HMO) [id number] Shoshana Galaviz [place] [id number] Shoshana Taveras Kelsy 02/07/2024 2 [employer] - FOR LIFE (MEDICARE SUPPLEMENT) Shoshana Martelhugo [id number] Shoshana Martelhugo 02/07/2024 1 [facility] (MEDICARE REPLACEMENT/ ADVANTAGE - HMO) [id number] Shoshana Galaviz [place]min[place]and [id number] Shoshana Martelhugo 05/08/2024 2 [employer] - FOR LIFE (MEDICARE SUPPLEMENT) Shoshana Kelsy [id number] Shoshana Martelhugo 05/08/2024 1 [facility] (MEDICARE REPLACEMENT/ ADVANTAGE - HMO) [id number] Shoshana Galaviz Tahminaeland [id number] Shoshana Martelhugo Notes Date Note Type Note Provider Name and Address Organization Details Recorded Time 05/24/19 24 text/htm l Pt presents with R lower leg pain x5 days. States that was inpatient 3 wks ago, had cellulitis to R lower leg, and wound to L ankle. Reports that cellulitis improved when she was discharged, but developed pain and redness 5 days ago. Pt went to ED 2x in the past week, diagnosed with cellulitis to R lower leg and was given keflex w/o improvement. states that in [place] ED yesterday, US negative for blood clots and XRs were normal. Pt expresses that she is in excruciating pain even with taking morphine and tramadol and leg is extremely sensitive to touch. Denies any recent trauma or injury. JEAN PIERRE CRUM Attn: Accounting,[address] [facility], [place], [address], [facility] 05/29/2023 11:28:15 06/15/19 24 text/htm l Hx of leg pain presentation per last visit with JEAN PIERRE [place]. Pt presents to PCP now for f/u and continues to c/o right LE pain. insomnia chronic issues persist. pt needs refill on lunesta 3mg HTN hx. due for refill on tiadylt ER 180mg daily. JAEN PIERRE Somers Attn: Accounting,[address] , [place], [address], [facility] 06/27/2023 22:15:49 11/08/19 24 text/htm l New issue is recent cellulitis of the right elbow with a skin eschar that is present after a recent fall. There is dark hard tissue that is not sloughing off. insomnia chronic issues persist. pt needs refill on lunesta 3mg HTN hx. due for refill on tiadylt ER 180mg daily. JEAN PIERRE Somers Attn: Accounting,[address] [facility], [place], [address], [facility] 11/26/2023 14:31:43 02/07/20 24 text/htm l AnemiaReported bypatient.Notes:Patient had history of anemia on labs earlier in the year at the hospital. She will be due for updated labs as well as endoscopyAnxiety/DepressionRe ported bypatient.Notes:Underlying anxiety and depression mixed features is stable on Paxil 20 mg dailyHypertensionReported bypatient.Notes:For hypertension management patient is on hydrochlorothiazide 12.5 mg daily, losartan 100 mg daily and tiadylt ER 180mg daily.InsomniaReported bypatient.Notes:For insomnia patient is taking Requip 0.25 mg for her restless leg syndrome that affects her sleep and also Lunesta 3 mg p.o. q.h.s. which is by more than 2 hours from gabapentin and any lorazepam. She also takes amitriptyline 25 mg at bedtime Ankylosing spondylitis-patient follows with rheumatology for management. She is on long-acting morphine 15 mg twice daily which was previously managed by Dr. Gayle who has suddenly and new provider will be taking over. Patient does have mild underlying chronic kidney disease JEAN PIERRE Somers Attn: Accounting,[address], [place], [address], [place] [facility] 02/24/2024 14:29:36 05/09/19 25 text/htm l AnemiaReported bypatient.Notes:Patient had history of anemia on labs earlier in the year at the hospital. She will be due for updated labs as well as endoscopy, [facility].Notes:Underlying anxiety and depression mixed features is stable on Paxil 20 mg dailyHypertensionReported bypatient.Notes:For hypertension management patient is on hydrochlorothiazide 12.5 mg daily, losartan 100 mg daily and tiadylt ER 180mg daily.InsomniaReported bypatient.Notes:For insomnia patient is taking Requip 0.25 mg for her restless leg syndrome that affects her sleep and also Lunesta 3 mg p.o. q.h.s. which is by more than 2 hours from gabapentin and any lorazepam. She also takes amitriptyline 25 mg at bedtime Ankylosing spondylitis-patient follows with rheumatology for management. She is on long-acting morphine 15 mg twice daily which was previously managed by Dr. Gayle who has suddenly and new provider will be taking over. Patient does have mild underlying chronic kidney disease Denny labs include;Iron studies are all stable, thyroid levels are stable, cholesterol ranges are in stable range with a very good HDL of 94 and an LDL of 94. Fasting sugar is 95 and stable, kidney function is improved at 1.32. Hemoglobin A1c is 4.6, liver function is stable, CBC blood counts are showing elevation in MCV, MCH and MCHC which can be present with alcohol use and history of. Urinalysis did have UTI and antibiotic was previously sent out. JEAN PIERRE Somers Attn: Accounting,[address], [place], [address], [place] [facility] 05/08/2024 10:41:48 OBGyn Episode No OBEpisode recorded.
[2024-06-19] MEDS: LACTATED RINGERS 1,000 ML 150 ML IV CONT (08:32)
--- NOTE | 2024-06-19 09:34 | PM.IMHP ---
H&P: [facility] History of Present Illness Date/Time: 06/19/24 09:34 Chief Complaint: Dyspepsia-abdominal pain -screening colonoscopy Narrative: the patient has intermittent nonspecific epigastric discomfort/ pain especially after certain meals. This been going on for several months. She is referred for EGD. In addition, she had a screening colonoscopy several years ago and she is referred for follow-up. There is no family history of colorectal cancer and she does not recall having had polyps. Review of Systems Review of Systems: All systems reviewed & are unremarkable except as noted in HPI and below [facility] Past Medical History Medical History (Updated 06/19/24 @ 09:36 by Dennis Bustamante MD) Paroxysmal A-fib Ankylosing spondylitis B12 deficiency Hypothyroidism Chronic lower back pain Irritable bowel syndrome Hemorrhoids Obstructive sleep apnea CHF (congestive heart failure) Seizure Obesity (BMI 30.0-34.9) Fibromyalgia Hyperlipidemia Hypertension Depression Anxiety Surgical History Surgical History History of insertion of tunneled central venous catheter (CVC) with port H/O cervical spine surgery X3 History of arthroscopy of both knees History of total hysterectomy with bilateral salpingo-oophorectomy (BSO) History of tonsillectomy and adenoidectomy History of gastric bypass (2003) History of cholecystectomy Family History Family History Mother Lung cancer, Onset Age: 66 Father Ruptured abdominal aortic aneurysm (AAA), Onset Age: 76 Other Carcinoma of colon Cerebrovascular accident Diabetes mellitus Social History Social History Social History: Patient lives with her current they have been together since approximately 2011. She raised 3 children she lost 1 child at due to in his twin transfusion. She drinks up to 1 bottle of wine a day. She briefly smoked cigarettes for a few months in the 1970s. She denies any illicit substance use. She has 5 dogs at home 1 is a pit bull, 1 chihuahua and 3 miniature Demetrice. 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 However patient would be willing to have central line, pressors, dialysis and noninvasive ventilator support if need. Surrogate decision maker: Years smoked: 1 Smoking status: Former smoker Tobacco type: cigarettes Smoking end date: 02/27/93 Alcohol intake: current Drinks per week: 0 Substance use: never Substance use type: does not use Do You Feel Safe in your Home?: Yes Lack of Transportation: No Lack of Food: Never True Current Housing: I Have Housing Concerned About Future Housing: No Difficulty Paying Gas/Electric Bills: No Difficulty Paying for Meds: No Currently Unemployed: No Education: Associate Degree Difficulty w/ Childcare or Family Care: No Living arrangements: with family Occupation/Education: retired Gender identity (if verbalized by the patient): Female Spiritual care concerns: No Meds Home Medications and Allergies Home Medications ?Medication ?Instructions ?Recorded ?Confirmed ?Type eszopiclone 3 mg tablet (Lunesta) 3 mg PO HS 04/28/23 06/19/24 History ezetimibe 10 mg tablet 10 mg PO DAILY 04/28/23 06/19/24 History folic acid 1 mg tablet 2 mg PO DAILY 04/28/23 06/19/24 History paroxetine HCl 20 mg tablet (Paxil) 20 mg PO HS 04/28/23 06/19/24 History ropinirole 0.25 mg tablet 0.25 mg PO HS 04/28/23 06/19/24 History lidocaine 5 % topical patch 1 patch transdermal DAILY PRN Pain 05/15/23 06/10/24 History tizanidine 4 mg tablet 1 mg (1/4 x 4 mg) PO BID PRN 05/16/23 06/10/24 Rx Muscle Spasm #30 tabs multivitamin 1 tablet PO DAILY 06/19/23 06/19/24 History ascorbic acid (vitamin C) 1,000 mg 1 g PO DAILY 05/23/24 06/19/24 History capsule cholecalciferol (vitamin D3) 125 125 mcg PO DAILY 05/23/24 06/19/24 History mcg (5,000 unit) capsule cyanocobalamin (vitamin B-12) 1,000 mcg subcut MONTHLY 05/23/24 06/19/24 History 1,000 mcg/mL injection solution diltiazem HCl 240 mg capsule,24 240 mg PO Q24H 05/23/24 06/19/24 History hr,extended release (Tiadylt ER) ferrous sulfate 325 mg (65 mg 325 mg PO DAILY 05/23/24 06/10/24 History iron) tablet (Feosol) hydrochlorothiazide 12.5 mg tablet 12.5 mg PO DAILY 05/23/24 06/19/24 History losartan 100 mg tablet 100 mg PO DAILY 05/23/24 06/19/24 History ondansetron HCl 4 mg tablet 4 mg PO Q8H PRN nausea and vomiting 05/23/24 06/10/24 History tramadol 50 mg tablet 50 mg PO Q8H PRN pain 05/23/24 06/10/24 History vitamin B comp and C no.3 15 mg-10 1 cap PO DAILY 05/23/24 06/19/24 History mg-50 mg-5 mg-300 mg capsule zinc-magnesium aspart-vit B6 10 See Rx Instructions PO .COMPLEX 05/23/24 06/19/24 History mg-150 mg-3.83 mg capsule Allergies Allergy/AdvReac Type Severity Reaction Status Date / Time bee venom protein (honey bee) Allergy Severe Difficulty Verified 06/19/24 08:19 Breathing, SWELLING MADELYN Inhibitors Allergy Unknown RASH Verified 06/19/24 08:19 vancomycin AdvReac Severe RASHAUN'S Verified 06/19/24 08:19 SYNDROME Exam Const: General: cooperative and healthy appearing Resp: Effort & Inspection: normal respiratory effort and able to speak in complete sentences Auscultation: clear to auscultation bilaterally Cardio: Rate: regular rate Rhythm: regular rhythm GI: Inspection: normal to inspection GI Palp: No No hepatosplenomegaly present Auscultation: normal bowel sounds Rectal Exam: deferred Skin: General skin exam: normal color Psych: Appearance: grossly normal Mental Status: mental status grossly normal Assessment and Plan Assessment and plan (1) Dyspepsia: Code(s): R10.13 - Epigastric pain Status: Acute Assessment and Plan: The patient is deemed a good candidate for the procedures. Consent signed. Will proceed. (2) Encounter for screening colonoscopy: Code(s): Z12.11 - Encounter for screening for malignant neoplasm of colon Status: Acute
[2024-06-19] MEDS: BENZOCAINE (*SP) 60 ML SPRAY CAN (HURRICAINE) 1 SPRAY MUCOUS MEM (09:44)
--- NOTE | 2024-06-19 09:55 | SUR.OPER ---
EGD [id number]. Colonoscopy start time 954.
[2024-06-19] MEDS: SIMETHICONE ORAL SUSPENSION 20 MG/0.3 ML 30 ML BOTTLE 0.6 ML IRRIGATION (10:10)
[2024-06-19 10:16] VITALS: BP 131/73; PULSE 82; RESP 20; O2SAT 99
[2024-06-19 10:26] VITALS: BP 128/81; PULSE 75; RESP 13; O2SAT 100
[2024-06-19 10:36] VITALS: BP 130/72; PULSE 80; RESP 16; O2SAT 100
== END 2024-06-19 10:44 | disposition home or self-care (01) ==
PROVIDERS: PCP Physician Assistant; Referring Provider Physician Assistant; Visit Provider Internal Medicine Gastroenterology
PROC: 0DJ08ZZ Inspection of Upper Intestinal Tract, Via Natural or Artificial Opening Endoscopic (ICD-10-PCS; CPT 45378; principal; 2024-06-19 09:30)
DX: Z12.11 Encounter for screening for malignant neoplasm of colon (principal); D12.2 Benign neoplasm of ascending colon; D12.3 Benign neoplasm of transverse colon; K21.9 Gastro-esophageal reflux disease without esophagitis; E78.5 Hyperlipidemia, unspecified; E03.9 Hypothyroidism, unspecified; K58.9 Irritable bowel syndrome, unspecified; F32.A Depression, unspecified; F41.9 Anxiety disorder, unspecified; I11.0 Hypertensive heart disease with heart failure; I50.9 Heart failure, unspecified; I48.0 Paroxysmal atrial fibrillation; E53.8 Deficiency of other specified B group vitamins; G89.29 Other chronic pain; M54.50 Low back pain, unspecified; G47.33 Obstructive sleep apnea (adult) (pediatric); R56.9 Unspecified convulsions; M79.7 Fibromyalgia; E66.9 Obesity, unspecified; Z68.34 Body mass index [BMI] 34.0-34.9, adult; Z79.891 Long term (current) use of opiate analgesic; Z98.890 Other specified postprocedural states; Z98.1 Arthrodesis status; Z90.49 Acquired absence of other specified parts of digestive tract; Z98.84 Bariatric surgery status; Z95.828 Presence of other vascular implants and grafts; Z87.891 Personal history of nicotine dependence; Z80.0 Family history of malignant neoplasm of digestive organs; Z80.1 Family history of malignant neoplasm of trachea, bronchus and lung; Z82.49 Family history of ischemic heart disease and other diseases of the circulatory system
CPT/HCPCS: 43239; 45385; 88305; J2003; J2704; J7120